=== PATIENT | female | born 1945 | race Caucasian/White ===

== ENCOUNTER 2016-06-15 06:36 | Inpatient (IN) | payer OTHER, MEDICARE ==
[2016-06-14 12:27] VITALS: BMI 34.0
[~2016-06-15 06:36] MED LIST: ceFAZolin SODIUM 1 GM VIAL IVPB ONE
[2016-06-15] MEDS ORDERED: SUCCINYLCHOLINE CHLORIDE 200 MG/10 ML VIAL ONE (07:43)
[2016-06-15] MEDS ORDERED: MIDAZOLAM HCL 2 MG/2 ML SINGLE DOSE VIAL ONE ×2 (07:43→08:35)
[2016-06-15] MEDS ORDERED: PROPOFOL 20 ML ONE ×2 (07:43)
[2016-06-15] MEDS ORDERED: LIDOCAINE HCL/PF 2% SDV 5ML VIAL ONE (07:47)
--- NOTE | 2016-06-15 08:14 | HP ---
History & Physical Update - History History: No Change - Physical Physical: No Change - Assessment Assessment: No Change - Plan Plan: No Change
[2016-06-15] MEDS ORDERED: IBUPROFEN 800 MG/8 ML IJ IVPB PRN (08:17)
[2016-06-15] MEDS ORDERED: ACETAMINOPHEN 1000 MG/100 ML VIAL (NON FORMULARY) IVPB ONE ×2 (08:18→09:41)
[2016-06-15] MEDS ORDERED: LEVOFLOXACIN 500 MG IVPB 100 ML IVPB ONE (08:19)
[2016-06-15] MEDS ORDERED: LEVOFLOXACIN 500 MG PREMIX BAG IVPB ONE (08:20)
[2016-06-15] MEDS ORDERED: DEXTROSE 5%-0.45% SALINE 1,000 ML IV SCH (08:30)
[2016-06-15] MEDS ORDERED: ROCURONIUM BROMIDE 50 MG/5 ML VIAL ONE (08:36)
[2016-06-15] MEDS ORDERED: ONDANSETRON 4 MG/2 ML VIAL IVPUSH PRN (08:53)
[2016-06-15] MEDS ORDERED: LACTATED RINGERS SOLUTION 1,000 ML IV SCH ×2 (09:00→17:00)
[2016-06-15] MEDS ORDERED: KETOROLAC TROMETHAMINE 30 MG/1 ML VIAL ONE (09:04)
[2016-06-15] MEDS ORDERED: DEXAMETHASONE SOD PHOSPHATE 4 MG/1 ML VIAL ONE (09:04)
[2016-06-15] MEDS ORDERED: HYDROmorphone HCL 2 MG TABLET PO PRN (09:29)
[2016-06-15] MEDS ORDERED: ACETAMINOPHEN INJECTION 100 ML IVPB ONE (09:41)
[2016-06-15] MEDS ORDERED: PIPERACILLIN/TAZOB 3.375 GM/50 ML PRE-DOCKED IVPB ONE ×2 (10:45→12:15)
[2016-06-15] MEDS: oxyCODONE HCL 5 MG TABLET PO PRN ×2 (15:35→20:02)
[2016-06-15] MEDS ORDERED: ERTAPENEM SODIUM 1 GM/50 ML PRE-DOCKED IVPB ONE (16:28)
--- NOTE | 2016-06-15 16:46 | HP ---
CHIEF COMPLAINT: S/P Left lithrotripsy for ureteral stone with stent placement PCP:Silverioer HISTORY OF PRESENT ILLNESS: 71F history of HTN HLD went to the OR today for left lithotripsy and placement of a stent due to a left upper ureteral stone. Patient has a history of ESBL asymptomatic UTI. Dr. Velasco wanted her admitted post-op for monitoring of fever/sepsis. She currently denies nausea vomiting chest pain or shortness of breath. She has no complaints and feel well at this time. Stent removed by Urologist per patient as it was "almost half way out" Recent Travel:Denies PAST MEDICAL HISTORY:HTN HLD PAST SURGICAL HISTORY:Shoulder Sx Back Sx Social History: Smoking:Denies Alcohol:Denies Drugs: Denies Family History: Allergies No Known Drug Allergies Allergy (Verified 06/15/16 07:23) HOME MEDICATIONS: Home Medications Medication Instructions Recorded Aspirin [Aspir 81] 81 mg PO DAILY 09/22/15 Pravastatin Sodium 10 mg PO HS 06/14/16 REVIEW OF SYSTEMS CONSTITUTIONAL: Absent: fever, chills, diaphoresis, generalized weakness, malaise, loss of appetite, weight change HEENT: Absent: rhinorrhea, nasal congestion, throat pain, throat swelling, difficulty swallowing, mouth swelling, ear pain, eye pain, visual changes CARDIOVASCULAR: Absent: chest pain, syncope, palpitations, irregular heart rate, lightheadedness , peripheral edema RESPIRATORY: Absent: cough, shortness of breath, dyspnea with exertion, orthopnea, wheezing, stridor, hemoptysis GASTROINTESTINAL: Absent: abdominal pain, abdominal distension, nausea, vomiting, diarrhea, constipation, melena, hematochezia GENITOURINARY: Absent: dysuria, frequency, urgency, hesitancy, hematuria, flank pain, genital pain MUSCULOSKELETAL: Absent: myalgia, arthralgia, joint swelling, back pain, neck pain SKIN: Absent: rash, itching, pallor HEMATOLOGIC/IMMUNOLOGIC: Absent: easy bleeding, easy bruising, lymphadenopathy, frequent infections ENDOCRINE: Absent: unexplained weight gain, unexplained weight loss, heat intolerance, cold intolerance NEUROLOGIC: Absent: headache, focal weakness or paresthesias, dizziness, unsteady gait, seizure, mental status changes, bladder or bowel incontinence PSYCHIATRIC: Absent: anxiety, depression, suicidal or homicidal ideation, hallucinations. PHYSICAL EXAMINATION Vital Signs - 24 hr 06/15/16 06/15/16 06/15/16 07:15 07:22 09:27 Temperature 98.0 F 97.5 F L Pulse Rate 56 L 50 L Respiratory 20 16 Rate Blood Pressure 156/72 157/64 O2 Sat by Pulse 99 100 Oximetry (%) 06/15/16 06/15/16 06/15/16 09:45 10:00 10:15 Temperature Pulse Rate 45 L 45 L 46 L Respiratory 16 16 16 Rate Blood Pressure 157/64 164/66 165/60 O2 Sat by Pulse 100 100 100 Oximetry (%) 06/15/16 06/15/16 06/15/16 10:30 10:45 11:00 Temperature Pulse Rate 48 L 48 L 48 L Respiratory 16 16 16 Rate Blood Pressure 161/60 153/60 154/60 O2 Sat by Pulse 100 100 100 Oximetry (%) 06/15/16 06/15/16 06/15/16 11:15 11:30 11:45 Temperature Pulse Rate 50 L 50 L 52 L Respiratory 16 16 16 Rate Blood Pressure 140/54 151/63 148/62 O2 Sat by Pulse 100 100 100 Oximetry (%) 06/15/16 06/15/16 06/15/16 12:00 12:15 12:30 Temperature 98.0 F Pulse Rate 52 L 54 L 56 L Respiratory 16 16 20 Rate Blood Pressure 146/60 148/64 143/71 O2 Sat by Pulse 100 Oximetry (%) 06/15/16 06/15/16 06/15/16 13:39 14:00 15:27 Temperature 97.8 F 97.7 F Pulse Rate 58 L 58 L 60 Respiratory 20 20 20 Rate Blood Pressure 145/70 110/68 129/89 O2 Sat by Pulse Oximetry (%) GENERAL: Awake, alert, and fully oriented, in no acute distress. HEAD: Normal with no signs of trauma. EARS, NOSE, THROAT: Moist mucous membranes. LUNGS: Breath sounds equal, clear to auscultation bilaterally HEART: Regular rate and rhythm, normal S1 and S2 3/6 systolic murmur with radiation to left carotid. aptient aware and states she has had it for years ABDOMEN: Soft, nontender, not distended, normoactive bowel sounds, no guarding, no rebound MUSCULOSKELETAL: No CVA tenderness. UPPER EXTREMITIES: No peripheral edema. LOWER EXTREMITIES: No peripheral edema. ASSESSMENT/PLAN: 71F with history of ESBL UTI last year presents with left upper ureteral obstruction stone s/p laser lithotripsy and placement of stent now stent removed. left ureteral stone with ESBL UTI in the past: admit to med/surg for post op monitoring of fever given Zosyn Will give Ertapenem 1gm daily trend vital signs discharge home tomorrow if remains afebrile pain control with oxycodone HTN: well controlled restart metoprolol XL 100mg po daily hold aspirin for now HLD: restart statin FEN: LR @ 75ml/hr no electrolyte issues regular diet PPx: SCDs/ambulate no criteria met for Gi PPx early ambulation discharge home tomorrow Visit type - Emergency Visit Emergency Visit: No - New Patient This patient is new to me today: Yes Date on this admission: 06/15/16 - Critical Care Critical Care patient: No
--- NOTE | 2016-06-15 16:48 | PN ---
Teaching Attending Note Name of Resident: Reg Fontaine ATTENDING PHYSICIAN STATEMENT I saw and evaluated the patient. I reviewed the resident's note and discussed the case with the resident. I agree with the resident's findings and plan as documented. Vital Signs Temperature 97.7 F 06/15/16 15:27 Pulse Rate 60 06/15/16 15:27 Respiratory Rate 20 06/15/16 15:27 Blood Pressure 129/89 06/15/16 15:27 O2 Sat by Pulse Oximetry (%) 100 06/15/16 12:00 Current Medications Generic Name Dose Route Start Last Admin Trade Name Freq PRN Reason Stop Dose Admin Dextrose/Sodium Chloride 1,000 mls @ 125 mls/hr 06/15/16 08:30 06/15/16 15:41 D5-1/2ns - IV 125 mls/hr ASDIR JUMANA Administration Ertapenem 1 gm/ Sodium 50 mls @ 100 mls/hr 06/15/16 16:45 Chloride IVPB DAILY JUMANA Ibuprofen 800 mg 06/15/16 08:17 Caldolor Injection - IVPB Q8H PRN PAIN OR FEVER Oxycodone HCl 5 mg 06/15/16 08:53 06/15/16 15:35 Roxicodone - PO 5 mg Q4H PRN Administration MILD PAIN Home Medications Medication Instructions Recorded Aspirin [Aspir 81] 81 mg PO DAILY 09/22/15 Pravastatin Sodium 10 mg PO HS 06/14/16 ASSESSMENT AND PLAN: 71F with history of ESBL UTI last year presents with left upper ureteral obstruction stone s/p laser lithotripsy and placement of stent now stent removed. # POD #0 s/p Lithtrepsy for left ureteral stone with hx of ESBL UTI in the past 5 months c/o having pain pain control with oxycodone #HTN: controlled continue home meds metoprolol XL 100mg po daily hold aspirin for now HLD: on statin DVT# Scd
--- NOTE | 2016-06-15 17:18 | PN ---
Progress Note (short form) - Note Progress Note: patient reported incontinence Stent was noted to be outside the urethra it was removed
[2016-06-15] MEDS ORDERED: PIPERACILLIN/TAZOB 3.375 GM/50 ML PRE-DOCKED IVPB SCH (18:00)
[2016-06-15] MEDS ORDERED: morphine CARPU-JECT 2 MG/1 ML DISP.SYRIN IVPUSH ONE (18:54)
[2016-06-15] MEDS: ERTAPENEM SODIUM 1 GM in SODIUM CHLORIDE 50 ML IVPB SCH (20:01)
[2016-06-15] MEDS ORDERED: ATORVASTATIN CA 10 MG TABLET (FP) PO SCH (22:00)
[2016-06-15] MEDS ORDERED: GABAPENTIN 300 MG CAPSULE (FP) PO SCH (22:00)
--- NOTE | 2016-06-16 05:50 | OP ---
DATE OF OPERATION: 06/15/2016 PREOPERATIVE DIAGNOSIS: Left hydronephrosis, left upper ureteral calculus. POSTOPERATIVE DIAGNOSIS: Left hydronephrosis, left upper ureteral calculus. PROCEDURE: Cystoscopy, left ureteroscopy, laser lithotripsy, stent placement, retrograde pyelogram. ANESTHESIA: General. PREOPERATIVE INDICATIONS: The patient is a 71-year-old female with incidentally found left hydronephrosis and upper ureteral stone. She comes to the OR for laser lithotripsy. DESCRIPTION OF PROCEDURE: The patient was brought to the OR, placed on the table in the supine position, given general anesthesia, and placed in the modified lithotomy position. The groin was prepped and draped sterilely. The patient had IV antibiotics. Time-out was performed. Cystoscopy was performed. The bladder appeared to be unremarkable. The urine appeared to be clear. The left UO was visualized, and a wire was passed up into the left kidney under fluoroscopic guidance. A 10-Icelandic dual-lumen catheter was placed into the left ureteral orifice without difficulty, and a 2nd wire was placed up into the kidney. Retrograde pyelogram was performed. Over one of the wires, a flexible ureteroscope was passed easily up into the upper ureter where the stone was visualized. Laser lithotripsy was performed. The entire stone was broken up into small, passable fragments. No other stones of significant size were seen throughout the urinary tract. Over the remaining wire, a 6 x 24 double-J ureteral stent was placed with 1 loop in the upper pole of the kidney and 1 loop in the bladder. The bladder was emptied. The patient was woken up. Oniel [id number]
[2016-06-16] MEDS ORDERED: METOPROLOL SUCCINATE 100 MG TAB.SR.24H (FP) PO SCH (07:00)
[2016-06-16 08:23] LABS: BASOPHIL 0.5 % (0-2.0); EOSINOPHIL 0.4 % (0-4.5); MCH 31.4 pg (25.7-33.7); MCHC 33.4 g/dl (32.0-36.0); MEAN CELL VOLUME 93.8 fl (80-96); MEAN PLT VOLUME 7.3 fl (7.5-11.1); PLATELET COUNT 252 K/MM3 (134-434); RDW 14.9 % (11.6-15.6); WHITE BLOOD COUNT 11.8 K/mm3 (4.0-10.0)
[2016-06-16 09:06] LABS: CALCIUM 9.5 mg/dL (8.5-10.1); CREATININE 0.9 mg/dL (0.55-1.02)
[2016-06-16] MEDS: ERTAPENEM SODIUM 1 GM in SODIUM CHLORIDE 50 ML IVPB SCH (09:43)
[2016-06-16] MEDS ORDERED: ERTAPENEM SODIUM 1 GM/50 ML PRE-DOCKED IVPB SCH (10:00)
[2016-06-16 11:05] VITALS: BP 139/59; PULSE 70; TEMP 97.7
--- NOTE | 2016-06-16 11:06 | PN ---
Progress Note (short form) - Note Progress Note: Comfortable with no acute distress Temperature 97.7 F 06/16/16 10:00 Pulse Rate 70 06/16/16 10:00 Respiratory Rate 21 06/16/16 10:00 Blood Pressure 139/59 06/16/16 10:00 O2 Sat by Pulse Oximetry (%) 100 06/15/16 17:17 GENERAL: Awake, alert, and fully oriented, in no acute distress. HEAD: Normal with no signs of trauma. EARS, NOSE, THROAT: Moist mucous membranes. LUNGS: Breath sounds equal, clear to auscultation bilaterally HEART: Regular rate and rhythm, normal S1 and S2 3/6 systolic murmur with radiation to left carotid. Abdomen: soft, nontender, not distended, normoactive bowel sounds, no guarding, no rebound MUSCULOSKELETAL: No CVA tenderness. EXTREMITIES: No peripheral edema. CBCD WBC 11.8 K/mm3 (4.0-10.0) H D 06/16/16 06:30 RBC 3.91 M/mm3 (3.60-5.2) 06/16/16 06:30 Hgb 12.3 GM/dL (10.7-15.3) 06/16/16 06:30 Hct 36.7 % (32.4-45.2) 06/16/16 06:30 MCV 93.8 fl (80-96) 06/16/16 06:30 MCHC 33.4 g/dl (32.0-36.0) 06/16/16 06:30 RDW 14.9 % (11.6-15.6) 06/16/16 06:30 Plt Count 252 K/MM3 (134-434) D 06/16/16 06:30 MPV 7.3 fl (7.5-11.1) L 06/16/16 06:30 CMP Sodium 142 mmol/L (136-145) 06/16/16 06:30 Potassium 4.4 mmol/L (3.5-5.1) 06/16/16 06:30 Chloride 107 mmol/L (98-107) 06/16/16 06:30 Carbon Dioxide 26 mmol/L (21-32) 06/16/16 06:30 Anion Gap 9 (8-16) 06/16/16 06:30 BUN 17 mg/dL (7-18) 06/16/16 06:30 Creatinine 0.9 mg/dL (0.55-1.02) 06/16/16 06:30 Random Glucose 88 mg/dL (74-106) 06/16/16 06:30 Calcium 9.5 mg/dL (8.5-10.1) 06/16/16 06:30 Current Medications Generic Name Dose Route Start Last Admin Trade Name Freq PRN Reason Stop Dose Admin Atorvastatin Calcium 10 mg 06/15/16 22:00 06/15/16 22:32 Lipitor - PO 10 mg HS JUMANA Administration Gabapentin 300 mg 06/15/16 22:00 06/15/16 22:32 Neurontin - PO 300 mg HS JUMANA Administration Ertapenem 1 gm/ Sodium 50 mls @ 100 mls/hr 06/15/16 16:45 06/16/16 09:43 Chloride IVPB 100 mls/hr DAILY JUMANA Administration Lactated Ringer's 1,000 mls @ 75 mls/hr 06/15/16 17:00 06/15/16 22:33 Lactated Ringers Solution IV 75 mls/hr ASDIR JUMANA Administration Ibuprofen 800 mg 06/15/16 08:17 Caldolor Injection - IVPB Q8H PRN PAIN OR FEVER Metoprolol Succinate 100 mg 06/16/16 07:00 06/16/16 06:09 Toprol Xl - PO 100 mg AM JUMANA Administration Oxycodone HCl 5 mg 06/15/16 08:53 06/15/16 20:02 Roxicodone - PO 5 mg Q4H PRN Administration MILD PAIN Home Medications Medication Instructions Recorded Aspirin [Aspir 81] 81 mg PO DAILY 09/22/15 Pravastatin Sodium 10 mg PO HS 06/14/16 Levofloxacin [Levaquin -] 500 mg PO DAILY #7 tablet 06/16/16 A/P: 71F with history of ESBL UTI last year presents with left upper ureteral obstruction stone s/p laser lithotripsy and placement of stent now stent removed. # POD #0 s/p Lithotrepsy for left ureteral stone with hx of ESBL UTI in the past 5 months # c/o having pain , pain control with oxycodone #HTN: controlled continue home meds metoprolol XL 100mg po daily, hold aspirin for now HLD: on statin DVT# Scd Visit type - Emergency Visit Emergency Visit: Yes ED Registration Date: 06/15/16 Care time: The patient presented to the Emergency Department on the above date and was hospitalized for further evaluation of their emergent condition. - New Patient This patient is new to me today: No - Critical Care Critical Care patient: No
--- NOTE | 2016-06-16 11:44 | PN ---
Progress Note (short form) - Note Progress Note: Anesthesiology Post-op POD #1 s/p Cystoscopy and laser lithotripsy under GA. Pt. feels well, denies pain, awaiting d/c to home today. VSS. No apparent anesthesia-related issues.
== END 2016-06-16 11:28 | disposition home or self-care (01) | DRG 669 ==
LOC: JASUSAT 06:36 → SUATTDRO 06:36 → JASU-SURG 06:36 → J6S 15:28
PROVIDERS: ADMIT Internal Medicine; ATTEND Internal Medicine
PROC: 0T778DZ Dilation of Left Ureter with Intraluminal Device, Via Natural or Artificial Opening Endoscopic (ICD-10-PCS; principal; 2016-06-15 08:00)
PROC: 0TC78ZZ Extirpation of Matter from Left Ureter, Via Natural or Artificial Opening Endoscopic (ICD-10-PCS; 2016-06-15 08:00)
PROC: BT1FYZZ Fluoroscopy of Left Kidney, Ureter and Bladder using Other Contrast (ICD-10-PCS; 2016-06-15 08:00)
DX: N13.2 Hydronephrosis with renal and ureteral calculous obstruction (principal); I10 Essential (primary) hypertension; E78.5 Hyperlipidemia, unspecified
CPT/HCPCS: 36415; 76000-TC; 80048; 80053; 81003; 81015; 85025; 85610; 85730; 87086; 94760

== ENCOUNTER 2016-06-19 08:03 | Day surgery (SDC) | payer OTHER, MEDICARE ==
[2016-06-18 12:21] VITALS: BMI 34.0
[~2016-06-19 08:03] MED LIST changes: +CYCLOPENTOLATE HCL 1% OPHTH SOLN 2 ML BOTTLE OD SCH; +FLURBIPROFEN 0.03% OPHTH SOLN 2.5 ML BOTTLE OD SCH; +GENTAMICIN SULFATE 0.3% OPHTHALMIC (EYE DROPS) 5ML BOTTLE OD SCH; +PHENYLEPHRINE 2.5% OPHTH SOLN 15 ML BOTTLE OD SCH; +TROPICAMIDE 1% OPHTH SOLN 15 ML BOTTLE OD SCH; -ceFAZolin SODIUM 1 GM VIAL IVPB ONE
[2016-06-19] MEDS: GENTAMICIN SULFATE 0.3% OPHTHALMIC (EYE DROPS) 5ML BOTTLE ONE ×5 (08:35→08:55)
[2016-06-19] MEDS: TROPICAMIDE 1% OPHTH SOLN 15 ML BOTTLE ONE ×5 (08:35→08:55)
[2016-06-19] MEDS: FLURBIPROFEN 0.03% OPHTH SOLN 2.5 ML BOTTLE ONE ×5 (08:35→08:55)
[2016-06-19] MEDS: CYCLOPENTOLATE HCL 1% OPHTH SOLN 2 ML BOTTLE ONE ×5 (08:35→08:55)
[2016-06-19] MEDS: PHENYLEPHRINE 2.5% OPHTH SOLN 15 ML BOTTLE ONE ×5 (08:35→08:55)
[2016-06-19] MEDS ORDERED: PROPOFOL 20 ML ONE (09:27)
[2016-06-19] MEDS ORDERED: MIDAZOLAM HCL 2 MG/2 ML SINGLE DOSE VIAL ONE (09:27)
[2016-06-19] MEDS ORDERED: LIDOCAINE HCL 2% JELLY 10 ML CARTRIDGE ONE (09:34)
[2016-06-19] MEDS ORDERED: LIDOCAINE HCL/PF 2% SDV 5ML VIAL ONE (09:34)
[2016-06-19] MEDS ORDERED: BUPIVACAINE HCL/PF 0.5% (5MG/ML) 10 ML VIAL ONE (09:34)
[2016-06-19] MEDS ORDERED: TETRACAINE 0.5% OPHTH SOLN 2 ML BOTTLE ONE (09:34)
[2016-06-19] MEDS ORDERED: ACETYLCHOLINE 1:100 INTRA-OCUL 20 MG/2 ML KIT ONE (09:34)
[2016-06-19] MEDS ORDERED: POVIDONE-IODINE 5% OPHTHALMIC PREP 30 ML SOLUTION ONE (09:34)
[2016-06-19] MEDS ORDERED: ACETAMINOPHEN 325 MG TABLET (FP) PO PRN ×2 (10:42→12:23)
[2016-06-19 11:30] VITALS: TEMP 98.6
[2016-06-19 11:34] VITALS: BP 128/58; PULSE 68
[2016-06-19] MEDS ORDERED: ONDANSETRON 4 MG/2 ML VIAL IVPUSH PRN (12:23)
[2016-06-19] MEDS ORDERED: LACTATED RINGERS SOLUTION 1,000 ML IV SCH (12:30)
--- NOTE | 2016-06-20 10:39 | OP ---
DATE OF OPERATION: 06/19/2016 PREOPERATIVE DIAGNOSIS: Cataract, right eye. POSTOPERATIVE DIAGNOSIS: Cataract, right eye. PROCEDURE: Cataract extraction via phacoemulsification with insertion of posterior chamber lens implant, right eye. SURGEON: Tor Elmore MD THERAPEUTIC STRATEGY LEAD: Leilani Bee MD ANESTHESIA: Regional with sedation. COMPLICATIONS: None. SPECIMENS: None. ESTIMATED BLOOD LOSS: None. DESCRIPTION OF PROCEDURE: The patient was identified in the holding area. After all risks, benefits, and alternatives were explained to the patient, informed consent was obtained. The right eye was marked with a marking pen. The patient then entered the operating room on an eye stretcher. After a formal time-out was performed, a 3-cc injection of equal parts of 2% lidocaine with epinephrine and 0.5% Marcaine was given around the right eye. The patient was then prepped and draped in the usual sterile fashion. An eyelid speculum was placed beneath the eyelids of the right eye. A superotemporal paracentesis incision was created using a 15-degree blade followed by a viscoelastic injection into the anterior chamber. A 2.4-mm keratome blade was then used to make an inferotemporal incision. A 360-degree continuous curvilinear capsulorrhexis was then created using bent cystotome and Utrata forceps. Hydrodissection was performed with balanced saline solution on a cannula. Phacoemulsification was introduced to disassemble and remove the nucleus in its entirety. Irrigation/aspiration was then used to remove any remaining cortical material from the eye. The capsular bag was then refilled using [employer]. An [employer] model [id number] with a power of 21.5 diopters, serial number [id number], was inspected and found to be defect-free and injected into the capsular bag. Irrigation/aspiration was then used to remove any remaining viscoelastic from the eye. Balanced saline solution was then used to reform the anterior chamber. Intracameral injections of Miochol and Miostat were then given to the right eye. All wounds were hydrated with balanced saline solution and found to be watertight. Topical antibiotic eye drops and ointment were given to the right eye. The eyelid speculum was removed from the right eye, the right eye was patched and shielded, and the patient tolerated the procedure well and left the operating room in stable condition to follow up in the eye clinic tomorrow morning at 9:00. TOR ELMORE M.D. ANGELIA/[id number]
== END 2016-06-19 11:25 | disposition home or self-care (01) ==
LOC: FASU 08:03
PROVIDERS: ATTEND Ophthalmology
PROC: 08RJ3JZ Replacement of Right Lens with Synthetic Substitute, Percutaneous Approach (ICD-10-PCS; principal; 2016-06-19 10:16)
DX: H26.8 Other specified cataract (principal)
CPT/HCPCS: 76775-TC; 76856-TC

== ENCOUNTER 2016-12-25 18:03 | Emergency (ER) | payer OTHER, MEDICARE ==
[2016-12-25 18:09] VITALS: BP 155/73; PULSE 59; TEMP 97.7; BMI 33.2
--- NOTE | 2016-12-25 19:42 | PDOC ---
History of Present Illness - General Chief Complaint: Bone Injury Stated Complaint: FALL/INJURY Time Seen by Provider: 12/25/16 19:32 History Source: Patient Exam Limitations: No Limitations - History of Present Illness Initial Comments: 12/25/16 19:36 Patient stumbled and fell one week ago outside falling onto the left side of her anterior chest wall. Is uncertain as to fell on rock or arm but has had significant pain to her lower left anterior chest wall and ribs since that time. Is uncertain as to bruising, but still has significant tenderness along the lower rib borders. Denies nausea vomiting, denies any dizziness or shortness of breath. Denies any other injury. Has used OxyContin which she is on a pain management program for cervical spine chronic pain issues Severity: reports: moderate Pain Location: reports: chest Method of Injury: Yes: direct blow, fall Modifying Factors: improves with: cold therapy, pain medication Loss of Consciousness: no loss of consciousness Associated Symptoms (Fall): denies symptoms Past History - Travel Traveled outside of the country in the last 30 days: No Close contact w/someone who was outside of country & ill: No - Past Medical History Allergies/Adverse Reactions: Allergies Allergy/AdvReac Type Severity Reaction Status Date / Time No Known Drug Allergies Allergy Verified 12/25/16 18:08 Home Medications: Ambulatory Orders Aspirin [Aspir 81] 81 mg PO DAILY 09/22/15 Pravastatin Sodium 10 mg PO HS 06/14/16 Levofloxacin [Levaquin -] 500 mg PO DAILY 06/18/16 Anemia: No Asthma: No Cancer: No Cardiac Disorders: No CVA: No COPD: No CHF: No Dementia: No Diabetes: No GI Disorders: No Disorders: Yes (L KIDNEY STONE 05/2016) HTN: No Hypercholesterolemia: Yes Liver Disease: No Seizures: No Thyroid Disease: No - Surgical History Abdominal Surgery: No Appendectomy: No Cardiac Surgery: No Cholecystectomy: No Lung Surgery: No Neurologic Surgery: Yes (BACK SURGERY 09/2015) Orthopedic Surgery: Yes (TORN MENISCUS, RIGHT) - Immunization History Immunization Up to Date: Yes - Suicide/Smoking/Psychosocial Hx Smoking History: Never smoked Have you smoked in the past 12 months: No If you are a former smoker, when did you quit?: 1960 Information on smoking cessation initiated: No Hx Alcohol Use: No Drug/Substance Use Hx: No Substance Use Type: None Hx Substance Use Treatment: No Trauma Specific PMHX - Complaint Specific PMHX Back Injury: No Neck Injury: No Review of Systems - Review of Systems Able to Perform ROS?: Yes Is the patient limited Swedish proficient: Yes Constitutional: Yes: Symptoms Reported HEENTM: No: Symptoms Reported Respiratory: Yes: Symptoms reported, See HPI. No: Cough : No: Symptoms Reported Integumentary: Yes: Symptoms Reported, See HPI, Bruising Neurological: No: Symptoms reported All Other Systems: Reviewed and Negative *Physical Exam - Vital Signs Last Vital Signs Temp Pulse Resp BP Pulse Ox 97.7 F 59 L 18 155/73 98 12/25/16 18:06 12/25/16 18:06 12/25/16 18:06 12/25/16 18:06 12/25/16 18:06 - Physical Exam General Appearance: Yes: Nourished, Appropriately Dressed, Apparent Distress, Mild Distress, Moderate Distress HEENT: positive: ZEKE, Normal ENT Inspection, Normal Voice, TMs Normal, Pharynx Normal Neck: positive: Supple. negative: Tender, Lymphadenopathy (R), Lymphadenopathy (L) Respiratory/Chest: positive: Lungs Clear Cardiovascular: positive: Regular Rate Musculoskeletal: positive: Normal Inspection. negative: Vertebral Tenderness Extremity: positive: Normal Capillary Refill, Normal Inspection, Normal Range of Motion Integumentary: positive: Normal Color, Swelling, Ecchymosis (muscles and swelling noted to the lower rib border mid clavicular line left side with point tenderness along ribs 11 and 10), Bruising Neurologic: positive: health psychologist II-XII NML intact, Fully Oriented, Alert, Normal Mood/ Affect, Normal Response, Motor Strength 5/5 ED Treatment Course - RADIOLOGY Radiology Studies Ordered: Category Date Time Status RIBS-LEFT SIDE [RAD] Stat Radiology 12/25/16 19:33 Ordered Progress Note - Progress Note Progress Note: left 10th rib fx, clinically correlates. - Met with 10 mg/325 mg Percocet tablets. Have continue using those medications for pain relief and encouraged follow-up this week with pain management to explore possible non-medicated treatment options *DC/Admit/Observation/Transfer Diagnosis at time of Disposition: Rib fractures Qualifiers: Encounter type: initial encounter Rib fracture type: single rib Fracture type: closed Laterality: left Qualified Code(s): S22.32XA - Fracture of one rib, left side, initial encounter for closed fracture; S22.32XA - Fracture of one rib, left side, initial encounter for closed fracture - Discharge Dispostion Disposition: HOME Condition at time of disposition: Stable Admit: No - Referrals Referrals: Gunnar Mcneill MD [Primary Care Provider] - Isaiah Tripp MD [Staff Physician] - - Patient Instructions Printed Discharge Instructions: DI for Rib Fracture Additional Instructions: Rest, ice to area on and off for 15 minutes 4-6 times a day Avoid heavy lifting or exercise until pain and swelling is resolved or until further directed Keep area highly elevated to reduce swelling Followup with pain management in one to 2 days if not improving, if significantly improved may wait one week for followup with PMD/ Pain Management May use ibuprofen 2-200 mg tablets every 6 hours as needed for pain Continue with stronger pain medications, 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
== END 2016-12-25 20:04 | disposition home or self-care (01) ==
LOC: JERFT 18:03
DX: S22.32XA Fracture of one rib, left side, initial encounter for closed fracture (principal); W19.XXXA Unspecified fall, initial encounter; Y93.9 Activity, unspecified; Y92.9 Unspecified place or not applicable
CPT/HCPCS: 71101-TC; 99281-25

== ENCOUNTER 2017-06-30 16:45 | Inpatient (IN) | payer OTHER, MEDICARE ==
[2017-06-30] MEDS ORDERED: SODIUM CHLORIDE 1,000 ML IV STA ×2 (17:12→23:00)
[2017-06-30] MEDS ORDERED: morphine CARPU-JECT 4 MG/1 ML DISP.SYRIN IVPUSH ONE (17:13)
--- NOTE | 2017-06-30 17:13 | PDOC ---
History of Present Illness - General History Source: Patient, Family Exam Limitations: No Limitations - History of Present Illness Initial Comments: The patient is a 72 year old female, accompanied with her daughter, with a significant past medical history of left kidney stone (05/2016) and HLD, who presents to the emergency department complaining of moderate lower left quadrant pain since 12pm. The patient reports driving to [place] when she felt sudden nausea and pain in her lower left quadrant shortly after. The patient describes the pain as constant, ranked 8/10 in severity. She states everything in her world felt off. She reports associated symptoms of chills and nausea. She reports her last bowel movement was normal this morning; however, afterwards she had the urge to pass stool, but was unable to. Of note, the patient is currently prescribed to take Oxycodone 5mg 3x a day for pain in her lower back and right knee, but most oftenly takes it once a day. The patient denies chest pain, shortness of breath, headache, and dizziness. Denies fevers, vomiting, diarrhea, and constipation. Denies dysuria, frequency, urgency, and hematuria. Allergies: NKDA Past surgical history: Lumbar and Cervical Spinal surgery (2015). Right knee replacement (03/2017). Cholecystectomy. Social history: Occasional alcohol use, 1 glass of wine per week. Former cigarette smoker (1959). No reported drug use. <Carmelina Paul - Last Filed: 06/30/17 17:44> <Ish Luong - Last Filed: 06/30/17 19:06> - General Chief Complaint: Pain, Acute Stated Complaint: LEFT LOWER ABD PAIN Time Seen by Provider: 06/30/17 16:52 Past History <Carmelina Paul - Last Filed: 06/30/17 17:44> - Past Medical History Anemia: No Asthma: No Cancer: No Cardiac Disorders: No CVA: No COPD: No CHF: No Dementia: No Diabetes: No GI Disorders: No (GALSTONE REMOVAL) Disorders: Yes (L KIDNEY STONE 05/2016) HTN: No Hypercholesterolemia: Yes Liver Disease: No Seizures: No Thyroid Disease: No - Surgical History Abdominal Surgery: No Appendectomy: No Cardiac Surgery: No Cholecystectomy: No Lung Surgery: No Neurologic Surgery: Yes (BACK SURGERY 09/2015) Orthopedic Surgery: Yes (TORN MENISCUS, RIGHT) - Immunization History Immunization Up to Date: Yes - Suicide/Smoking/Psychosocial Hx Smoking History: Never smoked Have you smoked in the past 12 months: No If you are a former smoker, when did you quit?: 1959 Information on smoking cessation initiated: No Hx Alcohol Use: No Drug/Substance Use Hx: No Substance Use Type: None Hx Substance Use Treatment: No <Ish Luong - Last Filed: 06/30/17 19:06> - Past Medical History Allergies/Adverse Reactions: Allergies Allergy/AdvReac Type Severity Reaction Status Date / Time No Known Drug Allergies Allergy Verified 12/25/16 18:08 Home Medications: Ambulatory Orders Celecoxib 200 mg PO ASDIR 12/25/16 oxyCODONE HCL [Roxicodone -] 5 mg PO Q6H 12/25/16 Famotidine [Pepcid] 40 mg PO DAILY 06/30/17 Review of Systems - Review of Systems Able to Perform ROS?: Yes Comments:: CONSTITUTIONAL:(+)Chills Absent: Fever, Diaphoresis, Generalized Weakness, Malaise, Loss of Appetite HEENT: Absent: Rhinorrhea, Nasal Congestion, Throat Pain, Throat Swelling, Difficulty Swallowing, Mouth Swelling, Ear Pain, Eye Pain, Visual Changes CARDIOVASCULAR: Absent: Chest Pain, Syncope, Palpitations, Irregular Heart Rate, Lightheadedness , Peripheral Edema RESPIRATORY: Absent: Cough, Shortness of Breath, SOB with Exertion, Orthopnea, Wheezing, Stridor, Hemoptysis GASTROINTESTINAL: (+)Lower left quadrant pain. Absent: Vomiting, Diarrhea, Constipation, Melena, Hematochezia GENITOURINARY: Absent: Dysuria, Frequency, Urgency, Hesitancy, Flank Pain, Genital Pain MUSCULOSKELETAL: Absent: Myalgia, Arthralgia, Joint Swelling, Back pain, Neck Pain SKIN: Absent: Rash, Itching, Pallor HEMATOLOGIC/IMMUNOLOGIC: Absent: Easy Bleeding, Easy Bruising, Lymphadenopathy, Frequent infections ENDOCRINE: Absent: Unexplained Weight Gain, Unexplained Weight Loss, Heat Intolerance, Cold Intolerance NEUROLOGIC: Absent: Headache, Focal Weakness, Paresthesias, Vertigo, Lightheadedness, Unsteady Gait, Seizure, Mental Status Changes, Incontinence PSYCHIATRIC: Absent: Anxiety, Depression <Carmelina Paul - Last Filed: 06/30/17 17:44> *Physical Exam - Vital Signs Last Vital Signs Temp Pulse Resp BP Pulse Ox 97.6 F 68 20 192/81 100 06/30/17 16:46 06/30/17 16:46 06/30/17 16:46 06/30/17 16:46 06/30/17 16:46 - Physical Exam Comments: GENERAL: The patient is awake, alert, and fully oriented, in no acute distress. HEAD: Normal with no signs of trauma. EYES: Pupils equal, round and reactive to light, extraocular movements intact, sclera anicteric, conjunctiva clear. ENT: Ears normal, nares patent, oropharynx clear without exudates. Moist mucous membranes. NECK: Normal range of motion, supple without lymphadenopathy, JVD, or masses. LUNGS: Breath sounds equal, clear to auscultation bilaterally. No wheezes, and no crackles. HEART: Regular rate and rhythm, normal S1 and S2 without murmur, rub or gallop. BACK: No CVA tenderness. No Flank tenderness. ABDOMEN: (+)Exquisite tenderness to palpation in lower left quadrant and left mid abdomen. Normoactive bowel sounds. No guarding, no rebound. No masses. EXTREMITIES: Normal range of motion, no edema. No clubbing or cyanosis. No cords , erythema, or tenderness. NEUROLOGICAL: Cranial nerves II through XII grossly intact. Normal speech, normal gait. PSYCH: Normal mood, normal affect. SKIN: Warm, Dry, normal turgor, no rashes or lesions noted. <Carmelina Paul - Last Filed: 06/30/17 17:44> - Vital Signs Last Vital Signs Temp Pulse Resp BP Pulse Ox 97.6 F 68 20 192/81 100 06/30/17 16:46 06/30/17 16:46 06/30/17 16:46 06/30/17 16:46 06/30/17 16:46 <Ish Luong - Last Filed: 06/30/17 19:06> ED Treatment Course - LABORATORY CBC & Chemistry Diagram: 06/30/17 17:33 06/30/17 17:33 - Medications Given in the ED: ED Medications Discontinued Medications Generic Name Dose Route Start Last Admin Trade Name Freq PRN Reason Stop Dose Admin Morphine Sulfate 4 mg 06/30/17 17:13 06/30/17 17:36 Morphine Injection - IVPUSH 06/30/17 17:14 4 mg ONCE ONE Administration Ondansetron HCl 4 mg 06/30/17 17:27 06/30/17 17:36 Zofran Injection IVPB 06/30/17 17:28 4 mg ONCE ONE Administration <Carmelina Paul - Last Filed: 06/30/17 17:44> - LABORATORY CBC & Chemistry Diagram: 06/30/17 17:33 06/30/17 17:33 - RADIOLOGY Radiology Studies Ordered: Category Date Time Status ABDOMEN & PELVIS CT WITH CONTR [CT] Stat CT Scan 06/30/17 17:11 Ordered <Ish Luong - Last Filed: 06/30/17 19:06> Medical Decision Making - Medical Decision Making 06/30/17 19:04 72-year-old female with history of kidney stones and diverticulosis presents complaining of left lower quadrant pain. Pain started today and was associated with nausea but no vomiting. On examination, there is significant tenderness in the left mid and lower abdomen. There is no guarding or rebound tenderness. Differential diagnosis includes diverticulitis versus kidney stone. Patient will have CT scan with IV contrast. Laboratory studies reviewed. White blood cell count is increased with increased neutrophils. CT scan has been performed and shows hydronephrosis on the left. Official CT scan reading is pending. Patient endorsed to Dr. Bañuelos pending official CT scan results and urinalysis. Patient will be admitted once results are available. <Ish Luong - Last Filed: 06/30/17 19:06> *DC/Admit/Observation/Transfer - Attestations Scribe Attestion: Documentation prepared by Carmelina Paul, acting as medical oncology physician for Ish Luong MD. <Carmelina Paul - Last Filed: 06/30/17 17:44> <Ish Luong - Last Filed: 06/30/17 19:06> Diagnosis at time of Disposition: Kidney stone on left side
[2017-06-30] MEDS ORDERED: morphine SULFATE 4 MG/ML VIAL ONE (17:21)
[2017-06-30] MEDS ORDERED: ONDANSETRON 4 MG/2 ML VIAL IVPB ONE (17:27)
[2017-06-30] MEDS ORDERED: ONDANSETRON 4 MG/2 ML VIAL ONE (17:28)
[2017-06-30 17:52] LABS: BASO % 2.7 % (0-2.0); EOS % 0.2 % (0-4.5); HEMATOCRIT 38.3 % (32.4-45.2); HEMOGLOBIN 12.8 GM/dl (10.7-15.3); LYMPH % 9.2 % (8-40); MCH 29.4 pg (25.7-33.7); MCHC 33.3 g/dl (32.0-36.0); MEAN CELL VOLUME 88.2 fl (80-96); MONO % 3.6 % (3.8-10.2); NEUT % 84.3 % (42.8-82.8); PLATELET COUNT 265 K/MM3 (134-434); RBC 4.34 M/mm3 (3.60-5.2); RDW 14.9 % (11.6-15.6); WHITE BLOOD COUNT 11.8 K/mm3 (4.0-10.8)
[2017-06-30 17:58] LABS: ALBUMIN 3.7 g/dl (3.5-5.0); ALK PHOS 82 U/L (32-92); ANION GAP 6 (8-16); BLOOD UREA NITROGEN 16 mg/dl (7-18); CALCIUM 9.4 mg/dl (8.4-10.2); CHLORIDE 106 mmol/L (98-107); CO2 25 mmol/L (22-28); CREATININE 1.1 mg/dl (0.6-1.3); GLUCOSE,RANDOM 133 mg/dl (74-106); POTASSIUM 4.3 mmol/L (3.5-5.1); SGOT/AST 32 U/L (10-42); SGPT/ALT 19 U/L (10-40); SODIUM 137 mmol/L (136-145); TOT PROT 7.2 g/dl (6.4-8.3)
[2017-06-30 19:01] LABS: BILIRUBIN,TOTAL < 0.5 mg/dl (0.2-1.0)
[2017-06-30] MEDS ORDERED: METOCLOPRAMIDE HCL INJECTION 10 MG/2 ML VIAL IVPUSH ONE (19:16)
--- NOTE | 2017-06-30 19:55 | PDOC ---
*Physical Exam - Vital Signs Last Vital Signs Temp Pulse Resp BP Pulse Ox 97.6 F 68 20 192/81 100 06/30/17 16:46 06/30/17 16:46 06/30/17 16:46 06/30/17 16:46 06/30/17 16:46 <Carmelina Paul - Last Filed: 06/30/17 20:02> - Vital Signs Last Vital Signs Temp Pulse Resp BP Pulse Ox 97.6 F 68 20 192/81 100 06/30/17 16:46 06/30/17 16:46 06/30/17 16:46 06/30/17 16:46 06/30/17 16:46 <Saeed Darden I - Last Filed: 06/30/17 21:15> ED Treatment Course - LABORATORY CBC & Chemistry Diagram: 06/30/17 17:33 06/30/17 17:33 - ADDITIONAL ORDERS Additional order review: Laboratory Results 06/30/17 17:33 Sodium 137 Potassium 4.3 Chloride 106 Carbon Dioxide 25 Anion Gap 6 L BUN 16 D Creatinine 1.1 D Creat Clearance w eGFR 48.69 Random Glucose 133 H D Calcium 9.4 Total Bilirubin < 0.5 D AST 32 D ALT 19 Alkaline Phosphatase 82 Total Protein 7.2 Albumin 3.7 06/30/17 17:33 RBC 4.34 MCV 88.2 MCHC 33.3 RDW 14.9 MPV 7.0 L Neutrophils % 84.3 H Lymphocytes % 9.2 Monocytes % 3.6 L Eosinophils % 0.2 Basophils % 2.7 H - Medications Given in the ED: ED Medications Discontinued Medications Generic Name Dose Route Start Last Admin Trade Name Freq PRN Reason Stop Dose Admin Sodium Chloride 1,000 mls @ 1,000 mls/hr 06/30/17 17:12 06/30/17 17:36 Normal Saline - IV 06/30/17 18:11 1,000 mls/hr ASDIR STA Administration Metoclopramide HCl 10 mg 06/30/17 19:16 06/30/17 19:20 Reglan Injection - IVPUSH 06/30/17 19:17 10 mg ONCE ONE Administration Morphine Sulfate 4 mg 06/30/17 17:13 06/30/17 17:36 Morphine Injection - IVPUSH 06/30/17 17:14 4 mg ONCE ONE Administration Ondansetron HCl 4 mg 06/30/17 17:27 06/30/17 17:36 Zofran Injection IVPB 06/30/17 17:28 4 mg ONCE ONE Administration <Carmelina Paul - Last Filed: 06/30/17 20:02> - LABORATORY CBC & Chemistry Diagram: 06/30/17 17:33 06/30/17 17:33 - ADDITIONAL ORDERS Additional order review: Laboratory Results 06/30/17 17:33 Sodium 137 Potassium 4.3 Chloride 106 Carbon Dioxide 25 Anion Gap 6 L BUN 16 D Creatinine 1.1 D Creat Clearance w eGFR 48.69 Random Glucose 133 H D Calcium 9.4 Total Bilirubin < 0.5 D AST 32 D ALT 19 Alkaline Phosphatase 82 Total Protein 7.2 Albumin 3.7 06/30/17 17:33 RBC 4.34 MCV 88.2 MCHC 33.3 RDW 14.9 MPV 7.0 L Neutrophils % 84.3 H Lymphocytes % 9.2 Monocytes % 3.6 L Eosinophils % 0.2 Basophils % 2.7 H - Medications Given in the ED: ED Medications Discontinued Medications Generic Name Dose Route Start Last Admin Trade Name Freq PRN Reason Stop Dose Admin Sodium Chloride 1,000 mls @ 1,000 mls/hr 06/30/17 17:12 06/30/17 17:36 Normal Saline - IV 06/30/17 18:11 1,000 mls/hr ASDIR STA Administration Metoclopramide HCl 10 mg 06/30/17 19:16 06/30/17 19:20 Reglan Injection - IVPUSH 06/30/17 19:17 10 mg ONCE ONE Administration Morphine Sulfate 4 mg 06/30/17 17:13 06/30/17 17:36 Morphine Injection - IVPUSH 06/30/17 17:14 4 mg ONCE ONE Administration Ondansetron HCl 4 mg 06/30/17 17:27 06/30/17 17:36 Zofran Injection IVPB 06/30/17 17:28 4 mg ONCE ONE Administration <Saeed Darden I - Last Filed: 06/30/17 21:15> Progress Note - Progress Note Progress Note: Care of this patient was transferred to al from Dr. Dietrich at 1900 hrs. This is a 72-year-old female who comes in with left flank left lower quadrant pain. Patient has a history of renal colic in the past Patient has a workup that shows a moderately elevated white count with a left shift. Patient has a CAT scan that is pending to rule out renal colic versus diverticulitis. Patient's CAT scan shows the following: Referring Physician: KARLA Jones Comments: Vivek Medina MD wrote on Jun 30, 2017 at 07:46 PM: Referring Physician: KARLA Jones Patient Name: TANNA LOVE THIS IS A PRELIMINARY REPORT FROM [facility] DATE OF SERVICE: 2017-06-30 18:24:52 IMAGES: 501 EXAM: CT abdomen/pelvis with contrast HISTORY: Left lower quadrant pain COMPARISON: None. FINDINGS: There is mild atelectasis noted in the lower lobes. There is hepatic steatosis and hepatomegaly. The gallbladder is mildly distended. Small stones or minimal dense sludge noted in the gallbladder. There is moderately extensive left hydronephrosis and left hydroureter. There is no obstructing 5 mm calculus noted in the distal left ureter. 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 There is a tiny air bubble noted in the left renal collecting system, possibly iatrogenic if there has been recent instrumentation? No AAA. There is sigmoid diverticulosis without obvious diverticulitis. Normal appendix Urinary bladder is minimally distended. There are no bladder calculi. THIS DOCUMENT HAS BEEN ELECTRONICALLY SIGNED Vivek Medina MD Assessment and plan: This is a 72-year-old female who comes in with left flank left lower quadrant pain. Patient's CAT scan shows moderate hydronephrosis and hydroureter with a marked amount of perinephric inflammatory changes. Patient has a low-grade temperature with a mildly elevated white count and left shift. Patient's urine is positive for infection. Patient will be admitted to an inpatient [facility] bed, antibiotics Zosyn were given, patient will be admitted to the hospitalist service. Signout given to the admitting hospitalist, who accepts the patient. Discussed plan with the patient family at bedside, Patient and family aware of the plan and agree. Patient is clinically unchanged and stable. <Saeed Darden I - Last Filed: 06/30/17 21:15> Medical Decision Making - Medical Decision Making Paged office of Dr. Concepcion at 19:55. <Carmelina Paul - Last Filed: 06/30/17 20:02> *DC/Admit/Observation/Transfer - Attestations Scribe Attestion: Documentation prepared by Carmelina Paul, acting as medical lead for Saeed Darden MD. <Carmelina Paul - Last Filed: 06/30/17 20:02> - Discharge Dispostion Admit: Yes <Saeed Darden I - Last Filed: 06/30/17 21:15> Diagnosis at time of Disposition: Kidney stone on left side, Hydronephrosis with infection
[2017-06-30] MEDS ORDERED: DEXTROSE 5%-0.45% SALINE 1,000 ML IV SCH (20:15)
--- NOTE | 2017-06-30 20:23 | HP ---
CHIEF COMPLAINT: Fever, Chills, Abdominal Pain, R-Knee Pain, Swelling PCP: Dr. Mcneill HISTORY OF PRESENT ILLNESS: 72 y/o woman with PMH of HTN, HLD, Renal Calculi. Who presents to the ED with LLQ pain, fever, chills x 1 day, R- knee pain and swelling x several days. Patient reports having sharp intermittent pain with nausea. Patient denies cough , SOB, N/V/D, dysuria. ER course was notable for: (1) CTAP- 5mm non-obstructing stone, +left hydronephrosis, sludge in GB, with stones, +diverticulosis (2) Sepsis Criteria met- T Max 104.5, WBC 11.8, Spo2 92%, LA 3.1 (3) UTI- +Nitrate, + Trace Christina Esterase, Mod bacteria, WBC 15-20 Recent Travel: None PAST MEDICAL HISTORY: See HPI PAST SURGICAL HISTORY: Gallstone removal R-TKR Lumbar Cervical Social History: Smoking: Never Alcohol: None Drugs: None Family History: Non-contributory Allergies No Known Drug Allergies Allergy (Verified 12/25/16 18:08) HOME MEDICATIONS: Home Medications Medication Instructions Recorded Celecoxib 200 mg PO ASDIR 12/25/16 oxyCODONE HCL [Roxicodone -] 5 mg PO Q6H 12/25/16 Famotidine [Pepcid] 40 mg PO DAILY 06/30/17 REVIEW OF SYSTEMS CONSTITUTIONAL: fever, chills Absent: diaphoresis, generalized weakness, malaise, loss of appetite, weight change HEENT: Absent: rhinorrhea, nasal congestion, throat pain, throat swelling, difficulty swallowing, mouth swelling, ear pain, eye pain, visual changes CARDIOVASCULAR: Absent: chest pain, syncope, palpitations, irregular heart rate, lightheadedness , peripheral edema RESPIRATORY: Absent: cough, shortness of breath, dyspnea with exertion, orthopnea, wheezing, stridor, hemoptysis GASTROINTESTINAL: abdominal pain, nausea Absent: abdominal distension, vomiting, diarrhea, constipation, melena, hematochezia GENITOURINARY: Absent: dysuria, frequency, urgency, hesitancy, hematuria, flank pain, genital pain MUSCULOSKELETAL: arthralgia, joint swelling Absent: myalgia, back pain, neck pain SKIN: Absent: rash, itching, pallor HEMATOLOGIC/IMMUNOLOGIC: Absent: easy bleeding, easy bruising, lymphadenopathy, frequent infections ENDOCRINE: Absent: unexplained weight gain, unexplained weight loss, heat intolerance, cold intolerance NEUROLOGIC: Absent: headache, focal weakness or paresthesias, dizziness, unsteady gait, seizure, mental status changes, bladder or bowel incontinence PSYCHIATRIC: Absent: anxiety, depression, suicidal or homicidal ideation, hallucinations. PHYSICAL EXAMINATION Vital Signs - 24 hr 06/30/17 16:46 Temperature 97.6 F Pulse Rate 68 Respiratory 20 Rate Blood Pressure 192/81 O2 Sat by Pulse 100 Oximetry (%) GENERAL: Lethargic, in mild distress. HEAD: Normal with no signs of trauma. EYES: Pupils equal, round and reactive to light, sclera anicteric, conjunctiva clear. No lid lag. EARS, NOSE, THROAT: Ears normal, nares patent, oropharynx clear without exudates. Dry mucous membranes. NECK: Normal range of motion, supple without lymphadenopathy, JVD, or masses. LUNGS: Breath sounds equal, clear to auscultation bilaterally. No wheezes, and no crackles. No accessory muscle use. HEART: Regular rate and rhythm, normal S1 and S2 without murmur, rub or gallop. ABDOMEN: LLQ tenderness, hypoactive bowel sounds, Soft not distended, no guarding, no rebound, no masses. No hepatomegaly or splenomegaly. MUSCULOSKELETAL: R- knee tenderness, swelling, warmth to palpation Normal range of motion at all joints. No bony deformities, No CVA tenderness. UPPER EXTREMITIES: 2+ pulses, warm, well-perfused. No cyanosis. No clubbing. No peripheral edema. LOWER EXTREMITIES: 2+ pulses, warm, well-perfused. No calf tenderness. No peripheral edema. NEUROLOGICAL: Cranial nerves II-XII intact. Normal speech. Gait not observed. PSYCHIATRIC: Cooperative. Some eye contact. Appropriate mood and affect. SKIN: Warm, dry, normal turgor, no rashes or lesions noted, normal capillary refill. Laboratory Results - last 24 hr 06/30/17 06/30/17 17:33 17:33 WBC 11.8 H D RBC 4.34 Hgb 12.8 Hct 38.3 MCV 88.2 MCH 29.4 MCHC 33.3 RDW 14.9 Plt Count 265 MPV 7.0 L Neutrophils % 84.3 H Lymphocytes % 9.2 Monocytes % 3.6 L Eosinophils % 0.2 Basophils % 2.7 H Sodium 137 Potassium 4.3 Chloride 106 Carbon Dioxide 25 Anion Gap 6 L BUN 16 D Creatinine 1.1 D Creat Clearance w eGFR 48.69 Random Glucose 133 H D Calcium 9.4 Total Bilirubin < 0.5 D AST 32 D ALT 19 Alkaline Phosphatase 82 Total Protein 7.2 Albumin 3.7 Referring Physician: KARLA Jones Comments: Vivek Medina MD wrote on Jun 30, 2017 at 07:46 PM: Referring Physician: KARLA Jones Patient Name: TANNA LOVE THIS IS A PRELIMINARY REPORT FROM [facility] DATE OF SERVICE: 2017-06-30 18:24:52 IMAGES: 501 EXAM: CT abdomen/pelvis with contrast HISTORY: Left lower quadrant pain COMPARISON: None. FINDINGS: There is mild atelectasis noted in the lower lobes. There is hepatic steatosis and hepatomegaly. The gallbladder is mildly distended. Small stones or minimal dense sludge noted in the gallbladder. There is moderately extensive left hydronephrosis and left hydroureter. There is no obstructing 5 mm calculus noted in the distal left ureter. 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 There is a tiny air bubble noted in the left renal collecting system, possibly iatrogenic if there has been recent instrumentation? No AAA. There is sigmoid diverticulosis without obvious diverticulitis. Normal appendix Urinary bladder is minimally distended. There are no bladder calculi. THIS DOCUMENT HAS BEEN ELECTRONICALLY SIGNED Vivek Medina MD ASSESSMENT/PLAN: This is a 72 y/o woman Admitted to ICU for Sepsis secondary to UTI, Nephrolithiasis, Hydronephrosis. Plan: 1. ID: Sepsis secondary to UTI - Cardiac monitoring - Criteria met: T Max 104.5, Spo2 92%, WBC 11.8, LA 3.1 - qSOFA 1 - Blood Cultures-pending - Urine Culture-pending - Zosyn given in ED, will add Vancomycin and continue - Appreciate ID consult - Appreciate Collar Closer Lockstitch consult - NS 1L fluid bolus given in ED - NS bolus 1L now 2/2 LA 3.1 - Maintain MAP > 60-65 mmHg - Repeat LA after fluid bolus - CBC, BMP in am 2. Urology: Nephrolithiasis Hydronephrosis - CTAP- See above - Zosyn given in ED, continue - Appreciate Urology consult - Appreciate ID consult - Flomax - Strain urine - IVF - Monitor CBC, BMP - Monitor vitals 3. Cardiology: Hypertension Hyperlipidemia - Hold all BP meds secondary to hypotension - Monitor BP - Maintain MAP > 60 - Monitor renal function - Continue statin - Monitor LFTs 4. Ortho: Right Knee Pain - s/p R-TKR - Possibly due to Effusion vs Septic Joint vs DVT - Appreciate Ortho consult - Wells Score 2 - Duplex of LE r/o DVT-pending - Tylenol prn - Elevate extremity 5. GI: Cholelithiasis - CTAP- see above - Continue Zosyn - Gallbladder US- r/o Cholangitis - Appreciate GI consult - Monitor vitals - Monitor CBC, BMP - Blood Cultures-pending - NPO - Continue IVF 6. FEN - D51/2NS@83ml/hr - Replete lytes prn - NPO 7. DVT ppx - SCDs - Heparin SQ Code Status: Full Code Dispo: Requires Inpatient Care Problem List - Problem (1) Sepsis Code(s): A41.9 - SEPSIS, UNSPECIFIED ORGANISM (2) Hydronephrosis with infection Code(s): N13.6 - PYONEPHROSIS (3) Kidney stone on left side Code(s): N20.0 - CALCULUS OF KIDNEY (4) Right knee pain Code(s): M25.561 - PAIN IN RIGHT KNEE (5) Cholelithiasis Code(s): K80.20 - CALCULUS OF GALLBLADDER W/O CHOLECYSTITIS W/O OBSTRUCTION (6) Hyperlipidemia Code(s): E78.5 - HYPERLIPIDEMIA, UNSPECIFIED (7) Hypertension Code(s): I10 - ESSENTIAL (PRIMARY) HYPERTENSION (8) DVT prophylaxis Code(s): WAN5010 - Visit type - Emergency Visit Emergency Visit: Yes ED Registration Date: 06/30/17 Care time: The patient presented to the Emergency Department on the above date and was hospitalized for further evaluation of their emergent condition. - New Patient This patient is new to me today: Yes Date on this admission: 06/30/17 - Critical Care Critical Care patient: Yes Total Critical Care Time (in minutes): 45 Critical Care Statement: The care of this patient involved high complexity decision making to prevent further life threatening deterioration of the patient 's condition and/or to evaluate & treat vital organ system(s) failure or risk of failure. Hospitalist Screening - Colonoscopy Questionnaire Colonoscopy Questionnaire: Colonoscopy Questionnaire - Patient: 50 - 75 years old and never had a screening colonoscopy: Unknown History of colon or rectal polyps, or CA: Unknown History of IBD, Crohn's disease or UC: Unknown History of abdominal radiation therapy as a child: Unknown - Relative: 1 with colon or rectal CA, or polyps at age 60 or younger: Unknown Colon or rectal CA diagnosed at age 45 or younger: Unknown Multiple relatives with colon or rectal CA: Unknown - Outcome: Screening Result: Negative Screen
[2017-06-30] MEDS ORDERED: PIPERACILLIN/TAZOBACTAM 3.375 GM VIAL IVPB ONE (20:32)
[2017-06-30 20:40] LABS: URINE APPEARANCE Clear; URINE BILIRUBIN Negative (NEGATIVE); URINE COLOR YELLOW; URINE GLUCOSE (UA) Negative (NEGATIVE); URINE KETONE Negative (NEGATIVE); URINE LEUK ESTERASE TRACE (NEGATIVE); URINE NITRITE Positive (NEGATIVE); URINE PROTEIN Negative (NEGATIVE); URINE UROBILINOGEN 0.2 (0.2-1.0)
[2017-06-30] MEDS ORDERED: ACETAMINOPHEN 1000 MG/100 ML VIAL (NON FORMULARY) IVPB ONE (20:43)
[2017-06-30] MEDS ORDERED: PIPERACIL/TAZOB 3.375 GM 3.375 GM/50 ML PREMIX IVPB ONE (20:45)
[2017-06-30 20:48] LABS: EPI CELLS FEW /HPF; URINE BACTERIA MODERATE /hpf (NEGATIVE); URINE WBC 15-20 (0-5)
[2017-06-30] MEDS ORDERED: ACETAMINOPHEN INJECTION 100 ML IVPB ONE (20:50)
[2017-06-30] MEDS ORDERED: ONDANSETRON 4 MG/2 ML VIAL IVPUSH PRN (21:12)
[2017-06-30 21:40] LABS: INR 1.08 (0.82-1.09); PROTHROMBIN TIME (PATIENT) 12.1 SEC (10.2-13.0)
[2017-06-30] MEDS ORDERED: HEPARIN NA (PORCINE) 5,000 UNITS/ML 1ML VIAL ONE (22:18)
[2017-06-30] MEDS: HEPARIN NA (PORCINE) 5,000 UNITS/ML 1ML VIAL SQ SCH (22:22)
[2017-07-01 01:52] VITALS: BMI 34.8
[2017-07-01] MEDS ORDERED: PIPERACIL/TAZOB 3.375 GM 3.375 GM/50 ML PREMIX IVPB SCH (02:00)
[2017-07-01] MEDS ORDERED: PIPERACILLIN/TAZOB 3.375 GM 3.375 GM/50 ML BAG IVPB SCH (02:00)
[2017-07-01] MEDS ORDERED: PIPERACILLIN/TAZOB 3.375 GM 3.375 GM in DEXTROSE 5%-WATER - 50 ML IVPB SCH (02:15)
[2017-07-01] MEDS ORDERED: PIPERACILLIN/TAZOBACTAM 3.375 GM VIAL IVPB ONE (02:17)
[2017-07-01] MEDS ORDERED: DEXTROSE 5%-WATER - 50 ML IVPB ONE (02:17)
[2017-07-01] MEDS: morphine SULFATE 4 MG/ML VIAL IVPUSH PRN (03:03)
[2017-07-01] MEDS ORDERED: ACETAMINOPHEN 1000 MG/100 ML VIAL (NON FORMULARY) IVPB ONE ×2 (03:30→13:30)
[2017-07-01] MEDS ORDERED: VANCOMYCIN 1,000 MG in DEXTROSE 5%-WATER - 250 ML IVPB ONE (04:30)
--- NOTE | 2017-07-01 04:48 | CONSULT ---
Consult Consult Specialty:: Pulmonary Critical Care Reason for Consultation:: Sepsis - History of Present Illness Chief Complaint: LLL abdominal pain History of Present Illness: 72 yo female with h/o kidney stones who presented to [place] ER on 06/30 c/o LLQ abdominal pain as well as nausea. Labs notable for leukocytosis (WBC 11), UA with +leuk esterase and WBC, lactate of 3 (subsequently down to 1). CT scan showed L hydronephrosis as well as nephrolithiasis. In ED febrile to 104. Was given 1L of fluids and started on zosyn. Admitted to ICU for relative hypotension (BP 105/50) and concern for impending decompensation. On arrival to the ICU pt's BP 118/54, HR 76, Temp 100.5, SpO2 98%. Current Medications Chlorhexidine Gluconate (Hibiclens For Decolonization -) 1 applic TP HS [facility] Heparin Sodium (Porcine) (Heparin -) 5,000 unit SQ TID [facility] Last Admin: 06/30/17 22:22 Dose: 5,000 unit Dextrose/Sodium Chloride (D5-1/2ns -) 1,000 mls @ 83 mls/hr IV ASDIR [facility] Last Admin: 06/30/17 22:07 Dose: 83 mls/hr Piperacillin Sod/Tazobactam (Sod 3.375 gm/ Dextrose) 50 mls @ 100 mls/hr IVPB Q8H-IV [facility] Stop: 07/01/17 10:29 Last Admin: 07/01/17 02:20 Dose: 100 mls/hr Vancomycin HCl 1,000 mg/ (Dextrose) 250 mls @ 250 mls/hr IVPB ONCE ONE PRN Reason: Protocol Stop: 07/01/17 05:29 Last Admin: 07/01/17 04:34 Dose: 250 mls/hr Morphine Sulfate (Morphine Sulfate) 4 mg IVPUSH Q6H PRN PRN Reason: PAIN LEVEL 6-10 Last Admin: 07/01/17 03:03 Dose: 4 mg Mupirocin (Bactroban Ointment (For Decolonization) -) 1 applic NS BID [facility] Stop: 07/06/17 09:59 Ondansetron HCl (Zofran Injection) 4 mg IVPUSH Q6H PRN PRN Reason: NAUSEA AND/OR VOMITING Piperacillin/Tazobactam/Dextrose (Zosyn 3.375gm Ivpb (Premix)) 3.375 gm IVPB Q8H-IV [facility] - Past Medical History 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: Other (spinal stenosis) Cardio/Vascular: Yes: Other (PSVT) ...: No Psych: Yes: Anxiety Musculoskeletal: Yes: Chronic low back pain - Alcohol/Substance Use Hx Alcohol Use: No - Smoking History Smoking history: Never smoked Have you smoked in the past 12 months: No If you are a former smoker, when did you quit?: 1959 - Social History Usual Living Arrangement: With Spouse ADL: Independent History of Recent Travel: No Home Medications - Allergies Allergies/Adverse Reactions: Allergies Allergy/AdvReac Type Severity Reaction Status Date / Time No Known Drug Allergies Allergy Verified 12/25/16 18:08 - Home Medications Home Medications: Ambulatory Orders Celecoxib 200 mg PO ASDIR 12/25/16 oxyCODONE HCL [Roxicodone -] 5 mg PO Q6H 12/25/16 Famotidine [Pepcid] 40 mg PO DAILY 06/30/17 Physical Exam Vital Signs: Vital Signs Temperature 102.3 F H 07/01/17 04:00 Pulse Rate 93 H 07/01/17 04:00 Respiratory Rate 20 07/01/17 04:00 Blood Pressure 128/51 07/01/17 04:00 O2 Sat by Pulse Oximetry (%) 96 07/01/17 01:10 Constitutional: Yes: Well Nourished Eyes: Yes: WNL Cardiovascular: Yes: Regular Rate and Rhythm Respiratory: Yes: CTA Bilaterally Gastrointestinal: Yes: Normal Bowel Sounds, Soft. No: Tenderness Extremities: Yes: WNL Edema: No Peripheral Pulses WNL: Yes Neurological: Yes: WNL Labs: CBC, BMP 06/30/17 17:33 06/30/17 17:33 Laboratory Results - last 24 hr 06/30/17 06/30/17 06/30/17 17:33 17:33 20:34 WBC 11.8 H D RBC 4.34 Hgb 12.8 Hct 38.3 MCV 88.2 MCH 29.4 MCHC 33.3 RDW 14.9 Plt Count 265 MPV 7.0 L Neutrophils % 84.3 H Lymphocytes % 9.2 Monocytes % 3.6 L Eosinophils % 0.2 Basophils % 2.7 H PT with INR INR Sodium 137 Potassium 4.3 Chloride 106 Carbon Dioxide 25 Anion Gap 6 L BUN 16 D Creatinine 1.1 D Creat Clearance w eGFR 48.69 Random Glucose 133 H D Lactic Acid Calcium 9.4 Total Bilirubin < 0.5 D AST 32 D ALT 19 Alkaline Phosphatase 82 Total Protein 7.2 Albumin 3.7 Urine Color Yellow Urine Appearance Clear Urine pH 7.0 Ur Specific [place] 1.015 Urine Protein Negative Urine Glucose (UA) Negative Urine Ketones Negative Urine Blood 2+ H Urine Nitrite Positive Urine Bilirubin Negative Urine Urobilinogen 0.2 Ur Leukocyte Esterase Trace H Urine RBC 5-10 Urine WBC 15-20 Ur Epithelial Cells Few Urine Bacteria Moderate Blood Type Antibody Screen Antibody Identification Antigen Identification 06/30/17 06/30/17 06/30/17 21:00 21:20 21:20 WBC RBC Hgb Hct MCV MCH MCHC RDW Plt Count MPV Neutrophils % Lymphocytes % Monocytes % Eosinophils % Basophils % PT with INR 12.1 INR 1.08 Sodium Potassium Chloride Carbon Dioxide Anion Gap BUN Creatinine Creat Clearance w eGFR Random Glucose Lactic Acid 3.1 H* Calcium Total Bilirubin AST ALT Alkaline Phosphatase Total Protein Albumin Urine Color Urine Appearance Urine pH Ur Specific [place] Urine Protein Urine Glucose (UA) Urine Ketones Urine Blood Urine Nitrite Urine Bilirubin Urine Urobilinogen Ur Leukocyte Esterase Urine RBC Urine WBC Ur Epithelial Cells Urine Bacteria Blood Type O POSITIVE Antibody Screen Positive H Antibody Identification No Result Required. Antigen Identification No Result Required. 07/01/17 00:05 WBC RBC Hgb Hct MCV MCH MCHC RDW Plt Count MPV Neutrophils % Lymphocytes % Monocytes % Eosinophils % Basophils % PT with INR INR Sodium Potassium Chloride Carbon Dioxide Anion Gap BUN Creatinine Creat Clearance w eGFR Random Glucose Lactic Acid 1.7 Calcium Total Bilirubin AST ALT Alkaline Phosphatase Total Protein Albumin Urine Color Urine Appearance Urine pH Ur Specific [place] Urine Protein Urine Glucose (UA) Urine Ketones Urine Blood Urine Nitrite Urine Bilirubin Urine Urobilinogen Ur Leukocyte Esterase Urine RBC Urine WBC Ur Epithelial Cells Urine Bacteria Blood Type Antibody Screen Antibody Identification Antigen Identification Problem List - Problems (1) Hydronephrosis with infection Code(s): N13.6 - PYONEPHROSIS (2) Kidney stone on left side Code(s): N20.0 - CALCULUS OF KIDNEY (3) Sepsis Code(s): A41.9 - SEPSIS, UNSPECIFIED ORGANISM Assessment/Plan Sepsis 2/2 UTI L hydronephrosis and nephrolithiasis Elevated lactate, now resolved -f/u cultures -cont Zosyn -fluids -pain management -antiemetics -wean off supplemental O2 -monitor SCr and UO -SubQ heparin -no indication for GI ppx -NO indication for ICU, transfer to floor [facility] Critical Care time: 35 min
[2017-07-01] MEDS ORDERED: SODIUM CHLORIDE 1,000 ML IV SCH (05:00)
[2017-07-01] MEDS: HEPARIN NA (PORCINE) 5,000 UNITS/ML 1ML VIAL SQ SCH ×3 (05:40→23:02)
[2017-07-01 06:25] LABS: BASO % 0.2 % (0-2.0); HEMATOCRIT 31.3 % (32.4-45.2); HEMOGLOBIN 10.7 GM/dL (10.7-15.3); LYMPH % 11.4 % (8-40); MCH 30.7 pg (25.7-33.7); MCHC 34.3 g/dl (32.0-36.0); MEAN CELL VOLUME 89.3 fl (80-96); MEAN PLT VOLUME 7.1 fl (7.5-11.1); NEUT % 87.4 % (42.8-82.8); PLATELET COUNT 179 K/MM3 (134-434); RDW 15.9 % (11.6-15.6); WHITE BLOOD COUNT 6.8 K/mm3 (4.0-10.0)
[2017-07-01 06:57] LABS: ANION GAP 5 (8-16); BLOOD UREA NITROGEN 18 mg/dL (7-18); CALCIUM 7.5 mg/dL (8.5-10.1); CHLORIDE 111 mmol/L (98-107); CO2 24 mmol/L (21-32); CREATININE 1.5 mg/dL (0.55-1.02); GLUCOSE,RANDOM 131 mg/dL (74-106); POTASSIUM 3.6 mmol/L (3.5-5.1); SODIUM 140 mmol/L (136-145)
--- NOTE | 2017-07-01 07:59 | CONSULT ---
Consultation: REQUESTING PROVIDER: CONSULT REQUEST: We have been asked to medically evaluate this patient for UTI and ? knee infx. HISTORY OF PRESENT ILLNESS: Pt is a 72 y/o F with PMH Renal stones (last year), ESBL UTI, and R total knee who presented to ED with L abdominal pain, knee pain, and shaking chills beginning yesterday morning at nondenominational. Pt states her abdominal pain was L sided, dull, aching, and nonradiating. Denies pain/difficulty urinating, blood in urine. No radiation of pain to the back. She states this pain does not feel the same as her last kidney stone. Pt states knee pain is not new but was worse yesterday. Her knee has been hurting since before her total knee replacement last November. In ED, pt wsa found to be septic with fever, leukocytosis, and lactic acidosis and UTI. CTAP showed L hydronephrosis, nonobstructing distal L ureteral stone, and left perinephric stranding likely 2/2 urinoma, an air bubble in L renal collecting system (? 2/2 instrumentation), and divirticulitis. Pt was given Vanc /Zosyn Anaerobic BCx bottle pos for gram neg caitlyn. At this time, pt feels much better. She feels drowsy. Denies pain at this time. No other complaints. REVIEW OF SYSTEMS: CONSTITUTIONAL: fever, chills, diaphoresis Absent: , generalized weakness, malaise, loss of appetite, weight change HEENT: Absent: rhinorrhea, nasal congestion, throat pain, throat swelling, difficulty swallowing, mouth swelling, ear pain, eye pain, visual changes CARDIOVASCULAR: Absent: chest pain, syncope, palpitations, irregular heart rate, lightheadedness , peripheral edema RESPIRATORY: Absent: cough, shortness of breath, dyspnea with exertion, orthopnea, wheezing, stridor, hemoptysis GASTROINTESTINAL:abdominal pain, nausea Absent: , abdominal distension, , vomiting, diarrhea, constipation, melena, hematochezia GENITOURINARY: Absent: dysuria, frequency, urgency, hesitancy, hematuria, flank pain, genital pain MUSCULOSKELETAL: Absent: myalgia, arthralgia, joint swelling, back pain, neck pain SKIN: Absent: rash, itching, pallor HEMATOLOGIC/IMMUNOLOGIC: Absent: easy bleeding, easy bruising, lymphadenopathy, frequent infections ENDOCRINE: Absent: unexplained weight gain, unexplained weight loss, heat intolerance, cold intolerance NEUROLOGIC: Absent: headache, focal weakness or paresthesias, dizziness, unsteady gait, seizure, mental status changes, bladder or bowel incontinence PSYCHIATRIC: Absent: anxiety, depression, suicidal or homicidal ideation, hallucinations. PHYSICAL EXAMINATION Vital Signs - 24 hr 06/30/17 06/30/17 06/30/17 16:46 20:56 21:16 Temperature 97.6 F 99.1 F 104.5 F H Pulse Rate 68 Pulse Rate [ 86 Left] Respiratory 20 Rate Blood Pressure 192/81 Blood Pressure 135/86 [Right Arm] O2 Sat by Pulse 100 97 Oximetry (%) 06/30/17 06/30/17 06/30/17 22:23 22:47 23:30 Temperature 102.2 F H Pulse Rate Pulse Rate [ 76 78 Left] Respiratory 18 15 Rate Blood Pressure Blood Pressure 105/50 118/60 [Right Arm] O2 Sat by Pulse 92 L 97 Oximetry (%) 07/01/17 07/01/17 07/01/17 01:10 02:00 03:30 Temperature 99.5 F 100 F H 101.1 F H Pulse Rate 80 77 89 Pulse Rate [ Left] Respiratory 20 21 20 Rate Blood Pressure 118/55 113/48 145/58 Blood Pressure [Right Arm] O2 Sat by Pulse 95 Oximetry (%) 07/01/17 07/01/17 04:00 06:00 Temperature 102.3 F H 101 F H Pulse Rate 93 H 79 Pulse Rate [ Left] Respiratory 20 20 Rate Blood Pressure 128/51 99/49 Blood Pressure [Right Arm] O2 Sat by Pulse Oximetry (%) GENERAL: Awake, mildly drowsy, and fully oriented, in no acute distress. HEAD: Normal with no signs of trauma. EYES: extraocular movements intact, sclera anicteric, conjunctiva clear. No lid lag. EARS, NOSE, THROAT: oropharynx clear without exudates. Moist mucous membranes. NECK: Normal range of motion, supple without lymphadenopathy, JVD, or masses. LUNGS: Breath sounds equal, clear to auscultation bilaterally. No wheezes, and no crackles. No accessory muscle use. HEART: Regular rate and rhythm, normal S1 and S2. 2/6 systolic murmur at LUSB, no rub or gallop. ABDOMEN: no flank tenderness. Soft, nontender, not distended, normoactive bowel sounds, no guarding, no rebound, no masses. No hepatomegaly or splenomegaly. MUSCULOSKELETAL: Normal range of motion at all joints. No bony deformities or tenderness. No CVA tenderness. UPPER EXTREMITIES: 2+ pulses, warm, well-perfused. No cyanosis. No clubbing. Cap refill <2 seconds. No peripheral edema. LOWER EXTREMITIES: R knee without erythema or swelling. Point tenderness at medial aspect of tibial plateau. 2+ pulses, warm, well-perfused. No calf tenderness. No peripheral edema. NEUROLOGICAL: Cranial nerves II-XII intact. Normal speech. PSYCHIATRIC: Cooperative. Good eye contact. Appropriate mood and affect. SKIN: Warm, dry, normal turgor, no rashes or lesions noted. Laboratory Results - last 24 hr 06/30/17 06/30/17 06/30/17 17:33 17:33 20:34 WBC 11.8 H D RBC 4.34 Hgb 12.8 Hct 38.3 MCV 88.2 MCH 29.4 MCHC 33.3 RDW 14.9 Plt Count 265 MPV 7.0 L Neutrophils % 84.3 H Lymphocytes % 9.2 Monocytes % 3.6 L Eosinophils % 0.2 Basophils % 2.7 H PT with INR INR Sodium 137 Potassium 4.3 Chloride 106 Carbon Dioxide 25 Anion Gap 6 L BUN 16 D Creatinine 1.1 D Creat Clearance w eGFR 48.69 Random Glucose 133 H D Lactic Acid Calcium 9.4 Total Bilirubin < 0.5 D AST 32 D ALT 19 Alkaline Phosphatase 82 Total Protein 7.2 Albumin 3.7 Urine Color Yellow Urine Appearance Clear Urine pH 7.0 Ur Specific [place] 1.015 Urine Protein Negative Urine Glucose (UA) Negative Urine Ketones Negative Urine Blood 2+ H Urine Nitrite Positive Urine Bilirubin Negative Urine Urobilinogen 0.2 Ur Leukocyte Esterase Trace H Urine RBC 5-10 Urine WBC 15-20 Ur Epithelial Cells Few Urine Bacteria Moderate Blood Type Antibody Screen Antibody Identification Antigen Identification 06/30/17 06/30/17 06/30/17 21:00 21:20 21:20 WBC RBC Hgb Hct MCV MCH MCHC RDW Plt Count MPV Neutrophils % Lymphocytes % Monocytes % Eosinophils % Basophils % PT with INR 12.1 INR 1.08 Sodium Potassium Chloride Carbon Dioxide Anion Gap BUN Creatinine Creat Clearance w eGFR Random Glucose Lactic Acid 3.1 H* Calcium Total Bilirubin AST ALT Alkaline Phosphatase Total Protein Albumin Urine Color Urine Appearance Urine pH Ur Specific [place] Urine Protein Urine Glucose (UA) Urine Ketones Urine Blood Urine Nitrite Urine Bilirubin Urine Urobilinogen Ur Leukocyte Esterase Urine RBC Urine WBC Ur Epithelial Cells Urine Bacteria Blood Type O POSITIVE Antibody Screen Positive H Antibody Identification No Result Required. Antigen Identification No Result Required. 07/01/17 07/01/17 07/01/17 00:05 05:50 05:50 WBC 6.8 D RBC 3.50 L Hgb 10.7 D Hct 31.3 L MCV 89.3 MCH 30.7 MCHC 34.3 RDW 15.9 H Plt Count 179 D MPV 7.1 L Neutrophils % 87.4 H D Lymphocytes % 11.4 D Monocytes % 1.0 L D Eosinophils % 0.0 D Basophils % 0.2 PT with INR INR Sodium 140 Potassium 3.6 Chloride 111 H Carbon Dioxide 24 Anion Gap 5 L BUN 18 Creatinine 1.5 H Creat Clearance w eGFR Random Glucose 131 H Lactic Acid 1.7 Calcium 7.5 L Total Bilirubin AST ALT Alkaline Phosphatase Total Protein Albumin Urine Color Urine Appearance Urine pH Ur Specific [place] Urine Protein Urine Glucose (UA) Urine Ketones Urine Blood Urine Nitrite Urine Bilirubin Urine Urobilinogen Ur Leukocyte Esterase Urine RBC Urine WBC Ur Epithelial Cells Urine Bacteria Blood Type Antibody Screen Antibody Identification Antigen Identification Active Medications Generic Name Dose Route Start Last Admin Trade Name Freq PRN Reason Stop Dose Admin Chlorhexidine Gluconate 1 applic 07/01/17 22:00 Hibiclens For Decolonization - TP HS [facility]NA Heparin Sodium (Porcine) 5,000 unit 06/30/17 22:00 07/01/17 05:40 Heparin - SQ 5,000 unit TID [facility]NA Administration Piperacillin Sod/Tazobactam 50 mls @ 100 mls/hr 07/01/17 02:15 07/01/17 02:20 Sod 3.375 gm/ Dextrose IVPB 07/01/17 10:29 100 mls/hr Q8H-IV [facility] Administration Sodium Chloride 1,000 mls @ 100 mls/hr 07/01/17 05:00 07/01/17 04:57 Normal Saline - IV 100 mls/hr ASDIR [facility]NA Administration Morphine Sulfate 4 mg 06/30/17 20:49 07/01/17 03:03 Morphine Sulfate IVPUSH 4 mg Q6H PRN Administration PAIN LEVEL 6-10 Mupirocin 1 applic 07/01/17 10:00 Bactroban Ointment (For Decolonization) - NS 07/06/17 09:59 BID [facility]NA Ondansetron HCl 4 mg 06/30/17 21:12 Zofran Injection IVPUSH Q6H PRN NAUSEA AND/OR VOMITING Piperacillin/Tazobactam/Dextrose 3.375 gm 07/01/17 02:00 Zosyn 3.375gm Ivpb (Premix) IVPB Q8H-IV [facility] ASSESSMENT/PLAN: Pt is a 72 y/o lady with PMH renal stones, ESBL UTI, R knee arthroplasty who presented with sepsis 2/2 UTI and L hydronephrosis with identified L ureteral nonobstructing stone. Pt is currently stable #Sepsis 2/2 UTI -Pt continues to have fevers -Pain is controlled -WBC resolved 11.8 -> 6.8 -Lactic Acid 3.1 -> 1.7 -UA: nitrites, trace LE, 20 WBC, moderate caitlyn -BCx pos for anaerobic gram neg caitlyn -UCx pending -on Vanc/Zosyn. Switch to Meropenem 1 gm BID #Nephrolithiasis/Hydronephrosis -nonobstructing stone on CTAP and L hydronephrosis -on Vanc/Zosyn. switch to Meropenem 1 gm BID -Urology on board Ish Evangelista MD PGY-1 ID Dispo: We will continue to follow the patient. Thank you for this consultative opportunity. Visit type - Emergency Visit Emergency Visit: No - New Patient This patient is new to me today: Yes Date on this admission: 07/02/17 - Critical Care Critical Care patient: No
--- NOTE | 2017-07-01 08:13 | PN ---
Teaching Attending Note Name of Resident: Ish Evangelista ATTENDING PHYSICIAN STATEMENT I saw and evaluated the patient. I reviewed the resident's note and discussed the case with the resident. I agree with the resident's findings and plan as documented. 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 06/30/17 21:05 Blood - Peripheral Venous Blood Culture - Preliminary Pending Organism 06/30/17 21:05 Blood - Peripheral Venous Blood Culture - Preliminary Pending Organism Laboratory Tests 07/13/15 06/30/17 06/30/17 15:00 17:33 20:34 WBC 12.0 H D Hgb Hct BUN Creatinine Lactic Acid AST 32 D ALT 19 Alkaline Phosphatase 82 Ur Leukocyte Esterase Trace H Urine Bacteria Moderate 06/30/17 07/01/17 07/01/17 21:00 00:05 05:50 WBC 6.8 D Hgb 10.7 D Hct 31.3 L BUN Creatinine Lactic Acid 3.1 H* 1.7 AST ALT Alkaline Phosphatase Ur Leukocyte Esterase Urine Bacteria 07/01/17 05:50 WBC Hgb Hct BUN 18 Creatinine 1.5 H Lactic Acid AST ALT Alkaline Phosphatase Ur Leukocyte Esterase Urine Bacteria Assessment Sepsis syndrome UTI History of MDRO ESBL Kidney stone left Plan Await blood culture reports Isolate for drug resistant organism Urology consultation Meropenem 1 gram bid Critical care time spent 40 minutes Chris MANLEY Problem List - Problems (1) Calculus of left kidney Code(s): N20.0 - CALCULUS OF KIDNEY (2) Sepsis Code(s): A41.9 - SEPSIS, UNSPECIFIED ORGANISM (3) Gram-negative bacteremia Code(s): R78.81 - BACTEREMIA (4) Infection with multi-drug resistant microorganisms Code(s): Z16.35 - RESISTANCE TO MULTIPLE ANTIMICROBIAL DRUGS
[2017-07-01] MEDS ORDERED: PT OWN MED DRAWER 7, Y5N ONE ×2 (09:56→23:09)
[2017-07-01] MEDS: MEROPENEM 1 GM in DEXTROSE 5%-WATER - 100 ML IVPB SCH ×2 (10:53→23:10)
[2017-07-01] MEDS: MUPIROCIN 2% TOPICAL OINTMENT FOR DECOLONIZATION NS SCH ×2 (10:57→23:04)
--- NOTE | 2017-07-01 11:43 | CONSULT ---
Consult - text type - Consultation Consultation Note: Asked to eval this 72F with PMH HTN/HLD/Renal calculi admitted for UTI sepsis for right knee swelling and pain. Has a history of TKR done in March and significant pain since the surgery. Dmitry recent trauma or significant worsening of her chronic knee pain. PMH: as above Meds: reveiwed in chart, currently on IV Zosyn All: NKDA FH: n/c SH: no cig/etoh/ivda ROS: positive for high fevers, abdominal pain. No recent weight loss. PE: Tmax 101 awake, alert, cooperative, follows commands. Affect appropriate. Breathing comfortably Abdomen soft Right knee exam: well healed knee incision, minimal swelling, no direct tenderness to palpation. No redness/induration. PROM to 90 without significant pain. No clear instability. Otherwise b/l UE/LE exam neuro intact, distal pulses 2+ bilaterally Imaging: dopplers negative for DVT Labs: WBC 11 Imp: Right knee s/p TKR with chronic pain -under sterile preop tapped small amount of bloody synovial fluid. No purulence in the knee. Not enough for cell count but fluid sent for cultures -doubt septic knee given benign exam, chronic history of pain without recent worsening, as well as the presence of obvious source for fever -on empiric antibiotic treatment for sepsis -will follow clinical exam and culture results -no indication for acute intervention in terms of the knee
[2017-07-01] MEDS ORDERED: SODIUM CHLORIDE 500 ML IV STA (11:53)
--- NOTE | 2017-07-01 12:13 | CON.GI ---
Consult Consult Specialty:: GI Reason for Consultation:: distended GB on CT - History of Present Illness History of Present Illness: chart reviewed. Events noted. per initial intake: 72 yo female with h/o kidney stones who presented to [facility] on 06/30 c/o LLQ abdominal pain as well as nausea. Labs notable for leukocytosis (WBC 11), UA with +leuk esterase and WBC, lactate of 3 ( subsequently down to 1). CT scan showed L hydronephrosis as well as nephrolithiasis. In ED febrile to 104. Was given 1L of fluids and started on zosyn. Admitted to ICU for relative hypotension (BP 105/50) and concern for impending decompensation. On arrival to the ICU pt's BP 118/54, HR 76, Temp 100.5, SpO2 98%. CT also reported distended GB with sludge however the liver chemistry has been normal on admission and today. There is no history of pancreatico-biliary issues , jaundice, nausea, vomiting, hematemesis, dysphagia, odynophagia, altered bowels, pencil-thin, or ribbon-like stools. Denies melena, hematochezia, weight loss. 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: Other (spinal stenosis) Cardio/Vascular: Yes: Other (PSVT) ...: No Psych: Yes: Anxiety Musculoskeletal: Yes: Chronic low back pain - Alcohol/Substance Use Hx Alcohol Use: No - Smoking History Smoking history: Never smoked Have you smoked in the past 12 months: No If you are a former smoker, when did you quit?: 1960 - Social History Usual Living Arrangement: With Spouse ADL: Independent History of Recent Travel: No Home Medications - Allergies Allergies/Adverse Reactions: Allergies Allergy/AdvReac Type Severity Reaction Status Date / Time No Known Drug Allergies Allergy Verified 12/25/16 18:08 - Home Medications Home Medications: Ambulatory Orders Celecoxib 200 mg PO ASDIR 12/25/16 oxyCODONE HCL [Roxicodone -] 5 mg PO Q6H 12/25/16 Famotidine [Pepcid] 40 mg PO DAILY 06/30/17 Family Disease History - Family Disease History Family History: Unremarkable Review of Systems Findings/Remarks: as per HPI, H&P Physical Exam-GI Vital Signs: Vital Signs Temperature 98.4 F 07/01/17 12:00 Pulse Rate 84 07/01/17 12:00 Respiratory Rate 17 07/01/17 12:00 Blood Pressure 117/54 07/01/17 12:00 O2 Sat by Pulse Oximetry (%) 94 L 07/01/17 09:00 Constitutional: Yes: Mild Distress Eyes: No: Sclera Icterus HENT: Yes: Atraumatic Neck: Yes: Supple Cardiovascular: No: Bradycardia, Tachycardia Respiratory: Yes: Regular Gastrointestinal Inspection: No: Ascites, Distention ...Palpate: Yes: Soft, Tenderness. No: Firm/Rigid, Guarding Neurological: Yes: Alert, Lethargy Labs: CBC, BMP 07/01/17 05:50 07/01/17 05:50 INR, PTT INR 1.08 (0.82-1.09) 06/30/17 21:20 Laboratory Tests 06/30/17 06/30/17 06/30/17 17:33 17:33 20:34 WBC 11.8 H D RBC 4.34 Hgb 12.8 Hct 38.3 MCV 88.2 MCH 29.4 MCHC 33.3 RDW 14.9 Plt Count 265 MPV 7.0 L Neutrophils % 84.3 H Lymphocytes % 9.2 Monocytes % 3.6 L Eosinophils % 0.2 Basophils % 2.7 H PT with INR INR Sodium 137 Potassium 4.3 Chloride 106 Carbon Dioxide 25 Anion Gap 6 L BUN 16 D Creatinine 1.1 D Creat Clearance w eGFR 48.69 Random Glucose 133 H D Lactic Acid Calcium 9.4 Total Bilirubin < 0.5 D AST 32 D ALT 19 Alkaline Phosphatase 82 Total Protein 7.2 Albumin 3.7 Urine Color Yellow Urine Appearance Clear Urine pH 7.0 Ur Specific [place] 1.015 Urine Protein Negative Urine Glucose (UA) Negative Urine Ketones Negative Urine Blood 2+ H Urine Nitrite Positive Urine Bilirubin Negative Urine Urobilinogen 0.2 Ur Leukocyte Esterase Trace H Urine RBC 5-10 Urine WBC 15-20 Ur Epithelial Cells Few Urine Bacteria Moderate Blood Type Antibody Screen Antibody Identification Antigen Identification 06/30/17 06/30/17 06/30/17 21:00 21:20 21:20 WBC RBC Hgb Hct MCV MCH MCHC RDW Plt Count MPV Neutrophils % Lymphocytes % Monocytes % Eosinophils % Basophils % PT with INR 12.1 INR 1.08 Sodium Potassium Chloride Carbon Dioxide Anion Gap BUN Creatinine Creat Clearance w eGFR Random Glucose Lactic Acid 3.1 H* Calcium Total Bilirubin AST ALT Alkaline Phosphatase Total Protein Albumin Urine Color Urine Appearance Urine pH Ur Specific [place] Urine Protein Urine Glucose (UA) Urine Ketones Urine Blood Urine Nitrite Urine Bilirubin Urine Urobilinogen Ur Leukocyte Esterase Urine RBC Urine WBC Ur Epithelial Cells Urine Bacteria Blood Type O POSITIVE Antibody Screen Positive H Antibody Identification COLD AGGLUTININ Antigen Identification No Result Required. 07/01/17 07/01/17 07/01/17 00:05 05:50 05:50 WBC 6.8 D RBC 3.50 L Hgb 10.7 D Hct 31.3 L MCV 89.3 MCH 30.7 MCHC 34.3 RDW 15.9 H Plt Count 179 D MPV 7.1 L Neutrophils % 87.4 H D Lymphocytes % 11.4 D Monocytes % 1.0 L D Eosinophils % 0.0 D Basophils % 0.2 PT with INR INR Sodium 140 Potassium 3.6 Chloride 111 H Carbon Dioxide 24 Anion Gap 5 L BUN 18 Creatinine 1.5 H Creat Clearance w eGFR Random Glucose 131 H Lactic Acid 1.7 Calcium 7.5 L Total Bilirubin AST ALT Alkaline Phosphatase Total Protein Albumin Urine Color Urine Appearance Urine pH Ur Specific [place] Urine Protein Urine Glucose (UA) Urine Ketones Urine Blood Urine Nitrite Urine Bilirubin Urine Urobilinogen Ur Leukocyte Esterase Urine RBC Urine WBC Ur Epithelial Cells Urine Bacteria Blood Type Antibody Screen Antibody Identification Antigen Identification Imaging - Results Cat Scan: Report Reviewed Problem List - Problems (1) Cholelithiasis Code(s): K80.20 - CALCULUS OF GALLBLADDER W/O CHOLECYSTITIS W/O OBSTRUCTION Assessment/Plan Cholelithiasis with biliary sludge, w/o cholcystitis, choledioclolithiasis, or pancreatitis. Urosepsis requiring ICU level of care. Continue the care as per ICU team. No signs of acute hepato-biliary issues at this time. Will continue to monitor closely.
--- NOTE | 2017-07-01 12:32 | EKG ---
Test Reason : Blood Pressure : / mmHG Vent. Rate : 084 BPM Atrial Rate : 084 BPM P-R Int : 160 ms QRS Dur : 074 ms QT Int : 352 ms P-R-T Axes : 044 032 047 degrees QTc Int : 415 ms NORMAL SINUS RHYTHM POSSIBLE LEFT ATRIAL ENLARGEMENT BORDERLINE ECG WHEN COMPARED WITH ECG OF 13-JUL-2015 14:01, NO SIGNIFICANT CHANGE WAS FOUND Confirmed by AVI CORDERO MD ([id number]) on 07/01/2017 12:32:29 PM Referred By: RACHEL CHEATHAM Confirmed By:AVI CORDERO MD
[2017-07-01] MEDS ORDERED: RAPID SEQUENCE INTUBATION KIT NR ONE (12:50)
[2017-07-01] MEDS ORDERED: MIDAZOLAM HCL 5 MG/1 ML Single Dose Vial ONE (12:53)
--- NOTE | 2017-07-01 13:02 | CONSULT ---
Consultation: REQUESTING PROVIDER: CONSULT REQUEST: We have been asked to medically evaluate this patient for severe sepsis vs. septic shock. HISTORY OF PRESENT ILLNESS: 72F w/ hx of nephrolithiasis s/p ESWL (most recently around a year ago), right TKR, HTN, and HLD who presented with acute LLQ abdominal pain, nausea, fever, chills, and acute on chronic right knee pain, found to have evidence of severe sepsis 2/2 UTI in addition to a left-sided 5mm obstructing kidney stone with resulting hydroureter, hydronephrosis, and perinephric stranding. Pt denies headache, chest pain, SOB, cough, back pain, dysuria, increased urinary frequency, emesis, diarrhea, and constipation. In the ED, pt given NS, vanc, zosyn, APAP for fevers, and morphine for pain control. REVIEW OF SYSTEMS: CONSTITUTIONAL: Absent: diaphoresis, generalized weakness, malaise, loss of appetite, weight change present: fever, chills, HEENT: Absent: rhinorrhea, nasal congestion, throat pain, throat swelling, difficulty swallowing, mouth swelling, ear pain, eye pain, visual changes CARDIOVASCULAR: Absent: chest pain, syncope, palpitations, irregular heart rate, lightheadedness , peripheral edema RESPIRATORY: Absent: cough, shortness of breath, dyspnea with exertion, orthopnea, wheezing, stridor, hemoptysis GASTROINTESTINAL: Absent: abdominal distension, vomiting, diarrhea, constipation, melena, hematochezia present: abdominal pain, nausea GENITOURINARY: Absent: dysuria, frequency, urgency, hesitancy, hematuria, flank pain, genital pain MUSCULOSKELETAL: Absent: myalgia, arthralgia, joint swelling, back pain, neck pain SKIN: Absent: rash, itching, pallor HEMATOLOGIC/IMMUNOLOGIC: Absent: easy bleeding, easy bruising, lymphadenopathy, frequent infections ENDOCRINE: Absent: unexplained weight gain, unexplained weight loss, heat intolerance, cold intolerance NEUROLOGIC: Absent: headache, focal weakness or paresthesias, dizziness, unsteady gait, seizure, mental status changes, bladder or bowel incontinence PSYCHIATRIC: Absent: anxiety, depression, suicidal or homicidal ideation, hallucinations. PHYSICAL EXAMINATION Vital Signs - 24 hr 06/30/17 06/30/17 06/30/17 16:46 20:56 21:16 Temperature 97.6 F 99.1 F 104.5 F H Pulse Rate 68 Pulse Rate [ 86 Left] Respiratory 20 Rate Blood Pressure 192/81 Blood Pressure 135/86 [Right Arm] O2 Sat by Pulse 100 97 Oximetry (%) 06/30/17 06/30/17 06/30/17 22:23 22:47 23:30 Temperature 102.2 F H Pulse Rate Pulse Rate [ 76 78 Left] Respiratory 18 15 Rate Blood Pressure Blood Pressure 105/50 118/60 [Right Arm] O2 Sat by Pulse 92 L 97 Oximetry (%) 07/01/17 07/01/17 07/01/17 01:10 02:00 03:30 Temperature 99.5 F 100 F H 101.1 F H Pulse Rate 80 77 89 Pulse Rate [ Left] Respiratory 20 21 20 Rate Blood Pressure 118/55 113/48 145/58 Blood Pressure [Right Arm] O2 Sat by Pulse 95 Oximetry (%) 07/01/17 07/01/17 07/01/17 04:00 06:00 08:00 Temperature 102.3 F H 101 F H 100.6 F H Pulse Rate 93 H 79 80 Pulse Rate [ Left] Respiratory 20 20 15 Rate Blood Pressure 128/51 99/49 93/44 Blood Pressure [Right Arm] O2 Sat by Pulse Oximetry (%) 07/01/17 07/01/17 07/01/17 09:00 10:00 12:00 Temperature 98.4 F 98.4 F Pulse Rate 81 84 Pulse Rate [ Left] Respiratory 20 14 17 Rate Blood Pressure 101/46 117/54 Blood Pressure [Right Arm] O2 Sat by Pulse 94 L Oximetry (%) GENERAL: elderly female, lying in bed, lethargic, in minimal distress, AAOx3, speaking slowly HEENT: dry mucous membranes LUNGS: CTAB HEART: Regular rate and rhythm, normal S1 and S2 without murmur, rub or gallop. ABDOMEN: hypoactive BS, soft, minimally tender in all four quadrants, no peritoneal signs BACK: no CVA tenderness MUSCULOSKELETAL: right knee has equal warmth compared to left knee, no erythema , no significant swelling, mild point tenderness along medial aspect. NEUROLOGICAL: Cranial nerves II-XII intact Laboratory Results - last 24 hr 06/30/17 06/30/17 06/30/17 17:33 17:33 20:34 WBC 11.8 H D RBC 4.34 Hgb 12.8 Hct 38.3 MCV 88.2 MCH 29.4 MCHC 33.3 RDW 14.9 Plt Count 265 MPV 7.0 L Neutrophils % 84.3 H Lymphocytes % 9.2 Monocytes % 3.6 L Eosinophils % 0.2 Basophils % 2.7 H PT with INR INR Sodium 137 Potassium 4.3 Chloride 106 Carbon Dioxide 25 Anion Gap 6 L BUN 16 D Creatinine 1.1 D Creat Clearance w eGFR 48.69 Random Glucose 133 H D Lactic Acid Calcium 9.4 Total Bilirubin < 0.5 D AST 32 D ALT 19 Alkaline Phosphatase 82 Total Protein 7.2 Albumin 3.7 Urine Color Yellow Urine Appearance Clear Urine pH 7.0 Ur Specific [place] 1.015 Urine Protein Negative Urine Glucose (UA) Negative Urine Ketones Negative Urine Blood 2+ H Urine Nitrite Positive Urine Bilirubin Negative Urine Urobilinogen 0.2 Ur Leukocyte Esterase Trace H Urine RBC 5-10 Urine WBC 15-20 Ur Epithelial Cells Few Urine Bacteria Moderate Blood Type Antibody Screen Antibody Identification Antigen Identification 06/30/17 06/30/17 06/30/17 21:00 21:20 21:20 WBC RBC Hgb Hct MCV MCH MCHC RDW Plt Count MPV Neutrophils % Lymphocytes % Monocytes % Eosinophils % Basophils % PT with INR 12.1 INR 1.08 Sodium Potassium Chloride Carbon Dioxide Anion Gap BUN Creatinine Creat Clearance w eGFR Random Glucose Lactic Acid 3.1 H* Calcium Total Bilirubin AST ALT Alkaline Phosphatase Total Protein Albumin Urine Color Urine Appearance Urine pH Ur Specific [place] Urine Protein Urine Glucose (UA) Urine Ketones Urine Blood Urine Nitrite Urine Bilirubin Urine Urobilinogen Ur Leukocyte Esterase Urine RBC Urine WBC Ur Epithelial Cells Urine Bacteria Blood Type O POSITIVE Antibody Screen Positive H Antibody Identification COLD AGGLUTININ Antigen Identification No Result Required. 07/01/17 07/01/17 07/01/17 00:05 05:50 05:50 WBC 6.8 D RBC 3.50 L Hgb 10.7 D Hct 31.3 L MCV 89.3 MCH 30.7 MCHC 34.3 RDW 15.9 H Plt Count 179 D MPV 7.1 L Neutrophils % 87.4 H D Lymphocytes % 11.4 D Monocytes % 1.0 L D Eosinophils % 0.0 D Basophils % 0.2 PT with INR INR Sodium 140 Potassium 3.6 Chloride 111 H Carbon Dioxide 24 Anion Gap 5 L BUN 18 Creatinine 1.5 H Creat Clearance w eGFR Random Glucose 131 H Lactic Acid 1.7 Calcium 7.5 L Total Bilirubin AST ALT Alkaline Phosphatase Total Protein Albumin Urine Color Urine Appearance Urine pH Ur Specific [place] Urine Protein Urine Glucose (UA) Urine Ketones Urine Blood Urine Nitrite Urine Bilirubin Urine Urobilinogen Ur Leukocyte Esterase Urine RBC Urine WBC Ur Epithelial Cells Urine Bacteria Blood Type Antibody Screen Antibody Identification Antigen Identification Active Medications Generic Name Dose Route Start Last Admin Trade Name Freq PRN Reason Stop Dose Admin Acetaminophen 1,000 mg 07/01/17 12:40 Ofirmev Injection - IVPB 07/01/17 12:41 ONCE ONE Chlorhexidine Gluconate 1 applic 07/01/17 22:00 Hibiclens For Decolonization - TP HS JUMANA Heparin Sodium (Porcine) 5,000 unit 06/30/17 22:00 07/01/17 05:40 Heparin - SQ 5,000 unit TID JUMANA Administration Sodium Chloride 1,000 mls @ 100 mls/hr 07/01/17 05:00 07/01/17 04:57 Normal Saline - IV 100 mls/hr ASDIR JUMANA Administration Meropenem 1 gm/ Dextrose 100 mls @ 100 mls/hr 07/01/17 10:00 07/01/17 10:53 IVPB 100 mls/hr BID JUMANA Administration Protocol Morphine Sulfate 4 mg 06/30/17 20:49 07/01/17 03:03 Morphine Sulfate IVPUSH 4 mg Q6H PRN Administration PAIN LEVEL 6-10 Mupirocin 1 applic 07/01/17 10:00 07/01/17 10:57 Bactroban Ointment (For Decolonization) - NS 07/06/17 09:59 1 applic BID JUMANA Administration Ondansetron HCl 4 mg 06/30/17 21:12 Zofran Injection IVPUSH Q6H PRN NAUSEA AND/OR VOMITING Piperacillin/Tazobactam/Dextrose 3.375 gm 07/01/17 02:00 Zosyn 3.375gm Ivpb (Premix) IVPB Q8H-IV JUMANA ASSESSMENT/PLAN: 72F w/ hx of nephrolithiasis s/p ESWL (most recently around a year ago), right TKR, HTN, and HLD who presented with acute LLQ abdominal pain, nausea, fever, chills, and acute on chronic right knee pain, found to have evidence of severe sepsis 2/2 UTI in addition to a left-sided 5mm obstructing kidney stone with resulting hydroureter, hydronephrosis, and perinephric stranding. ID #severe sepsis- likely 2/2 UTI 2/2 kidney stone -positive UA -Ucx: pending -Bcx: growing GNB x 2 bottles -temps as high as 104.5 -leukocytosis resolved: currently 6.8 -lactic acidosis resolved. -ID on board, recs appreciated. abx per ID. -GI on board, recs appreciated. Source of infection very unlikely to be gallbladder given clinical data and imaging findings -ortho on board, appreciate recs. right knee arthrocentesis performed. Per ortho , unlikely to be source of infection. f/u cultures -DVT ruled out with LE duplex -pt is volume down. bolus NS -continue maintenance fluids -f/u urology recs regarding any intervention that is indicated Nephro #LUDA -creatinine of 1.5, up from 1.1 before. BUN/creatinine ratio of < 20:1. etiology intrinsic renal vs. pre-renal -f/u urine lytes -f/u bladder/kidney US -ren inserted -strict I/Os -continue fluids Pulm #respiratory distress -pt intubated today -sedated -f/u CXR -f/u ABG CV #hypotension 2/2 sepsis -central line placed today. Start levo if MAPs < 65 GI -started on clear liquid diet -zofran for nausea FEN/ppx -NS @ 100 -no electrolyte labs ordered today -clears -heparin 5000U TID -no GI ppx indicated Family Members: -Bronson (son): [phone] -Guera ([id number]): [phone] Case discussed with attending, Dr. Newton. -Mina Schafer MD PGY1 ICU Team Visit type - Emergency Visit Emergency Visit: Yes ED Registration Date: 06/30/17 Care time: The patient presented to the Emergency Department on the above date and was hospitalized for further evaluation of their emergent condition. - New Patient This patient is new to me today: Yes Date on this admission: 07/01/17 - Critical Care Critical Care patient: Yes Total Critical Care Time (in minutes): 45 Critical Care Statement: The care of this patient involved high complexity decision making to prevent further life threatening deterioration of the patient 's condition and/or to evaluate & treat vital organ system(s) failure or risk of failure.
[2017-07-01] MEDS ORDERED: PROPOFOL 1,000,000 MCG/100 ML VIAL ONE ×2 (13:07→19:05)
--- NOTE | 2017-07-01 13:55 | PROC ---
Intubation - Intubation Reason for Intubation: Respiratory Failure Time of Intubation: 12:45 Intubation Method: orotracheal Blade used: Glidescope Tube Size (cm): 7.5 Tube position @ lip (cm): 22 Tube position confirmed by: Direct visualization, CO2 detector, Chest x-ray, Breath sounds Breath Sounds after Intubation: equal Post Intubation Xray: Yes (5.5cm above dasia)
--- NOTE | 2017-07-01 13:56 | PROC ---
Central Line Insertion Indication: Sepsis Risks and Benefits Explained: No (emergent placement) Consent on Chart: No (emergent placement) Central Line: Triple Lumen Catheter Anesthesia: 1% Lidocaine Sterile Technique: Yes Ultrasound Guided Assistance: Yes Position: Right Internal Jugular Post Insertion: Yes: Bilateral Breath Sounds, Bilateral Chest Expansion, Chest X-Ray Ordered ( confirmed on cxr) Sterile Dressing Applied: Yes
[2017-07-01 14:21] LABS: ARTERIAL BLOOD GAS BASE EXCESS -6.5 meq/l (-2-2); ARTERIAL BLOOD GAS PCO2 33.8 mmHg (35-45); ARTERIAL BLOOD GAS pH 7.34 (7.35-7.45)
[2017-07-01 14:24] LABS: ALLENS TEST POSITIVE
[2017-07-01] MEDS: PROPOFOL 1,000,000 MCG/100 ML VIAL IVPB SCH (14:30)
--- NOTE | 2017-07-01 14:57 | PN ---
Physical Exam: SUBJECTIVE: Patient seen and examined at bedside in ICU. Daughter present. With a possible urinoma, inquired of daughter if patient has had any trauma. Daughter reports patient was at [facility] last week and was on upside-down roller coaster rides, [place] [employer], etc. Daughter further reports patient fell three weeks ago at home while alone. She fell hard enough to leave a bruise /bump on her forehead. She was on the floor for an hour. OBJECTIVE: Vital Signs Period Temp Pulse Resp BP Sys/Robbins Pulse Ox Last 24 Hr 97.6 F-104.5 F 68-115 14-27 93-192/44-86 92-100 GENERAL: The patient is intubated, sedated. Opens eyes to voice, follows commands, moving all extremities. EYES: PERRL LUNGS: Breath sounds CTA; mechanical breath sounds HEART: Regular rate and rhythm, S1, S2 ABDOMEN: Soft, nontender, nondistended, normoactive bowel sounds, no guarding, no rebound EXTREMITIES: 2+ pulses, warm, well-perfused, no edema. Laboratory Results - last 24 hr 06/30/17 06/30/17 06/30/17 17:33 17:33 20:34 WBC 11.8 H D RBC 4.34 Hgb 12.8 Hct 38.3 MCV 88.2 MCH 29.4 MCHC 33.3 RDW 14.9 Plt Count 265 MPV 7.0 L Neutrophils % 84.3 H Lymphocytes % 9.2 Monocytes % 3.6 L Eosinophils % 0.2 Basophils % 2.7 H PT with INR INR Puncture Site ABG pH ABG pCO2 at Pt Temp ABG pO2 at Pt Temp ABG HCO3 ABG O2 Sat (Measured) ABG O2 Content ABG Base Excess Bijan Test O2 Delivery Device Oxygen Flow Rate Vent Mode Vent Rate PEEP Pressure Support Vent Sodium 137 Potassium 4.3 Chloride 106 Carbon Dioxide 25 Anion Gap 6 L BUN 16 D Creatinine 1.1 D Creat Clearance w eGFR 48.69 Random Glucose 133 H D Lactic Acid Calcium 9.4 Total Bilirubin < 0.5 D AST 32 D ALT 19 Alkaline Phosphatase 82 Total Protein 7.2 Albumin 3.7 Urine Color Yellow Urine Appearance Clear Urine pH 7.0 Ur Specific [place] 1.015 Urine Protein Negative Urine Glucose (UA) Negative Urine Ketones Negative Urine Blood 2+ H Urine Nitrite Positive Urine Bilirubin Negative Urine Urobilinogen 0.2 Ur Leukocyte Esterase Trace H Urine RBC 5-10 Urine WBC 15-20 Ur Epithelial Cells Few Urine Bacteria Moderate Blood Type Antibody Screen Antibody Identification Antigen Identification 06/30/17 06/30/17 06/30/17 21:00 21:20 21:20 WBC RBC Hgb Hct MCV MCH MCHC RDW Plt Count MPV Neutrophils % Lymphocytes % Monocytes % Eosinophils % Basophils % PT with INR 12.1 INR 1.08 Puncture Site ABG pH ABG pCO2 at Pt Temp ABG pO2 at Pt Temp ABG HCO3 ABG O2 Sat (Measured) ABG O2 Content ABG Base Excess Bijan Test O2 Delivery Device Oxygen Flow Rate Vent Mode Vent Rate PEEP Pressure Support Vent Sodium Potassium Chloride Carbon Dioxide Anion Gap BUN Creatinine Creat Clearance w eGFR Random Glucose Lactic Acid 3.1 H* Calcium Total Bilirubin AST ALT Alkaline Phosphatase Total Protein Albumin Urine Color Urine Appearance Urine pH Ur Specific [place] Urine Protein Urine Glucose (UA) Urine Ketones Urine Blood Urine Nitrite Urine Bilirubin Urine Urobilinogen Ur Leukocyte Esterase Urine RBC Urine WBC Ur Epithelial Cells Urine Bacteria Blood Type O POSITIVE Antibody Screen Positive H Antibody Identification COLD AGGLUTININ Antigen Identification No Result Required. 07/01/17 07/01/17 07/01/17 00:05 05:50 05:50 WBC 6.8 D RBC 3.50 L Hgb 10.7 D Hct 31.3 L MCV 89.3 MCH 30.7 MCHC 34.3 RDW 15.9 H Plt Count 179 D MPV 7.1 L Neutrophils % 87.4 H D Lymphocytes % 11.4 D Monocytes % 1.0 L D Eosinophils % 0.0 D Basophils % 0.2 PT with INR INR Puncture Site ABG pH ABG pCO2 at Pt Temp ABG pO2 at Pt Temp ABG HCO3 ABG O2 Sat (Measured) ABG O2 Content ABG Base Excess Bijan Test O2 Delivery Device Oxygen Flow Rate Vent Mode Vent Rate PEEP Pressure Support Vent Sodium 140 Potassium 3.6 Chloride 111 H Carbon Dioxide 24 Anion Gap 5 L BUN 18 Creatinine 1.5 H Creat Clearance w eGFR Random Glucose 131 H Lactic Acid 1.7 Calcium 7.5 L Total Bilirubin AST ALT Alkaline Phosphatase Total Protein Albumin Urine Color Urine Appearance Urine pH Ur Specific [place] Urine Protein Urine Glucose (UA) Urine Ketones Urine Blood Urine Nitrite Urine Bilirubin Urine Urobilinogen Ur Leukocyte Esterase Urine RBC Urine WBC Ur Epithelial Cells Urine Bacteria Blood Type Antibody Screen Antibody Identification Antigen Identification 07/01/17 14:05 WBC RBC Hgb Hct MCV MCH MCHC RDW Plt Count MPV Neutrophils % Lymphocytes % Monocytes % Eosinophils % Basophils % PT with INR INR Puncture Site Right radial ABG pH 7.34 L ABG pCO2 at Pt Temp 33.8 L ABG pO2 at Pt Temp 278.0 H* ABG HCO3 17.9 L ABG O2 Sat (Measured) 100.0 H* ABG O2 Content 14.9 L ABG Base Excess -6.5 L Bijan Test Positive O2 Delivery Device Vent Oxygen Flow Rate 100% Vent Mode A/c Vent Rate 16 PEEP 7.0 Pressure Support Vent 425 Sodium Potassium Chloride Carbon Dioxide Anion Gap BUN Creatinine Creat Clearance w eGFR Random Glucose Lactic Acid Calcium Total Bilirubin AST ALT Alkaline Phosphatase Total Protein Albumin Urine Color Urine Appearance Urine pH Ur Specific [place] Urine Protein Urine Glucose (UA) Urine Ketones Urine Blood Urine Nitrite Urine Bilirubin Urine Urobilinogen Ur Leukocyte Esterase Urine RBC Urine WBC Ur Epithelial Cells Urine Bacteria Blood Type Antibody Screen Antibody Identification Antigen Identification Active Medications Generic Name Dose Route Start Last Admin Trade Name Freq PRN Reason Stop Dose Admin Acetaminophen 1,000 mg 07/01/17 13:48 Ofirmev Injection - IVPB Q6H PRN FEVER Chlorhexidine Gluconate 1 applic 07/01/17 22:00 Hibiclens For Decolonization - TP HS JUMANA Heparin Sodium (Porcine) 5,000 unit 06/30/17 22:00 07/01/17 05:40 Heparin - SQ 5,000 unit TID JUMANA Administration Sodium Chloride 1,000 mls @ 100 mls/hr 07/01/17 05:00 07/01/17 04:57 Normal Saline - IV 100 mls/hr ASDIR JUMANA Administration Meropenem 1 gm/ Dextrose 100 mls @ 100 mls/hr 07/01/17 10:00 07/01/17 10:53 IVPB 100 mls/hr BID JUMANA Administration Protocol Propofol 1,000,000 mcg in 100 mls @ 2.425 mls/hr 07/01/17 13:45 Diprivan - IVPB TITR JUMANA Protocol 5 MCG/KG/MIN Morphine Sulfate 4 mg 06/30/17 20:49 07/01/17 03:03 Morphine Sulfate IVPUSH 4 mg Q6H PRN Administration PAIN LEVEL 6-10 Mupirocin 1 applic 07/01/17 10:00 07/01/17 10:57 Bactroban Ointment (For Decolonization) - NS 07/06/17 09:59 1 applic BID JUMANA Administration Ondansetron HCl 4 mg 06/30/17 21:12 Zofran Injection IVPUSH Q6H PRN NAUSEA AND/OR VOMITING Piperacillin/Tazobactam/Dextrose 3.375 gm 07/01/17 02:00 Zosyn 3.375gm Ivpb (Premix) IVPB Q8H-IV JUMANA Imaging 06/30 CXR: congestive changes 07/01 CT AP: 4mm distal left ureteral obstructing stone with moderate to severe proximal hydronephrosis and hydroureter; extensive perinephric and periureteral stranding and edema and small amount of fluid; focus of air in left renal pelvis 07/01 abd: cholelithiasis, no evidence of cholecystitis; no biliary tract dilitation; left hydronephrosis 07/01 pelvic/bladder: mild to moderate left hydro after placement of ren ASSESSMENT/PLAN 72 year-old female with a PMH significant for HLD, left kidney stone s/p stent and an E.coli ESBL UTI (05/2016), diverticulosis, and s/p right TKR (03/2017). Now with obstructing left ureteral calculi, left hydronephrosis, left hydroureter, possible urinoma, gram negative bacteremia, and severe sepsis. Obstructing left ureteral calculi Left hydronephrosis Left hydroureter --CT demonstrated findings; also with significant inflammation, edema, fluid ; focus of air in renal pelvis concerning for possible air producing organism --called and spoke with Dr. Leggett, he is en route, pulling together OR team Severe sepsis Bacteremia --at 07/01 at 4:00am: p 93, T102.3, lactic acid 3.1, suspected source UTI --cultures pending but recently treated for E.coli ESBL --seen and evaluated by ID, start empiric meropenem and Zosyn --gave NS x 1L bolus today, then continue NS @ 100mL/hr; maintain MAP >65 Hypoxic respiratory failure --RR 38, t 104.6, SpO2 85% on 4L --intubated Acute renal failure --Cr 1.5, was 1.1 on admission, baseline 0.9 --IV fluids --renal consult requested Dispo: continues to require ICU level care. Visit type - Emergency Visit Emergency Visit: Yes ED Registration Date: 06/30/17 Care time: The patient presented to the Emergency Department on the above date and was hospitalized for further evaluation of their emergent condition. - New Patient This patient is new to me today: Yes Date on this admission: 07/01/17 - Critical Care Critical Care patient: Yes Total Critical Care Time (in minutes): 90 Critical Care Statement: The care of this patient involved high complexity decision making to prevent further life threatening deterioration of the patient 's condition and/or to evaluate & treat vital organ system(s) failure or risk of failure.
[2017-07-01] MEDS ORDERED: SODIUM CHLORIDE 1,000 ML IV STA (15:05)
[2017-07-01] MEDS ORDERED: MIDAZOLAM HCL 5 MG/1 ML Single Dose Vial IVPUSH ONE (15:15)
--- NOTE | 2017-07-01 15:19 | PN ---
Teaching Attending Note Name of Resident: Mina Schafer ATTENDING PHYSICIAN STATEMENT I saw and evaluated the patient. I reviewed the resident's note and discussed the case with the resident. I agree with the resident's findings and plan as documented. SUBJECTIVE: Patient seen and examined in the ICU. Decompensated and required intubation. CXR: mildly increased vascular markings / ETT in position / TLC in position Intake & Output 06/28/17 06/29/17 06/30/17 07/01/17 23:59 23:59 23:59 23:59 Intake Total 800 Output Total 350 Balance -350 800 Weight 170 lb 178 lb 3.2 oz Last Vital Signs Temp Pulse Resp BP Pulse Ox 98.4 F 115 H 27 H 117/54 100 07/01/17 12:00 07/01/17 13:05 07/01/17 13:05 07/01/17 12:00 07/01/17 13:05 Active Medications Acetaminophen (Ofirmev Injection -) 1,000 mg IVPB Q6H PRN PRN Reason: FEVER Chlorhexidine Gluconate (Hibiclens For Decolonization -) 1 applic TP HS JUMANA Heparin Sodium (Porcine) (Heparin -) 5,000 unit SQ TID JUMANA Last Admin: 07/01/17 15:07 Dose: 5,000 unit Sodium Chloride (Normal Saline -) 1,000 mls @ 100 mls/hr IV ASDIR JUMANA Last Admin: 07/01/17 04:57 Dose: 100 mls/hr Meropenem 1 gm/ Dextrose 100 mls @ 100 mls/hr IVPB BID JUMANA PRN Reason: Protocol Last Admin: 07/01/17 10:53 Dose: 100 mls/hr Propofol (Diprivan -) 1,000,000 mcg in 100 mls @ 2.425 mls/hr IVPB TITR JUMANA; 5 MCG/KG/MIN PRN Reason: Protocol Last Admin: 07/01/17 14:30 Dose: 5 mcg/kg/min, 2.425 mls/hr Sodium Chloride (Normal Saline -) 1,000 mls @ 1,000 mls/hr IV ASDIR STA Stop: 07/01/17 16:04 Last Admin: 07/01/17 15:11 Dose: 1,000 mls/hr Morphine Sulfate (Morphine Sulfate) 4 mg IVPUSH Q6H PRN PRN Reason: PAIN LEVEL 6-10 Last Admin: 07/01/17 03:03 Dose: 4 mg Mupirocin (Bactroban Ointment (For Decolonization) -) 1 applic NS BID JUMANA Stop: 07/06/17 09:59 Last Admin: 07/01/17 10:57 Dose: 1 applic Ondansetron HCl (Zofran Injection) 4 mg IVPUSH Q6H PRN PRN Reason: NAUSEA AND/OR VOMITING Piperacillin/Tazobactam/Dextrose (Zosyn 3.375gm Ivpb (Premix)) 3.375 gm IVPB Q8H-IV JUMANA Constitutional: Yes: Intubated / sedated Eyes: Yes: WNL Cardiovascular: Yes: Regular Rate and Rhythm Respiratory: Yes: Vented, bilateral rhonchi Gastrointestinal: Yes: Normal Bowel Sounds, Soft. No: Tenderness Extremities: Yes: WNL Edema: No Peripheral Pulses WNL: Yes Neurological: Yes: sedated Labs: Laboratory Results - last 24 hr 06/30/17 06/30/17 06/30/17 17:33 17:33 20:34 WBC 11.8 H D RBC 4.34 Hgb 12.8 Hct 38.3 MCV 88.2 MCH 29.4 MCHC 33.3 RDW 14.9 Plt Count 265 MPV 7.0 L Neutrophils % 84.3 H Lymphocytes % 9.2 Monocytes % 3.6 L Eosinophils % 0.2 Basophils % 2.7 H PT with INR INR Puncture Site ABG pH ABG pCO2 at Pt Temp ABG pO2 at Pt Temp ABG HCO3 ABG O2 Sat (Measured) ABG O2 Content ABG Base Excess Bijan Test O2 Delivery Device Oxygen Flow Rate Vent Mode Vent Rate PEEP Pressure Support Vent Sodium 137 Potassium 4.3 Chloride 106 Carbon Dioxide 25 Anion Gap 6 L BUN 16 D Creatinine 1.1 D Creat Clearance w eGFR 48.69 Random Glucose 133 H D Lactic Acid Calcium 9.4 Total Bilirubin < 0.5 D AST 32 D ALT 19 Alkaline Phosphatase 82 Total Protein 7.2 Albumin 3.7 Urine Color Yellow Urine Appearance Clear Urine pH 7.0 Ur Specific [place] 1.015 Urine Protein Negative Urine Glucose (UA) Negative Urine Ketones Negative Urine Blood 2+ H Urine Nitrite Positive Urine Bilirubin Negative Urine Urobilinogen 0.2 Ur Leukocyte Esterase Trace H Urine RBC 5-10 Urine WBC 15-20 Ur Epithelial Cells Few Urine Bacteria Moderate Blood Type Antibody Screen Antibody Identification Antigen Identification 06/30/17 06/30/17 06/30/17 21:00 21:20 21:20 WBC RBC Hgb Hct MCV MCH MCHC RDW Plt Count MPV Neutrophils % Lymphocytes % Monocytes % Eosinophils % Basophils % PT with INR 12.1 INR 1.08 Puncture Site ABG pH ABG pCO2 at Pt Temp ABG pO2 at Pt Temp ABG HCO3 ABG O2 Sat (Measured) ABG O2 Content ABG Base Excess Bijan Test O2 Delivery Device Oxygen Flow Rate Vent Mode Vent Rate PEEP Pressure Support Vent Sodium Potassium Chloride Carbon Dioxide Anion Gap BUN Creatinine Creat Clearance w eGFR Random Glucose Lactic Acid 3.1 H* Calcium Total Bilirubin AST ALT Alkaline Phosphatase Total Protein Albumin Urine Color Urine Appearance Urine pH Ur Specific [place] Urine Protein Urine Glucose (UA) Urine Ketones Urine Blood Urine Nitrite Urine Bilirubin Urine Urobilinogen Ur Leukocyte Esterase Urine RBC Urine WBC Ur Epithelial Cells Urine Bacteria Blood Type O POSITIVE Antibody Screen Positive H Antibody Identification COLD AGGLUTININ Antigen Identification No Result Required. 07/01/17 07/01/17 07/01/17 00:05 05:50 05:50 WBC 6.8 D RBC 3.50 L Hgb 10.7 D Hct 31.3 L MCV 89.3 MCH 30.7 MCHC 34.3 RDW 15.9 H Plt Count 179 D MPV 7.1 L Neutrophils % 87.4 H D Lymphocytes % 11.4 D Monocytes % 1.0 L D Eosinophils % 0.0 D Basophils % 0.2 PT with INR INR Puncture Site ABG pH ABG pCO2 at Pt Temp ABG pO2 at Pt Temp ABG HCO3 ABG O2 Sat (Measured) ABG O2 Content ABG Base Excess Bijan Test O2 Delivery Device Oxygen Flow Rate Vent Mode Vent Rate PEEP Pressure Support Vent Sodium 140 Potassium 3.6 Chloride 111 H Carbon Dioxide 24 Anion Gap 5 L BUN 18 Creatinine 1.5 H Creat Clearance w eGFR Random Glucose 131 H Lactic Acid 1.7 Calcium 7.5 L Total Bilirubin AST ALT Alkaline Phosphatase Total Protein Albumin Urine Color Urine Appearance Urine pH Ur Specific [place] Urine Protein Urine Glucose (UA) Urine Ketones Urine Blood Urine Nitrite Urine Bilirubin Urine Urobilinogen Ur Leukocyte Esterase Urine RBC Urine WBC Ur Epithelial Cells Urine Bacteria Blood Type Antibody Screen Antibody Identification Antigen Identification 07/01/17 14:05 WBC RBC Hgb Hct MCV MCH MCHC RDW Plt Count MPV Neutrophils % Lymphocytes % Monocytes % Eosinophils % Basophils % PT with INR INR Puncture Site Right radial ABG pH 7.34 L ABG pCO2 at Pt Temp 33.8 L ABG pO2 at Pt Temp 278.0 H* ABG HCO3 17.9 L ABG O2 Sat (Measured) 100.0 H* ABG O2 Content 14.9 L ABG Base Excess -6.5 L Bijan Test Positive O2 Delivery Device Vent Oxygen Flow Rate 100% Vent Mode A/c Vent Rate 16 PEEP 7.0 Pressure Support Vent 425 Sodium Potassium Chloride Carbon Dioxide Anion Gap BUN Creatinine Creat Clearance w eGFR Random Glucose Lactic Acid Calcium Total Bilirubin AST ALT Alkaline Phosphatase Total Protein Albumin Urine Color Urine Appearance Urine pH Ur Specific [place] Urine Protein Urine Glucose (UA) Urine Ketones Urine Blood Urine Nitrite Urine Bilirubin Urine Urobilinogen Ur Leukocyte Esterase Urine RBC Urine WBC Ur Epithelial Cells Urine Bacteria Blood Type Antibody Screen Antibody Identification Antigen Identification Problem List - Problems (1) Hydronephrosis with infection Code(s): N13.6 - PYONEPHROSIS (2) Kidney stone on left side Code(s): N20.0 - CALCULUS OF KIDNEY (3) Sepsis Code(s): A41.9 - SEPSIS, UNSPECIFIED ORGANISM Assessment/Plan Acute Respiratory Failure (?) early ARDS Sepsis 2/2 UTI Left hydronephrosis and nephrolithiasis Elevated lactate, now resolved Lung protective ventilation Follow ABG Follow CXR Judious IVF Check CVP No indication for pressors at this time Strict I & O ABX per ID Monitor Renal function VTE prophylaxis Dr Newton Critical care time spent in reviewing chart, evaluating patient and formulating plan - 36 minutes.
[2017-07-01] MEDS ORDERED: PROPOFOL 200 MG/20 ML VIAL IVPUSH ONE (16:15)
[2017-07-01] MEDS ORDERED: SODIUM CHLORIDE 250 ML IV STA (16:35)
[2017-07-01] MEDS ORDERED: NOREPINEPHRINE BITARTRATE 4 MG/4 ML ML IV ONE ×2 (17:04→23:05)
--- NOTE | 2017-07-01 17:13 | CON.GU ---
Consult Consult Specialty:: Referred by:: ICU Reason for Consultation:: hydro/sepsis - History of Present Illness Chief Complaint: hydro/sepsis History of Present Illness: 72 year old female with history of stones who was admitted with a ureteral stone earlier today. She was initially admitted to the unit but was doing better and was stable a two hours ago. She became unstable and was intubated. Interventional Radiology was called to place a nephrostomy tube but they declined the case. I was called by ICU attending and came to bedside. She is intubated and hypotensive. - History Source Limitations to Obtaining History: Clinical Condition - Past Medical History S[employer]: Yes: Other (spinal stenosis) Cardio/Vascular: Yes: Other (PSVT) ...: No Psych: Yes: Anxiety Musculoskeletal: Yes: Chronic low back pain - Alcohol/Substance Use Hx Alcohol Use: No - Smoking History Smoking history: Never smoked Have you smoked in the past 12 months: No If you are a former smoker, when did you quit?: 1959 - Social History Usual Living Arrangement: With Spouse ADL: Independent History of Recent Travel: No Home Medications - Allergies Allergies/Adverse Reactions: Allergies Allergy/AdvReac Type Severity Reaction Status Date / Time No Known Drug Allergies Allergy Verified 12/25/16 18:08 - Home Medications Home Medications: Ambulatory Orders Celecoxib 200 mg PO ASDIR 12/25/16 oxyCODONE HCL [Roxicodone -] 5 mg PO Q6H 12/25/16 Famotidine [Pepcid] 40 mg PO DAILY 06/30/17 Physical Exam- Vital Signs: Vital Signs Temperature 98.4 F 07/01/17 12:00 Pulse Rate 115 H 07/01/17 13:05 Respiratory Rate 16 07/01/17 15:40 Blood Pressure 117/54 07/01/17 12:00 O2 Sat by Pulse Oximetry (%) 100 07/01/17 13:05 Gastrointestinal: Yes: Soft, Abdomen, Obese Renal/: Yes: Schaefer Present. No: Bladder Distention, CVA Tenderness - Left, CVA Tenderness - Right, Hematuria, Incontinence Labs: CBC, BMP 07/01/17 05:50 07/01/17 05:50 Problem List - Problems (1) Hydronephrosis due to obstruction of ureter Assessment/Plan: recommend decompression as soon as possible. Interventional Radiology has declined the case due to technical difficulty. Would recommend immediate retrograde stenting. OR has been called and they have offered the next room available. Voicemail left with HCP/NOK Code(s): N13.2 - HYDRONEPHROSIS WITH RENAL AND URETERAL CALCULOUS OBSTRUCTION
[2017-07-01] MEDS: NOREPINEPHRINE BITARTRATE 4,000 MCG in DEXTROSE 5%-WATER - 496 ML IV SCH (17:15)
[2017-07-01] MEDS: SODIUM CHLORIDE 1,000 ML IV SCH (17:29)
[2017-07-01 19:12] LABS: HEMOGLOBIN 10.1 GM/dL (10.7-15.3); MCH 30.4 pg (25.7-33.7); MCHC 33.8 g/dl (32.0-36.0); MEAN CELL VOLUME 90.1 fl (80-96); PLATELET COUNT 129 K/MM3 (134-434); RBC 3.33 M/mm3 (3.60-5.2); RDW 16.4 % (11.6-15.6); WHITE BLOOD COUNT 12.5 K/mm3 (4.0-10.0)
[2017-07-01 19:13] LABS: ADD RBC MORPHOLOGY YES
[2017-07-01] MEDS ORDERED: MIDAZOLAM HCL 2 MG/2 ML SINGLE DOSE VIAL ONE (19:18)
[2017-07-01 19:26] LABS: INR 1.27 (0.82-1.09); PROTHROMBIN TIME (PATIENT) 14.3 SEC (9.98-11.88)
[2017-07-01 19:29] LABS: ACTIVATED PTT 34.8 SECONDS (26.9-34.4)
[2017-07-01 19:37] LABS: ANION GAP 9 (8-16); BLOOD UREA NITROGEN 24 mg/dL (7-18); CALCIUM 7.3 mg/dL (8.5-10.1); CHLORIDE 113 mmol/L (98-107); CO2 21 mmol/L (21-32); CREATININE 1.9 mg/dL (0.55-1.02); GLUCOSE,RANDOM 112 mg/dL (74-106); POTASSIUM 3.2 mmol/L (3.5-5.1); SODIUM 143 mmol/L (136-145)
[2017-07-01 21:35] LABS: OVALOCYTE 1+; PLATELET ESTIMATE SLT DECREASE
[2017-07-01] MEDS: CHLORHEXIDINE GLUCONATE 4% CLEANSER FOR DECOLONIZATION TP SCH (23:02)
[2017-07-01] MEDS: KCL 10 MEQ IVPB 10 MEQ/100 ML INFUS.BAG IVPB SCH (23:02)
[2017-07-02] MEDS: KCL 10 MEQ IVPB 10 MEQ/100 ML INFUS.BAG IVPB SCH ×2 (01:24)
[2017-07-02 06:18] LABS: BASO % 0.1 % (0-2.0); EOS % 0.6 % (0-4.5); LYMPH % 8.7 % (8-40); MCH 30.1 pg (25.7-33.7); MCHC 33.5 g/dl (32.0-36.0); MEAN CELL VOLUME 89.9 fl (80-96); MEAN PLT VOLUME 7.9 fl (7.5-11.1); NEUT % 87.6 % (42.8-82.8); PLATELET COUNT 110 K/MM3 (134-434); RBC 3.33 M/mm3 (3.60-5.2); RDW 16.7 % (11.6-15.6)
[2017-07-02 06:45] LABS: ALBUMIN 2.2 g/dl (3.4-5.0); ANION GAP 9 (8-16); BLOOD UREA NITROGEN 25 mg/dL (7-18); CALCIUM 7.3 mg/dL (8.5-10.1); CHLORIDE 111 mmol/L (98-107); CO2 21 mmol/L (21-32); CREATININE 1.4 mg/dL (0.55-1.02); GLUCOSE,RANDOM 128 mg/dL (74-106); MAGNESIUM 1.8 mg/dL (1.8-2.4); PHOSPHOROUS 3.1 mg/dL (2.5-4.9); POTASSIUM 3.9 mmol/L (3.5-5.1); SGOT/AST 88 U/L (15-37); SGPT/ALT 75 U/L (12-78); SODIUM 141 mmol/L (136-145)
[2017-07-02 06:46] LABS: ALK PHOS 70 U/L (45-117); BILIRUBIN,TOTAL 0.6 mg/dL (0.2-1.0); TOT PROT 5.3 g/dl (6.4-8.2)
[2017-07-02] MEDS: HEPARIN NA (PORCINE) 5,000 UNITS/ML 1ML VIAL SQ SCH ×2 (06:54→15:50)
--- NOTE | 2017-07-02 08:46 | PN ---
Physical Exam: SUBJECTIVE: Patient seen and examined Pt underwent ureteral stent last night. At 6am, pt became tachycardic with irregular rhythms. Levophed was able to weaned off later in the morning. OBJECTIVE: Vital Signs Period Temp Pulse Resp BP Sys/Robbins Pulse Ox Last 24 Hr 97.6 F-104.2 F 63-115 14-27 60-138/46-104 94-100 GENERAL: elderly female, lying in bed, lethargic, in minimal distress, sedated on vent, able to follow some commands HEENT: dry mucous membranes LUNGS: mechanical breath sounds HEART: irregularly irregular, no murmurs ABDOMEN: normoactive BS, soft MUSCULOSKELETAL: no LE edema NEUROLOGICAL: EOMI, PEARRLA Laboratory Results - last 24 hr 06/30/17 07/01/17 07/01/17 21:20 12:30 14:05 WBC RBC Hgb Hct MCV MCH MCHC RDW Plt Count MPV Total Counted Neutrophils % Neutrophils % (Manual) Band Neutrophils % Lymphocytes % Lymphocytes % (Manual) Monocytes % Monocytes % (Manual) Eosinophils % Basophils % Myelocytes % (Man) Metamyelocytes Differential Comment Platelet Estimate Platelet Comment Polychromasia Poikilocytosis Ovalocytes PT with INR INR PTT (Actin FS) Puncture Site Right radial ABG pH 7.34 L ABG pCO2 at Pt Temp 33.8 L ABG pO2 at Pt Temp 278.0 H* ABG HCO3 17.9 L ABG O2 Sat (Measured) 100.0 H* ABG O2 Content 14.9 L ABG Base Excess -6.5 L Bijan Test Positive O2 Delivery Device Vent Oxygen Flow Rate 100% Vent Mode A/c Vent Rate 16 PEEP 7.0 Pressure Support Vent 425 Sodium Potassium Chloride Carbon Dioxide Anion Gap BUN Creatinine Creat Clearance w eGFR Random Glucose Calcium Phosphorus Magnesium Total Bilirubin AST ALT Alkaline Phosphatase Creatine Kinase Creatine Kinase Index CK-MB (CK-2) Troponin I C-Reactive Protein Total Protein Albumin Ur Random Sodium Urine Creatinine 142.0 Blood Type O POSITIVE Antibody Screen Positive H Antibody Identification COLD AGGLUTININ Direct Antiglob Test Positive H 07/01/17 07/01/17 07/01/17 16:54 17:30 17:30 WBC 12.5 H D RBC 3.33 L Hgb 10.1 L Hct 30.0 L MCV 90.1 MCH 30.4 MCHC 33.8 RDW 16.4 H Plt Count 129 L D MPV 8.0 D Total Counted 100 Neutrophils % No Result Required. Neutrophils % (Manual) 60.0 Band Neutrophils % 28.0 Lymphocytes % No Result Required. Lymphocytes % (Manual) 6.0 L Monocytes % Monocytes % (Manual) 1 L Eosinophils % Basophils % Myelocytes % (Man) 1 Metamyelocytes 3 H Differential Comment Man diff performed Platelet Estimate Slt decrease Platelet Comment Giant platelets Polychromasia 1+ Poikilocytosis 1+ Ovalocytes 1+ PT with INR INR PTT (Actin FS) Puncture Site ABG pH ABG pCO2 at Pt Temp ABG pO2 at Pt Temp ABG HCO3 ABG O2 Sat (Measured) ABG O2 Content ABG Base Excess Bijan Test O2 Delivery Device Oxygen Flow Rate Vent Mode Vent Rate PEEP Pressure Support Vent Sodium 143 Potassium 3.2 L Chloride 113 H Carbon Dioxide 21 Anion Gap 9 BUN 24 H Creatinine 1.9 H Creat Clearance w eGFR Random Glucose 112 H Calcium 7.3 L Phosphorus Magnesium Total Bilirubin AST ALT Alkaline Phosphatase Creatine Kinase Creatine Kinase Index CK-MB (CK-2) Troponin I C-Reactive Protein Total Protein Albumin Ur Random Sodium 34 Urine Creatinine Blood Type Antibody Screen Antibody Identification Direct Antiglob Test 07/01/17 07/02/17 07/02/17 17:30 05:50 05:50 WBC 17.0 H D RBC 3.33 L Hgb 10.0 L Hct 30.0 L MCV 89.9 MCH 30.1 MCHC 33.5 RDW 16.7 H Plt Count 110 L MPV 7.9 Total Counted Neutrophils % 87.6 H Neutrophils % (Manual) Band Neutrophils % Lymphocytes % 8.7 D Lymphocytes % (Manual) Monocytes % 3.0 L D Monocytes % (Manual) Eosinophils % 0.6 D Basophils % 0.1 Myelocytes % (Man) Metamyelocytes Differential Comment Platelet Estimate Platelet Comment Polychromasia Poikilocytosis Ovalocytes PT with INR 14.30 H INR 1.27 H D PTT (Actin FS) 34.8 H Puncture Site ABG pH ABG pCO2 at Pt Temp ABG pO2 at Pt Temp ABG HCO3 ABG O2 Sat (Measured) ABG O2 Content ABG Base Excess Bijan Test O2 Delivery Device Oxygen Flow Rate Vent Mode Vent Rate PEEP Pressure Support Vent Sodium 141 Potassium 3.9 Chloride 111 H Carbon Dioxide 21 Anion Gap 9 BUN 25 H Creatinine 1.4 H Creat Clearance w eGFR 36.86 Random Glucose 128 H Calcium 7.3 L Phosphorus 3.1 Magnesium 1.8 Total Bilirubin 0.6 D AST 88 H ALT 75 Alkaline Phosphatase 70 Creatine Kinase Creatine Kinase Index CK-MB (CK-2) Troponin I C-Reactive Protein Total Protein 5.3 L Albumin 2.2 L Ur Random Sodium Urine Creatinine Blood Type Antibody Screen Antibody Identification Direct Antiglob Test 07/02/17 07/02/17 05:50 05:50 WBC RBC Hgb Hct MCV MCH MCHC RDW Plt Count MPV Total Counted Neutrophils % Neutrophils % (Manual) Band Neutrophils % Lymphocytes % Lymphocytes % (Manual) Monocytes % Monocytes % (Manual) Eosinophils % Basophils % Myelocytes % (Man) Metamyelocytes Differential Comment Platelet Estimate Platelet Comment Polychromasia Poikilocytosis Ovalocytes PT with INR INR PTT (Actin FS) Puncture Site ABG pH ABG pCO2 at Pt Temp ABG pO2 at Pt Temp ABG HCO3 ABG O2 Sat (Measured) ABG O2 Content ABG Base Excess Bijan Test O2 Delivery Device Oxygen Flow Rate Vent Mode Vent Rate PEEP Pressure Support Vent Sodium Potassium Chloride Carbon Dioxide Anion Gap BUN Creatinine Creat Clearance w eGFR Random Glucose Calcium Phosphorus Magnesium Total Bilirubin AST ALT Alkaline Phosphatase Creatine Kinase 453 H Creatine Kinase Index 0.6 CK-MB (CK-2) 3.093 Troponin I 0.06 H C-Reactive Protein 24.0 H Total Protein Albumin Ur Random Sodium Urine Creatinine Blood Type Antibody Screen Antibody Identification Direct Antiglob Test Active Medications Generic Name Dose Route Start Last Admin Trade Name Freq PRN Reason Stop Dose Admin Acetaminophen 1,000 mg 07/01/17 13:48 Ofirmev Injection - IVPB Q6H PRN FEVER Chlorhexidine Gluconate 1 applic 07/01/17 22:00 07/01/17 23:02 Hibiclens For Decolonization - TP 1 applic HS JUMANA Administration Heparin Sodium (Porcine) 5,000 unit 06/30/17 22:00 07/02/17 06:54 Heparin - SQ 5,000 unit TID JUMANA Administration Meropenem 1 gm/ Dextrose 100 mls @ 100 mls/hr 07/01/17 10:00 07/01/17 23:10 IVPB 100 mls/hr BID JUMANA Administration Protocol Propofol 1,000,000 mcg in 100 mls @ 2.425 mls/hr 07/01/17 13:45 07/02/17 00: 08 Diprivan - IVPB 25 mcg/kg/min TITR JUMANA 12.125 mls/hr Protocol Titration 5 MCG/KG/MIN Sodium Chloride 1,000 mls @ 125 mls/hr 07/01/17 16:37 07/01/17 17:29 Normal Saline - IV 125 mls/hr ASDIR JUMANA Administration Norepinephrine Bitartrate 4, 500 mls @ 37.5 mls/hr 07/01/17 17:00 07/02/17 08 :15 000 mcg/ Dextrose IV 0 mcg/min TITR JUMANA 0 mls/hr Protocol Titration 5 MCG/MIN Morphine Sulfate 4 mg 06/30/17 20:49 07/01/17 03:03 Morphine Sulfate IVPUSH 4 mg Q6H PRN Administration PAIN LEVEL 6-10 Mupirocin 1 applic 07/01/17 10:00 07/01/17 23:04 Bactroban Ointment (For Decolonization) - NS 07/06/17 09:59 1 applic BID JUMANA Administration Ondansetron HCl 4 mg 06/30/17 21:12 Zofran Injection IVPUSH Q6H PRN NAUSEA AND/OR VOMITING Piperacillin/Tazobactam/Dextrose 3.375 gm 07/01/17 02:00 Zosyn 3.375gm Ivpb (Premix) IVPB Q8H-IV JUMANA ASSESSMENT/PLAN: 72F w/ hx of nephrolithiasis s/p ESWL (most recently around a year ago), right TKR, HTN, and HLD who presented with acute LLQ abdominal pain, nausea, fever, chills, and acute on chronic right knee pain, found to have evidence of severe sepsis 2/2 UTI in addition to a left-sided 5mm obstructing kidney stone with resulting hydroureter, hydronephrosis, and perinephric stranding. Pt is s/p intubation on 07/01 and ureteral stent on 07/01. ID #severe sepsis- likely 2/2 UTI 2/2 kidney stone -Ucx: pending -Bcx: growing GNB x 2 bottles -temps as high as 104.2 -leukocytosis of 17 -urology on board, recs appreciated. Pt is s/p left ureteral stent on 07/01. -ID on board, recs appreciated. continue meropenem and zosyn. -ortho on board, appreciate recs. right knee arthrocentesis performed. f/u cultures Nephro #LUDA -creatinine of 1.4, down from 1.9. FeNa of 0.3%, consistent with pre-renal etiology -bladder/kidney US: mild to moderate hydro -ren inserted -strict I/Os -continue fluids Pulm #respiratory distress -stop sedation and wean off of vent today CV #hypotension 2/2 sepsis -central line placed on 07/01 -levo titrated off. ensure MAPs > 65 #tachycardia -cardiology consulted, recs appreciated. resume home metoprolol once BP is stable #troponinemia -trops of 0.06. per cards, not problematic. f/u echo GI -zofran for nausea Heme #thrombocytopenia -platelets of 110 this am, down from 254 on admission -continue to monitor FEN/ppx -NS @ 125 -electrolytes wnl -clears -heparin 5000U TID -no GI ppx indicated Family Members: -Bronson (son): [phone] -Guera ([id number]): [phone] Case discussed with attending, Dr. Newton. -Mina Schafer MD PGY1 ICU Team Visit type - Emergency Visit Emergency Visit: Yes ED Registration Date: 06/30/17 Care time: The patient presented to the Emergency Department on the above date and was hospitalized for further evaluation of their emergent condition. - New Patient This patient is new to me today: No - Critical Care Critical Care patient: Yes Total Critical Care Time (in minutes): 45 Critical Care Statement: The care of this patient involved high complexity decision making to prevent further life threatening deterioration of the patient 's condition and/or to evaluate & treat vital organ system(s) failure or risk of failure.
[2017-07-02] MEDS: MEROPENEM 1 GM in DEXTROSE 5%-WATER - 100 ML IVPB SCH ×2 (09:47→21:13)
[2017-07-02] MEDS: MUPIROCIN 2% TOPICAL OINTMENT FOR DECOLONIZATION NS SCH ×2 (09:47→21:11)
[2017-07-02] MEDS: ACETAMINOPHEN 1000 MG/100 ML VIAL (NON FORMULARY) IVPB PRN ×2 (11:30→18:46)
--- NOTE | 2017-07-02 11:38 | PN ---
Progress Note (short form) - Note Progress Note: awake and alert off pressors intubated yesterday s/p stent placement yesterday s/p arthrocentesis yesterday Vital Signs Period Temp Pulse Resp BP Sys/Robbins Pulse Ox Last 24 Hr 97.6 F-104.2 F 63-115 16-27 60-138/47-104 99-100 cor-rrr lungs clear abd soft,nt ext no edema ren in place CBC, BMP 07/02/17 05:50 07/02/17 05:50 Microbiology 07/01/17 11:39 Synovial Fluid - Knee Body Fluid Culture - Preliminary NO AEROBIC GROWTH, 24 HRS 06/30/17 21:00 Urine - Urine - Catheterized Urine Culture - Preliminary Lactose Fermenting Neg Bacilli 06/30/17 21:05 Blood - Peripheral Venous Blood Culture - Preliminary Lactose Fermenting Neg Bacilli 06/30/17 21:05 Blood - Peripheral Venous Blood Culture - Preliminary Lactose Fermenting Neg Bacilli Current Medications Acetaminophen (Ofirmev Injection -) 1,000 mg IVPB Q6H PRN PRN Reason: FEVER Last Admin: 07/02/17 11:30 Dose: 1,000 mg Chlorhexidine Gluconate (Hibiclens For Decolonization -) 1 applic TP HS JUMANA Last Admin: 07/01/17 23:02 Dose: 1 applic Heparin Sodium (Porcine) (Heparin -) 5,000 unit SQ TID JUMANA Last Admin: 07/02/17 06:54 Dose: 5,000 unit Meropenem 1 gm/ Dextrose 100 mls @ 100 mls/hr IVPB BID JUMANA PRN Reason: Protocol Last Admin: 07/02/17 09:47 Dose: 100 mls/hr Propofol (Diprivan -) 1,000,000 mcg in 100 mls @ 2.425 mls/hr IVPB TITR JUMANA; 5 MCG/KG/MIN PRN Reason: Protocol Last Titration: 07/02/17 11:31 Dose: 20 mcg/kg/min, 9.7 mls/hr Sodium Chloride (Normal Saline -) 1,000 mls @ 125 mls/hr IV ASDIR JUMANA Last Admin: 07/01/17 17:29 Dose: 125 mls/hr Norepinephrine Bitartrate 4, (000 mcg/ Dextrose) 500 mls @ 37.5 mls/hr IV TITR JUMANA; 5 MCG/MIN PRN Reason: Protocol Last Titration: 07/02/17 08:15 Dose: 0 mcg/min, 0 mls/hr Morphine Sulfate (Morphine Sulfate) 4 mg IVPUSH Q6H PRN PRN Reason: PAIN LEVEL 6-10 Last Admin: 07/01/17 03:03 Dose: 4 mg Mupirocin (Bactroban Ointment (For Decolonization) -) 1 applic NS BID JUMANA Stop: 07/06/17 09:59 Last Admin: 07/02/17 09:47 Dose: 1 applic Ondansetron HCl (Zofran Injection) 4 mg IVPUSH Q6H PRN PRN Reason: NAUSEA AND/OR VOMITING Piperacillin/Tazobactam/Dextrose (Zosyn 3.375gm Ivpb (Premix)) 3.375 gm IVPB Q8H-IV JUMANA a/p clinically improved gram negative sepsis- doing well ecoli esbl by history continue meropenem
--- NOTE | 2017-07-02 11:39 | CONSULT ---
Consult - text type - Consultation Consultation Note: Renal Consult for LUDA This is a 72 year old woman with PMhx of Nephrolithiasis, OA s/p TKR, Hypertension, Hyperlipidemia who presented with abd pain and fever and found to have Sepsis secondary to Pylonephritis complicated by obstructing stone with Hydronephrosis. S/p Left sided stent placement by urology yesterday. Pt is awake on the vent via ET tube. Unable to answer questions. Making urine via ren. PMHx: as above Allergies: NKDA Family Hx: NC Social Hx: No T/A/D ROS: unable to acess b/c of clinical status Home Medications Medication Instructions Recorded Celecoxib 200 mg PO ASDIR 12/25/16 oxyCODONE HCL [Roxicodone -] 5 mg PO Q6H 12/25/16 Famotidine [Pepcid] 40 mg PO DAILY 06/30/17 Vital Signs Temperature 99.4 F 07/02/17 10:00 Pulse Rate 70 07/02/17 10:00 Respiratory Rate 25 H 07/02/17 11:26 Blood Pressure 120/68 07/02/17 10:00 O2 Sat by Pulse Oximetry (%) 99 07/01/17 21:00 Intake & Output 06/29/17 06/30/17 07/01/17 07/02/17 23:59 23:59 23:59 23:59 Intake Total 3739 2644 Output Total 350 1030 600 Balance -350 2709 2044 Weight 77.111 kg 80.83 kg NAD awake and alert ET tube in place RRR, NO M/R CTA, no rales or wheeze soft NT/ND No LE edema, clubbing or cyanosis CBC, BMP 07/02/17 05:50 07/02/17 05:50 Laboratory Tests 06/30/17 07/01/17 07/01/17 20:34 12:30 16:54 Calcium Phosphorus Magnesium Creatine Kinase Troponin I Albumin Urine Blood 2+ H Ur Leukocyte Esterase Trace H Urine RBC 5-10 Urine WBC 15-20 Ur Random Sodium 34 Urine Creatinine 142.0 07/02/17 07/02/17 05:50 05:50 Calcium 7.3 L Phosphorus 3.1 Magnesium 1.8 Creatine Kinase 453 H Troponin I 0.06 H Albumin 2.2 L Urine Blood Ur Leukocyte Esterase Urine RBC Urine WBC Ur Random Sodium Urine Creatinine Current Medications Acetaminophen (Ofirmev Injection -) 1,000 mg IVPB Q6H PRN PRN Reason: FEVER Last Admin: 07/02/17 11:30 Dose: 1,000 mg Chlorhexidine Gluconate (Hibiclens For Decolonization -) 1 applic TP HS [facility] Last Admin: 07/01/17 23:02 Dose: 1 applic Heparin Sodium (Porcine) (Heparin -) 5,000 unit SQ TID [facility] Last Admin: 07/02/17 06:54 Dose: 5,000 unit Meropenem 1 gm/ Dextrose 100 mls @ 100 mls/hr IVPB BID JUMANA PRN Reason: Protocol Last Admin: 07/02/17 09:47 Dose: 100 mls/hr Propofol (Diprivan -) 1,000,000 mcg in 100 mls @ 2.425 mls/hr IVPB TITR JUMANA; 5 MCG/KG/MIN PRN Reason: Protocol Last Titration: 07/02/17 11:31 Dose: 20 mcg/kg/min, 9.7 mls/hr Sodium Chloride (Normal Saline -) 1,000 mls @ 125 mls/hr IV ASDIR [facility] Last Admin: 07/01/17 17:29 Dose: 125 mls/hr Norepinephrine Bitartrate 4, (000 mcg/ Dextrose) 500 mls @ 37.5 mls/hr IV TITR JUMANA; 5 MCG/MIN PRN Reason: Protocol Last Titration: 07/02/17 08:15 Dose: 0 mcg/min, 0 mls/hr Morphine Sulfate (Morphine Sulfate) 4 mg IVPUSH Q6H PRN PRN Reason: PAIN LEVEL 6-10 Last Admin: 07/01/17 03:03 Dose: 4 mg Mupirocin (Bactroban Ointment (For Decolonization) -) 1 applic NS BID [facility] Stop: 07/06/17 09:59 Last Admin: 07/02/17 09:47 Dose: 1 applic Ondansetron HCl (Zofran Injection) 4 mg IVPUSH Q6H PRN PRN Reason: NAUSEA AND/OR VOMITING Piperacillin/Tazobactam/Dextrose (Zosyn 3.375gm Ivpb (Premix)) 3.375 gm IVPB Q8H-IV JUMANA 72 year old woman with PMhx of Nephrolithiasis, OA s/p TKR, Hypertension, Hyperlipidemia who presented with abd pain and fever and found to have Sepsis secondary to Pylonephritis complicated by obstructing stone with Hydronephrosis. 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
--- NOTE | 2017-07-02 11:39 | CON.CARD ---
Consult Consult Specialty:: Cardiology Referred by:: ICU team Reason for Consultation:: Cardiac evaluation - History of Present Illness Chief Complaint: Post op ureteroscopy and stent History of Present Illness: Patient is a 72 year old female with underlying history of hypertension and hypercholesterolemia who presented with LLQ abdominal pain, nausea, fever and chills. She was found to have sepsis with UTI and a left side 5 mm ureteral stone resulting in hydronephrosis. She decompensated requiring intubation and had ureteroscopy with stent placement. She remains intubated this morning and sedated. Currently Levophed has been weaned off. Overall history was obtained from medical chart. Cardiology consultation was called for general evaluation in the ICU. 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) Cardio/Vascular: Yes: HTN, Hyperlipdemia, Other (PSVT) ...: No Psych: Yes: Anxiety Musculoskeletal: Yes: Chronic low back pain - Alcohol/Substance Use Hx Alcohol Use: No - Smoking History Smoking history: Never smoked Have you smoked in the past 12 months: No If you are a former smoker, when did you quit?: 1959 - Social History Usual Living Arrangement: With Spouse ADL: Independent History of Recent Travel: No Home Medications - Allergies Allergies/Adverse Reactions: Allergies Allergy/AdvReac Type Severity Reaction Status Date / Time No Known Drug Allergies Allergy Verified 12/25/16 18:08 - Home Medications Home Medications: Ambulatory Orders Celecoxib 200 mg PO ASDIR 12/25/16 oxyCODONE HCL [Roxicodone -] 5 mg PO Q6H 12/25/16 Famotidine [Pepcid] 40 mg PO DAILY 06/30/17 Family Disease History - Family Disease History Family History: Unable to Obtain Review of Systems Unable to obtain ROS, reason: Unable to obtain Vital Signs: Vital Signs Temperature 99.4 F 07/02/17 10:00 Pulse Rate 70 07/02/17 10:00 Respiratory Rate 25 H 07/02/17 11:26 Blood Pressure 120/68 07/02/17 10:00 O2 Sat by Pulse Oximetry (%) 99 07/01/17 21:00 Respiratory: Yes: Mechanically Ventilated Gastrointestinal: Yes: Normal Bowel Sounds, Soft. No: Tenderness Cardiovascular: Yes: Regular Rate and Rhythm JVD: No Carotid Bruit: No PMI: Non-Displaced Heart Sounds: Yes: S1, S2 Murmur: Yes: Systolic Murmur, Grade 1 Edema: No - Other Data Labs, Other Data: CBC, BMP 07/02/17 05:50 07/02/17 05:50 INR, PTT INR 1.27 (0.82-1.09) H D 07/01/17 17:30 Troponin, BNP 07/02/17 05:50 Troponin I 0.06 H Laboratory Results - last 24 hr 06/30/17 07/01/17 07/01/17 21:20 12:30 14:05 WBC RBC Hgb Hct MCV MCH MCHC RDW Plt Count MPV Total Counted Neutrophils % Neutrophils % (Manual) Band Neutrophils % Lymphocytes % Lymphocytes % (Manual) Monocytes % Monocytes % (Manual) Eosinophils % Basophils % Myelocytes % (Man) Metamyelocytes Differential Comment Platelet Estimate Platelet Comment Polychromasia Poikilocytosis Ovalocytes PT with INR INR PTT (Actin FS) Puncture Site Right radial ABG pH 7.34 L ABG pCO2 at Pt Temp 33.8 L ABG pO2 at Pt Temp 278.0 H* ABG HCO3 17.9 L ABG O2 Sat (Measured) 100.0 H* ABG O2 Content 14.9 L ABG Base Excess -6.5 L Bijan Test Positive O2 Delivery Device Vent Oxygen Flow Rate 100% Vent Mode A/c Vent Rate 16 PEEP 7.0 Pressure Support Vent 425 Sodium Potassium Chloride Carbon Dioxide Anion Gap BUN Creatinine Creat Clearance w eGFR Random Glucose Calcium Phosphorus Magnesium Total Bilirubin AST ALT Alkaline Phosphatase Creatine Kinase Creatine Kinase Index CK-MB (CK-2) Troponin I C-Reactive Protein Total Protein Albumin Ur Random Sodium Urine Creatinine 142.0 Blood Type O POSITIVE Antibody Screen Positive H Antibody Identification COLD AGGLUTININ Direct Antiglob Test Positive H 07/01/17 07/01/17 07/01/17 16:54 17:30 17:30 WBC 12.5 H D RBC 3.33 L Hgb 10.1 L Hct 30.0 L MCV 90.1 MCH 30.4 MCHC 33.8 RDW 16.4 H Plt Count 129 L D MPV 8.0 D Total Counted 100 Neutrophils % No Result Required. Neutrophils % (Manual) 60.0 Band Neutrophils % 28.0 Lymphocytes % No Result Required. Lymphocytes % (Manual) 6.0 L Monocytes % Monocytes % (Manual) 1 L Eosinophils % Basophils % Myelocytes % (Man) 1 Metamyelocytes 3 H Differential Comment Man diff performed Platelet Estimate Slt decrease Platelet Comment Giant platelets Polychromasia 1+ Poikilocytosis 1+ Ovalocytes 1+ PT with INR INR PTT (Actin FS) Puncture Site ABG pH ABG pCO2 at Pt Temp ABG pO2 at Pt Temp ABG HCO3 ABG O2 Sat (Measured) ABG O2 Content ABG Base Excess Bijan Test O2 Delivery Device Oxygen Flow Rate Vent Mode Vent Rate PEEP Pressure Support Vent Sodium 143 Potassium 3.2 L Chloride 113 H Carbon Dioxide 21 Anion Gap 9 BUN 24 H Creatinine 1.9 H Creat Clearance w eGFR Random Glucose 112 H Calcium 7.3 L Phosphorus Magnesium Total Bilirubin AST ALT Alkaline Phosphatase Creatine Kinase Creatine Kinase Index CK-MB (CK-2) Troponin I C-Reactive Protein Total Protein Albumin Ur Random Sodium 34 Urine Creatinine Blood Type Antibody Screen Antibody Identification Direct Antiglob Test 07/01/17 07/02/17 07/02/17 17:30 05:50 05:50 WBC 17.0 H D RBC 3.33 L Hgb 10.0 L Hct 30.0 L MCV 89.9 MCH 30.1 MCHC 33.5 RDW 16.7 H Plt Count 110 L MPV 7.9 Total Counted Neutrophils % 87.6 H Neutrophils % (Manual) Band Neutrophils % Lymphocytes % 8.7 D Lymphocytes % (Manual) Monocytes % 3.0 L D Monocytes % (Manual) Eosinophils % 0.6 D Basophils % 0.1 Myelocytes % (Man) Metamyelocytes Differential Comment Platelet Estimate Platelet Comment Polychromasia Poikilocytosis Ovalocytes PT with INR 14.30 H INR 1.27 H D PTT (Actin FS) 34.8 H Puncture Site ABG pH ABG pCO2 at Pt Temp ABG pO2 at Pt Temp ABG HCO3 ABG O2 Sat (Measured) ABG O2 Content ABG Base Excess Bijan Test O2 Delivery Device Oxygen Flow Rate Vent Mode Vent Rate PEEP Pressure Support Vent Sodium 141 Potassium 3.9 Chloride 111 H Carbon Dioxide 21 Anion Gap 9 BUN 25 H Creatinine 1.4 H Creat Clearance w eGFR 36.86 Random Glucose 128 H Calcium 7.3 L Phosphorus 3.1 Magnesium 1.8 Total Bilirubin 0.6 D AST 88 H ALT 75 Alkaline Phosphatase 70 Creatine Kinase Creatine Kinase Index CK-MB (CK-2) Troponin I C-Reactive Protein Total Protein 5.3 L Albumin 2.2 L Ur Random Sodium Urine Creatinine Blood Type Antibody Screen Antibody Identification Direct Antiglob Test 07/02/17 07/02/17 05:50 05:50 WBC RBC Hgb Hct MCV MCH MCHC RDW Plt Count MPV Total Counted Neutrophils % Neutrophils % (Manual) Band Neutrophils % Lymphocytes % Lymphocytes % (Manual) Monocytes % Monocytes % (Manual) Eosinophils % Basophils % Myelocytes % (Man) Metamyelocytes Differential Comment Platelet Estimate Platelet Comment Polychromasia Poikilocytosis Ovalocytes PT with INR INR PTT (Actin FS) Puncture Site ABG pH ABG pCO2 at Pt Temp ABG pO2 at Pt Temp ABG HCO3 ABG O2 Sat (Measured) ABG O2 Content ABG Base Excess Bijan Test O2 Delivery Device Oxygen Flow Rate Vent Mode Vent Rate PEEP Pressure Support Vent Sodium Potassium Chloride Carbon Dioxide Anion Gap BUN Creatinine Creat Clearance w eGFR Random Glucose Calcium Phosphorus Magnesium Total Bilirubin AST ALT Alkaline Phosphatase Creatine Kinase 453 H Creatine Kinase Index 0.6 CK-MB (CK-2) 3.093 Troponin I 0.06 H C-Reactive Protein 24.0 H Total Protein Albumin Ur Random Sodium Urine Creatinine Blood Type Antibody Screen Antibody Identification Direct Antiglob Test Imaging - Results Chest X-ray: Report Reviewed (No infiltrates) Cat Scan: Report Reviewed (Abdominal CT ureteral stone) Ultrasound: Report Reviewed (No DVT) EKG: Report Reviewed Problem List - Problems (1) Calculus of left kidney Code(s): N20.0 - CALCULUS OF KIDNEY (2) Hydronephrosis due to obstruction of ureter Code(s): N13.2 - HYDRONEPHROSIS WITH RENAL AND URETERAL CALCULOUS OBSTRUCTION (3) Sepsis Code(s): A41.9 - SEPSIS, UNSPECIFIED ORGANISM Qualifiers: Sepsis type: sepsis due to unspecified organism Qualified Code(s): A41.9 - Sepsis, unspecified organism (4) Dizziness Code(s): R42 - DIZZINESS AND GIDDINESS (5) Paroxysmal SVT (supraventricular tachycardia) Code(s): I47.1 - SUPRAVENTRICULAR TACHYCARDIA (6) Hyperlipidemia Code(s): E78.5 - HYPERLIPIDEMIA, UNSPECIFIED (7) Hypertension Code(s): I10 - ESSENTIAL (PRIMARY) HYPERTENSION Qualifiers: Hypertension type: essential hypertension Qualified Code(s): I10 - Essential (primary) hypertension (8) Hydronephrosis Code(s): N13.30 - UNSPECIFIED HYDRONEPHROSIS (9) UTI (urinary tract infection) Code(s): N39.0 - URINARY TRACT INFECTION, SITE NOT SPECIFIED Assessment/Plan 1. Post ureteroscopy and stent for ureteral stone, hydronephrosis and sepsis 2. History of hypertension 3. Hypercholesterolemia 4. Acute respiratory failure requiring mechanical ventilation 5. Sepsis with UTI and secondary to above - leukocytosis 5. Mild elevation of troponin due to demand ischemia - due to above] 6. Acute on CKD PLAN: 1. Continue supportive care and mechanical ventilation as per ICU team 2. Keep MAP>65 3. Transthoracic echocardiogaphy to assess LV/RV and valvular function 4. Surgical/Gu follow up 5. Monitor renal function and electrolytes 6. Minimal elevation of troponin is not problematic. 7. Resume oral Metoprolol once clinically feasible and BP stable 8. Wean vent as tolerated Guarded David Little MD
--- NOTE | 2017-07-02 11:58 | PN ---
Teaching Attending Note Name of Resident: Mina Schafer ATTENDING PHYSICIAN STATEMENT I saw and evaluated the patient. I reviewed the resident's note and discussed the case with the resident. I agree with the resident's findings and plan as documented. SUBJECTIVE: Patient seen and examined in the ICU. S/P stent insertion. No pressors. AC Mode of vent, 50% FiO2 and PEEP 7. CXR: No gross change Intake & Output 06/29/17 06/30/17 07/01/17 07/02/17 23:59 23:59 23:59 23:59 Intake Total 3739 2644 Output Total 350 1030 600 Balance -350 2709 2044 Weight 170 lb 178 lb 3.2 oz Last Vital Signs Temp Pulse Resp BP Pulse Ox 99.4 F 70 25 H 120/68 99 07/02/17 10:00 07/02/17 10:00 07/02/17 11:26 07/02/17 10:00 07/01/17 21:00 Active Medications Acetaminophen (Ofirmev Injection -) 1,000 mg IVPB Q6H PRN PRN Reason: FEVER Last Admin: 07/02/17 11:30 Dose: 1,000 mg Chlorhexidine Gluconate (Hibiclens For Decolonization -) 1 applic TP HS JUMANA Last Admin: 07/01/17 23:02 Dose: 1 applic Heparin Sodium (Porcine) (Heparin -) 5,000 unit SQ TID JUMANA Last Admin: 07/02/17 06:54 Dose: 5,000 unit Meropenem 1 gm/ Dextrose 100 mls @ 100 mls/hr IVPB BID JUMANA PRN Reason: Protocol Last Admin: 07/02/17 09:47 Dose: 100 mls/hr Propofol (Diprivan -) 1,000,000 mcg in 100 mls @ 2.425 mls/hr IVPB TITR JUMANA; 5 MCG/KG/MIN PRN Reason: Protocol Last Titration: 07/02/17 11:31 Dose: 20 mcg/kg/min, 9.7 mls/hr Sodium Chloride (Normal Saline -) 1,000 mls @ 125 mls/hr IV ASDIR JUMANA Last Admin: 07/01/17 17:29 Dose: 125 mls/hr Norepinephrine Bitartrate 4, (000 mcg/ Dextrose) 500 mls @ 37.5 mls/hr IV TITR JUMANA; 5 MCG/MIN PRN Reason: Protocol Last Titration: 07/02/17 08:15 Dose: 0 mcg/min, 0 mls/hr Morphine Sulfate (Morphine Sulfate) 4 mg IVPUSH Q6H PRN PRN Reason: PAIN LEVEL 6-10 Last Admin: 07/01/17 03:03 Dose: 4 mg Mupirocin (Bactroban Ointment (For Decolonization) -) 1 applic NS BID JUMANA Stop: 07/06/17 09:59 Last Admin: 07/02/17 09:47 Dose: 1 applic Ondansetron HCl (Zofran Injection) 4 mg IVPUSH Q6H PRN PRN Reason: NAUSEA AND/OR VOMITING Piperacillin/Tazobactam/Dextrose (Zosyn 3.375gm Ivpb (Premix)) 3.375 gm IVPB Q8H-IV JUMANA Constitutional: Yes: Intubated / sedated Eyes: Yes: WNL Cardiovascular: Yes: Regular Rate and Rhythm Respiratory: Yes: Vented, bilateral rhonchi Gastrointestinal: Yes: Normal Bowel Sounds, Soft. No: Tenderness Extremities: Yes: WNL Edema: No Peripheral Pulses WNL: Yes Neurological: Yes: sedated Labs: Laboratory Results - last 24 hr 06/30/17 07/01/17 07/01/17 21:20 12:30 14:05 WBC RBC Hgb Hct MCV MCH MCHC RDW Plt Count MPV Total Counted Neutrophils % Neutrophils % (Manual) Band Neutrophils % Lymphocytes % Lymphocytes % (Manual) Monocytes % Monocytes % (Manual) Eosinophils % Basophils % Myelocytes % (Man) Metamyelocytes Differential Comment Platelet Estimate Platelet Comment Polychromasia Poikilocytosis Ovalocytes PT with INR INR PTT (Actin FS) Puncture Site Right radial ABG pH 7.34 L ABG pCO2 at Pt Temp 33.8 L ABG pO2 at Pt Temp 278.0 H* ABG HCO3 17.9 L ABG O2 Sat (Measured) 100.0 H* ABG O2 Content 14.9 L ABG Base Excess -6.5 L Bijan Test Positive O2 Delivery Device Vent Oxygen Flow Rate 100% Vent Mode A/c Vent Rate 16 PEEP 7.0 Pressure Support Vent 425 Sodium Potassium Chloride Carbon Dioxide Anion Gap BUN Creatinine Creat Clearance w eGFR Random Glucose Calcium Phosphorus Magnesium Total Bilirubin AST ALT Alkaline Phosphatase Creatine Kinase Creatine Kinase Index CK-MB (CK-2) Troponin I C-Reactive Protein Total Protein Albumin Ur Random Sodium Urine Creatinine 142.0 Blood Type O POSITIVE Antibody Screen Positive H Antibody Identification COLD AGGLUTININ Direct Antiglob Test Positive H 07/01/17 07/01/17 07/01/17 16:54 17:30 17:30 WBC 12.5 H D RBC 3.33 L Hgb 10.1 L Hct 30.0 L MCV 90.1 MCH 30.4 MCHC 33.8 RDW 16.4 H Plt Count 129 L D MPV 8.0 D Total Counted 100 Neutrophils % No Result Required. Neutrophils % (Manual) 60.0 Band Neutrophils % 28.0 Lymphocytes % No Result Required. Lymphocytes % (Manual) 6.0 L Monocytes % Monocytes % (Manual) 1 L Eosinophils % Basophils % Myelocytes % (Man) 1 Metamyelocytes 3 H Differential Comment Man diff performed Platelet Estimate Slt decrease Platelet Comment Giant platelets Polychromasia 1+ Poikilocytosis 1+ Ovalocytes 1+ PT with INR INR PTT (Actin FS) Puncture Site ABG pH ABG pCO2 at Pt Temp ABG pO2 at Pt Temp ABG HCO3 ABG O2 Sat (Measured) ABG O2 Content ABG Base Excess Bijan Test O2 Delivery Device Oxygen Flow Rate Vent Mode Vent Rate PEEP Pressure Support Vent Sodium 143 Potassium 3.2 L Chloride 113 H Carbon Dioxide 21 Anion Gap 9 BUN 24 H Creatinine 1.9 H Creat Clearance w eGFR Random Glucose 112 H Calcium 7.3 L Phosphorus Magnesium Total Bilirubin AST ALT Alkaline Phosphatase Creatine Kinase Creatine Kinase Index CK-MB (CK-2) Troponin I C-Reactive Protein Total Protein Albumin Ur Random Sodium 34 Urine Creatinine Blood Type Antibody Screen Antibody Identification Direct Antiglob Test 07/01/17 07/02/17 07/02/17 17:30 05:50 05:50 WBC 17.0 H D RBC 3.33 L Hgb 10.0 L Hct 30.0 L MCV 89.9 MCH 30.1 MCHC 33.5 RDW 16.7 H Plt Count 110 L MPV 7.9 Total Counted Neutrophils % 87.6 H Neutrophils % (Manual) Band Neutrophils % Lymphocytes % 8.7 D Lymphocytes % (Manual) Monocytes % 3.0 L D Monocytes % (Manual) Eosinophils % 0.6 D Basophils % 0.1 Myelocytes % (Man) Metamyelocytes Differential Comment Platelet Estimate Platelet Comment Polychromasia Poikilocytosis Ovalocytes PT with INR 14.30 H INR 1.27 H D PTT (Actin FS) 34.8 H Puncture Site ABG pH ABG pCO2 at Pt Temp ABG pO2 at Pt Temp ABG HCO3 ABG O2 Sat (Measured) ABG O2 Content ABG Base Excess Bijan Test O2 Delivery Device Oxygen Flow Rate Vent Mode Vent Rate PEEP Pressure Support Vent Sodium 141 Potassium 3.9 Chloride 111 H Carbon Dioxide 21 Anion Gap 9 BUN 25 H Creatinine 1.4 H Creat Clearance w eGFR 36.86 Random Glucose 128 H Calcium 7.3 L Phosphorus 3.1 Magnesium 1.8 Total Bilirubin 0.6 D AST 88 H ALT 75 Alkaline Phosphatase 70 Creatine Kinase Creatine Kinase Index CK-MB (CK-2) Troponin I C-Reactive Protein Total Protein 5.3 L Albumin 2.2 L Ur Random Sodium Urine Creatinine Blood Type Antibody Screen Antibody Identification Direct Antiglob Test 07/02/17 07/02/17 05:50 05:50 WBC RBC Hgb Hct MCV MCH MCHC RDW Plt Count MPV Total Counted Neutrophils % Neutrophils % (Manual) Band Neutrophils % Lymphocytes % Lymphocytes % (Manual) Monocytes % Monocytes % (Manual) Eosinophils % Basophils % Myelocytes % (Man) Metamyelocytes Differential Comment Platelet Estimate Platelet Comment Polychromasia Poikilocytosis Ovalocytes PT with INR INR PTT (Actin FS) Puncture Site ABG pH ABG pCO2 at Pt Temp ABG pO2 at Pt Temp ABG HCO3 ABG O2 Sat (Measured) ABG O2 Content ABG Base Excess Bijan Test O2 Delivery Device Oxygen Flow Rate Vent Mode Vent Rate PEEP Pressure Support Vent Sodium Potassium Chloride Carbon Dioxide Anion Gap BUN Creatinine Creat Clearance w eGFR Random Glucose Calcium Phosphorus Magnesium Total Bilirubin AST ALT Alkaline Phosphatase Creatine Kinase 453 H Creatine Kinase Index 0.6 CK-MB (CK-2) 3.093 Troponin I 0.06 H C-Reactive Protein 24.0 H Total Protein Albumin Ur Random Sodium Urine Creatinine Blood Type Antibody Screen Antibody Identification Direct Antiglob Test Problem List - Problems (1) Hydronephrosis with infection Code(s): N13.6 - PYONEPHROSIS (2) Kidney stone on left side Code(s): N20.0 - CALCULUS OF KIDNEY (3) Sepsis Code(s): A41.9 - SEPSIS, UNSPECIFIED ORGANISM Assessment/Plan Acute Respiratory Failure Less likely ARDS Sepsis 2/2 UTI Left hydronephrosis and nephrolithiasis Elevated lactate, now resolved Maintain lung protective ventilation Follow CXR IVF Monitor off pressors Strict I & O ABX per ID Monitor Renal function VTE prophylaxis SBTs Dr Newton Critical care time spent in reviewing chart, evaluating patient and formulating plan - 36 minutes.
--- NOTE | 2017-07-02 12:58 | PN ---
Physical Exam: SUBJECTIVE: Patient seen and examined at bedside. Pt is awake, intubated, sedated, with ren. Stable, not on pressors. Pt able to respond and ask questions. No pain at this time. Pt had stent placed, central line, and ET tube placed. OBJECTIVE: Vital Signs Period Temp Pulse Resp BP Sys/Robbins Pulse Ox Last 24 Hr 97.6 F-104.2 F 63-115 16-27 60-138/47-104 99-100 GENERAL: The patient is awake, alert, in no acute distress. HEAD: Normal with no signs of trauma. EYES:sclera anicteric, conjunctiva clear. No ptosis. ENT: moist mucous membranes. ET tube in place NECK: Trachea midline, full range of motion, supple. LUNGS: Breath sounds equal, clear to auscultation bilaterally, no wheezes, no crackles, no accessory muscle use. HEART: Regular rate and rhythm, S1, S2 without murmur, rub or gallop. ABDOMEN: Soft, nontender, nondistended, normoactive bowel sounds, no guarding, no rebound, no hepatosplenomegaly, no masses. EXTREMITIES: 2+ pulses, warm, well-perfused, no edema. NEUROLOGICAL: not evaluated PSYCH: not evaluated. SKIN: Warm, dry, normal turgor, no rashes or lesions noted Laboratory Results - last 24 hr 06/30/17 07/01/17 07/01/17 21:20 12:30 14:05 WBC RBC Hgb Hct MCV MCH MCHC RDW Plt Count MPV Total Counted Neutrophils % Neutrophils % (Manual) Band Neutrophils % Lymphocytes % Lymphocytes % (Manual) Monocytes % Monocytes % (Manual) Eosinophils % Basophils % Myelocytes % (Man) Metamyelocytes Differential Comment Platelet Estimate Platelet Comment Polychromasia Poikilocytosis Ovalocytes PT with INR INR PTT (Actin FS) Puncture Site Right radial ABG pH 7.34 L ABG pCO2 at Pt Temp 33.8 L ABG pO2 at Pt Temp 278.0 H* ABG HCO3 17.9 L ABG O2 Sat (Measured) 100.0 H* ABG O2 Content 14.9 L ABG Base Excess -6.5 L Bijan Test Positive O2 Delivery Device Vent Oxygen Flow Rate 100% Vent Mode A/c Vent Rate 16 PEEP 7.0 Pressure Support Vent 425 Sodium Potassium Chloride Carbon Dioxide Anion Gap BUN Creatinine Creat Clearance w eGFR Random Glucose Calcium Phosphorus Magnesium Total Bilirubin AST ALT Alkaline Phosphatase Creatine Kinase Creatine Kinase Index CK-MB (CK-2) Troponin I C-Reactive Protein Total Protein Albumin Ur Random Sodium Urine Creatinine 142.0 Direct Antiglob Test Positive H 07/01/17 07/01/17 07/01/17 16:54 17:30 17:30 WBC 12.5 H D RBC 3.33 L Hgb 10.1 L Hct 30.0 L MCV 90.1 MCH 30.4 MCHC 33.8 RDW 16.4 H Plt Count 129 L D MPV 8.0 D Total Counted 100 Neutrophils % No Result Required. Neutrophils % (Manual) 60.0 Band Neutrophils % 28.0 Lymphocytes % No Result Required. Lymphocytes % (Manual) 6.0 L Monocytes % Monocytes % (Manual) 1 L Eosinophils % Basophils % Myelocytes % (Man) 1 Metamyelocytes 3 H Differential Comment Man diff performed Platelet Estimate Slt decrease Platelet Comment Giant platelets Polychromasia 1+ Poikilocytosis 1+ Ovalocytes 1+ PT with INR INR PTT (Actin FS) Puncture Site ABG pH ABG pCO2 at Pt Temp ABG pO2 at Pt Temp ABG HCO3 ABG O2 Sat (Measured) ABG O2 Content ABG Base Excess Bijan Test O2 Delivery Device Oxygen Flow Rate Vent Mode Vent Rate PEEP Pressure Support Vent Sodium 143 Potassium 3.2 L Chloride 113 H Carbon Dioxide 21 Anion Gap 9 BUN 24 H Creatinine 1.9 H Creat Clearance w eGFR Random Glucose 112 H Calcium 7.3 L Phosphorus Magnesium Total Bilirubin AST ALT Alkaline Phosphatase Creatine Kinase Creatine Kinase Index CK-MB (CK-2) Troponin I C-Reactive Protein Total Protein Albumin Ur Random Sodium 34 Urine Creatinine Direct Antiglob Test 07/01/17 07/02/17 07/02/17 17:30 05:50 05:50 WBC 17.0 H D RBC 3.33 L Hgb 10.0 L Hct 30.0 L MCV 89.9 MCH 30.1 MCHC 33.5 RDW 16.7 H Plt Count 110 L MPV 7.9 Total Counted Neutrophils % 87.6 H Neutrophils % (Manual) Band Neutrophils % Lymphocytes % 8.7 D Lymphocytes % (Manual) Monocytes % 3.0 L D Monocytes % (Manual) Eosinophils % 0.6 D Basophils % 0.1 Myelocytes % (Man) Metamyelocytes Differential Comment Platelet Estimate Platelet Comment Polychromasia Poikilocytosis Ovalocytes PT with INR 14.30 H INR 1.27 H D PTT (Actin FS) 34.8 H Puncture Site ABG pH ABG pCO2 at Pt Temp ABG pO2 at Pt Temp ABG HCO3 ABG O2 Sat (Measured) ABG O2 Content ABG Base Excess Bijan Test O2 Delivery Device Oxygen Flow Rate Vent Mode Vent Rate PEEP Pressure Support Vent Sodium 141 Potassium 3.9 Chloride 111 H Carbon Dioxide 21 Anion Gap 9 BUN 25 H Creatinine 1.4 H Creat Clearance w eGFR 36.86 Random Glucose 128 H Calcium 7.3 L Phosphorus 3.1 Magnesium 1.8 Total Bilirubin 0.6 D AST 88 H ALT 75 Alkaline Phosphatase 70 Creatine Kinase Creatine Kinase Index CK-MB (CK-2) Troponin I C-Reactive Protein Total Protein 5.3 L Albumin 2.2 L Ur Random Sodium Urine Creatinine Direct Antiglob Test 07/02/17 07/02/17 05:50 05:50 WBC RBC Hgb Hct MCV MCH MCHC RDW Plt Count MPV Total Counted Neutrophils % Neutrophils % (Manual) Band Neutrophils % Lymphocytes % Lymphocytes % (Manual) Monocytes % Monocytes % (Manual) Eosinophils % Basophils % Myelocytes % (Man) Metamyelocytes Differential Comment Platelet Estimate Platelet Comment Polychromasia Poikilocytosis Ovalocytes PT with INR INR PTT (Actin FS) Puncture Site ABG pH ABG pCO2 at Pt Temp ABG pO2 at Pt Temp ABG HCO3 ABG O2 Sat (Measured) ABG O2 Content ABG Base Excess Bijan Test O2 Delivery Device Oxygen Flow Rate Vent Mode Vent Rate PEEP Pressure Support Vent Sodium Potassium Chloride Carbon Dioxide Anion Gap BUN Creatinine Creat Clearance w eGFR Random Glucose Calcium Phosphorus Magnesium Total Bilirubin AST ALT Alkaline Phosphatase Creatine Kinase 453 H Creatine Kinase Index 0.6 CK-MB (CK-2) 3.093 Troponin I 0.06 H C-Reactive Protein 24.0 H Total Protein Albumin Ur Random Sodium Urine Creatinine Direct Antiglob Test Active Medications Generic Name Dose Route Start Last Admin Trade Name Freq PRN Reason Stop Dose Admin Acetaminophen 1,000 mg 07/01/17 13:48 07/02/17 11:30 Ofirmev Injection - IVPB 1,000 mg Q6H PRN Administration FEVER Chlorhexidine Gluconate 1 applic 07/01/17 22:00 07/01/17 23:02 Hibiclens For Decolonization - TP 1 applic HS JUMANA Administration Heparin Sodium (Porcine) 5,000 unit 06/30/17 22:00 07/02/17 06:54 Heparin - SQ 5,000 unit TID JUMANA Administration Meropenem 1 gm/ Dextrose 100 mls @ 100 mls/hr 07/01/17 10:00 07/02/17 09:47 IVPB 100 mls/hr BID JUMANA Administration Protocol Propofol 1,000,000 mcg in 100 mls @ 2.425 mls/hr 07/01/17 13:45 07/02/17 12: 07 Diprivan - IVPB 0 mcg/kg/min TITR JUMANA 0 mls/hr Protocol Titration 5 MCG/KG/MIN Sodium Chloride 1,000 mls @ 125 mls/hr 07/01/17 16:37 07/01/17 17:29 Normal Saline - IV 125 mls/hr ASDIR JUMANA Administration Norepinephrine Bitartrate 4, 500 mls @ 37.5 mls/hr 07/01/17 17:00 07/02/17 08 :15 000 mcg/ Dextrose IV 0 mcg/min TITR JUMANA 0 mls/hr Protocol Titration 5 MCG/MIN Morphine Sulfate 4 mg 06/30/17 20:49 07/01/17 03:03 Morphine Sulfate IVPUSH 4 mg Q6H PRN Administration PAIN LEVEL 6-10 Mupirocin 1 applic 07/01/17 10:00 07/02/17 09:47 Bactroban Ointment (For Decolonization) - NS 07/06/17 09:59 1 applic BID JUMANA Administration Ondansetron HCl 4 mg 06/30/17 21:12 Zofran Injection IVPUSH Q6H PRN NAUSEA AND/OR VOMITING ASSESSMENT/PLAN: Pt is a 72 y/o F with PMH HTN, HLD, renal stones, ESBL E. coli who presented to the ED with abdominal pain. Pt was found to have severe sepsis 2/2 uti with hydronephritis and perinephric fat stranding. #Severe sepsis -gram negative bacteremia -likely ESBL considering history -on Meropenem -improving. afebrile at this time. not on pressors. Visit type - Emergency Visit Emergency Visit: No - New Patient This patient is new to me today: No - Critical Care Critical Care patient: No
[2017-07-02] MEDS ORDERED: MIDAZOLAM HCL 2 MG/2 ML SINGLE DOSE VIAL ONE ×2 (14:04)
[2017-07-02] MEDS ORDERED: dilTIAZem HCL 50 MG/10 ML - 10 ML VIAL ONE ×2 (14:09→14:20)
[2017-07-02] MEDS ORDERED: METOPROLOL TARTRATE 5 MG/5 ML VIAL IVPUSH ONE ×2 (14:15→20:45)
--- NOTE | 2017-07-02 14:25 | RAPID ---
Physical Examination Vital Signs: Vital Signs Temperature 99.9 F H 07/02/17 13:55 Pulse Rate 74 07/02/17 13:55 Respiratory Rate 20 07/02/17 13:55 Blood Pressure 99/85 07/02/17 13:55 O2 Sat by Pulse Oximetry (%) 100 07/02/17 09:00 Findings/Remarks: Rapid response was called and ICU team attended the patient immediately. Pt was extubated around 12:20pm and around ~1 hour later she became tachycardic with chest pain and shortness of breath. However, she was not tachypenic and her O2 sat was above 90% on ventimask and BP was holding with MAP well above 65. AAO x 3. sheriff's officer was showing SVT BPM 180 Lopressor 5mg once was given with no good response. Subsequently, adenosine 6mg x 1, 12mg x 2 were given without expected response. 12 lead EKG shows a-fib with RVR. Then, cardizem 10mg x 2 pushes, amiodarone 150mg x 1. Will start amiordarone gtt next. Dr. Little is aware. Constitutional: Yes: Moderate Distress Cardiovascular: Yes: Tachycardia, Pulse Irregular. No: Regular Rate and Rhythm Respiratory: Yes: CTA Bilaterally Labs: CBC, BMP 07/02/17 05:50 07/02/17 05:50
[2017-07-02] MEDS ORDERED: AMIODARONE HCL 150 MG/3 ML VIAL IVPUSH ONE (14:31)
--- NOTE | 2017-07-02 14:36 | PN ---
Progress Note (short form) - Note Progress Note: events noted pt with gram negative bacilli in blood currently extubated states no pain in the right knee knee exam stable, no redenss or warmth knee cultures NTD continue ICU team care -will sign off for know, reconsult as needed.
[2017-07-02] MEDS ORDERED: SODIUM CHLORIDE 500 ML IV STA (14:40)
[2017-07-02] MEDS ORDERED: dilTIAZem HCL 50 MG/10 ML - 10 ML VIAL IVPUSH ONE ×3 (14:45→20:30)
[2017-07-02] MEDS ORDERED: ADENOSINE 6 MG/2 ML VIAL IVPUSH ONE ×3 (14:45→14:55)
[2017-07-02] MEDS ORDERED: DILTIAZEM INJECTION 125 MG in SODIUM CHLORIDE 100 ML IVPB SCH (14:45)
[2017-07-02] MEDS: AMIODARONE HCL INJECTION 450 MG in DEXTROSE 5%-WATER - 241 ML IVPB SCH (14:45)
[2017-07-02 14:53] LABS: HEMATOCRIT 27.5 % (32.4-45.2); MCH 29.5 pg (25.7-33.7); MCHC 32.7 g/dl (32.0-36.0); MEAN CELL VOLUME 90.2 fl (80-96); MEAN PLT VOLUME 7.7 fl (7.5-11.1); PLATELET COUNT 79 K/MM3 (134-434); RBC 3.05 M/mm3 (3.60-5.2); RDW 16.6 % (11.6-15.6); WHITE BLOOD COUNT 11.2 K/mm3 (4.0-10.0)
[2017-07-02 15:22] LABS: ALBUMIN 2.2 g/dl (3.4-5.0); ANION GAP 9 (8-16); BILIRUBIN,TOTAL 0.6 mg/dL (0.2-1.0); BLOOD UREA NITROGEN 23 mg/dL (7-18); CALCIUM 7.5 mg/dL (8.5-10.1); CHLORIDE 114 mmol/L (98-107); CO2 20 mmol/L (21-32); CREATININE 1.1 mg/dL (0.55-1.02); GLUCOSE,RANDOM 75 mg/dL (74-106); MAGNESIUM 1.7 mg/dL (1.8-2.4); PHOSPHOROUS 2.1 mg/dL (2.5-4.9); POTASSIUM 3.4 mmol/L (3.5-5.1); SGOT/AST 61 U/L (15-37); SGPT/ALT 57 U/L (12-78); SODIUM 143 mmol/L (136-145); TOT PROT 5.1 g/dl (6.4-8.2)
[2017-07-02 15:25] LABS: ALK PHOS 69 U/L (45-117)
[2017-07-02] MEDS ORDERED: MAGNESIUM SULF 50% (8.12 MEQ/2 ML-1 GM VIAL) IVPB ONE (15:33)
[2017-07-02] MEDS ORDERED: POTASSIUM PHOSPHATE 15 MM in SODIUM CHLORIDE 250 ML IVPB ONE (15:45)
[2017-07-02 15:48] LABS: LDH 218 U/L (84-246)
[2017-07-02 15:51] LABS: ALBUMIN 2.1 g/dl (3.4-5.0); ANION GAP 8 (8-16); BILIRUBIN,TOTAL 0.5 mg/dL (0.2-1.0); BLOOD UREA NITROGEN 23 mg/dL (7-18); CALCIUM 7.2 mg/dL (8.5-10.1); CHLORIDE 115 mmol/L (98-107); CO2 20 mmol/L (21-32); CREATININE 1.1 mg/dL (0.55-1.02); GLUCOSE,RANDOM 74 mg/dL (74-106); MAGNESIUM 1.5 mg/dL (1.8-2.4); PHOSPHOROUS 2.3 mg/dL (2.5-4.9); POTASSIUM 3.5 mmol/L (3.5-5.1); SGOT/AST 63 U/L (15-37); SGPT/ALT 57 U/L (12-78); SODIUM 143 mmol/L (136-145)
[2017-07-02 15:52] LABS: ALK PHOS 75 U/L (45-117); TOT PROT 4.9 g/dl (6.4-8.2)
[2017-07-02 16:10] LABS: INR 1.14 (0.82-1.09)
[2017-07-02 16:12] LABS: ACTIVATED PTT 44.6 SECONDS (26.9-34.4)
--- NOTE | 2017-07-02 16:40 | EKG ---
Test Reason : Blood Pressure : / mmHG Vent. Rate : 141 BPM Atrial Rate : 138 BPM P-R Int : 000 ms QRS Dur : 088 ms QT Int : 312 ms P-R-T Axes : 000 044 233 degrees QTc Int : 477 ms ATRIAL FIBRILLATION WITH RAPID VENTRICULAR RESPONSE NONSPECIFIC T WAVE ABNORMALITY ABNORMAL ECG WHEN COMPARED WITH ECG OF 02-JUL-2017 06:39, ATRIAL FIBRILLATION HAS REPLACED SINUS RHYTHM VENT. RATE HAS INCREASED BY 51 BPM NONSPECIFIC T WAVE ABNORMALITY, WORSE IN INFERIOR LEADS Confirmed by MD Huma, Dario ([id number]) on 07/02/2017 4:40:29 PM Referred By: Confirmed By:Dario Finn MD
--- NOTE | 2017-07-02 16:44 | PN ---
Physical Exam: SUBJECTIVE: Patient seen and examined at bedside. Rapid response in progress. ICU team in attendance. OBJECTIVE: Vital Signs Period Temp Pulse Resp BP Sys/Robbins Pulse Ox Last 24 Hr 97.6 F-102.6 F 63-98 16-26 60-138/47-104 99-100 GENERAL: The patient is awake. Extubated. Moderate distress. LUNGS: CTA. On NRB. Tachypnic. HEART: Irregular, tachycardic to 180s Laboratory Results - last 24 hr 07/01/17 07/01/17 07/01/17 12:30 16:54 17:30 WBC 12.5 H D RBC 3.33 L Hgb 10.1 L Hct 30.0 L MCV 90.1 MCH 30.4 MCHC 33.8 RDW 16.4 H Plt Count 129 L D MPV 8.0 D Total Counted 100 Neutrophils % No Result Required. Neutrophils % (Manual) 60.0 Band Neutrophils % 28.0 Lymphocytes % No Result Required. Lymphocytes % (Manual) 6.0 L Monocytes % Monocytes % (Manual) 1 L Eosinophils % Basophils % Myelocytes % (Man) 1 Metamyelocytes 3 H Differential Comment Man diff performed Platelet Estimate Slt decrease Platelet Comment Giant platelets Polychromasia 1+ Poikilocytosis 1+ Ovalocytes 1+ PT with INR INR PTT (Actin FS) Sodium Potassium Chloride Carbon Dioxide Anion Gap BUN Creatinine Creat Clearance w eGFR Random Glucose Lactic Acid Calcium Phosphorus Magnesium Total Bilirubin AST ALT Alkaline Phosphatase LD Total Creatine Kinase Creatine Kinase Index CK-MB (CK-2) Troponin I C-Reactive Protein Total Protein Albumin Ur Random Sodium 34 Urine Creatinine 142.0 07/01/17 07/01/17 07/02/17 17:30 17:30 05:50 WBC 17.0 H D RBC 3.33 L Hgb 10.0 L Hct 30.0 L MCV 89.9 MCH 30.1 MCHC 33.5 RDW 16.7 H Plt Count 110 L MPV 7.9 Total Counted Neutrophils % 87.6 H Neutrophils % (Manual) Band Neutrophils % Lymphocytes % 8.7 D Lymphocytes % (Manual) Monocytes % 3.0 L D Monocytes % (Manual) Eosinophils % 0.6 D Basophils % 0.1 Myelocytes % (Man) Metamyelocytes Differential Comment Platelet Estimate Platelet Comment Polychromasia Poikilocytosis Ovalocytes PT with INR 14.30 H INR 1.27 H D PTT (Actin FS) 34.8 H Sodium 143 Potassium 3.2 L Chloride 113 H Carbon Dioxide 21 Anion Gap 9 BUN 24 H Creatinine 1.9 H Creat Clearance w eGFR Random Glucose 112 H Lactic Acid Calcium 7.3 L Phosphorus Magnesium Total Bilirubin AST ALT Alkaline Phosphatase LD Total Creatine Kinase Creatine Kinase Index CK-MB (CK-2) Troponin I C-Reactive Protein Total Protein Albumin Ur Random Sodium Urine Creatinine 07/02/17 07/02/17 07/02/17 05:50 05:50 05:50 WBC RBC Hgb Hct MCV MCH MCHC RDW Plt Count MPV Total Counted Neutrophils % Neutrophils % (Manual) Band Neutrophils % Lymphocytes % Lymphocytes % (Manual) Monocytes % Monocytes % (Manual) Eosinophils % Basophils % Myelocytes % (Man) Metamyelocytes Differential Comment Platelet Estimate Platelet Comment Polychromasia Poikilocytosis Ovalocytes PT with INR INR PTT (Actin FS) Sodium 141 Potassium 3.9 Chloride 111 H Carbon Dioxide 21 Anion Gap 9 BUN 25 H Creatinine 1.4 H Creat Clearance w eGFR 36.86 Random Glucose 128 H Lactic Acid Calcium 7.3 L Phosphorus 3.1 Magnesium 1.8 Total Bilirubin 0.6 D AST 88 H ALT 75 Alkaline Phosphatase 70 LD Total Creatine Kinase 453 H Creatine Kinase Index 0.6 CK-MB (CK-2) 3.093 Troponin I 0.06 H C-Reactive Protein 24.0 H Total Protein 5.3 L Albumin 2.2 L Ur Random Sodium Urine Creatinine 07/02/17 07/02/17 07/02/17 12:15 14:11 14:11 WBC RBC Hgb Hct MCV MCH MCHC RDW Plt Count MPV Total Counted Neutrophils % Neutrophils % (Manual) Band Neutrophils % Lymphocytes % Lymphocytes % (Manual) Monocytes % Monocytes % (Manual) Eosinophils % Basophils % Myelocytes % (Man) Metamyelocytes Differential Comment Platelet Estimate Platelet Comment Polychromasia Poikilocytosis Ovalocytes PT with INR INR PTT (Actin FS) Sodium 143 Potassium 3.4 L Chloride 114 H Carbon Dioxide 20 L Anion Gap 9 BUN 23 H Creatinine 1.1 H Creat Clearance w eGFR 48.69 Random Glucose 75 Lactic Acid 1.6 Calcium 7.5 L Phosphorus 2.1 L Magnesium 1.7 L Total Bilirubin 0.6 AST 61 H ALT 57 Alkaline Phosphatase 69 LD Total 218 Creatine Kinase 362 H Creatine Kinase Index 0.8 CK-MB (CK-2) 3.102 Troponin I 0.05 0.03 C-Reactive Protein Total Protein 5.1 L Albumin 2.2 L Ur Random Sodium Urine Creatinine 07/02/17 07/02/17 07/02/17 14:11 14:12 14:39 WBC 11.2 H D RBC 3.05 L Hgb 9.0 L Hct 27.5 L MCV 90.2 MCH 29.5 MCHC 32.7 RDW 16.6 H Plt Count 79 L D MPV 7.7 Total Counted Neutrophils % No Result Required. Neutrophils % (Manual) Band Neutrophils % Lymphocytes % No Result Required. Lymphocytes % (Manual) Monocytes % Monocytes % (Manual) Eosinophils % Basophils % Myelocytes % (Man) Metamyelocytes Differential Comment Platelet Estimate Platelet Comment Polychromasia Poikilocytosis Ovalocytes PT with INR INR PTT (Actin FS) Sodium Potassium Chloride Carbon Dioxide Anion Gap BUN Creatinine Creat Clearance w eGFR Random Glucose Lactic Acid Calcium Phosphorus Magnesium Total Bilirubin AST ALT Alkaline Phosphatase LD Total Cancelled Creatine Kinase Creatine Kinase Index CK-MB (CK-2) Troponin I Cancelled C-Reactive Protein Total Protein Albumin Ur Random Sodium Urine Creatinine 07/02/17 15:15 WBC RBC Hgb Hct MCV MCH MCHC RDW Plt Count MPV Total Counted Neutrophils % Neutrophils % (Manual) Band Neutrophils % Lymphocytes % Lymphocytes % (Manual) Monocytes % Monocytes % (Manual) Eosinophils % Basophils % Myelocytes % (Man) Metamyelocytes Differential Comment Platelet Estimate Platelet Comment Polychromasia Poikilocytosis Ovalocytes PT with INR INR PTT (Actin FS) Sodium 143 Potassium 3.5 Chloride 115 H Carbon Dioxide 20 L Anion Gap 8 BUN 23 H Creatinine 1.1 H Creat Clearance w eGFR 48.69 Random Glucose 74 Lactic Acid Calcium 7.2 L Phosphorus 2.3 L Magnesium 1.5 L Total Bilirubin 0.5 AST 63 H ALT 57 Alkaline Phosphatase 75 LD Total Creatine Kinase Creatine Kinase Index CK-MB (CK-2) Troponin I C-Reactive Protein Total Protein 4.9 L Albumin 2.1 L Ur Random Sodium Urine Creatinine Current Medications Generic Name Dose Route Start Last Admin Trade Name Freq PRN Reason Stop Dose Admin Acetaminophen 1,000 mg 07/01/17 13:48 07/02/17 11:30 Ofirmev Injection - IVPB 1,000 mg Q6H PRN Administration FEVER Chlorhexidine Gluconate 1 applic 07/01/17 22:00 04/16/18 23:02 Hibiclens For Decolonization - TP 1 applic HS JUMANA Administration Heparin Sodium (Porcine) 5,000 unit 06/30/17 22:00 07/02/17 06:54 Heparin - SQ 5,000 unit TID JUMANA Administration Meropenem 1 gm/ Dextrose 100 mls @ 100 mls/hr 07/01/17 10:00 07/02/17 09:47 IVPB 100 mls/hr BID JUMANA Administration Protocol Propofol 1,000,000 mcg in 100 mls @ 2.425 mls/hr 07/01/17 13:45 07/02/17 12: 07 Diprivan - IVPB 0 mcg/kg/min TITR JUMANA 0 mls/hr Protocol Titration 5 MCG/KG/MIN Sodium Chloride 1,000 mls @ 125 mls/hr 07/01/17 16:37 07/02/17 16:58 Normal Saline - IV 125 mls/hr ASDIR JUMANA Administration Norepinephrine Bitartrate 4, 500 mls @ 37.5 mls/hr 07/01/17 17:00 07/02/17 08 :15 000 mcg/ Dextrose IV 0 mcg/min TITR JUMANA 0 mls/hr Protocol Titration 5 MCG/MIN Amiodarone HCl 450 mg/ 250 mls @ 16.66 mls/hr 07/02/17 14:45 Dextrose IVPB TITR JUMANA Protocol 0.5 MG/MIN Potassium Phosphate 15 mm/ 255 mls @ 63.75 mls/hr 07/02/17 15:45 07/02/17 16: 56 Sodium Chloride IVPB 07/02/17 19:44 63.75 mls/hr ONCE ONE Administration 15 MM/4 HR Morphine Sulfate 4 mg 06/30/17 20:49 07/01/17 03:03 Morphine Sulfate IVPUSH 4 mg Q6H PRN Administration PAIN LEVEL 6-10 Mupirocin 1 applic 07/01/17 10:00 07/02/17 09:47 Bactroban Ointment (For Decolonization) - NS 07/06/17 09:59 1 applic BID JUMANA Administration Ondansetron HCl 4 mg 06/30/17 21:12 Zofran Injection IVPUSH Q6H PRN NAUSEA AND/OR VOMITING ASSESSMENT/PLAN 72 year-old female with a PMH significant for HLD, left kidney stone s/p stent and an E.coli ESBL UTI (05/2016), diverticulosis, and s/p right TKR (03/2017). Now with obstructing left ureteral calculi, left hydronephrosis, left hydroureter, possible urinoma, gram negative bacteremia, and severe sepsis. Hospital course complicated by respiratory failure (intubated 07/01, extubated ). Now in rapid afib. Obstructing left ureteral calculi Left hydronephrosis Left hydroureter --07/01 CT AP: 4mm distal left ureteral obstructing stone with moderate to severe proximal hydronephrosis and hydroureter; extensive perinephric and periureteral stranding and edema and small amount of fluid; focus of air in left renal pelvis --taken to OR last night, s/p left stent placement --1.3L UOP over 24 hours Severe sepsis secondary to LFGNB UTI LFGNB Bacteremia --continue meropenem and Zosyn --ID following Hypoxic respiratory failure, improved --extubated Acute renal failure --Cr 1.4, baseline 0.9 --IV fluids --renal following Thrombocytopenia --likely due to sepsis --consider d/c'ing DVT prophylaxis if drop further Rapid afib with RVR --amiodarone load given --drip started Dispo: continues to require ICU level care. Visit type - Emergency Visit Emergency Visit: Yes ED Registration Date: 06/30/17 Care time: The patient presented to the Emergency Department on the above date and was hospitalized for further evaluation of their emergent condition. - New Patient This patient is new to me today: No - Critical Care Critical Care patient: Yes Total Critical Care Time (in minutes): 35 Critical Care Statement: The care of this patient involved high complexity decision making to prevent further life threatening deterioration of the patient 's condition and/or to evaluate & treat vital organ system(s) failure or risk of failure.
[2017-07-02 16:48] LABS: FIBRINOGEN > 500.0 mg/dL (238-498)
--- NOTE | 2017-07-02 16:49 | EKG ---
Test Reason : Blood Pressure : / mmHG Vent. Rate : 090 BPM Atrial Rate : 090 BPM P-R Int : 152 ms QRS Dur : 076 ms QT Int : 362 ms P-R-T Axes : 043 032 040 degrees QTc Int : 442 ms SINUS RHYTHM WITH PREMATURE ATRIAL COMPLEXES IN A PATTERN OF BIGEMINY ABNORMAL ECG WHEN COMPARED WITH ECG OF 30-JUN-2017 20:19, PREMATURE ATRIAL COMPLEXES ARE NOW PRESENT Confirmed by MD Huma, Dario ([id number]) on 07/02/2017 4:49:29 PM Referred By: SHARRI Confirmed By:Dario Finn MD
[2017-07-02] MEDS: SODIUM CHLORIDE 1,000 ML IV SCH (16:58)
--- NOTE | 2017-07-02 17:05 | PN ---
Progress Note (short form) - Note Progress Note: Spoke to Dr. Valle, Cardiology, who interpreted patient's ECHO results. Reports study was limited due to poor quality. EF 60% Transmitral spectral doppler flow pattern is suggestive of impaired LV relaxation Right ventricle cannot be well visualize Normal left and right atrial size and function Mild mitral annular calcification Mild mitral regurg Mild tricuspid regurg Moderate aortic sclerosis Normal aortic root No dissection or pericardial effusion visualized -Copy of ECHO results placed in patients physical chart -Patient remains tachycardic between 90's-120's with A.fib on Amiodarone. Will continue to monitor. -Will update Dr. Little
[2017-07-02] MEDS ORDERED: MAGNESIUM SULF 50% (8.12 MEQ/2 ML-1 GM VIAL) ONE (18:06)
[2017-07-02] MEDS ORDERED: ALPRAZolam 0.25 MG TABLET PO ONE (19:11)
[2017-07-02] MEDS ORDERED: LORazepam 2 MG/ML SDV VIAL IVPUSH ONE ×2 (19:45→23:30)
[2017-07-02 20:01] LABS: PLATELET ESTIMATE DECREASED
[2017-07-02] MEDS ORDERED: METOPROLOL TARTRATE 5 MG/5 ML VIAL ONE (20:26)
[2017-07-02] MEDS ORDERED: LIDOCAINE HCL 1%, 10 MG/ML (20ML VIAL) ONE (20:43)
[2017-07-02] MEDS ORDERED: ETOMIDATE 20 MG/10 ML AMPUL IVPUSH ONE (20:43)
[2017-07-02] MEDS ORDERED: PROPOFOL 0 MCG/0 ML VIAL ONE (20:43)
[2017-07-02] MEDS ORDERED: MIDAZOLAM HCL 5 MG/1 ML Single Dose Vial ONE (20:43)
[2017-07-02] MEDS ORDERED: SUCCINYLCHOLINE CHLORIDE 200 MG/10 ML VIAL ONE (20:43)
[2017-07-02 20:55] LABS: ARTERIAL BLD GAS O2 SATURATION 98.5 % (90-98.9); ARTERIAL BLOOD GAS BASE EXCESS -7.3 meq/l (-2-2); ARTERIAL BLOOD GAS pH 7.31 (7.35-7.45)
[2017-07-02 20:56] LABS: ALLENS TEST POSITIVE
[2017-07-02] MEDS ORDERED: dilTIAZem HCL 50 MG/10 ML - 10 ML VIAL IVPUSH PRN (20:56)
[2017-07-02 20:59] LABS: HEMATOCRIT 29.7 % (32.4-45.2); HEMOGLOBIN 9.7 GM/dL (10.7-15.3); MCH 29.5 pg (25.7-33.7); MCHC 32.7 g/dl (32.0-36.0); MEAN CELL VOLUME 90.2 fl (80-96); MEAN PLT VOLUME 8.4 fl (7.5-11.1); PLATELET COUNT 97 K/MM3 (134-434); RBC 3.29 M/mm3 (3.60-5.2); RDW 16.7 % (11.6-15.6); WHITE BLOOD COUNT 14.2 K/mm3 (4.0-10.0)
[2017-07-02] MEDS ORDERED: MIDAZOLAM HCL 2 MG/2 ML SINGLE DOSE VIAL IVPUSH ONE (21:05)
[2017-07-02] MEDS: CHLORHEXIDINE GLUCONATE 4% CLEANSER FOR DECOLONIZATION TP SCH (21:11)
[2017-07-02 21:12] LABS: INR 1.07 (0.82-1.09); PROTHROMBIN TIME (PATIENT) 12.1 SEC (9.98-11.88)
[2017-07-02] MEDS ORDERED: PT OWN MED DRAWER 7, Y5N ONE (21:12)
[2017-07-02 21:15] LABS: ACTIVATED PTT 36.8 SECONDS (26.9-34.4)
[2017-07-02 21:48] LABS: PLATELET ESTIMATE DECREASED
[2017-07-02] MEDS: NOREPINEPHRINE BITARTRATE 4,000 MCG in DEXTROSE 5%-WATER - 496 ML IV SCH (23:04)
[2017-07-02] MEDS: PROPOFOL 1,000,000 MCG/100 ML VIAL IVPB SCH (23:05)
--- NOTE | 2017-07-03 06:34 | PN ---
Progress Note, Physician Chief Complaint: ID ICU follow up for the 72 year old female with sepsis syndrome and gram negative bacteremia. Much less stable then when I initially saw her 2 days ago. Overnight developed rapid atrial fibrillation along with respiratory distress. Intubation was considered but currently on a venti mask and sats ok. Required sedation per nursing staff. Meropenem as had history of ESBL in past. Low grade temps though not the 104 from admission - Current Medication List Current Medications: Active Medications Acetaminophen (Ofirmev Injection -) 1,000 mg IVPB Q6H PRN PRN Reason: FEVER Last Admin: 07/02/17 18:46 Dose: 1,000 mg Chlorhexidine Gluconate (Hibiclens For Decolonization -) 1 applic TP HS JUMANA Last Admin: 07/02/17 21:11 Dose: 1 applic Diltiazem HCl (Cardizem Injection -) 10 mg IVPUSH Q10M PRN PRN Reason: TACHYCARDIA Meropenem 1 gm/ Dextrose 100 mls @ 100 mls/hr IVPB BID JUMANA PRN Reason: Protocol Last Admin: 07/02/17 21:13 Dose: 100 mls/hr Propofol (Diprivan -) 1,000,000 mcg in 100 mls @ 2.425 mls/hr IVPB TITR JUMANA; 5 MCG/KG/MIN PRN Reason: Protocol Last Admin: 07/02/17 23:05 Dose: Not Given Sodium Chloride (Normal Saline -) 1,000 mls @ 125 mls/hr IV ASDIR JUMANA Last Admin: 07/02/17 16:58 Dose: 125 mls/hr Norepinephrine Bitartrate 4, (000 mcg/ Dextrose) 500 mls @ 37.5 mls/hr IV TITR JUMANA; 5 MCG/MIN PRN Reason: Protocol Last Admin: 07/02/17 23:04 Dose: Not Given Amiodarone HCl 450 mg/ (Dextrose) 250 mls @ 16.66 mls/hr IVPB TITR JUMANA; 0.5 MG/ MIN PRN Reason: Protocol Last Titration: 07/02/17 20:45 Dose: 0.5 mg/min, 16.66 mls/hr Morphine Sulfate (Morphine Sulfate) 4 mg IVPUSH Q6H PRN PRN Reason: PAIN LEVEL 6-10 Last Admin: 07/01/17 03:03 Dose: 4 mg Mupirocin (Bactroban Ointment (For Decolonization) -) 1 applic NS BID JUMANA Stop: 07/06/17 09:59 Last Admin: 07/02/17 21:11 Dose: 1 applic Ondansetron HCl (Zofran Injection) 4 mg IVPUSH Q6H PRN PRN Reason: NAUSEA AND/OR VOMITING - Objective Vital Signs: Vital Signs Temperature 99.1 F 07/03/17 06:00 Pulse Rate 88 07/03/17 06:00 Respiratory Rate 18 07/03/17 06:00 Blood Pressure 152/74 07/03/17 06:00 O2 Sat by Pulse Oximetry (%) 95 07/02/17 21:00 Constitutional: Yes: Moderate Distress, Other (Venti mask) Neck: Yes: WNL, Supple Cardiovascular: Yes: Pulse Irregular, S1, S2 Respiratory: Yes: WNL, Regular, CTA Bilaterally, Tachypnea Gastrointestinal: Yes: WNL, Normal Bowel Sounds, Soft. No: Tenderness Extremities: No: Cold, Cool, Cyanosis Edema: No Labs: INR, PTT INR 1.07 (0.82-1.09) 07/02/17 20:30 Fibrinogen > 500.0 mg/dL (238-498) H 07/02/17 20:30 Problem List - Problems (1) Calculus of left kidney Code(s): N20.0 - CALCULUS OF KIDNEY (2) Sepsis Code(s): A41.9 - SEPSIS, UNSPECIFIED ORGANISM Qualifiers: Sepsis type: sepsis due to unspecified organism Qualified Code(s): A41.9 - Sepsis, unspecified organism (3) Gram-negative bacteremia Code(s): R78.81 - BACTEREMIA (4) Infection with multi-drug resistant microorganisms Code(s): Z16.35 - RESISTANCE TO MULTIPLE ANTIMICROBIAL DRUGS Assessment/Plan Microbiology 07/01/17 11:39 Synovial Fluid - Knee Gram Stain - Final 07/01/17 11:39 Synovial Fluid - Knee Body Fluid Culture - Preliminary NO AEROBIC GROWTH, 24 HRS 06/30/17 21:05 Blood - Peripheral Venous Blood Culture - Preliminary Lactose Fermenting Neg Bacilli 06/30/17 21:05 Blood - Peripheral Venous Blood Culture - Preliminary Lactose Fermenting Neg Bacilli 06/30/17 21:00 Urine - Urine - Catheterized Urine Culture - Preliminary Lactose Fermenting Neg Bacilli Laboratory Tests 0407/02/17 07/02/17 20:34 05:50 15:15 WBC Hgb Hct Plt Count INR BUN 23 H Creatinine 1.1 H Total Bilirubin 0.5 AST 63 H C-Reactive Protein 24.0 H Ur Leukocyte Esterase Trace H Urine RBC 5-10 Urine WBC 15-20 07/02/17 07/02/17 07/03/17 20:30 20:30 06:05 WBC 14.2 H Pending Hgb 9.7 L Pending Hct 29.7 L Pending Plt Count 97 L D Pending INR 1.07 BUN Creatinine Total Bilirubin AST C-Reactive Protein Ur Leukocyte Esterase Urine RBC Urine WBC Assessment Sepsis syndrome urinary tract source. Gram negative lizz bacteremia ESBL considered ( she has had in past) Rapid atrial fibrillation Congestive Heart failure Thrombocytopenia secondary sepsis syndrome S/P total knee replacement chronic pain but no infection thus far Post stenting Plan Cardiology consultation pending Contact isolation Continue Meropenem awaiting cultures Check blood cultures urine culture Critical care time spent 35 minutes
[2017-07-03 06:43] LABS: BASO % 0.2 % (0-2.0); EOS % 1.1 % (0-4.5); HEMATOCRIT 27.5 % (32.4-45.2); HEMOGLOBIN 9.3 GM/dL (10.7-15.3); LYMPH % 10.3 % (8-40); MCH 30.1 pg (25.7-33.7); MCHC 33.7 g/dl (32.0-36.0); MEAN CELL VOLUME 89.5 fl (80-96); MEAN PLT VOLUME 8.7 fl (7.5-11.1); MONO % 3.7 % (3.8-10.2); NEUT % 84.7 % (42.8-82.8); PLATELET COUNT 103 K/MM3 (134-434); RBC 3.07 M/mm3 (3.60-5.2); RDW 16.9 % (11.6-15.6)
[2017-07-03 07:13] LABS: CHLORIDE 116 mmol/L (98-107); POTASSIUM 3.9 mmol/L (3.5-5.1); SODIUM 144 mmol/L (136-145)
[2017-07-03 07:20] LABS: ALBUMIN 2.2 g/dl (3.4-5.0); ALK PHOS 77 U/L (45-117); ANION GAP 7 (8-16); BILIRUBIN,TOTAL 0.4 mg/dL (0.2-1.0); BLOOD UREA NITROGEN 20 mg/dL (7-18); CALCIUM 7.8 mg/dL (8.5-10.1); CO2 21 mmol/L (21-32); CREATININE 0.9 mg/dL (0.55-1.02); GLUCOSE,RANDOM 87 mg/dL (74-106); MAGNESIUM 2.2 mg/dL (1.8-2.4); PHOSPHOROUS 2.8 mg/dL (2.5-4.9); SGOT/AST 50 U/L (15-37); SGPT/ALT 51 U/L (12-78); TOT PROT 5.3 g/dl (6.4-8.2)
[2017-07-03] MEDS: morphine SULFATE 4 MG/ML VIAL IVPUSH PRN ×3 (09:37→22:48)
--- NOTE | 2017-07-03 09:37 | PN ---
Physical Exam: SUBJECTIVE: Patient seen and examined Overnight, pt went into a-fib with RVR w/ HR up to 230s and RR in 40s on NRB. Pt given pushes of cardizem, lopressor, versed, and ativan with good effect. Pt spiked temp of 100.4 overnight. This am, pt very lethargic, not responding to commands or answering questions. OBJECTIVE: Vital Signs Period Temp Pulse Resp BP Sys/Robbins Pulse Ox Last 24 Hr 99.0 F-100.4 F 70-162 17-33 89-167/56-85 95-99 GENERAL: elderly female, lying in bed, lethargic, moaning in pain, on NRB HEENT: dry mucous membranes LUNGS: mechanical breath sounds HEART: tachycardic, irregularly irregular, no murmurs ABDOMEN: normoactive BS, soft MUSCULOSKELETAL: no LE edema NEUROLOGICAL: EOMI, PEARRLA Laboratory Results - last 24 hr 07/02/17 07/02/17 07/02/17 12:15 14:11 14:11 WBC RBC Hgb Hct MCV MCH MCHC RDW Plt Count MPV Neutrophils % Neutrophils % (Manual) Band Neutrophils % Lymphocytes % Lymphocytes % (Manual) Monocytes % Monocytes % (Manual) Eosinophils % Basophils % Metamyelocytes Hypochromia Platelet Estimate Platelet Comment PT with INR INR PTT (Actin FS) Fibrinogen Puncture Site ABG pH ABG pCO2 at Pt Temp ABG pO2 at Pt Temp ABG HCO3 ABG O2 Sat (Measured) ABG O2 Content ABG Base Excess Bijan Test O2 Delivery Device Oxygen Flow Rate Sodium 143 Potassium 3.4 L Chloride 114 H Carbon Dioxide 20 L Anion Gap 9 BUN 23 H Creatinine 1.1 H Creat Clearance w eGFR 48.69 Random Glucose 75 Lactic Acid 1.6 Calcium 7.5 L Phosphorus 2.1 L Magnesium 1.7 L Total Bilirubin 0.6 AST 61 H ALT 57 Alkaline Phosphatase 69 LD Total 218 Creatine Kinase 362 H Creatine Kinase Index 0.8 CK-MB (CK-2) 3.102 Troponin I 0.05 0.03 Total Protein 5.1 L Albumin 2.2 L 07/02/17 07/02/17 07/02/17 14:11 14:12 14:12 WBC RBC Hgb Hct MCV MCH MCHC RDW Plt Count MPV Neutrophils % Neutrophils % (Manual) Band Neutrophils % Lymphocytes % Lymphocytes % (Manual) Monocytes % Monocytes % (Manual) Eosinophils % Basophils % Metamyelocytes Hypochromia Platelet Estimate Platelet Comment PT with INR 12.90 H INR 1.14 PTT (Actin FS) 44.6 H Fibrinogen > 500.0 H Puncture Site ABG pH ABG pCO2 at Pt Temp ABG pO2 at Pt Temp ABG HCO3 ABG O2 Sat (Measured) ABG O2 Content ABG Base Excess Bijan Test O2 Delivery Device Oxygen Flow Rate Sodium Potassium Chloride Carbon Dioxide Anion Gap BUN Creatinine Creat Clearance w eGFR Random Glucose Lactic Acid Calcium Phosphorus Magnesium Total Bilirubin AST ALT Alkaline Phosphatase LD Total Cancelled Creatine Kinase Creatine Kinase Index CK-MB (CK-2) Troponin I Cancelled Total Protein Albumin 07/02/17 07/02/17 07/02/17 14:39 15:15 20:30 WBC 11.2 H D RBC 3.05 L Hgb 9.0 L Hct 27.5 L MCV 90.2 MCH 29.5 MCHC 32.7 RDW 16.6 H Plt Count 79 L D MPV 7.7 Neutrophils % No Result Required. Neutrophils % (Manual) 67.0 Band Neutrophils % 11.0 Lymphocytes % No Result Required. Lymphocytes % (Manual) 11.0 D Monocytes % Monocytes % (Manual) 10 D Eosinophils % Basophils % Metamyelocytes 1 D Hypochromia 1+ Platelet Estimate Decreased Platelet Comment No clumping noted PT with INR INR PTT (Actin FS) Fibrinogen > 500.0 H Puncture Site ABG pH ABG pCO2 at Pt Temp ABG pO2 at Pt Temp ABG HCO3 ABG O2 Sat (Measured) ABG O2 Content ABG Base Excess Bijan Test O2 Delivery Device Oxygen Flow Rate Sodium 143 Potassium 3.5 Chloride 115 H Carbon Dioxide 20 L Anion Gap 8 BUN 23 H Creatinine 1.1 H Creat Clearance w eGFR 48.69 Random Glucose 74 Lactic Acid Calcium 7.2 L Phosphorus 2.3 L Magnesium 1.5 L Total Bilirubin 0.5 AST 63 H ALT 57 Alkaline Phosphatase 75 LD Total Creatine Kinase Creatine Kinase Index CK-MB (CK-2) Troponin I Total Protein 4.9 L Albumin 2.1 L 07/02/17 07/02/17 07/02/17 20:30 20:30 20:50 WBC 14.2 H RBC 3.29 L Hgb 9.7 L Hct 29.7 L MCV 90.2 MCH 29.5 MCHC 32.7 RDW 16.7 H Plt Count 97 L D MPV 8.4 Neutrophils % No Result Required. Neutrophils % (Manual) 80.0 Band Neutrophils % 8.0 Lymphocytes % No Result Required. Lymphocytes % (Manual) 9.0 Monocytes % Monocytes % (Manual) 2 L Eosinophils % Basophils % Metamyelocytes Hypochromia Platelet Estimate Decreased Platelet Comment No clumping noted PT with INR 12.10 H INR 1.07 PTT (Actin FS) 36.8 H Fibrinogen Puncture Site Right radial ABG pH 7.31 L ABG pCO2 at Pt Temp 37.0 ABG pO2 at Pt Temp 135.0 H D ABG HCO3 17.9 L ABG O2 Sat (Measured) 98.5 ABG O2 Content 16.8 ABG Base Excess -7.3 L Bijan Test Positive O2 Delivery Device Nrb Oxygen Flow Rate 100% Sodium Potassium Chloride Carbon Dioxide Anion Gap BUN Creatinine Creat Clearance w eGFR Random Glucose Lactic Acid Calcium Phosphorus Magnesium Total Bilirubin AST ALT Alkaline Phosphatase LD Total Creatine Kinase Creatine Kinase Index CK-MB (CK-2) Troponin I Total Protein Albumin 07/03/17 07/03/17 06:05 06:05 WBC 14.0 H RBC 3.07 L Hgb 9.3 L Hct 27.5 L MCV 89.5 MCH 30.1 MCHC 33.7 RDW 16.9 H Plt Count 103 L MPV 8.7 Neutrophils % 84.7 H Neutrophils % (Manual) Band Neutrophils % Lymphocytes % 10.3 Lymphocytes % (Manual) Monocytes % 3.7 L Monocytes % (Manual) Eosinophils % 1.1 D Basophils % 0.2 Metamyelocytes Hypochromia Platelet Estimate Platelet Comment PT with INR INR PTT (Actin FS) Fibrinogen Puncture Site ABG pH ABG pCO2 at Pt Temp ABG pO2 at Pt Temp ABG HCO3 ABG O2 Sat (Measured) ABG O2 Content ABG Base Excess Bijan Test O2 Delivery Device Oxygen Flow Rate Sodium 144 Potassium 3.9 Chloride 116 H Carbon Dioxide 21 Anion Gap 7 L BUN 20 H Creatinine 0.9 Creat Clearance w eGFR > 60 Random Glucose 87 Lactic Acid Calcium 7.8 L Phosphorus 2.8 Magnesium 2.2 Total Bilirubin 0.4 AST 50 H ALT 51 Alkaline Phosphatase 77 LD Total Creatine Kinase Creatine Kinase Index CK-MB (CK-2) Troponin I Total Protein 5.3 L Albumin 2.2 L Active Medications Generic Name Dose Route Start Last Admin Trade Name Freq PRN Reason Stop Dose Admin Acetaminophen 1,000 mg 07/01/17 13:48 07/02/17 18:46 Ofirmev Injection - IVPB 1,000 mg Q6H PRN Administration FEVER Chlorhexidine Gluconate 1 applic 07/01/17 22:00 07/02/17 21:11 Hibiclens For Decolonization - TP 1 applic HS JUMANA Administration Diltiazem HCl 10 mg 07/02/17 20:56 Cardizem Injection - IVPUSH Q10M PRN TACHYCARDIA Meropenem 1 gm/ Dextrose 100 mls @ 100 mls/hr 07/01/17 10:00 07/02/17 21:13 IVPB 100 mls/hr BID JUMANA Administration Protocol Propofol 1,000,000 mcg in 100 mls @ 2.425 mls/hr 07/01/17 13:45 07/02/17 23: 05 Diprivan - IVPB Not Given TITR JUMANA Protocol 5 MCG/KG/MIN Sodium Chloride 1,000 mls @ 125 mls/hr 07/01/17 16:37 07/02/17 16:58 Normal Saline - IV 125 mls/hr ASDIR JUMANA Administration Norepinephrine Bitartrate 4, 500 mls @ 37.5 mls/hr 07/01/17 17:00 07/02/17 23 :04 000 mcg/ Dextrose IV Not Given TITR JUMANA Protocol 5 MCG/MIN Amiodarone HCl 450 mg/ 250 mls @ 16.66 mls/hr 07/02/17 14:45 07/02/17 20:45 Dextrose IVPB 0.5 mg/min TITR JUMANA 16.66 mls/hr Protocol Titration 0.5 MG/MIN Morphine Sulfate 4 mg 06/30/17 20:49 07/01/17 03:03 Morphine Sulfate IVPUSH 4 mg Q6H PRN Administration PAIN LEVEL 6-10 Mupirocin 1 applic 07/01/17 10:00 07/02/17 21:11 Bactroban Ointment (For Decolonization) - NS 07/06/17 09:59 1 applic BID JUMANA Administration Ondansetron HCl 4 mg 06/30/17 21:12 Zofran Injection IVPUSH Q6H PRN NAUSEA AND/OR VOMITING ASSESSMENT/PLAN: 72F w/ hx of nephrolithiasis s/p ESWL (most recently around a year ago), right TKR, HTN, and HLD who presented with acute LLQ abdominal pain, nausea, fever, chills, and acute on chronic right knee pain, found to have evidence of severe sepsis 2/2 UTI in addition to a left-sided 5mm obstructing kidney stone with resulting hydroureter, hydronephrosis, and perinephric stranding. Pt is s/p intubation on 07/01 and ureteral stent on 07/01, s/p extubation on 07/02. ID #septic shock- likely 2/2 UTI 2/2 kidney stone -Ucx: pending -Bcx: growing LFGNB x 2 bottles -temp of 100.4 overnight -leukocytosis of 14 today -urology on board, recs appreciated. Pt is s/p left ureteral stent on 07/01. -ID on board, recs appreciated. continue meropenem -ortho on board, appreciate recs. right knee arthrocentesis performed. f/u cultures Nephro #LUDA -creatinine of 0.9 today -bladder/kidney US: mild to moderate hydro -ren inserted -strict I/Os -fluids stopped Pulm #respiratory distress -satting well on NRB -CXR: increased b/l congestive changes -lasix 40 given, with good effect. Pt put out over 750cc of urine. Administer 2nd dose of lasix at 5pm. monitor urine output. -f/u CXR rosio CV #afib w/ RVR -per cards, continue amiodarone gtt. lopressor pushes PRN #hypotension 2/2 sepsis -central line placed on 07/01 -levo titrated off. MAPs 67-100 off of pressors #tachycardia -cardiology consulted, recs appreciated. resume home metoprolol once BP is stable #troponinemia -trops of 0.06. per cards, not problematic. -echo: EF of 60, suggestive of impaired LV relaxation, no tamponade GI -zofran for nausea Heme #thrombocytopenia -platelets of 103 this am -continue to monitor FEN/ppx -fluids stopped -electrolytes wnl -NPO -heparin 5000U TID -no GI ppx indicated Family Members: -Bronson (son): [phone] -Guera ([id number]): [phone] Case discussed with attending, Dr. Esquivel. -Mina Schafer MD PGY1 ICU Team Visit type - Emergency Visit Emergency Visit: Yes ED Registration Date: 06/30/17 Care time: The patient presented to the Emergency Department on the above date and was hospitalized for further evaluation of their emergent condition. - New Patient This patient is new to me today: No - Critical Care Critical Care patient: Yes Total Critical Care Time (in minutes): 40 Critical Care Statement: The care of this patient involved high complexity decision making to prevent further life threatening deterioration of the patient 's condition and/or to evaluate & treat vital organ system(s) failure or risk of failure.
[2017-07-03] MEDS: MUPIROCIN 2% TOPICAL OINTMENT FOR DECOLONIZATION NS SCH ×2 (10:00→21:06)
[2017-07-03] MEDS ORDERED: FUROSEMIDE 40 MG/4 ML INJECTABLE VIAL IVPUSH ONE ×2 (10:08→17:00)
[2017-07-03 10:44] LABS: ARTERIAL BLD GAS O2 SATURATION 98.9 % (90-98.9); ARTERIAL BLOOD GAS BASE EXCESS -5.1 meq/l (-2-2); ARTERIAL BLOOD GAS PCO2 39.6 mmHg (35-45); ARTERIAL BLOOD GAS pH 7.32 (7.35-7.45)
[2017-07-03 10:49] LABS: ALLENS TEST POSITIVE
[2017-07-03] MEDS ORDERED: PT OWN MED DRAWER 7, Y5N ONE ×2 (10:58→21:03)
[2017-07-03] MEDS: MEROPENEM 1 GM in DEXTROSE 5%-WATER - 100 ML IVPB SCH ×2 (11:00→21:05)
[2017-07-03] MEDS ORDERED: METOPROLOL TARTRATE 5 MG/5 ML VIAL IVPUSH PRN (12:03)
--- NOTE | 2017-07-03 12:48 | PN ---
Teaching Attending Note Name of Resident: Mina Schafer ATTENDING PHYSICIAN STATEMENT I saw and evaluated the patient. I reviewed the resident's note and discussed the case with the resident. I agree with the resident's findings and plan as documented. SUBJECTIVE: Pt seen and examined in the ICU. Overnight events noted, episodes of rapid afib and SVT now on amiodarone gtt. Extubated but lethargic, quickly desaturates off NRB. OBJECTIVE: Last Vital Signs Temp Pulse Resp BP Pulse Ox 99 F 88 26 H 147/61 100 07/03/17 10:00 07/03/17 12:00 07/03/17 12:00 07/03/17 12:00 07/03/17 10:00 Intake & Output 06/30/17 07/01/17 07/02/17 07/03/17 23:59 23:59 23:59 23:59 Intake Total 3739 4633 2175.2 Output Total 350 1030 2600 1475 Balance -350 2709 2033 700.2 Weight 77.111 kg 80.83 kg 84.878 kg Gen: lethargic but arousable on NRB Heart: RRR Lung: bilateral rhonchi Abd: soft, nontender Ext: + edema CBC, BMP 07/03/17 06:05 07/03/17 06:05 Active Medications Acetaminophen (Ofirmev Injection -) 1,000 mg IVPB Q6H PRN PRN Reason: FEVER Last Admin: 07/02/17 18:46 Dose: 1,000 mg Chlorhexidine Gluconate (Hibiclens For Decolonization -) 1 applic TP HS JUMANA Last Admin: 07/02/17 21:11 Dose: 1 applic Heparin Sodium (Porcine) (Heparin -) 5,000 unit SQ TID JUMANA Meropenem 1 gm/ Dextrose 100 mls @ 100 mls/hr IVPB BID JUMANA PRN Reason: Protocol Last Admin: 07/03/17 11:00 Dose: 100 mls/hr Propofol (Diprivan -) 1,000,000 mcg in 100 mls @ 2.425 mls/hr IVPB TITR JUMANA; 5 MCG/KG/MIN PRN Reason: Protocol Last Admin: 07/02/17 23:05 Dose: Not Given Norepinephrine Bitartrate 4, (000 mcg/ Dextrose) 500 mls @ 37.5 mls/hr IV TITR JUMANA; 5 MCG/MIN PRN Reason: Protocol Last Admin: 07/02/17 23:04 Dose: Not Given Amiodarone HCl 450 mg/ (Dextrose) 250 mls @ 16.66 mls/hr IVPB TITR JUMANA; 0.5 MG/ MIN PRN Reason: Protocol Last Titration: 07/02/17 20:45 Dose: 0.5 mg/min, 16.66 mls/hr Metoprolol Tartrate (Lopressor Injection -) 5 mg IVPUSH [id number] PRN PRN Reason: TACHYCARDIA Morphine Sulfate (Morphine Sulfate) 4 mg IVPUSH Q6H PRN PRN Reason: PAIN LEVEL 6-10 Last Admin: 07/03/17 09:37 Dose: 4 mg Mupirocin (Bactroban Ointment (For Decolonization) -) 1 applic NS BID JUMANA Stop: 07/06/17 09:59 Last Admin: 07/02/17 21:11 Dose: 1 applic Ondansetron HCl (Zofran Injection) 4 mg IVPUSH Q6H PRN PRN Reason: NAUSEA AND/OR VOMITING ASSESSMENT AND PLAN: Pyelonephritis/Hydronephrosis s/p ureteral stent placement Gram Negative Bacteremia Septic Shock Acute Kidney Injury improving Acute Hypoxic Respiratory Failure Volume Overload/Acute Diastolic Heart Failure Atrial Fibrillation with RVR SVT Thrombocytopenia - continue antibiotics - f/u cultures - d/c IVF - lasix today - monitoring off pressors, maintain MAP >65 - ABG ordered showing mild metabolic acidosis - aspiration precautions - monitor platelets - continue amiodarone gtt - lopressor as needed - consider anticoagulation - DVT prophylaxis - low threshold for reintubation - continue ICU monitoring critical care time spent in reviewing chart, evaluating patient and formulating plan 45 min
--- NOTE | 2017-07-03 12:53 | PN ---
Progress Note (short form) - Note Progress Note: Renal follow up for LUDA Pt seen and examined in the ICU awake but lethargic on NRB mask s/p MANAGER MASS for SVT yesterday, now on Amino gtt making urine pt was agitated and required sedation last night Vital Signs Temperature 99 F 07/03/17 10:00 Pulse Rate 88 07/03/17 12:00 Respiratory Rate 26 H 07/03/17 12:00 Blood Pressure 147/61 07/03/17 12:00 O2 Sat by Pulse Oximetry (%) 100 07/03/17 10:00 Intake & Output 06/30/17 07/01/17 07/02/17 07/03/17 23:59 23:59 23:59 23:59 Intake Total 3739 4633 2175.2 Output Total 350 1030 2600 1475 Balance -350 2709 2033 700.2 Weight 77.111 kg 80.83 kg 84.878 kg Lethargic on NRB RRR, NO M/R Dec BS soft NT/ND NO LE edeam CBC, BMP 07/03/17 06:05 07/03/17 06:05 Laboratory Tests 07/03/17 06:05 Calcium 7.8 L Phosphorus 2.8 Magnesium 2.2 Albumin 2.2 L Current Medications Acetaminophen (Ofirmev Injection -) 1,000 mg IVPB Q6H PRN PRN Reason: FEVER Last Admin: 07/02/17 18:46 Dose: 1,000 mg Chlorhexidine Gluconate (Hibiclens For Decolonization -) 1 applic TP HS JUMANA Last Admin: 07/02/17 21:11 Dose: 1 applic Heparin Sodium (Porcine) (Heparin -) 5,000 unit SQ TID JUMANA Meropenem 1 gm/ Dextrose 100 mls @ 100 mls/hr IVPB BID JUMANA PRN Reason: Protocol Last Admin: 07/03/17 11:00 Dose: 100 mls/hr Propofol (Diprivan -) 1,000,000 mcg in 100 mls @ 2.425 mls/hr IVPB TITR JUMANA; 5 MCG/KG/MIN PRN Reason: Protocol Last Admin: 07/02/17 23:05 Dose: Not Given Norepinephrine Bitartrate 4, (000 mcg/ Dextrose) 500 mls @ 37.5 mls/hr IV TITR JUMANA; 5 MCG/MIN PRN Reason: Protocol Last Admin: 07/02/17 23:04 Dose: Not Given Amiodarone HCl 450 mg/ (Dextrose) 250 mls @ 16.66 mls/hr IVPB TITR JUMANA; 0.5 MG/ MIN PRN Reason: Protocol Last Titration: 07/02/17 20:45 Dose: 0.5 mg/min, 16.66 mls/hr Metoprolol Tartrate (Lopressor Injection -) 5 mg IVPUSH [id number] PRN PRN Reason: TACHYCARDIA Morphine Sulfate (Morphine Sulfate) 4 mg IVPUSH Q6H PRN PRN Reason: PAIN LEVEL 6-10 Last Admin: 07/03/17 09:37 Dose: 4 mg Mupirocin (Bactroban Ointment (For Decolonization) -) 1 applic NS BID JUMANA Stop: 07/06/17 09:59 Last Admin: 07/02/17 21:11 Dose: 1 applic Ondansetron HCl (Zofran Injection) 4 mg IVPUSH Q6H PRN PRN Reason: NAUSEA AND/OR VOMITING 72 year old woman with PMhx of Nephrolithiasis, OA s/p TKR, Hypertension, Hyperlipidemia who presented with abd pain and fever and found to have Sepsis secondary to Pylonephritis complicated by obstructing stone with Hydronephrosis. 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
[2017-07-03] MEDS ORDERED: HEPARIN NA (PORCINE) 5,000 UNITS/ML 1ML VIAL SQ SCH (14:00)
[2017-07-03] MEDS: AMIODARONE HCL INJECTION 450 MG in DEXTROSE 5%-WATER - 241 ML IVPB SCH (15:00)
[2017-07-03] MEDS: PROPOFOL 1,000,000 MCG/100 ML VIAL IVPB SCH (15:02)
--- NOTE | 2017-07-03 15:12 | PN ---
Physical Exam: SUBJECTIVE: Patient seen and examined in ICU. Off pressors, on NRB Events: - Acute A fib with RVR now on amio - Versed given OBJECTIVE: Vital Signs Period Temp Pulse Resp BP Sys/Robbins Pulse Ox Last 24 Hr 99 F-100.4 F 77-94 17-33 122-167/56-74 95-100 PE Neuro: arousable, but lethargic Pulm: diminished, on NRB CV: s1 s2 irregular rhythm Abd: s nt nd + bs Ext: no le edema lines: R central line cdi Laboratory Results - last 24 hr 07/02/17 07/02/17 07/03/17 20:30 20:50 06:05 WBC 14.0 H RBC 3.07 L Hgb 9.3 L Hct 27.5 L MCV 89.5 MCH 30.1 MCHC 33.7 RDW 16.9 H Plt Count 103 L MPV 8.7 Neutrophils % 84.7 H Neutrophils % (Manual) Band Neutrophils % Lymphocytes % 10.3 Lymphocytes % (Manual) Monocytes % 3.7 L Monocytes % (Manual) Eosinophils % 1.1 D Basophils % 0.2 Metamyelocytes Hypochromia Platelet Estimate Platelet Comment PT with INR 12.10 H INR 1.07 PTT (Actin FS) 36.8 H Fibrinogen Puncture Site Right radial ABG pH 7.31 L ABG pCO2 at Pt Temp 37.0 ABG pO2 at Pt Temp 135.0 H D ABG HCO3 17.9 L ABG O2 Sat (Measured) 98.5 ABG O2 Content 16.8 ABG Base Excess -7.3 L Bijan Test Positive O2 Delivery Device Nrb Oxygen Flow Rate 100% Mechanical Rate PEEP Sodium Potassium Chloride Carbon Dioxide Anion Gap BUN Creatinine Creat Clearance w eGFR Random Glucose Lactic Acid Calcium Phosphorus Magnesium Total Bilirubin AST ALT Alkaline Phosphatase LD Total Creatine Kinase Creatine Kinase Index CK-MB (CK-2) Troponin I Total Protein Albumin 07/03/17 07/03/17 06:05 10:34 WBC RBC Hgb Hct MCV MCH MCHC RDW Plt Count MPV Neutrophils % Neutrophils % (Manual) Band Neutrophils % Lymphocytes % Lymphocytes % (Manual) Monocytes % Monocytes % (Manual) Eosinophils % Basophils % Metamyelocytes Hypochromia Platelet Estimate Platelet Comment PT with INR INR PTT (Actin FS) Fibrinogen Puncture Site Right radial ABG pH 7.32 L ABG pCO2 at Pt Temp 39.6 ABG pO2 at Pt Temp 143.0 H ABG HCO3 20.0 L ABG O2 Sat (Measured) 98.9 ABG O2 Content 13.3 L ABG Base Excess -5.1 L Bijan Test Positive O2 Delivery Device Non rebreather Oxygen Flow Rate Yes Mechanical Rate No PEEP 0.0 Sodium 144 Potassium 3.9 Chloride 116 H Carbon Dioxide 21 Anion Gap 7 L BUN 20 H Creatinine 0.9 Creat Clearance w eGFR > 60 Random Glucose 87 Lactic Acid Calcium 7.8 L Phosphorus 2.8 Magnesium 2.2 Total Bilirubin 0.4 AST 50 H ALT 51 Alkaline Phosphatase 77 LD Total Creatine Kinase Creatine Kinase Index CK-MB (CK-2) Troponin I Total Protein 5.3 L Albumin 2.2 L Active Medications Generic Name Dose Route Start Last Admin Trade Name Freq PRN Reason Stop Dose Admin Acetaminophen 1,000 mg 07/01/17 13:48 07/02/17 18:46 Ofirmev Injection - IVPB 1,000 mg Q6H PRN Administration FEVER Chlorhexidine Gluconate 1 applic 07/01/17 22:00 07/02/17 21:11 Hibiclens For Decolonization - TP 1 applic HS JUMANA Administration Furosemide 40 mg 07/03/17 17:00 Lasix Injection - IVPUSH 07/03/17 17:01 ONCE ONE Heparin Sodium (Porcine) 5,000 unit 07/03/17 14:00 07/03/17 14:35 Heparin - SQ 5,000 unit TID JUMANA Administration Meropenem 1 gm/ Dextrose 100 mls @ 100 mls/hr 07/01/17 10:00 07/03/17 11:00 IVPB 100 mls/hr BID JUMANA Administration Protocol Propofol 1,000,000 mcg in 100 mls @ 2.425 mls/hr 07/01/17 13:45 07/03/17 15: 02 Diprivan - IVPB Not Given TITR JUMANA Protocol 5 MCG/KG/MIN Norepinephrine Bitartrate 4, 500 mls @ 37.5 mls/hr 07/01/17 17:00 07/02/17 23 :04 000 mcg/ Dextrose IV Not Given TITR JUMANA Protocol 5 MCG/MIN Amiodarone HCl 450 mg/ 250 mls @ 16.66 mls/hr 07/02/17 14:45 07/02/17 20:45 Dextrose IVPB 0.5 mg/min TITR JUMANA 16.66 mls/hr Protocol Titration 0.5 MG/MIN Metoprolol Tartrate 5 mg 07/03/17 12:03 Lopressor Injection - IVPUSH [id number] PRN TACHYCARDIA Morphine Sulfate 4 mg 06/30/17 20:49 07/03/17 09:37 Morphine Sulfate IVPUSH 4 mg Q6H PRN Administration PAIN LEVEL 6-10 Mupirocin 1 applic 07/01/17 10:00 07/02/17 21:11 Bactroban Ointment (For Decolonization) - NS 07/06/17 09:59 1 applic BID JUMANA Administration Ondansetron HCl 4 mg 06/30/17 21:12 Zofran Injection IVPUSH Q6H PRN NAUSEA AND/OR VOMITING Microbiology 07/01/17 11:39 Gram Stain - Final Synovial Fluid - Knee Body Fluid Culture - Final NO GROWTH OF AEROBIC ORGANISMS AFTER 48 HOURS INCUBATION Anaerobic Culture - Final NO ANAEROBES WERE ISOLATED 06/30/17 21:05 Blood Culture - Final Blood - Peripheral Venous Escherichia Coli 06/30/17 21:05 Blood Culture - Final Blood - Peripheral Venous Escherichia Coli 06/30/17 21:00 Urine Culture - Final Urine - Urine - Catheterized Escherichia Coli Imaging: CTAP 07/01: 4mm distal left ureteral obstructing stone with moderate to severe proximal hydronephrosis and hydroureter; extensive perinephric and periureteral stranding and edema and small amount of fluid; focus of air in left renal pelvis Assessment: 72 year old female with a PMH significant for HLD, left kidney stone s/p stent and an E.coli ESBL UTI (05/2016), diverticulosis, and s/p right TKR (03/2017). Now with obstructing left ureteral calculi, left hydronephrosis, left hydroureter, possible urinoma, gram negative bacteremia, and severe sepsis. Hospital course complicated by respiratory failure (intubated 07/01, extubated 07/02). Now in rapid afib. Plan: 1. Acute complicated obstructing left ureteral calculi/ Left hydronephrosis/ Left hydroureter - s/p left stent placement 07/01 - Follow cultures 2. Severe sepsis with shock secondary to E coli bacteremia and urine - Continue meropenem - Off Zosyn - Off pressors, MAP goal >65 - ID following 3. Hypoxic respiratory failure, pulmonary congestion - On NRB - Off fluids - Lasix 40mg given x1 again at 1700 4. Acute renal failure due to above - Renal fxn improving to baseline - Renal seeing 5. Thrombocytopenia - Likely due to sepsis; up trended today 6. Rapid afib with RVR - Maintain amiodarone gtt - AC per cardiology - Resume home po lopressor once stable 7. Metabolic acidosis - Continue NRB Visit type - Emergency Visit Emergency Visit: Yes ED Registration Date: 06/30/17 Care time: The patient presented to the Emergency Department on the above date and was hospitalized for further evaluation of their emergent condition. - New Patient This patient is new to me today: Yes Date on this admission: 07/03/17 - Critical Care Critical Care patient: No - Discharge Referral Referred to [facility] Med [facility].C.: No
[2017-07-03] MEDS: NOREPINEPHRINE BITARTRATE 4,000 MCG in DEXTROSE 5%-WATER - 496 ML IV SCH (18:02)
--- NOTE | 2017-07-03 19:23 | PN ---
Progress Note, Physician History of Present Illness: Remains on 100% NRM, tele shows paroxysmal afib, started on amio gtt, off pressors. - Current Medication List Current Medications: Active Medications Acetaminophen (Ofirmev Injection -) 1,000 mg IVPB Q6H PRN PRN Reason: FEVER Last Admin: 07/02/17 18:46 Dose: 1,000 mg Chlorhexidine Gluconate (Hibiclens For Decolonization -) 1 applic TP HS JUMANA Last Admin: 07/02/17 21:11 Dose: 1 applic Heparin Sodium (Porcine) (Heparin -) 5,000 unit SQ TID JUMANA Last Admin: 07/03/17 14:35 Dose: 5,000 unit Meropenem 1 gm/ Dextrose 100 mls @ 100 mls/hr IVPB BID JUMANA PRN Reason: Protocol Last Admin: 07/03/17 11:00 Dose: 100 mls/hr Propofol (Diprivan -) 1,000,000 mcg in 100 mls @ 2.425 mls/hr IVPB TITR JUMANA; 5 MCG/KG/MIN PRN Reason: Protocol Last Admin: 07/03/17 15:02 Dose: Not Given Norepinephrine Bitartrate 4, (000 mcg/ Dextrose) 500 mls @ 37.5 mls/hr IV TITR JUMANA; 5 MCG/MIN PRN Reason: Protocol Last Admin: 07/03/17 18:02 Dose: Not Given Amiodarone HCl 450 mg/ (Dextrose) 250 mls @ 16.66 mls/hr IVPB TITR JUMANA; 0.5 MG/ MIN PRN Reason: Protocol Last Admin: 07/03/17 15:00 Dose: 0.5 mg/min, 16.66 mls/hr Metoprolol Tartrate (Lopressor Injection -) 5 mg IVPUSH [id number] PRN PRN Reason: TACHYCARDIA Last Admin: 07/03/17 17:00 Dose: 5 mg Morphine Sulfate (Morphine Sulfate) 4 mg IVPUSH Q6H PRN PRN Reason: PAIN LEVEL 6-10 Last Admin: 07/03/17 16:00 Dose: 4 mg Mupirocin (Bactroban Ointment (For Decolonization) -) 1 applic NS BID JUMANA Stop: 07/06/17 09:59 Last Admin: 07/03/17 10:00 Dose: 1 applic Ondansetron HCl (Zofran Injection) 4 mg IVPUSH Q6H PRN PRN Reason: NAUSEA AND/OR VOMITING - Objective Vital Signs: Vital Signs Temperature 99.9 F H 07/03/17 18:00 Pulse Rate 83 07/03/17 18:30 Respiratory Rate 17 07/03/17 18:30 Blood Pressure 127/65 07/03/17 18:30 O2 Sat by Pulse Oximetry (%) 100 07/03/17 10:00 Constitutional: Yes: No Distress, Calm Neck: Yes: Supple Cardiovascular: Yes: Regular Rate and Rhythm Respiratory: Yes: Regular, Diminished, On Venti-Mask Gastrointestinal: Yes: Soft, Hypoactive Bowel Sounds Edema: No Labs: CBC, BMP 07/03/17 06:05 07/03/17 06:05 INR, PTT INR 1.07 (0.82-1.09) 07/02/17 20:30 Fibrinogen > 500.0 mg/dL (238-498) H 07/02/17 20:30 - ....Imaging Chest X-ray: Report Reviewed (CHF and pleural effusions) EKG: Report Reviewed (Tele: PAF->SR) Problem List - Problems (1) Demand ischemia Code(s): I24.8 - OTHER FORMS OF ACUTE ISCHEMIC HEART DISEASE (2) Acute on chronic diastolic (congestive) heart failure Code(s): I50.33 - ACUTE ON CHRONIC DIASTOLIC (CONGESTIVE) HEART FAILURE (3) Paroxysmal atrial fibrillation with rapid ventricular response Code(s): I48.0 - PAROXYSMAL ATRIAL FIBRILLATION (4) Calculus of left kidney Code(s): N20.0 - CALCULUS OF KIDNEY (5) Gram-negative bacteremia Code(s): R78.81 - BACTEREMIA (6) Hydronephrosis due to obstruction of ureter Code(s): N13.2 - HYDRONEPHROSIS WITH RENAL AND URETERAL CALCULOUS OBSTRUCTION (7) Paroxysmal SVT (supraventricular tachycardia) Code(s): I47.1 - SUPRAVENTRICULAR TACHYCARDIA (8) Hyperlipidemia Code(s): E78.5 - HYPERLIPIDEMIA, UNSPECIFIED Qualifiers: Hyperlipidemia type: pure hypercholesterolemia Qualified Code(s): E78.00 - Pure hypercholesterolemia, unspecified; E78.0 - Pure hypercholesterolemia (9) Hypertension Code(s): I10 - ESSENTIAL (PRIMARY) HYPERTENSION Qualifiers: Hypertension type: essential hypertension Qualified Code(s): I10 - Essential (primary) hypertension Assessment/Plan 07/02/2017 Echo: Normal LV size and fxn, abnl LV compliance, mild MR, TR 1. Post ureteroscopy and stent for ureteral stone, hydronephrosis, pyelonephritis and E. coli sepsis post shock 2. Paroxysmal atrial fibrillation with RVR [id number] 3. Acute hypoxic respiratory failure 4. Acute on chronic diastolic failure 5. Demand ischemia 6. Acute kidney injury resolved 7. History of hypertension 8. Hypercholesterolemia 9. Thrombocytopenia PLAN: 1. Wean FIO2 as needed, IV diuresis with monitor diuretic response, renal function and electrolytes 2. Remains on amio gtt and IV Lopressor pending oral intake 3. Ideally should be anticoagulated given elevated risk score 4. Complete abx course with Meropenem
[2017-07-03] MEDS: METOPROLOL TARTRATE 5 MG/5 ML VIAL IVPUSH SCH ×2 (21:05→22:17)
[2017-07-03] MEDS: ENOXAPARIN NA (PORCINE) 80 MG/0.8 ML DISP.SYRIN SQ SCH (21:05)
[2017-07-03] MEDS: CHLORHEXIDINE GLUCONATE 4% CLEANSER FOR DECOLONIZATION TP SCH (21:06)
[2017-07-03] MEDS: ACETAMINOPHEN 1000 MG/100 ML VIAL (NON FORMULARY) IVPB PRN (21:53)
[2017-07-04] MEDS: METOPROLOL TARTRATE 5 MG/5 ML VIAL IVPUSH SCH ×6 (01:04→22:21)
[2017-07-04] MEDS: morphine SULFATE 4 MG/ML VIAL IVPUSH PRN ×3 (05:29→23:48)
[2017-07-04 06:44] LABS: BASO % 0.3 % (0-2.0); EOS % 1.2 % (0-4.5); HEMATOCRIT 28.2 % (32.4-45.2); HEMOGLOBIN 9.5 GM/dL (10.7-15.3); LYMPH % 11.3 % (8-40); MCH 29.9 pg (25.7-33.7); MCHC 33.8 g/dl (32.0-36.0); MEAN CELL VOLUME 88.6 fl (80-96); MEAN PLT VOLUME 8.2 fl (7.5-11.1); MONO % 7.2 % (3.8-10.2); PLATELET COUNT 124 K/MM3 (134-434); RBC 3.18 M/mm3 (3.60-5.2); RDW 16.8 % (11.6-15.6); WHITE BLOOD COUNT 13.1 K/mm3 (4.0-10.0)
[2017-07-04 07:40] LABS: ALBUMIN 2.2 g/dl (3.4-5.0); ANION GAP 5 (8-16); BILIRUBIN,TOTAL 0.5 mg/dL (0.2-1.0); BLOOD UREA NITROGEN 21 mg/dL (7-18); CALCIUM 8.4 mg/dL (8.5-10.1); CHLORIDE 112 mmol/L (98-107); CO2 29 mmol/L (21-32); CREATININE 0.7 mg/dL (0.55-1.02); GLUCOSE,RANDOM 94 mg/dL (74-106); PHOSPHOROUS 2.1 mg/dL (2.5-4.9); POTASSIUM 3.3 mmol/L (3.5-5.1); SGOT/AST 26 U/L (15-37); SGPT/ALT 38 U/L (12-78); SODIUM 146 mmol/L (136-145)
[2017-07-04 07:42] LABS: ALK PHOS 101 U/L (45-117); TOT PROT 5.5 g/dl (6.4-8.2)
--- NOTE | 2017-07-04 07:48 | PN ---
Progress Note, Physician Chief Complaint: ID Patient lethargic though able to follow some commands On a venti mask maintaining her O2 sats Has not needed pressors Antibiotic as started initially Meropenem now day 4 therapy Amiodorone for cardiac arrhythmia Temp 99 - Current Medication List Current Medications: Active Medications Acetaminophen (Ofirmev Injection -) 1,000 mg IVPB Q6H PRN PRN Reason: FEVER Last Admin: 07/03/17 21:53 Dose: 1,000 mg Chlorhexidine Gluconate (Hibiclens For Decolonization -) 1 applic TP HS JUMANA Last Admin: 07/03/17 21:06 Dose: 1 applic Enoxaparin Sodium (Lovenox -) 80 mg SQ BID JUMANA Last Admin: 07/03/17 21:05 Dose: 80 mg Meropenem 1 gm/ Dextrose 100 mls @ 100 mls/hr IVPB BID JUMANA PRN Reason: Protocol Last Admin: 07/03/17 21:05 Dose: 100 mls/hr Propofol (Diprivan -) 1,000,000 mcg in 100 mls @ 2.425 mls/hr IVPB TITR JUMANA; 5 MCG/KG/MIN PRN Reason: Protocol Last Admin: 07/03/17 15:02 Dose: Not Given Norepinephrine Bitartrate 4, (000 mcg/ Dextrose) 500 mls @ 37.5 mls/hr IV TITR JUMANA; 5 MCG/MIN PRN Reason: Protocol Last Admin: 07/03/17 18:02 Dose: Not Given Amiodarone HCl 450 mg/ (Dextrose) 250 mls @ 16.66 mls/hr IVPB TITR JUMANA; 0.5 MG/ MIN PRN Reason: Protocol Last Admin: 07/03/17 15:00 Dose: 0.5 mg/min, 16.66 mls/hr Metoprolol Tartrate (Lopressor Injection -) 5 mg IVPUSH Q4H-IV JUMANA Last Admin: 07/04/17 06:30 Dose: 5 mg Morphine Sulfate (Morphine Sulfate) 4 mg IVPUSH Q6H PRN PRN Reason: PAIN LEVEL 6-10 Last Admin: 07/04/17 05:29 Dose: 4 mg Mupirocin (Bactroban Ointment (For Decolonization) -) 1 applic NS BID JUMANA Stop: 07/06/17 09:59 Last Admin: 07/03/17 21:06 Dose: 1 applic Ondansetron HCl (Zofran Injection) 4 mg IVPUSH Q6H PRN PRN Reason: NAUSEA AND/OR VOMITING - Objective Vital Signs: Vital Signs Temperature 99 F 07/04/17 06:00 Pulse Rate 77 07/04/17 06:30 Respiratory Rate 12 07/04/17 06:00 Blood Pressure 138/64 07/04/17 06:30 O2 Sat by Pulse Oximetry (%) 94 L 07/03/17 21:00 Constitutional: Yes: Well Nourished, Mild Distress, Other (Lethargic) HENT: Yes: WNL, Atraumatic Neck: Yes: WNL, Supple Cardiovascular: Yes: Regular Rate and Rhythm, Tachycardia, S1, S2 Respiratory: Yes: WNL, Regular, CTA Bilaterally, Diminished Gastrointestinal: Yes: WNL, Normal Bowel Sounds, Soft. No: Tenderness, Tenderness, Rebound Extremities: No: Cold, Cool, Cyanosis Labs: CBC, BMP 07/04/17 06:20 INR, PTT INR 1.07 (0.82-1.09) 07/02/17 20:30 Fibrinogen > 500.0 mg/dL (238-498) H 07/02/17 20:30 Problem List - Problems (1) Calculus of left kidney Code(s): N20.0 - CALCULUS OF KIDNEY (2) Sepsis Code(s): A41.9 - SEPSIS, UNSPECIFIED ORGANISM Qualifiers: Sepsis type: sepsis due to unspecified organism Qualified Code(s): A41.9 - Sepsis, unspecified organism (3) Gram-negative bacteremia Code(s): R78.81 - BACTEREMIA (4) Infection with multi-drug resistant microorganisms Code(s): Z16.35 - RESISTANCE TO MULTIPLE ANTIMICROBIAL DRUGS Assessment/Plan Microbiology 07/01/17 11:39 Synovial Fluid - Knee Gram Stain - Final 07/01/17 11:39 Synovial Fluid - Knee Anaerobic Culture - Final NO GROWTH OF AEROBIC ORGANISMS AFTER 48 HOURS INCUBATION NO ANAEROBES WERE ISOLATED Laboratory Tests 06/30/17 07/02/17 07/03/17 20:34 20:30 06:05 WBC Hgb Hct Plt Count INR 1.07 BUN 20 H Creatinine 0.9 Total Bilirubin 0.4 AST 50 H ALT 51 Alkaline Phosphatase 77 Urine RBC 5-10 Urine WBC 15-20 07/04/17 06:20 WBC 13.1 H Hgb 9.5 L Hct 28.2 L Plt Count 124 L D INR BUN Creatinine Total Bilirubin AST ALT Alkaline Phosphatase Urine RBC Urine WBC Assessment Sepsis syndrome urinary tract source E Coli bacteremia UTI- Turns out to be pansensitive and not MDRO Rapid atrial fibrillation and SVT Amiodorone drip Respiratory distress on Venti mask ? ARDS bilateral PNA ( hematogenous E Coli) Recent Total knee replacement Thrombocytopenia secondary to gram negative bacteremia Plan based on sensitivities does not need a Carbepenem will substitute Ceftriaxone 2 grs daily Maintain contact isolation Remains critical ICU time spent 38 minutes Chris MANLEY
[2017-07-04] MEDS: ACETAMINOPHEN 1000 MG/100 ML VIAL (NON FORMULARY) IVPB PRN (08:57)
--- NOTE | 2017-07-04 09:02 | PN ---
Physical Exam: SUBJECTIVE: Patient seen and examined. No acute events overnight. Had temp of 100.3 overnight. OBJECTIVE: Vital Signs Period Temp Pulse Resp BP Sys/Robbins Pulse Ox Last 24 Hr 99 F-100.3 F 77-162 12- 113-163/60-98 94-100 GENERAL: elderly female, lying in bed, lethargic, moaning in pain, on NRB HEENT: dry mucous membranes LUNGS: mechanical breath sounds HEART: tachycardic, irregularly irregular, no murmurs ABDOMEN: normoactive BS, soft MUSCULOSKELETAL: no LE edema NEUROLOGICAL: EOMI, PEARRLA Laboratory Results - last 24 hr 07/02/17 07/03/17 07/04/17 14:12 10:34 06:20 WBC 13.1 H RBC 3.18 L Hgb 9.5 L Hct 28.2 L MCV 88.6 MCH 29.9 MCHC 33.8 RDW 16.8 H Plt Count 124 L D MPV 8.2 Neutrophils % 80.0 Lymphocytes % 11.3 Monocytes % 7.2 D Eosinophils % 1.2 Basophils % 0.3 Haptoglobin 268 H Puncture Site Right radial ABG pH 7.32 L ABG pCO2 at Pt Temp 39.6 ABG pO2 at Pt Temp 143.0 H ABG HCO3 20.0 L ABG O2 Sat (Measured) 98.9 ABG O2 Content 13.3 L ABG Base Excess -5.1 L Bijan Test Positive O2 Delivery Device Non rebreather Oxygen Flow Rate Yes Mechanical Rate No PEEP 0.0 Sodium Potassium Chloride Carbon Dioxide Anion Gap BUN Creatinine Creat Clearance w eGFR Random Glucose Calcium Phosphorus Magnesium Total Bilirubin AST ALT Alkaline Phosphatase Total Protein Albumin 07/04/17 06:20 WBC RBC Hgb Hct MCV MCH MCHC RDW Plt Count MPV Neutrophils % Lymphocytes % Monocytes % Eosinophils % Basophils % Haptoglobin Puncture Site ABG pH ABG pCO2 at Pt Temp ABG pO2 at Pt Temp ABG HCO3 ABG O2 Sat (Measured) ABG O2 Content ABG Base Excess Bijan Test O2 Delivery Device Oxygen Flow Rate Mechanical Rate PEEP Sodium 146 H Potassium 3.3 L Chloride 112 H Carbon Dioxide 29 Anion Gap 5 L BUN 21 H Creatinine 0.7 Creat Clearance w eGFR > 60 Random Glucose 94 Calcium 8.4 L Phosphorus 2.1 L Magnesium 2.0 Total Bilirubin 0.5 D AST 26 ALT 38 Alkaline Phosphatase 101 Total Protein 5.5 L Albumin 2.2 L Active Medications Generic Name Dose Route Start Last Admin Trade Name Freq PRN Reason Stop Dose Admin Acetaminophen 1,000 mg 07/01/17 13:48 07/03/17 21:53 Ofirmev Injection - IVPB 1,000 mg Q6H PRN Administration FEVER Chlorhexidine Gluconate 1 applic 07/01/17 22:00 07/03/17 21:06 Hibiclens For Decolonization - TP 1 applic HS JUMANA Administration Enoxaparin Sodium 80 mg 07/03/17 22:00 07/03/17 21:05 Lovenox - SQ 80 mg BID JUMANA Administration Propofol 1,000,000 mcg in 100 mls @ 2.425 mls/hr 07/01/17 13:45 07/03/17 15: 02 Diprivan - IVPB Not Given TITR JUMANA Protocol 5 MCG/KG/MIN Norepinephrine Bitartrate 4, 500 mls @ 37.5 mls/hr 07/01/17 17:00 07/03/17 18 :02 000 mcg/ Dextrose IV Not Given TITR JUMANA Protocol 5 MCG/MIN Amiodarone HCl 450 mg/ 250 mls @ 16.66 mls/hr 07/02/17 14:45 07/03/17 15:00 Dextrose IVPB 0.5 mg/min TITR JUMANA 16.66 mls/hr Protocol Administration 0.5 MG/MIN Potassium Chloride 10 meq in 100 mls @ 100 mls/hr 07/04/17 09:00 Potassium Chloride 10 Meq Premix Ivpb - IVPB 07/04/17 11:59 Q60M JUMANA Ceftriaxone Sodium 2 gm/ 100 mls @ 200 mls/hr 07/04/17 10:00 Dextrose IVPB DAILY [facility] Metoprolol Tartrate 5 mg 07/03/17 19:45 07/04/17 06:30 Lopressor Injection - IVPUSH 5 mg Q4H-IV JUMANA Administration Morphine Sulfate 4 mg 06/30/17 20:49 07/04/17 05:29 Morphine Sulfate IVPUSH 4 mg Q6H PRN Administration PAIN LEVEL 6-10 Mupirocin 1 applic 07/01/17 10:00 07/03/17 21:06 Bactroban Ointment (For Decolonization) - NS 07/06/17 09:59 1 applic BID JUMANA Administration Ondansetron HCl 4 mg 06/30/17 21:12 Zofran Injection IVPUSH Q6H PRN NAUSEA AND/OR VOMITING ASSESSMENT/PLAN: 72F w/ hx of nephrolithiasis s/p ESWL (most recently around a year ago), right TKR, HTN, and HLD who presented with acute LLQ abdominal pain, nausea, fever, chills, and acute on chronic right knee pain, found to have evidence of severe sepsis 2/2 UTI in addition to a left-sided 5mm obstructing kidney stone with resulting hydroureter, hydronephrosis, and perinephric stranding. Pt is s/p intubation on 07/01 and ureteral stent on 07/01, s/p extubation on 07/02. ID #septic shock- likely 2/2 UTI 2/2 kidney stone -Ucx and Bcx: growing E. coli -temp of 100.3 overnight -leukocytosis of 13 today -urology on board, recs appreciated. Pt is s/p left ureteral stent on 07/01. -ID on board, recs appreciated. changed from meropenem to ceftriaxone. -ortho on board, appreciate recs. right knee arthrocentesis performed. f/u cultures Nephro #LUDA -creatinine of 0.7 today -bladder/kidney US: mild to moderate hydro -ren in place. 5825cc of urine drained yesterday -strict I/Os Pulm #respiratory distress -satting well on NRB -CXR today: no change since yesterday despite large diuresis. CV #afib w/ RVR -per cards, continue amiodarone gtt. lopressor pushes PRN #hypotension 2/2 sepsis -central line placed on 07/01 -levo titrated off. MAPs 67-100 off of pressors #tachycardia -cardiology consulted, recs appreciated. resume home metoprolol once BP is stable #troponinemia -trops of 0.06. per cards, not problematic. -echo: EF of 60, suggestive of impaired LV relaxation, no tamponade GI -zofran for nausea -NG tube to be inserted. tube feeds per RD Heme #thrombocytopenia -platelets of 124 this am -continue to monitor FEN/ppx -fluids stopped -replete K -tube feeds -heparin 5000U TID -no GI ppx indicated Family Members: -Bronson (son): [phone] -Guera ([id number]): [phone] Case discussed with attending, Dr. Newton. -Mina Schafer MD PGY1 ICU Team Visit type - Emergency Visit Emergency Visit: Yes ED Registration Date: 06/30/17 Care time: The patient presented to the Emergency Department on the above date and was hospitalized for further evaluation of their emergent condition. - New Patient This patient is new to me today: No - Critical Care Critical Care patient: Yes Total Critical Care Time (in minutes): 38 Critical Care Statement: The care of this patient involved high complexity decision making to prevent further life threatening deterioration of the patient 's condition and/or to evaluate & treat vital organ system(s) failure or risk of failure.
[2017-07-04] MEDS: KCL 10 MEQ IVPB 10 MEQ/100 ML INFUS.BAG IVPB SCH ×3 (09:05→12:43)
[2017-07-04] MEDS: MUPIROCIN 2% TOPICAL OINTMENT FOR DECOLONIZATION NS SCH ×2 (09:05→22:20)
[2017-07-04] MEDS: ENOXAPARIN NA (PORCINE) 80 MG/0.8 ML DISP.SYRIN SQ SCH ×2 (09:06→22:20)
[2017-07-04] MEDS: AMIODARONE HCL INJECTION 450 MG in DEXTROSE 5%-WATER - 241 ML IVPB SCH (09:24)
[2017-07-04] MEDS ORDERED: DEXTROSE 5%-WATER 100 ML IVPB ONE (10:29)
[2017-07-04] MEDS: CEFTRIAXONE 2 GM in DEXTROSE 5%-WATER 100 ML IVPB SCH (10:33)
[2017-07-04 10:36] LABS: ARTERIAL BLD GAS O2 SATURATION 98.9 % (90-98.9); ARTERIAL BLOOD GAS PCO2 48.5 mmHg (35-45); ARTERIAL BLOOD GAS pH 7.35 (7.35-7.45)
[2017-07-04 10:41] LABS: ALLENS TEST POSITIVE
--- NOTE | 2017-07-04 10:59 | PN ---
Progress Note, Physician Chief Complaint: Events noted Remains in ICU No further AF bursts this am Lethargic now on 100% NRB History of Present Illness: Patient was seen and examined. Lethargic. Chart was reviewed Continued on Amiodarone drip Remains in sinus rhythm - Current Medication List Current Medications: Active Medications Chlorhexidine Gluconate (Hibiclens For Decolonization -) 1 applic TP HS [facility] Last Admin: 07/03/17 21:06 Dose: 1 applic Enoxaparin Sodium (Lovenox -) 80 mg SQ BID [facility] Last Admin: 07/04/17 09:06 Dose: 80 mg Propofol (Diprivan -) 1,000,000 mcg in 100 mls @ 2.425 mls/hr IVPB TITR [facility]; 5 MCG/KG/MIN PRN Reason: Protocol Last Admin: 07/03/17 15:02 Dose: Not Given Norepinephrine Bitartrate 4, (000 mcg/ Dextrose) 500 mls @ 37.5 mls/hr IV TITR [facility]; 5 MCG/MIN PRN Reason: Protocol Last Admin: 07/03/17 18:02 Dose: Not Given Amiodarone HCl 450 mg/ (Dextrose) 250 mls @ 16.66 mls/hr IVPB TITR [facility]; 0.5 MG/ MIN PRN Reason: Protocol Last Admin: 07/04/17 09:24 Dose: Not Given Potassium Chloride (Potassium Chloride 10 Meq Premix Ivpb -) 10 meq in 100 mls @ 100 mls/hr IVPB Q60M [facility] Stop: 07/04/17 11:59 Last Admin: 07/04/17 10:34 Dose: 100 mls/hr Ceftriaxone Sodium 2 gm/ (Dextrose) 100 mls @ 200 mls/hr IVPB DAILY [facility] Last Admin: 07/04/17 10:33 Dose: 200 mls/hr Metoprolol Tartrate (Lopressor Injection -) 5 mg IVPUSH Q4H-IV [facility] Last Admin: 07/04/17 09:13 Dose: Not Given Morphine Sulfate (Morphine Sulfate) 4 mg IVPUSH Q6H PRN PRN Reason: PAIN LEVEL 6-10 Last Admin: 07/04/17 05:29 Dose: 4 mg Mupirocin (Bactroban Ointment (For Decolonization) -) 1 applic NS BID [facility] Stop: 07/06/17 09:59 Last Admin: 07/04/17 09:05 Dose: 1 applic Ondansetron HCl (Zofran Injection) 4 mg IVPUSH Q6H PRN PRN Reason: NAUSEA AND/OR VOMITING - Objective Vital Signs: Vital Signs Temperature 98.5 F 07/04/17 10:00 Pulse Rate 71 07/04/17 10:00 Respiratory Rate 13 07/04/17 10:00 Blood Pressure 130/72 07/04/17 10:00 O2 Sat by Pulse Oximetry (%) 94 L 07/03/17 21:00 Neck: Yes: Supple Cardiovascular: Yes: Regular Rate and Rhythm, S1, S2 Respiratory: Yes: Diminished, On Venti-Mask Gastrointestinal: Yes: Normal Bowel Sounds, Soft. No: Tenderness Edema: No Labs: CBC, BMP 07/04/17 06:20 07/04/17 06:20 Problem List - Problems (1) Calculus of left kidney Code(s): N20.0 - CALCULUS OF KIDNEY (2) Hydronephrosis due to obstruction of ureter Code(s): N13.2 - HYDRONEPHROSIS WITH RENAL AND URETERAL CALCULOUS OBSTRUCTION (3) Sepsis Code(s): A41.9 - SEPSIS, UNSPECIFIED ORGANISM Qualifiers: Sepsis type: sepsis due to unspecified organism Qualified Code(s): A41.9 - Sepsis, unspecified organism (4) Dizziness Code(s): R42 - DIZZINESS AND GIDDINESS (5) Paroxysmal SVT (supraventricular tachycardia) Code(s): I47.1 - SUPRAVENTRICULAR TACHYCARDIA (6) Hyperlipidemia Code(s): E78.5 - HYPERLIPIDEMIA, UNSPECIFIED Qualifiers: Hyperlipidemia type: pure hypercholesterolemia Qualified Code(s): E78.00 - Pure hypercholesterolemia, unspecified; E78.0 - Pure hypercholesterolemia (7) Hypertension Code(s): I10 - ESSENTIAL (PRIMARY) HYPERTENSION Qualifiers: Hypertension type: essential hypertension Qualified Code(s): I10 - Essential (primary) hypertension (8) Hydronephrosis Code(s): N13.30 - UNSPECIFIED HYDRONEPHROSIS (9) UTI (urinary tract infection) Code(s): N39.0 - URINARY TRACT INFECTION, SITE NOT SPECIFIED (10) Paroxysmal atrial fibrillation Code(s): I48.0 - PAROXYSMAL ATRIAL FIBRILLATION Assessment/Plan 1. Post ureteroscopy and stent for ureteral stone, hydronephrosis, pyelonephritis and E. coli sepsis post shock 2. Paroxysmal atrial fibrillation with RVR - [id number] score of 3 3. Acute hypoxic respiratory failure 4. Acute on chronic diastolic failure 5. Demand ischemia 6. Acute kidney injury resolved 7. History of hypertension 8. Hypercholesterolemia 9. Thrombocytopenia PLAN: 1. Wean FIO2 as tolerated, continue IV diuresis with monitoring renal function and electrolytes 2. Remains on Amiodarone drip, but consider switching to NG (currently not able to take PO) if possible and continue IV Lopressor pending oral intake 3. 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 Complete antibiotic course as per ID service Guarded David Little MD
--- NOTE | 2017-07-04 11:04 | PN ---
Teaching Attending Note Name of Resident: Mina Schafer ATTENDING PHYSICIAN STATEMENT I saw and evaluated the patient. I reviewed the resident's note and discussed the case with the resident. I agree with the resident's findings and plan as documented. SUBJECTIVE: Patient seen and examined in the ICU. Lethargic but arousable on 100% NRBM. No pressors. Intake & Output 07/01/17 07/02/17 07/03/17 07/04/17 23:59 23:59 23:59 23:59 Intake Total 3739 4633 2375.6 398 Output Total 1030 2600 5825 400 Balance 2709 2033 -3449.4 -2 Weight 178 lb 3.2 oz 187 lb 2 oz 176 lb 7 oz Last Vital Signs Temp Pulse Resp BP Pulse Ox 98.5 F 71 13 130/72 94 L 07/04/17 10:00 07/04/17 10:00 07/04/17 10:00 07/04/17 10:00 07/03/17 21:00 Active Medications Chlorhexidine Gluconate (Hibiclens For Decolonization -) 1 applic TP HS [facility] Last Admin: 07/03/17 21:06 Dose: 1 applic Enoxaparin Sodium (Lovenox -) 80 mg SQ BID [facility] Last Admin: 07/04/17 09:06 Dose: 80 mg Propofol (Diprivan -) 1,000,000 mcg in 100 mls @ 2.425 mls/hr IVPB TITR [facility]; 5 MCG/KG/MIN PRN Reason: Protocol Last Admin: 07/03/17 15:02 Dose: Not Given Norepinephrine Bitartrate 4, (000 mcg/ Dextrose) 500 mls @ 37.5 mls/hr IV TITR [facility]; 5 MCG/MIN PRN Reason: Protocol Last Admin: 07/03/17 18:02 Dose: Not Given Amiodarone HCl 450 mg/ (Dextrose) 250 mls @ 16.66 mls/hr IVPB TITR [facility]; 0.5 MG/ MIN PRN Reason: Protocol Last Admin: 07/04/17 09:24 Dose: Not Given Potassium Chloride (Potassium Chloride 10 Meq Premix Ivpb -) 10 meq in 100 mls @ 100 mls/hr IVPB Q60M [facility] Stop: 07/04/17 11:59 Last Admin: 07/04/17 10:34 Dose: 100 mls/hr Ceftriaxone Sodium 2 gm/ (Dextrose) 100 mls @ 200 mls/hr IVPB DAILY [facility]CLUDES [facility] Last Admin: 07/04/17 10:33 Dose: 200 mls/hr Metoprolol Tartrate (Lopressor Injection -) 5 mg IVPUSH Q4H-IV [facility] Last Admin: 07/04/17 09:13 Dose: Not Given Morphine Sulfate (Morphine Sulfate) 2 mg IVPUSH Q4H PRN PRN Reason: PAIN LEVEL 6-10 Mupirocin (Bactroban Ointment (For Decolonization) -) 1 applic NS BID [facility]CLUDES [facility] Stop: 07/06/17 09:59 Last Admin: 07/04/17 09:05 Dose: 1 applic Ondansetron HCl (Zofran Injection) 4 mg IVPUSH Q6H PRN PRN Reason: NAUSEA AND/OR VOMITING Constitutional: Yes: Lethargic on 100% NRBM Eyes: Yes: WNL Cardiovascular: Yes: Irregular Respiratory: Yes: bilateral rhonchi Gastrointestinal: Yes: Normal Bowel Sounds, Soft. No: Tenderness Extremities: Yes: WNL Edema: No Peripheral Pulses WNL: Yes Neurological: Yes: lethargic Labs: Laboratory Results - last 24 hr 07/02/17 07/04/17 07/04/17 14:12 06:20 06:20 WBC 13.1 H RBC 3.18 L Hgb 9.5 L Hct 28.2 L MCV 88.6 MCH 29.9 MCHC 33.8 RDW 16.8 H Plt Count 124 L D MPV 8.2 Neutrophils % 80.0 Lymphocytes % 11.3 Monocytes % 7.2 D Eosinophils % 1.2 Basophils % 0.3 Haptoglobin 268 H Puncture Site ABG pH ABG pCO2 at Pt Temp ABG pO2 at Pt Temp ABG HCO3 ABG O2 Sat (Measured) ABG O2 Content ABG Base Excess Bijan Test O2 Delivery Device Oxygen Flow Rate Sodium 146 H Potassium 3.3 L Chloride 112 H Carbon Dioxide 29 Anion Gap 5 L BUN 21 H Creatinine 0.7 Creat Clearance w eGFR > 60 Random Glucose 94 Calcium 8.4 L Phosphorus 2.1 L Magnesium 2.0 Total Bilirubin 0.5 D AST 26 ALT 38 Alkaline Phosphatase 101 Total Protein 5.5 L Albumin 2.2 L 07/04/17 10:30 WBC RBC Hgb Hct MCV MCH MCHC RDW Plt Count MPV Neutrophils % Lymphocytes % Monocytes % Eosinophils % Basophils % Haptoglobin Puncture Site Right radial ABG pH 7.35 ABG pCO2 at Pt Temp 48.5 H D ABG pO2 at Pt Temp 140.0 H ABG HCO3 26.4 H ABG O2 Sat (Measured) 98.9 ABG O2 Content 13.8 L ABG Base Excess 1.0 Bijan Test Positive O2 Delivery Device Non rebreather Oxygen Flow Rate Yes Sodium Potassium Chloride Carbon Dioxide Anion Gap BUN Creatinine Creat Clearance w eGFR Random Glucose Calcium Phosphorus Magnesium Total Bilirubin AST ALT Alkaline Phosphatase Total Protein Albumin Problem List - Problems (1) Hydronephrosis with infection Code(s): N13.6 - PYONEPHROSIS (2) Kidney stone on left side Code(s): N20.0 - CALCULUS OF KIDNEY (3) Sepsis Code(s): A41.9 - SEPSIS, UNSPECIFIED ORGANISM Assessment/Plan Acute Respiratory Failure Less likely ARDS Sepsis 2/2 UTI Left hydronephrosis and nephrolithiasis Elevated lactate, now resolved Aspiration precautions IVF Monitor off pressors Strict I & O ABX per ID Monitor Renal function VTE prophylaxis Dr Newton Critical care time spent in reviewing chart, evaluating patient and formulating plan - 36 minutes.
--- NOTE | 2017-07-04 11:35 | PN ---
Progress Note (short form) - Note Progress Note: Renal follow up for LUDA Pt seen and examined in the ICU awake but lethargic on NRB making urine no overnight events on Amino gtt Vital Signs Temperature 98.5 F 07/04/17 10:00 Pulse Rate 71 07/04/17 10:00 Respiratory Rate 13 07/04/17 10:00 Blood Pressure 130/72 07/04/17 10:00 O2 Sat by Pulse Oximetry (%) 100 07/04/17 09:00 Intake & Output 07/01/17 07/02/17 07/03/17 07/04/17 23:59 23:59 23:59 23:59 Intake Total 3739 4633 2375.6 398 Output Total 1030 2600 5825 400 Balance 2709 2033 -3449.4 -2 Weight 80.83 kg 84.878 kg 80.031 kg Lethargic on NRB RRR, NO M/R Dec BS soft NT/ND NO LE edema CBC, BMP 07/03/17 06:05 07/03/17 06:05 Laboratory Tests 07/03/17 06:05 Calcium 7.8 L Phosphorus 2.8 Magnesium 2.2 Albumin 2.2 L Current Medications Acetaminophen (Ofirmev Injection -) 1,000 mg IVPB Q6H PRN PRN Reason: FEVER Last Admin: 07/02/17 18:46 Dose: 1,000 mg Chlorhexidine Gluconate (Hibiclens For Decolonization -) 1 applic TP HS [facility] Last Admin: 07/02/17 21:11 Dose: 1 applic Heparin Sodium (Porcine) (Heparin -) 5,000 unit SQ TID [facility] Meropenem 1 gm/ Dextrose 100 mls @ 100 mls/hr IVPB BID [facility] PRN Reason: Protocol Last Admin: 07/03/17 11:00 Dose: 100 mls/hr Propofol (Diprivan -) 1,000,000 mcg in 100 mls @ 2.425 mls/hr IVPB TITR [facility]; 5 MCG/KG/MIN PRN Reason: Protocol Last Admin: 07/02/17 23:05 Dose: Not Given Norepinephrine Bitartrate 4, (000 mcg/ Dextrose) 500 mls @ 37.5 mls/hr IV TITR [facility]; 5 MCG/MIN PRN Reason: Protocol Last Admin: 07/02/17 23:04 Dose: Not Given Amiodarone HCl 450 mg/ (Dextrose) 250 mls @ 16.66 mls/hr IVPB TITR [facility]; 0.5 MG/ MIN PRN Reason: Protocol Last Titration: 07/02/17 20:45 Dose: 0.5 mg/min, 16.66 mls/hr Metoprolol Tartrate (Lopressor Injection -) 5 mg IVPUSH [id number] PRN PRN Reason: TACHYCARDIA Morphine Sulfate (Morphine Sulfate) 4 mg IVPUSH Q6H PRN PRN Reason: PAIN LEVEL 6-10 Last Admin: 07/03/17 09:37 Dose: 4 mg Mupirocin (Bactroban Ointment (For Decolonization) -) 1 applic NS BID [facility] Stop: 07/06/17 09:59 Last Admin: 07/02/17 21:11 Dose: 1 applic Ondansetron HCl (Zofran Injection) 4 mg IVPUSH Q6H PRN PRN Reason: NAUSEA AND/OR VOMITING 72 year old woman with PMhx of Nephrolithiasis, OA s/p TKR, Hypertension, Hyperlipidemia who presented with abd pain and fever and found to have Sepsis secondary to Pylonephritis complicated by obstructing stone with Hydronephrosis. 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
--- NOTE | 2017-07-04 14:44 | PN ---
Physical Exam: SUBJECTIVE: Patient seen and examined. Lethargic, but arousable, screams out in pain per RN's. Received morphine OBJECTIVE: Vital Signs Period Temp Pulse Resp BP Sys/Robbins Pulse Ox Last 24 Hr 98.5 F-100.3 F 65-162 11-26 113-167/60-98 94-100 PE Neuro: arousable, awake Pulm: diminished, on NRB CV: s1 s2 rrr Abd: s nt nd + bs Ext: no le edema lines: R central line cdi Laboratory Results - last 24 hr 07/02/17 07/04/17 07/04/17 14:12 06:20 06:20 WBC 13.1 H RBC 3.18 L Hgb 9.5 L Hct 28.2 L MCV 88.6 MCH 29.9 MCHC 33.8 RDW 16.8 H Plt Count 124 L D MPV 8.2 Neutrophils % 80.0 Lymphocytes % 11.3 Monocytes % 7.2 D Eosinophils % 1.2 Basophils % 0.3 Haptoglobin 268 H Puncture Site ABG pH ABG pCO2 at Pt Temp ABG pO2 at Pt Temp ABG HCO3 ABG O2 Sat (Measured) ABG O2 Content ABG Base Excess Bijan Test O2 Delivery Device Oxygen Flow Rate Sodium 146 H Potassium 3.3 L Chloride 112 H Carbon Dioxide 29 Anion Gap 5 L BUN 21 H Creatinine 0.7 Creat Clearance w eGFR > 60 Random Glucose 94 Calcium 8.4 L Phosphorus 2.1 L Magnesium 2.0 Total Bilirubin 0.5 D AST 26 ALT 38 Alkaline Phosphatase 101 Total Protein 5.5 L Albumin 2.2 L 07/04/17 10:30 WBC RBC Hgb Hct MCV MCH MCHC RDW Plt Count MPV Neutrophils % Lymphocytes % Monocytes % Eosinophils % Basophils % Haptoglobin Puncture Site Right radial ABG pH 7.35 ABG pCO2 at Pt Temp 48.5 H D ABG pO2 at Pt Temp 140.0 H ABG HCO3 26.4 H ABG O2 Sat (Measured) 98.9 ABG O2 Content 13.8 L ABG Base Excess 1.0 Bijan Test Positive O2 Delivery Device Non rebreather Oxygen Flow Rate Yes Sodium Potassium Chloride Carbon Dioxide Anion Gap BUN Creatinine Creat Clearance w eGFR Random Glucose Calcium Phosphorus Magnesium Total Bilirubin AST ALT Alkaline Phosphatase Total Protein Albumin Active Medications Generic Name Dose Route Start Last Admin Trade Name Freq PRN Reason Stop Dose Admin Chlorhexidine Gluconate 1 applic 07/01/17 22:00 07/03/17 21:06 Hibiclens For Decolonization - TP 1 applic HS [facility] [place] Administration Enoxaparin Sodium 80 mg 07/03/17 22:00 07/04/17 09:06 Lovenox - SQ 80 mg BID [facility] Administration Propofol 1,000,000 mcg in 100 mls @ 2.425 mls/hr 07/01/17 13:45 07/03/17 15: 02 Diprivan - IVPB Not Given TITR [facility] Protocol 5 MCG/KG/MIN Norepinephrine Bitartrate 4, 500 mls @ 37.5 mls/hr 07/01/17 17:00 07/03/17 18 :02 000 mcg/ Dextrose IV Not Given TITR [facility] Protocol 5 MCG/MIN Amiodarone HCl 450 mg/ 250 mls @ 16.66 mls/hr 07/02/17 14:45 07/04/17 09:24 Dextrose IVPB Not Given TITR [facility] Protocol 0.5 MG/MIN Ceftriaxone Sodium 2 gm/ 100 mls @ 200 mls/hr 07/04/17 10:00 07/04/17 10:33 Dextrose IVPB 200 mls/hr DAILY [facility] [place] Administration Metoprolol Tartrate 5 mg 07/03/17 19:45 07/04/17 09:13 Lopressor Injection - IVPUSH Not Given Q4H-IV [facility] Morphine Sulfate 2 mg 07/04/17 11:00 Morphine Sulfate IVPUSH Q4H PRN PAIN LEVEL 6-10 Mupirocin 1 applic 07/01/17 10:00 07/04/17 09:05 Bactroban Ointment (For Decolonization) - NS 07/06/17 09:59 1 applic BID [facility] Administration Ondansetron HCl 4 mg 06/30/17 21:12 Zofran Injection IVPUSH Q6H PRN NAUSEA AND/OR VOMITING Potassium Phos/Sodium Phos 1 packet 07/04/17 11:45 Phos-Nak Packet - PO 07/04/17 22:01 TID [facility] Microbiology 07/01/17 11:39 Synovial Fluid - Knee Gram Stain - Final 07/01/17 11:39 Synovial Fluid - Knee Body Fluid Culture - Final NO GROWTH OF AEROBIC ORGANISMS AFTER 48 HOURS INCUBATION 07/01/17 11:39 Synovial Fluid - Knee Anaerobic Culture - Final NO ANAEROBES WERE ISOLATED 06/30/17 21:05 Blood - Peripheral Venous Blood Culture - Final Escherichia Coli 06/30/17 21:05 Blood - Peripheral Venous Blood Culture - Final Escherichia Coli 06/30/17 21:00 Urine - Urine - Catheterized Urine Culture - Final Escherichia Coli Imaging: CTAP 07/01: 4mm distal left ureteral obstructing stone with moderate to severe proximal hydronephrosis and hydroureter; extensive perinephric and periureteral stranding and edema and small amount of fluid; focus of air in left renal pelvis Assessment: 72 year old female with a PMH significant for HLD, left kidney stone s/p stent and an E.coli ESBL UTI (05/2016), diverticulosis, and s/p right TKR (03/2017). Now with obstructing left ureteral calculi, left hydronephrosis, left hydroureter, possible urinoma, gram negative bacteremia, and severe sepsis. Hospital course complicated by respiratory failure (intubated 07/01, extubated 07/02). Now in rapid afib. Plan: 1. Acute complicated obstructing left ureteral calculi/ Left hydronephrosis/ Left hydroureter - s/p left stent placement 07/01 - Maintain ren - Switch to ceftriaxone 2. Severe sepsis with shock secondary to E coli bacteremia and urine - Stop wilmer, aquino sensitive e coli - Start ceftriaxone 2mg daily (day 1) - Off pressors, MAP goal >65 - ID following 3. Hypoxic respiratory failure, pulmonary congestion - On NRB - CXR improved - Lasix prn congestion 4. Acute renal failure due to above - Renal fxn improving to baseline - Renal seeing 5. Hypernatremia - Due to diuresis - Place NGT give oral water or start d5w 6. Thrombocytopenia - Likely due to sepsis; up trended today 7. Rapid afib with RVR - In sinus rhythm - Stop amio gtt - Start PO amio once NGT in place - Resume home po lopressor once stable - Lovenox 80mg BID 8. Metabolic acidosis - Continue NRB, ABG noted 9. Hypophosphatemia - Replete with k phos packets 10. Nutrition - Start osmolite 1.2 today 11. DVT - Lovenox BID Visit type - Emergency Visit Emergency Visit: Yes ED Registration Date: 06/30/17 Care time: The patient presented to the Emergency Department on the above date and was hospitalized for further evaluation of their emergent condition. - New Patient This patient is new to me today: No - Critical Care Critical Care patient: No
[2017-07-04] MEDS: NAPH,MB-DB/K PH,MBDB POWDER PACKET PO SCH ×3 (16:09→22:21)
[2017-07-04] MEDS ORDERED: morphine SULFATE 4 MG/ML VIAL IVPUSH ONE (18:00)
[2017-07-04] MEDS: CHLORHEXIDINE GLUCONATE 4% CLEANSER FOR DECOLONIZATION TP SCH (22:20)
[2017-07-05] MEDS: METOPROLOL TARTRATE 5 MG/5 ML VIAL IVPUSH SCH ×3 (02:02→10:27)
[2017-07-05] MEDS ORDERED: METOPROLOL TARTRATE 5 MG/5 ML VIAL ONE (05:14)
[2017-07-05 06:22] LABS: BASO % 0.5 % (0-2.0); EOS % 1.5 % (0-4.5); HEMATOCRIT 28.1 % (32.4-45.2); HEMOGLOBIN 9.6 GM/dL (10.7-15.3); LYMPH % 18.7 % (8-40); MCH 30.3 pg (25.7-33.7); MCHC 34.2 g/dl (32.0-36.0); MEAN CELL VOLUME 88.4 fl (80-96); MEAN PLT VOLUME 8.5 fl (7.5-11.1); MONO % 12.4 % (3.8-10.2); NEUT % 66.9 % (42.8-82.8); PLATELET COUNT 132 K/MM3 (134-434); RBC 3.18 M/mm3 (3.60-5.2); RDW 16.1 % (11.6-15.6); WHITE BLOOD COUNT 7.8 K/mm3 (4.0-10.0)
[2017-07-05 06:32] LABS: ALLENS TEST POSITIVE; ARTERIAL BLD GAS O2 SATURATION 98.9 % (90-98.9); ARTERIAL BLOOD GAS BASE EXCESS 4.1 meq/l (-2-2); ARTERIAL BLOOD GAS pH 7.41 (7.35-7.45)
[2017-07-05 06:33] LABS: ADD RBC MORPHOLOGY YES
[2017-07-05 06:40] LABS: ALBUMIN 2.2 g/dl (3.4-5.0); ANION GAP 6 (8-16); BLOOD UREA NITROGEN 20 mg/dL (7-18); CALCIUM 8.9 mg/dL (8.5-10.1); CHLORIDE 111 mmol/L (98-107); CO2 30 mmol/L (21-32); CREATININE 0.5 mg/dL (0.55-1.02); GLUCOSE,RANDOM 90 mg/dL (74-106); MAGNESIUM 2.1 mg/dL (1.8-2.4); PHOSPHOROUS 2.1 mg/dL (2.5-4.9); POTASSIUM 3.6 mmol/L (3.5-5.1); SGOT/AST 25 U/L (15-37); SGPT/ALT 34 U/L (12-78); SODIUM 147 mmol/L (136-145)
[2017-07-05 06:41] LABS: ALK PHOS 84 U/L (45-117); BILIRUBIN,TOTAL 0.5 mg/dL (0.2-1.0); TOT PROT 5.8 g/dl (6.4-8.2)
--- NOTE | 2017-07-05 07:07 | PN ---
Progress Note, Physician Chief Complaint: ID Now on Ceftriaxone day 5 antibiotic therapy Stable night Afebrile - Current Medication List Current Medications: Active Medications Amiodarone HCl (Cordarone -) 200 mg PO DAILY [facility] Chlorhexidine Gluconate (Hibiclens For Decolonization -) 1 applic TP HS [facility] Last Admin: 07/04/17 22:20 Dose: 1 applic Enoxaparin Sodium (Lovenox -) 80 mg SQ BID [facility] Last Admin: 07/04/17 22:20 Dose: 80 mg Ceftriaxone Sodium 2 gm/ (Dextrose) 100 mls @ 200 mls/hr IVPB DAILY [facility] Last Admin: 07/04/17 10:33 Dose: 200 mls/hr Metoprolol Tartrate (Lopressor Injection -) 5 mg IVPUSH Q4H-IV [facility] Last Admin: 07/05/17 06:12 Dose: 5 mg Morphine Sulfate (Morphine Sulfate) 2 mg IVPUSH Q4H PRN PRN Reason: PAIN LEVEL 6-10 Last Admin: 07/04/17 23:48 Dose: 2 mg Mupirocin (Bactroban Ointment (For Decolonization) -) 1 applic NS BID [facility] Stop: 07/06/17 09:59 Last Admin: 07/04/17 22:20 Dose: 1 applic Ondansetron HCl (Zofran Injection) 4 mg IVPUSH Q6H PRN PRN Reason: NAUSEA AND/OR VOMITING - Objective Vital Signs: Vital Signs Temperature 98.3 F 07/05/17 06:00 Pulse Rate 68 07/05/17 06:12 Respiratory Rate 19 07/05/17 04:00 Blood Pressure 165/70 07/05/17 06:12 O2 Sat by Pulse Oximetry (%) 100 07/04/17 21:00 Constitutional: Yes: Mild Distress HENT: Yes: WNL, Atraumatic Neck: Yes: WNL, Supple Cardiovascular: Yes: S1, S2 Respiratory: Yes: WNL, Regular, CTA Bilaterally, Tachypnea Gastrointestinal: Yes: WNL, Normal Bowel Sounds, Soft. No: Tenderness Edema: No Labs: CBC, BMP 07/05/17 05:55 07/05/17 05:55 INR, PTT INR 1.07 (0.82-1.09) 07/02/17 20:30 Fibrinogen > 500.0 mg/dL (238-498) H 07/02/17 20:30 Problem List - Problems (1) Calculus of left kidney Code(s): N20.0 - CALCULUS OF KIDNEY (2) Sepsis Code(s): A41.9 - SEPSIS, UNSPECIFIED ORGANISM Qualifiers: Sepsis type: sepsis due to unspecified organism Qualified Code(s): A41.9 - Sepsis, unspecified organism (3) Gram-negative bacteremia Code(s): R78.81 - BACTEREMIA (4) Infection with multi-drug resistant microorganisms Code(s): Z16.35 - RESISTANCE TO MULTIPLE ANTIMICROBIAL DRUGS Assessment/Plan Microbiology 06/30/17 21:05 Blood - Peripheral Venous Blood Culture - Final Escherichia Coli 06/30/17 21:05 Blood - Peripheral Venous Blood Culture - Final Escherichia Coli 06/30/17 21:00 Urine - Urine - Catheterized Urine Culture - Final Escherichia Coli Laboratory Tests 07/05/17 07/05/17 05:55 06:00 WBC 7.8 D Hgb 9.6 L Hct 28.1 L Plt Count 132 L ABG pO2 at Pt Temp 150.0 H Oxygen Flow Rate 60-80 Assessment Sepsis syndrome urinary tract E Coli in the blood Now day 5 into her admission Ceftriaxone S/P stenting Plan Continue current antibiotic as ordered Chris MANLEY
[2017-07-05] MEDS ORDERED: POTASSIUM PHOSPHATE 15 MM in DEXTROSE 5%-WATER - 250 ML IVPB ONE (09:00)
[2017-07-05] MEDS ORDERED: DEXTROSE 5%-WATER 100 ML IVPB ONE (09:29)
[2017-07-05 09:43] LABS: PLATELET ESTIMATE DECREASED
[2017-07-05 09:44] LABS: ANISOCYTOSIS 1+
[2017-07-05] MEDS: CEFTRIAXONE 2 GM in DEXTROSE 5%-WATER 100 ML IVPB SCH (09:44)
[2017-07-05] MEDS: ENOXAPARIN NA (PORCINE) 80 MG/0.8 ML DISP.SYRIN SQ SCH (09:44)
[2017-07-05] MEDS: MUPIROCIN 2% TOPICAL OINTMENT FOR DECOLONIZATION NS SCH ×2 (09:44→21:26)
[2017-07-05] MEDS: AMIODARONE HCL 200 MG TABLET (FP) PO SCH (09:44)
--- NOTE | 2017-07-05 10:25 | CONSULT ---
Admitting History and Physical - Primary Care Physician PCP: Britta Kay - Admission History of Present Illness: 72F w/ hx of nephrolithiasis s/p ESWL (most recently around a year ago), right TKR, HTN, and HLD who presented with acute LLQ abdominal pain, nausea, fever, chills, and acute on chronic right knee pain, found to have evidence of severe sepsis 2/2 UTI in addition to a left-sided 5mm obstructing kidney stone with resulting hydroureter, hydronephrosis, and perinephric stranding. Pt is s/p intubation on 07/01 and ureteral stent on 07/01, s/p extubation on 07/02. NPO except for ice chips/water. 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 stenosis) Cardiovascular: Yes: HTN, Hyperlipdemia, Other (PSVT) ...: No Psych: Yes: Anxiety Musculoskeletal: Yes: Chronic low back pain - Smoking History Smoking history: Never smoked Have you smoked in the past 12 months: No If you are a former smoker, when did you quit?: 1959 - Alcohol/Substance Use Hx Alcohol Use: No - Social History ADL: Independent History of Recent Travel: No History - Admission Reason For Visit: CALCULUS OF LEFT KIDNEY - Diagnostics X-ray: Report Reviewed - General Mental Status: Confused, Flat Affect, Lethargic Attention: Distractible, Moderate Impairment Ability to Follow Directions: Poor Head/Neck Control: Needs Assist - Hearing Hearing: Normal Speech Evaluation - Communication Primary Language: BELARUSIAN Oral Expression Ability: Yes: Moderate Impairment, Severe Impairment - Speech Production Able to Make Needs Known: Yes: Moderately Impaired Intelligibility: Yes: Moderately Impaired - Speech Characteristics Voice Loudness: Mildly Soft/Quiet Voice Pitch: Yes: Normal Voice Phonatory-based Quality: Yes: Normal Speech Pattern: Impaired Speech Clarity: < 50% Nasal Resonance: Normal Articulation: Yes: Imprecise - Language/Verbal Expression Able to Communicate Wants and Needs: Yes: Severely Impaired - Swallow Evaluation/Bedside Assessment Current Nutritional Intake: NPO, NG Tube (attempted but unsuccessful) Jaw Position: Open at Rest Against Resistance Opening: Weak Against Resistance Closing: Weak Pucker Lips: Weak Smile: Weak Lingual Movement: Reduced Tip Elevation, Reduced Protrusion Lingual Speed of Movement: Reduced Lingual Movement Strgth Against Opposition: Reduced Laryngeal Elevation: Impaired Laryngeal Movement: Reduced Excursion, Labored,delay initiation, Reduced Velocity Bolus Size: Small Labial Seal: Impaired Bilaterally Oral Prep Time: Increased A-P Transit: Impaired Timing of Swallow: Delayed Coughing/Throat Clear: No Change in Voice: No Recommendations - Speech Evaluation, Impression/Plan Impression: Pt screams, becomes agitated, and then with lethargy with imprecise articulation. PO trials when pt is less arousable, with open mouth posture, high distractibility, and delayed swallow, increases risk of aspiration. Swallow itself if fairly brisk but untimely. - Disposition Discharge to: To be Determined - Dysphagia Impressions/Plan Swallowing Skills: Impaired Dysphagia Impressions: Moderate Impairment *Silent aspiration: cannot be R/O at bedside Dysphagia Treatment Plan: Chin Tuck/Down (Place pillow behind head), 1/2 tsp. at a time, Elevate HOB during feed, Other (Feed only when sufficiently alert. 1/ 2 tsp. Tell pt to swallow with each bite/sip. NPO if cough, vocal wetness, congestion) - Recommendations Diet Consistency: Dysphagia Pureed Medication Administration: Crushed with applesauce Liquids: [place] Thick (on a tsp only.) Supplement: Magic Cup, Ensure Pudding
--- NOTE | 2017-07-05 10:28 | PN ---
Physical Exam: SUBJECTIVE: Patient seen and examined in ICU. Her mental status has mildly improved today, more awake. Crying out for water and knee pain OBJECTIVE: Vital Signs Period Temp Pulse Resp BP Sys/Robbins Pulse Ox Last 24 Hr 98.2 F-99.1 F 66-77 12-21 149-191/63-94 100-100 PE Neuro: awake, crying out HEENT: dry mm Pulm: diminished, on NRB CV: s1 s2 rrr Abd: s nt nd + bs : ren Ext: no le edema lines: R central line cdi Laboratory Results - last 24 hr 07/04/17 07/05/17 07/05/17 10:30 05:55 05:55 WBC 7.8 D RBC 3.18 L Hgb 9.6 L Hct 28.1 L MCV 88.4 MCH 30.3 MCHC 34.2 RDW 16.1 H Plt Count 132 L MPV 8.5 Neutrophils % 66.9 Lymphocytes % 18.7 D Monocytes % 12.4 H Eosinophils % 1.5 Basophils % 0.5 Hypochromia 1+ Platelet Estimate Decreased Platelet Comment No clumping noted Polychromasia 1+ Anisocytosis 1+ Microcytosis 1+ Puncture Site Right radial ABG pH 7.35 ABG pCO2 at Pt Temp 48.5 H D ABG pO2 at Pt Temp 140.0 H ABG HCO3 26.4 H ABG O2 Sat (Measured) 98.9 ABG O2 Content 13.8 L ABG Base Excess 1.0 Bijan Test Positive O2 Delivery Device Non rebreather Oxygen Flow Rate Yes PEEP Sodium 147 H Potassium 3.6 Chloride 111 H Carbon Dioxide 30 Anion Gap 6 L BUN 20 H Creatinine 0.5 L Creat Clearance w eGFR > 60 Random Glucose 90 Calcium 8.9 Phosphorus 2.1 L Magnesium 2.1 Total Bilirubin 0.5 AST 25 ALT 34 Alkaline Phosphatase 84 Total Protein 5.8 L Albumin 2.2 L 07/05/17 06:00 WBC RBC Hgb Hct MCV MCH MCHC RDW Plt Count MPV Neutrophils % Lymphocytes % Monocytes % Eosinophils % Basophils % Hypochromia Platelet Estimate Platelet Comment Polychromasia Anisocytosis Microcytosis Puncture Site Right radial ABG pH 7.41 ABG pCO2 at Pt Temp 47.0 H ABG pO2 at Pt Temp 150.0 H ABG HCO3 28.8 H ABG O2 Sat (Measured) 98.9 ABG O2 Content 13.3 L ABG Base Excess 4.1 H Bijan Test Positive O2 Delivery Device Partial rebreather Oxygen Flow Rate 60-80 PEEP 0.0 Sodium Potassium Chloride Carbon Dioxide Anion Gap BUN Creatinine Creat Clearance w eGFR Random Glucose Calcium Phosphorus Magnesium Total Bilirubin AST ALT Alkaline Phosphatase Total Protein Albumin Active Medications Generic Name Dose Route Start Last Admin Trade Name Freq PRN Reason Stop Dose Admin Amiodarone HCl 200 mg 07/05/17 10:00 07/05/17 09:44 Cordarone - PO 200 mg DAILY JUMANA Administration Chlorhexidine Gluconate 1 applic 07/01/17 22:00 07/04/17 22:20 Hibiclens For Decolonization - TP 1 applic HS JUMANA Administration Enoxaparin Sodium 80 mg 07/03/17 22:00 07/05/17 09:44 Lovenox - SQ 80 mg BID JUMANA Administration Ceftriaxone Sodium 2 gm/ 100 mls @ 200 mls/hr 07/04/17 10:00 07/05/17 09:44 Dextrose IVPB 200 mls/hr DAILY JUMANA Administration Potassium Phosphate 15 mm/ 255 mls @ 62.5 mls/hr 07/05/17 09:00 07/05/17 09: 44 Dextrose IVPB 07/05/17 13:04 62.5 mls/hr ONCE ONE Administration Metoprolol Tartrate 5 mg 07/03/17 19:45 07/05/17 06:12 Lopressor Injection - IVPUSH 5 mg Q4H-IV JUMANA Administration Morphine Sulfate 2 mg 07/04/17 11:00 07/04/17 23:48 Morphine Sulfate IVPUSH 2 mg Q4H PRN Administration PAIN LEVEL 6-10 Mupirocin 1 applic 07/01/17 10:00 07/05/17 09:44 Bactroban Ointment (For Decolonization) - NS 07/06/17 09:59 1 applic BID JUMANA Administration Ondansetron HCl 4 mg 06/30/17 21:12 Zofran Injection IVPUSH Q6H PRN NAUSEA AND/OR VOMITING Imaging: CTAP 07/01: 4mm distal left ureteral obstructing stone with moderate to severe proximal hydronephrosis and hydroureter; extensive perinephric and periureteral stranding and edema and small amount of fluid; focus of air in left renal pelvis Assessment: 72 year old female with a PMH significant for HLD, left kidney stone s/p stent and an E.coli ESBL UTI (05/2016), diverticulosis, and s/p right TKR (03/2017). Now with obstructing left ureteral calculi, left hydronephrosis, left hydroureter, possible urinoma, gram negative bacteremia, and severe sepsis. Hospital course complicated by respiratory failure (intubated 07/01, extubated 07/02). Now in rapid afib. Plan: 1. Acute complicated obstructing left ureteral calculi/ Left hydronephrosis/ Left hydroureter - s/p left stent placement 07/01 - Maintain ren - Continue ceftriaxone 2. Hypernatremia - Due to diuresis - No NGT placed - Start 250cc water flushes q6hr x24 hrs 3. Severe sepsis with shock secondary to E coli bacteremia and urine - Continue ceftriaxone 2mg daily (day 2) - BP stable off pressors 4. Rapid afib with RVR - In sinus rhythm - Continue amiodarone 200mg daily - Restart PO toprol xl 100mg daily - Lovenox 80mg BID 5. Hypoxic respiratory failure, pulmonary congestion - On NRB - Lasix prn congestion 6. Acute renal failure due to above - Renal fxn improving to baseline - Renal seeing 7. Thrombocytopenia - Likely due to sepsis - Improving 8. Metabolic acidosis - Continue NRB 9. Hypophosphatemia - Replete x2 k phos packets 10. Nutrition - Start dysphagia puree diet 11. DVT - Lovenox BID 12. R knee pain - s/p aspiration 07/01 , follow cx Visit type - Emergency Visit Emergency Visit: Yes ED Registration Date: 06/30/17 Care time: The patient presented to the Emergency Department on the above date and was hospitalized for further evaluation of their emergent condition. - New Patient This patient is new to me today: No - Critical Care Critical Care patient: No
[2017-07-05] MEDS ORDERED: traMADol HCL 50 MG TABLET PO PRN (11:03)
[2017-07-05] MEDS ORDERED: ACETAMINOPHEN 1000 MG/100 ML VIAL (NON FORMULARY) IVPB ONE ×2 (11:04→22:14)
[2017-07-05] MEDS ORDERED: NAPH,MB-DB/K PH,MBDB POWDER PACKET PO ONE (11:15)
--- NOTE | 2017-07-05 11:39 | PN ---
Physical Exam: SUBJECTIVE: Patient seen and examined in the ICU. Pt alert, and calls out asking for water. Diet upgraded by Speech Therapy today. Pt denies chest pain , abdominal pain, sob, fever, chills. Pt on satting at 100% on venti-mask. No events overnight. OBJECTIVE: Vital Signs Period Temp Pulse Resp BP Sys/Robbins Pulse Ox Last 24 Hr 98.2 F-99.1 F 66-77 12-21 149-191/63-94 100-100 GENERAL: The patient is awake, alert, calling out for water, on venti-mask. ENT: Dry mucous membranes. LUNGS: Breath sounds equal, clear to auscultation bilaterally, no wheezes, no crackles, no accessory muscle use. HEART: Regular rate and rhythm, S1, S2 without murmur, rub or gallop. ABDOMEN: Soft, nontender, nondistended, normoactive bowel sounds, no guarding, no rebound, no hepatosplenomegaly, no masses. EXTREMITIES: 2+ benito pulses, warm, well-perfused, no edema. Laboratory Results - last 24 hr 07/05/17 07/05/17 07/05/17 05:55 05:55 06:00 WBC 7.8 D RBC 3.18 L Hgb 9.6 L Hct 28.1 L MCV 88.4 MCH 30.3 MCHC 34.2 RDW 16.1 H Plt Count 132 L MPV 8.5 Neutrophils % 66.9 Lymphocytes % 18.7 D Monocytes % 12.4 H Eosinophils % 1.5 Basophils % 0.5 Hypochromia 1+ Platelet Estimate Decreased Platelet Comment No clumping noted Polychromasia 1+ Anisocytosis 1+ Microcytosis 1+ Puncture Site Right radial ABG pH 7.41 ABG pCO2 at Pt Temp 47.0 H ABG pO2 at Pt Temp 150.0 H ABG HCO3 28.8 H ABG O2 Sat (Measured) 98.9 ABG O2 Content 13.3 L ABG Base Excess 4.1 H Bijan Test Positive O2 Delivery Device Partial rebreather Oxygen Flow Rate 60-80 PEEP 0.0 Sodium 147 H Potassium 3.6 Chloride 111 H Carbon Dioxide 30 Anion Gap 6 L BUN 20 H Creatinine 0.5 L Creat Clearance w eGFR > 60 Random Glucose 90 Calcium 8.9 Phosphorus 2.1 L Magnesium 2.1 Total Bilirubin 0.5 AST 25 ALT 34 Alkaline Phosphatase 84 Total Protein 5.8 L Albumin 2.2 L Active Medications Generic Name Dose Route Start Last Admin Trade Name Freq PRN Reason Stop Dose Admin Amiodarone HCl 200 mg 07/05/17 10:00 07/05/17 09:44 Cordarone - PO 200 mg DAILY JUMANA Administration Chlorhexidine Gluconate 1 applic 07/01/17 22:00 07/04/17 22:20 Hibiclens For Decolonization - TP 1 applic HS JUMANA Administration Enoxaparin Sodium 80 mg 07/03/17 22:00 07/05/17 09:44 Lovenox - SQ 80 mg BID JUMANA Administration Ceftriaxone Sodium 2 gm/ 100 mls @ 200 mls/hr 07/04/17 10:00 07/05/17 09:44 Dextrose IVPB 200 mls/hr DAILY JUMANA Administration Potassium Phosphate 15 mm/ 255 mls @ 62.5 mls/hr 07/05/17 09:00 07/05/17 09: 44 Dextrose IVPB 07/05/17 13:04 62.5 mls/hr ONCE ONE Administration Metoprolol Succinate 100 mg 07/05/17 10:45 Toprol Xl - PO DAILY JUMANA Morphine Sulfate 2 mg 07/04/17 11:00 07/04/17 23:48 Morphine Sulfate IVPUSH 2 mg Q4H PRN Administration PAIN LEVEL 6-10 Mupirocin 1 applic 07/01/17 10:00 07/05/17 09:44 Bactroban Ointment (For Decolonization) - NS 07/06/17 09:59 1 applic BID JUMANA Administration Ondansetron HCl 4 mg 06/30/17 21:12 Zofran Injection IVPUSH Q6H PRN NAUSEA AND/OR VOMITING Potassium Phos/Sodium Phos 2 packet 07/05/17 10:39 Phos-Nak Packet - PO 07/05/17 10:40 ONCE ONE IMAGIN07/05/17 CXR -> no significant change ASSESSMENT/PLAN: 72F with PMH of nephrolithiasis (s/p extracorporeal shockwave lithrotripsy ~1yr ago), Right TKR, htn and hld, presents with LLQ abdominal pain/nausea/fever/ chills, found to have severe sepsis 2/2 UTI in addition to an obstructing kidney stone. # septic shock 2/2 E. coli bacteremia and bacteriuria - afebrile overnight - leukocytosis resolved - s/p Left ureteral stent 07/01/17 - ID (Dr. Perez) recs appreciated: continue IV Ceftriaxone (Day 5 of IV antibiotics) - off pressors since 07/03/17 - Morphine prn for pain control # afib with RVR - Cardiology (Dr. Little) recs appreciated: Amiodarone drip changed to po - continue home med of Metroprolol # acute hypoxic respiratory distress - s/p intubation on 07/01/17 and extubated on 07/02/17 - continue venti-mask to maintain SpO2 > 90% # FEN - Fluids: po - Electrolytes: hypophosphatemia repleted with KPhos IVPB 15mm - Nutrition: dysphagia puree with Bearden thick liquids, upgraded per Speech Therapy today # Prophylaxis - DVT ppx with Lovenox 80mg SQ BID Family Members: -Bronson (son): [phone] -Guera ([id number]): [phone] Visit type - Emergency Visit Emergency Visit: Yes ED Registration Date: 06/30/17 Care time: The patient presented to the Emergency Department on the above date and was hospitalized for further evaluation of their emergent condition. - New Patient This patient is new to me today: No - Critical Care Critical Care patient: Yes Total Critical Care Time (in minutes): 40 Critical Care Statement: The care of this patient involved high complexity decision making to prevent further life threatening deterioration of the patient 's condition and/or to evaluate & treat vital organ system(s) failure or risk of failure.
--- NOTE | 2017-07-05 11:59 | PN ---
Teaching Attending Note Name of Resident: Marina Soto ATTENDING PHYSICIAN STATEMENT I saw and evaluated the patient. I reviewed the resident's note and discussed the case with the resident. I agree with the resident's findings and plan as documented. SUBJECTIVE: Patient seen and examined in the ICU. Lethargic but arousable on 40% VM O2. No pressors. CXR: slight improvement in the right base Intake & Output 07/02/17 07/03/17 07/04/17 07/05/17 23:59 23:59 23:59 23:59 Intake Total 4633 2375.6 1379.5 150 Output Total 2600 5825 1375 400 Balance 2033 -3449.4 4.5 -250 Weight 187 lb 2 oz 176 lb 7 oz 178 lb 1 oz Last Vital Signs Temp Pulse Resp BP Pulse Ox 98.3 F 70 20 170/88 100 07/05/17 06:00 07/05/17 10:27 07/05/17 08:00 07/05/17 10:27 07/04/17 21:00 Active Medications Amiodarone HCl (Cordarone -) 200 mg PO DAILY [facility] Last Admin: 07/05/17 09:44 Dose: 200 mg Chlorhexidine Gluconate (Hibiclens For Decolonization -) 1 applic TP HS [facility] Last Admin: 07/04/17 22:20 Dose: 1 applic Enoxaparin Sodium (Lovenox -) 80 mg SQ BID [facility] Last Admin: 07/05/17 09:44 Dose: 80 mg Ceftriaxone Sodium 2 gm/ (Dextrose) 100 mls @ 200 mls/hr IVPB DAILY [facility] Last Admin: 07/05/17 09:44 Dose: 200 mls/hr Potassium Phosphate 15 mm/ (Dextrose) 255 mls @ 62.5 mls/hr IVPB ONCE ONE Stop: 07/05/17 13:04 Last Admin: 07/05/17 09:44 Dose: 62.5 mls/hr Metoprolol Succinate (Toprol Xl -) 100 mg PO DAILY [facility] Morphine Sulfate (Morphine Sulfate) 2 mg IVPUSH Q4H PRN PRN Reason: PAIN LEVEL 6-10 Last Admin: 07/04/17 23:48 Dose: 2 mg Mupirocin (Bactroban Ointment (For Decolonization) -) 1 applic NS BID [facility] Stop: 07/06/17 09:59 Last Admin: 07/05/17 09:44 Dose: 1 applic Ondansetron HCl (Zofran Injection) 4 mg IVPUSH Q6H PRN PRN Reason: NAUSEA AND/OR VOMITING Tramadol HCl (Ultram -) 50 mg PO Q6H PRN PRN Reason: PAIN LEVEL 4 - 6 Constitutional: Yes: Lethargic but arousable on 40% VM Eyes: Yes: WNL Cardiovascular: Yes: Irregular Respiratory: Yes: bilateral rhonchi Gastrointestinal: Yes: Normal Bowel Sounds, Soft. No: Tenderness Extremities: Yes: WNL Edema: No Peripheral Pulses WNL: Yes Neurological: Yes: lethargic Labs: Laboratory Results - last 24 hr 07/05/17 07/05/17 07/05/17 05:55 05:55 06:00 WBC 7.8 D RBC 3.18 L Hgb 9.6 L Hct 28.1 L MCV 88.4 MCH 30.3 MCHC 34.2 RDW 16.1 H Plt Count 132 L MPV 8.5 Neutrophils % 66.9 Lymphocytes % 18.7 D Monocytes % 12.4 H Eosinophils % 1.5 Basophils % 0.5 Hypochromia 1+ Platelet Estimate Decreased Platelet Comment No clumping noted Polychromasia 1+ Anisocytosis 1+ Microcytosis 1+ Puncture Site Right radial ABG pH 7.41 ABG pCO2 at Pt Temp 47.0 H ABG pO2 at Pt Temp 150.0 H ABG HCO3 28.8 H ABG O2 Sat (Measured) 98.9 ABG O2 Content 13.3 L ABG Base Excess 4.1 H Bijan Test Positive O2 Delivery Device Partial rebreather Oxygen Flow Rate 60-80 PEEP 0.0 Sodium 147 H Potassium 3.6 Chloride 111 H Carbon Dioxide 30 Anion Gap 6 L BUN 20 H Creatinine 0.5 L Creat Clearance w eGFR > 60 Random Glucose 90 Calcium 8.9 Phosphorus 2.1 L Magnesium 2.1 Total Bilirubin 0.5 AST 25 ALT 34 Alkaline Phosphatase 84 Total Protein 5.8 L Albumin 2.2 L Problem List - Problems (1) Hydronephrosis with infection Code(s): N13.6 - PYONEPHROSIS (2) Kidney stone on left side Code(s): N20.0 - CALCULUS OF KIDNEY (3) Sepsis Code(s): A41.9 - SEPSIS, UNSPECIFIED ORGANISM Assessment/Plan Acute Respiratory Failure Questionable ARDS Suspected PNA Sepsis 2/2 UTI Left hydronephrosis and nephrolithiasis Elevated lactate, now resolved Aspiration precautions Follow CXR Monitor off pressors Strict I & O ABX per ID ABX coverage VTE prophylaxis Dr Newton Critical care time spent in reviewing chart, evaluating patient and formulating plan - 36 minutes.
[2017-07-05] MEDS ORDERED: DEXTROSE 5%-WATER - 1,000 ML IV SCH (13:15)
--- NOTE | 2017-07-05 16:21 | PN ---
Progress Note (short form) - Note Progress Note: Renal follow up for ULDA Pt seen and examined in the ICU lethagic tolerating oral diet making urine via ren Vital Signs Temperature 99 F 07/05/17 14:00 Pulse Rate 74 07/05/17 16:00 Respiratory Rate 18 07/05/17 16:00 Blood Pressure 159/59 07/05/17 16:00 O2 Sat by Pulse Oximetry (%) 94 L 07/05/17 09:00 Lethargic RRR, NO M/R Dec BS soft NT/ND NO LE edema CBC, BMP 07/05/17 05:55 07/05/17 05:55 Current Medications Amiodarone HCl (Cordarone -) 200 mg PO DAILY [facility] Last Admin: 07/05/17 09:44 Dose: 200 mg Chlorhexidine Gluconate (Hibiclens For Decolonization -) 1 applic TP HS [facility] Last Admin: 07/04/17 22:20 Dose: 1 applic Enoxaparin Sodium (Lovenox -) 80 mg SQ BID [facility] Last Admin: 07/05/17 09:44 Dose: 80 mg Ceftriaxone Sodium 2 gm/ (Dextrose) 100 mls @ 200 mls/hr IVPB DAILY [facility] Last Admin: 07/05/17 09:44 Dose: 200 mls/hr Dextrose (D5w -) 1,000 mls @ 42 mls/hr IV .[id number] [facility] Metoprolol Succinate (Toprol Xl -) 100 mg PO DAILY [facility] Last Admin: 07/05/17 12:54 Dose: 100 mg Morphine Sulfate (Morphine Sulfate) 2 mg IVPUSH Q4H PRN PRN Reason: PAIN LEVEL 6-10 Last Admin: 07/04/17 23:48 Dose: 2 mg Mupirocin (Bactroban Ointment (For Decolonization) -) 1 applic NS BID [facility] Stop: 07/06/17 09:59 Last Admin: 07/05/17 09:44 Dose: 1 applic Ondansetron HCl (Zofran Injection) 4 mg IVPUSH Q6H PRN PRN Reason: NAUSEA AND/OR VOMITING Tramadol HCl (Ultram -) 50 mg PO Q6H PRN PRN Reason: PAIN LEVEL 4 - 6 72 year old woman with PMhx of Nephrolithiasis, OA s/p TKR, Hypertension, Hyperlipidemia who presented with abd pain and fever and found to have Sepsis secondary to Pylonephritis complicated by obstructing stone with Hydronephrosis. #LUDA secondary to unilateral obstruction./hydronephrosis +/- Sepsis and decreased renal profusion #Sepsis with shock #Complicated pylonephritis #Anemia #Thrombocytopenia (sepsis related vis HIT) #SVT #Hypoxia/Pulmonary congestion Renal function is now stable started on D5W to stabilize serum Na while on IV diuretics continue Lasix as needed for mangement of volume overload continue Abx as per ID Thank you Will follow
--- NOTE | 2017-07-05 16:42 | PN ---
Progress Note, Physician History of Present Illness: Confused remains on 40% VM, tele shows paroxysmal afib. - Current Medication List Current Medications: Active Medications Amiodarone HCl (Cordarone -) 200 mg PO DAILY [facility] Last Admin: 07/05/17 09:44 Dose: 200 mg Chlorhexidine Gluconate (Hibiclens For Decolonization -) 1 applic TP HS [facility] Last Admin: 07/04/17 22:20 Dose: 1 applic Enoxaparin Sodium (Lovenox -) 80 mg SQ BID [facility] Last Admin: 07/05/17 09:44 Dose: 80 mg Ceftriaxone Sodium 2 gm/ (Dextrose) 100 mls @ 200 mls/hr IVPB DAILY [facility] Last Admin: 07/05/17 09:44 Dose: 200 mls/hr Dextrose (D5w -) 1,000 mls @ 42 mls/hr IV .[id number] [facility] Metoprolol Succinate (Toprol Xl -) 100 mg PO DAILY [facility] Last Admin: 07/05/17 12:54 Dose: 100 mg Morphine Sulfate (Morphine Sulfate) 2 mg IVPUSH Q4H PRN PRN Reason: PAIN LEVEL 6-10 Last Admin: 07/04/17 23:48 Dose: 2 mg Mupirocin (Bactroban Ointment (For Decolonization) -) 1 applic NS BID [facility] Stop: 07/06/17 09:59 Last Admin: 07/05/17 09:44 Dose: 1 applic Ondansetron HCl (Zofran Injection) 4 mg IVPUSH Q6H PRN PRN Reason: NAUSEA AND/OR VOMITING Tramadol HCl (Ultram -) 50 mg PO Q6H PRN PRN Reason: PAIN LEVEL 4 - 6 - Objective Vital Signs: Vital Signs Temperature 99 F 07/05/17 14:00 Pulse Rate 74 07/05/17 16:00 Respiratory Rate 18 07/05/17 16:00 Blood Pressure 159/59 07/05/17 16:00 O2 Sat by Pulse Oximetry (%) 94 L 07/05/17 09:00 Constitutional: Yes: No Distress, Calm Neck: Yes: Supple Cardiovascular: Yes: Regular Rate and Rhythm Respiratory: Yes: Regular, Diminished, On Venti-Mask Gastrointestinal: Yes: Normal Bowel Sounds, Soft, Abdomen, Obese Edema: No Labs: CBC, BMP 07/05/17 05:55 07/05/17 05:55 INR, PTT INR 1.07 (0.82-1.09) 07/02/17 20:30 Fibrinogen > 500.0 mg/dL (238-498) H 07/02/17 20:30 - ....Imaging Chest X-ray: Report Reviewed (Congestion unchanged) Problem List - Problems (1) Demand ischemia Code(s): I24.8 - OTHER FORMS OF ACUTE ISCHEMIC HEART DISEASE (2) Acute on chronic diastolic (congestive) heart failure Code(s): I50.33 - ACUTE ON CHRONIC DIASTOLIC (CONGESTIVE) HEART FAILURE (3) Paroxysmal atrial fibrillation with rapid ventricular response Code(s): I48.0 - PAROXYSMAL ATRIAL FIBRILLATION (4) Calculus of left kidney Code(s): N20.0 - CALCULUS OF KIDNEY (5) Gram-negative bacteremia Code(s): R78.81 - BACTEREMIA (6) Hydronephrosis due to obstruction of ureter Code(s): N13.2 - HYDRONEPHROSIS WITH RENAL AND URETERAL CALCULOUS OBSTRUCTION (7) Paroxysmal SVT (supraventricular tachycardia) Code(s): I47.1 - SUPRAVENTRICULAR TACHYCARDIA (8) Hyperlipidemia Code(s): E78.5 - HYPERLIPIDEMIA, UNSPECIFIED Qualifiers: Hyperlipidemia type: pure hypercholesterolemia Qualified Code(s): E78.00 - Pure hypercholesterolemia, unspecified; E78.0 - Pure hypercholesterolemia (9) Hypertension Code(s): I10 - ESSENTIAL (PRIMARY) HYPERTENSION Qualifiers: Hypertension type: essential hypertension Qualified Code(s): I10 - Essential (primary) hypertension Assessment/Plan 1. Post ureteroscopy and stent for ureteral stone, hydronephrosis, pyelonephritis and E. coli sepsis post shock 2. Paroxysmal atrial fibrillation with RVR - [id number] score of 3 3. Acute hypoxic respiratory failure 4. Acute on chronic diastolic failure 5. Demand ischemia 6. Acute kidney injury resolved 7. History of hypertension 8. Hypercholesterolemia 9. Thrombocytopenia PLAN: 1. Wean FIO2 as tolerated, continue IV diuresis as needed with monitoring diuretic response, renal function and electrolytes 2. Continue Amio 200 qd, Toprol XL 100 qd, and change Lovenox to Xarelto. 3. Complete antibiotic course as per ID service
[2017-07-05] MEDS ORDERED: FUROSEMIDE 40 MG/4 ML INJECTABLE VIAL IVPUSH ONE (17:00)
[2017-07-05] MEDS ORDERED: RIVAROXABAN 20 MG TABLET PO SCH (18:00)
[2017-07-05] MEDS: CHLORHEXIDINE GLUCONATE 4% CLEANSER FOR DECOLONIZATION TP SCH (21:26)
[2017-07-05] MEDS: morphine SULFATE 4 MG/ML VIAL IVPUSH PRN (23:57)
[2017-07-06 05:50] LABS: BASO % 0.3 % (0-2.0); EOS % 1.4 % (0-4.5); HEMATOCRIT 27.5 % (32.4-45.2); HEMOGLOBIN 9.3 GM/dL (10.7-15.3); LYMPH % 26.8 % (8-40); MCH 29.8 pg (25.7-33.7); MEAN CELL VOLUME 87.7 fl (80-96); MEAN PLT VOLUME 8.6 fl (7.5-11.1); MONO % 14.8 % (3.8-10.2); NEUT % 56.7 % (42.8-82.8); PLATELET COUNT 151 K/MM3 (134-434); RBC 3.13 M/mm3 (3.60-5.2)
[2017-07-06 06:20] LABS: ALBUMIN 2.3 g/dl (3.4-5.0); ANION GAP 8 (8-16); BLOOD UREA NITROGEN 16 mg/dL (7-18); CALCIUM 8.7 mg/dL (8.5-10.1); CHLORIDE 103 mmol/L (98-107); CO2 34 mmol/L (21-32); GLUCOSE,RANDOM 96 mg/dL (74-106); POTASSIUM 3.1 mmol/L (3.5-5.1); SODIUM 145 mmol/L (136-145)
[2017-07-06 06:23] LABS: ALK PHOS 78 U/L (45-117); BILIRUBIN,TOTAL 0.6 mg/dL (0.2-1.0); CREATININE 0.6 mg/dL (0.55-1.02); PHOSPHOROUS 2.8 mg/dL (2.5-4.9); SGOT/AST 43 U/L (15-37); SGPT/ALT 48 U/L (12-78); TOT PROT 5.8 g/dl (6.4-8.2)
--- NOTE | 2017-07-06 07:04 | PN ---
Progress Note, Physician Chief Complaint: ID Day 6 antibiotic Now Ceftriaxone Delerium ( Ativan) - Current Medication List Current Medications: Active Medications Amiodarone HCl (Cordarone -) 200 mg PO DAILY [facility] Last Admin: 07/05/17 09:44 Dose: 200 mg Chlorhexidine Gluconate (Hibiclens For Decolonization -) 1 applic TP HS [facility] Last Admin: 07/05/17 21:26 Dose: 1 applic Ceftriaxone Sodium 2 gm/ (Dextrose) 100 mls @ 200 mls/hr IVPB DAILY [facility] Last Admin: 07/05/17 09:44 Dose: 200 mls/hr Dextrose (D5w -) 1,000 mls @ 42 mls/hr IV .[id number] [facility] Metoprolol Succinate (Toprol Xl -) 100 mg PO DAILY [facility] Last Admin: 07/05/17 12:54 Dose: 100 mg Morphine Sulfate (Morphine Sulfate) 2 mg IVPUSH Q4H PRN PRN Reason: PAIN LEVEL 6-10 Last Admin: 07/05/17 23:57 Dose: 2 mg Mupirocin (Bactroban Ointment (For Decolonization) -) 1 applic NS BID [facility] Stop: 07/06/17 09:59 Last Admin: 07/05/17 21:26 Dose: 1 applic Ondansetron HCl (Zofran Injection) 4 mg IVPUSH Q6H PRN PRN Reason: NAUSEA AND/OR VOMITING Rivaroxaban (Xarelto -) 20 mg PO DAILY@1800 [facility] Last Admin: 07/05/17 17:33 Dose: 20 mg Tramadol HCl (Ultram -) 50 mg PO Q6H PRN PRN Reason: PAIN LEVEL 4 - 6 Last Admin: 07/05/17 17:37 Dose: 50 mg - Objective Vital Signs: Vital Signs Temperature 98.8 F 07/06/17 06:00 Pulse Rate 64 07/06/17 06:00 Respiratory Rate 18 07/06/17 06:00 Blood Pressure 154/62 07/06/17 06:00 O2 Sat by Pulse Oximetry (%) 93 L 07/05/17 20:09 Constitutional: Yes: Well Nourished, No Distress Eyes: Yes: WNL, Conjunctiva Clear HENT: Yes: WNL, Atraumatic Neck: Yes: WNL, Supple Cardiovascular: Yes: S1, S2 Respiratory: Yes: WNL, Regular Gastrointestinal: Yes: Normal Bowel Sounds, Soft. No: Tenderness Edema: No Labs: CBC, BMP 07/06/17 05:35 07/06/17 05:35 INR, PTT INR 1.07 (0.82-1.09) 07/02/17 20:30 Fibrinogen > 500.0 mg/dL (238-498) H 07/02/17 20:30 Problem List - Problems (1) Calculus of left kidney Code(s): N20.0 - CALCULUS OF KIDNEY (2) Sepsis Code(s): A41.9 - SEPSIS, UNSPECIFIED ORGANISM Qualifiers: Sepsis type: sepsis due to unspecified organism Qualified Code(s): A41.9 - Sepsis, unspecified organism (3) Gram-negative bacteremia Code(s): R78.81 - BACTEREMIA (4) Infection with multi-drug resistant microorganisms Code(s): Z16.35 - RESISTANCE TO MULTIPLE ANTIMICROBIAL DRUGS Assessment/Plan Microbiology 06/30/17 21:05 Blood - Peripheral Venous Blood Culture - Final Escherichia Coli 06/30/17 21:05 Blood - Peripheral Venous Blood Culture - Final Escherichia Coli 06/30/17 21:00 Urine - Urine - Catheterized Urine Culture - Final Escherichia Coli Laboratory Tests 07/06/17 07/06/17 05:35 05:35 WBC 8.0 Hgb 9.3 L Hct 27.5 L BUN 16 Creatinine 0.6 Creat Clearance w eGFR > 60 Total Bilirubin 0.6 AST 43 H ALT 48 Assessment Urosepsis E Coli sensitive Ceftriaxone. Stent Plan Even though the organism i the blood was sensitive she could still be colonized ( ? ) stool ESBL Maintain contact isolation as before Chris MANLEY
--- NOTE | 2017-07-06 07:52 | PN ---
Progress Note (short form) - Note Progress Note: Seen and examined in the ICU VSS of pressors O2 weaned to sat low grade fever 100.4 very delirious overnight Current Medications Amiodarone HCl (Cordarone -) 200 mg PO DAILY [facility] Last Admin: 07/05/17 09:44 Dose: 200 mg Chlorhexidine Gluconate (Hibiclens For Decolonization -) 1 applic TP HS [facility] Last Admin: 07/05/17 21:26 Dose: 1 applic Ceftriaxone Sodium 2 gm/ (Dextrose) 100 mls @ 200 mls/hr IVPB DAILY [facility] Last Admin: 07/05/17 09:44 Dose: 200 mls/hr Dextrose (D5w -) 1,000 mls @ 42 mls/hr IV .[id number] [facility] Metoprolol Succinate (Toprol Xl -) 100 mg PO DAILY [facility] Last Admin: 07/05/17 12:54 Dose: 100 mg Morphine Sulfate (Morphine Sulfate) 2 mg IVPUSH Q4H PRN PRN Reason: PAIN LEVEL 6-10 Last Admin: 07/05/17 23:57 Dose: 2 mg Mupirocin (Bactroban Ointment (For Decolonization) -) 1 applic NS BID [facility] Stop: 07/06/17 09:59 Last Admin: 07/05/17 21:26 Dose: 1 applic Ondansetron HCl (Zofran Injection) 4 mg IVPUSH Q6H PRN PRN Reason: NAUSEA AND/OR VOMITING Potassium Chloride (Potassium Chloride 20 Meq Premix Ivpb -) 20 meq IVPB Q60M [facility] Stop: 07/06/17 08:46 Rivaroxaban (Xarelto -) 20 mg PO DAILY@1800 [facility] Last Admin: 07/05/17 17:33 Dose: 20 mg Tramadol HCl (Ultram -) 50 mg PO Q6H PRN PRN Reason: PAIN LEVEL 4 - 6 Last Admin: 07/05/17 17:37 Dose: 50 mg Vital Signs Period Temp Pulse Resp BP Sys/Robbins Pulse Ox Last 24 Hr 98.8 F-100.4 F 37-75 18-22 103-173/54-92 93-94 Intake & Output 07/03/17 07/04/17 07/05/17 07/06/17 23:59 23:59 23:59 23:59 Intake Total 2375.6 1379.5 1210 494 Output Total 5815 1375 3000 1200 Balance -3449.4 4.5 -9450 -937 Weight 84.878 kg 80.031 kg 80.768 kg 78.109 kg Exam: General: agitated at times HEENT: PERRL CV: sinus kory Abd: SNTND +BS EXT :wwp +2 pulses Neuro: BEYER, confused to location CBC, BMP 07/06/17 05:35 07/06/17 05:35 Microbiology 07/01/17 11:39 Synovial Fluid - Knee Gram Stain - Final 07/01/17 11:39 Synovial Fluid - Knee Body Fluid Culture - Final NO GROWTH OF AEROBIC ORGANISMS AFTER 48 HOURS INCUBATION 07/01/17 11:39 Synovial Fluid - Knee Anaerobic Culture - Final NO ANAEROBES WERE ISOLATED 06/30/17 21:05 Blood - Peripheral Venous Blood Culture - Final Escherichia Coli 06/30/17 21:05 Blood - Peripheral Venous Blood Culture - Final Escherichia Coli 06/30/17 21:00 Urine - Urine - Catheterized Urine Culture - Final Escherichia Coli Problem List - Problems (1) Hydronephrosis with infection Code(s): N13.6 - PYONEPHROSIS (2) Kidney stone on left side Code(s): N20.0 - CALCULUS OF KIDNEY (3) Sepsis Code(s): A41.9 - SEPSIS, UNSPECIFIED ORGANISM Assessment/Plan Hypoxia Suspected PNA Sepsis 2/2 UTI Resolved shock GN bactermia Left hydronephrosis and nephrolithiasis Elevated lactate, now resolved Aspiration precautions o2 for sat >90% Follow CXR Monitor off pressors Strict I & O ABX per ID VTE prophylaxis d/c TLC today avoid benzo's given delirium, consider seroquel in PM ok for transfer to [facility] given h/o afib Boerem ACNP Pulm/CCM CCT: 36m
--- NOTE | 2017-07-06 08:47 | PN ---
Progress Note (short form) - Note Progress Note: Chief Complaint: Events noted, notes reviewed, lethargic barely arousable received sedation, in no distress, sinus rhythm is noted History of Present Illness: Seen and examined in the ICU. Events noted, notes reviewed, lethargic barely arousable received sedation, in no distress, sinus rhythm is noted - Current Medication List Current Medications Amiodarone HCl (Cordarone -) 200 mg PO DAILY [facility] Last Admin: 07/05/17 09:44 Dose: 200 mg Chlorhexidine Gluconate (Hibiclens For Decolonization -) 1 applic TP HS [facility] Last Admin: 07/05/17 21:26 Dose: 1 applic Ceftriaxone Sodium 2 gm/ (Dextrose) 100 mls @ 200 mls/hr IVPB DAILY [facility] Last Admin: 07/05/17 09:44 Dose: 200 mls/hr Dextrose (D5w -) 1,000 mls @ 42 mls/hr IV .[id number] [facility] Metoprolol Succinate (Toprol Xl -) 100 mg PO DAILY [facility] Last Admin: 07/05/17 12:54 Dose: 100 mg Morphine Sulfate (Morphine Sulfate) 2 mg IVPUSH Q4H PRN PRN Reason: PAIN LEVEL 6-10 Last Admin: 07/05/17 23:57 Dose: 2 mg Mupirocin (Bactroban Ointment (For Decolonization) -) 1 applic NS BID [facility] Stop: 07/06/17 09:59 Last Admin: 07/05/17 21:26 Dose: 1 applic Ondansetron HCl (Zofran Injection) 4 mg IVPUSH Q6H PRN PRN Reason: NAUSEA AND/OR VOMITING Potassium Chloride (Potassium Chloride 20 Meq Premix Ivpb -) 20 meq IVPB Q60M [facility] Stop: 07/06/17 08:46 Rivaroxaban (Xarelto -) 20 mg PO DAILY@1800 [facility] Last Admin: 07/05/17 17:33 Dose: 20 mg Tramadol HCl (Ultram -) 50 mg PO Q6H PRN PRN Reason: PAIN LEVEL 4 - 6 Last Admin: 07/05/17 17:37 Dose: 50 mg Review of Systems - Review of Systems Unable to Obtain - Objective Vital Signs: Last Vital Signs Temp Pulse Resp BP Pulse Ox 98.8 F 64 18 154/62 93 L 07/06/17 06:00 07/06/17 06:00 07/06/17 06:00 07/06/17 06:00 07/05/17 20:09 Intake & Output 07/03/17 07/04/17 07/05/17 07/06/17 23:59 23:59 23:59 23:59 Intake Total 2375.6 1379.5 1210 494 Output Total 5825 1375 3000 1200 Balance -3449.4 4.5 -1790 -706 Weight 187 lb 2 oz 176 lb 7 oz 178 lb 1 oz 172 lb 3.2 oz Constitutional: No Distress, Calm Neck: Supple Negative JVD No Bruit Cardiovascular: S1 S2 Regular Rate and Rhythm Respiratory: Diminished Breath Sounds at the Bases Gastrointestinal: Soft Benign Normal Bowel Sounds Ext: No Edema Labs: CBC, BMP 07/06/17 05:35 07/06/17 05:35 Assessment/Plan ASSESSMENT: 1. Post ureteroscopy and stent for ureteral stone, hydronephrosis, pyelonephritis/E. coli sepsis post septic shock, resolving 2. Paroxysmal atrial fibrillation currently in sinus, [id number] score of 3 on NOAC's/Xarelto 3. Acute hypoxic respiratory failure, resolved 4. Diastolic LV dysfunction with acute on chronic class I-II NYHA classification LV failure, resolved 5. CAD angina pectoris post demand ischemia, probably related to above 6. HTN 7. Hypercholesterolemia 8. Acute kidney injury, resolved 9. Thrombocytopenia, resolved 10. Anemia 11. Hypokalemia PLAN: 1. Continue Amiodarone 2. Continue Toprol XL 3. Continue Xarelto 4. Antibiotic as per ID service 5. Correction of Hypokalemia 6. May be transferred from cardiovascular point of view Tim Lomax MD
--- NOTE | 2017-07-06 09:13 | PN ---
Physical Exam: SUBJECTIVE: Patient seen and examined in ICU. Her mental status is improved now , albeit her agitation. Received Ativan and morphine overnight. She is fighting her restraints, wants to go home. Event: - Plan to remove central line today - Transfer to tele - Can stop fluids if po intake improves OBJECTIVE: Vital Signs Period Temp Pulse Resp BP Sys/Robbins Pulse Ox Last 24 Hr 98.8 F-100.4 F 37-75 18-22 103-170/54-92 93-94 PE Neuro: awake, alert, oriented to self, hospital, family HEENT: dry mm Pulm: diminished, rhonchi anteriorly CV: s1 s2 rrr Abd: s nt nd + bs : ren Ext: no le edema Lines: R central line cdi Laboratory Results - last 24 hr 07/05/17 07/06/17 07/06/17 05:55 05:35 05:35 WBC 8.0 RBC 3.13 L Hgb 9.3 L Hct 27.5 L MCV 87.7 MCH 29.8 MCHC 34.0 RDW 16.0 H Plt Count 151 MPV 8.6 Neutrophils % 56.7 Lymphocytes % 26.8 D Monocytes % 14.8 H Eosinophils % 1.4 Basophils % 0.3 Hypochromia 1+ Platelet Estimate Decreased Platelet Comment No clumping noted Polychromasia 1+ Anisocytosis 1+ Microcytosis 1+ Sodium 145 Potassium 3.1 L Chloride 103 Carbon Dioxide 34 H Anion Gap 8 BUN 16 Creatinine 0.6 Creat Clearance w eGFR > 60 Random Glucose 96 Calcium 8.7 Phosphorus 2.8 Magnesium 2.0 Total Bilirubin 0.6 AST 43 H ALT 48 Alkaline Phosphatase 78 Total Protein 5.8 L Albumin 2.3 L Active Medications Generic Name Dose Route Start Last Admin Trade Name Freq PRN Reason Stop Dose Admin Amiodarone HCl 200 mg 07/05/17 10:00 07/05/17 09:44 Cordarone - PO 200 mg DAILY [facility] Administration Chlorhexidine Gluconate 1 applic 07/01/17 22:00 07/05/17 21:26 Hibiclens For Decolonization - TP 1 applic HS [facility] Administration Ceftriaxone Sodium 2 gm/ 100 mls @ 200 mls/hr 07/04/17 10:00 07/05/17 09:44 Dextrose IVPB 200 mls/hr DAILY [facility] Administration Dextrose 1,000 mls @ 42 mls/hr 07/05/17 13:15 D5w - IV .[id number] [facility] Metoprolol Succinate 100 mg 07/05/17 10:45 07/05/17 12:54 Toprol Xl - PO 100 mg DAILY [facility] Administration Morphine Sulfate 2 mg 07/04/17 11:00 07/05/17 23:57 Morphine Sulfate IVPUSH 2 mg Q4H PRN Administration PAIN LEVEL 6-10 Mupirocin 1 applic 07/01/17 10:00 07/05/17 21:26 Bactroban Ointment (For Decolonization) - NS 07/06/17 09:59 1 applic BID [facility] Administration Ondansetron HCl 4 mg 06/30/17 21:12 Zofran Injection IVPUSH Q6H PRN NAUSEA AND/OR VOMITING Potassium Chloride 40 meq 07/06/17 09:15 Potassium Chloride Oral Liquid PO 07/06/17 09:16 ONCE ONE Rivaroxaban 20 mg 07/05/17 18:00 07/05/17 17:33 Xarelto - PO 20 mg DAILY@1800 [facility] Administration Tramadol HCl 50 mg 07/05/17 11:03 07/05/17 17:37 Ultram - PO 50 mg Q6H PRN Administration PAIN LEVEL 4 - 6 Imaging: CTAP 07/01: 4mm distal left ureteral obstructing stone with moderate to severe proximal hydronephrosis and hydroureter; extensive perinephric and periureteral stranding and edema and small amount of fluid; focus of air in left renal pelvis Assessment: 72 year old female with a PMH significant for HLD, left kidney stone s/p stent and an E.coli ESBL UTI (05/2016), diverticulosis, and s/p right TKR (03/2017). Now with obstructing left ureteral calculi, left hydronephrosis, left hydroureter, possible urinoma, gram negative bacteremia, and severe sepsis. Hospital course complicated by respiratory failure (intubated 07/01, extubated 07/02). Now in rapid afib. Plan: 1. Acute complicated obstructing left ureteral calculi/ Left hydronephrosis/ Left hydroureter - s/p left stent placement 07/01 - Maintain ren - Continue Ceftriaxone 2. Hypernatremia - Resolved - Continue D5w 42cc/hr while poor appetite 3. Severe sepsis with shock secondary to E coli bacteremia and urine - Continue ceftriaxone 2mg daily (day 3) - Off pressors 4. Rapid afib with RVR - In sinus rhythm - Continue amiodarone 200mg daily - Toprol xl 100mg daily - Xarelto 20mg daily 5. Hypoxic respiratory failure, pulmonary congestion - Stable on NC - Lasix 40mg x1 yesterday 6. Acute renal failure due to above - Resolved - D/w Renal 7. Thrombocytopenia - Likely due to sepsis; Resolved 8. Hypophosphatemia - Resolved 9 Nutrition - Dysphagia puree diet 10. DVT - Xarelto 11. R knee pain - s/p aspiration 07/01 , follow cx Visit type - Emergency Visit Emergency Visit: Yes ED Registration Date: 06/30/17 Care time: The patient presented to the Emergency Department on the above date and was hospitalized for further evaluation of their emergent condition. - New Patient This patient is new to me today: No - Critical Care Critical Care patient: No
[2017-07-06] MEDS ORDERED: POTASSIUM CHLORIDE ORAL LIQUID 20 MEQ/15 ML PO ONE (09:15)
[2017-07-06] MEDS ORDERED: DEXTROSE 5%-WATER 100 ML IVPB ONE (09:30)
[2017-07-06] MEDS: CEFTRIAXONE 2 GM in DEXTROSE 5%-WATER 100 ML IVPB SCH (09:46)
[2017-07-06] MEDS: POTASSIUM CHLORIDE 20 MEQ PREMIX IVPB 100 ML IVPB SCH ×2 (09:47→11:42)
[2017-07-06] MEDS: AMIODARONE HCL 200 MG TABLET (FP) PO SCH (09:47)
--- NOTE | 2017-07-06 10:32 | PN ---
Progress Note (short form) - Note Progress Note: Renal follow up for LUDA Pt seen and examined in the ICU awke and upset, states that she wants to go home denies any sob, chest pain,abd pain making urine no fever or chills Vital Signs Temperature 98.8 F 07/06/17 06:00 Pulse Rate 64 07/06/17 08:00 Respiratory Rate 18 07/06/17 08:00 Blood Pressure 149/62 07/06/17 08:00 O2 Sat by Pulse Oximetry (%) 93 L 07/06/17 09:00 Intake & Output 07/03/17 07/04/17 07/05/17 07/06/17 23:59 23:59 23:59 23:59 Intake Total 2375.6 1379.5 1210 494 Output Total 5825 1375 3000 1200 Balance -3449.4 4.5 -1790 -706 Weight 84.878 kg 80.031 kg 80.768 kg 78.109 kg Lethargic RRR, NO M/R Dec BS soft NT/ND NO LE edema CBC, BMP 07/06/17 05:35 07/06/17 05:35 Laboratory Tests 07/04/17 07/06/17 06:20 05:35 Calcium 8.4 L 8.7 Phosphorus 2.1 L 2.8 Magnesium 2.0 2.0 Albumin 2.2 L 2.3 L Current Medications Amiodarone HCl (Cordarone -) 200 mg PO DAILY [facility] Last Admin: 07/06/17 09:47 Dose: 200 mg Chlorhexidine Gluconate (Hibiclens For Decolonization -) 1 applic TP HS [facility] Last Admin: 07/05/17 21:26 Dose: 1 applic Ceftriaxone Sodium 2 gm/ (Dextrose) 100 mls @ 200 mls/hr IVPB DAILY [facility] Last Admin: 07/06/17 09:46 Dose: 200 mls/hr Dextrose (D5w -) 1,000 mls @ 42 mls/hr IV .[id number] [facility] Metoprolol Succinate (Toprol Xl -) 100 mg PO DAILY [facility] Last Admin: 07/06/17 09:47 Dose: 100 mg Morphine Sulfate (Morphine Sulfate) 2 mg IVPUSH Q4H PRN PRN Reason: PAIN LEVEL 6-10 Last Admin: 07/05/17 23:57 Dose: 2 mg Ondansetron HCl (Zofran Injection) 4 mg IVPUSH Q6H PRN PRN Reason: NAUSEA AND/OR VOMITING Rivaroxaban (Xarelto -) 20 mg PO DAILY@1800 [facility] Last Admin: 07/05/17 17:33 Dose: 20 mg Tramadol HCl (Ultram -) 50 mg PO Q6H PRN PRN Reason: PAIN LEVEL 4 - 6 Last Admin: 07/05/17 17:37 Dose: 50 mg 72 year old woman with PMhx of Nephrolithiasis, OA s/p TKR, Hypertension, Hyperlipidemia who presented with abd pain and fever and found to have Sepsis secondary to Pylonephritis complicated by obstructing stone with Hydronephrosis. #LUDA secondary to unilateral obstruction./hydronephrosis +/- Sepsis and decreased renal profusion #Sepsis with shock #Complicated pylonephritis #Anemia #Thrombocytopenia (sepsis related vis HIT) #SVT #Hypoxia/Pulmonary congestion Renal function stable and at baseline Serum na improved s/p D5W and free water if pt is tolerating free water can discontinue D5W continue Lasix as per cardiology on IV Abx Urology follow up Thank you Will follow
[2017-07-06] MEDS ORDERED: MIDAZOLAM HCL 5 MG/1 ML Single Dose Vial IVPUSH ONE (12:40)
[2017-07-06] MEDS ORDERED: morphine SULFATE 4 MG/ML VIAL IVPUSH PRN (14:41)
[2017-07-06] MEDS ORDERED: traMADol HCL 50 MG TABLET PO PRN (14:41)
[2017-07-06] MEDS ORDERED: ONDANSETRON 4 MG/2 ML VIAL IVPUSH PRN (14:41)
[2017-07-06] MEDS: RIVAROXABAN 20 MG TABLET PO SCH (17:08)
[2017-07-06] MEDS: ACETAMINOPHEN 325 MG TABLET (FP) PO PRN (21:43)
[2017-07-07 07:04] LABS: HEMATOCRIT 29.4 % (32.4-45.2); HEMOGLOBIN 9.9 GM/dL (10.7-15.3); MCH 29.5 pg (25.7-33.7); MCHC 33.8 g/dl (32.0-36.0); MEAN CELL VOLUME 87.3 fl (80-96); MEAN PLT VOLUME 8.7 fl (7.5-11.1); PLATELET COUNT 176 K/MM3 (134-434); RBC 3.37 M/mm3 (3.60-5.2); RDW 16.5 % (11.6-15.6); WHITE BLOOD COUNT 8.5 K/mm3 (4.0-10.0)
[2017-07-07 07:32] LABS: ANION GAP 8 (8-16); BLOOD UREA NITROGEN 13 mg/dL (7-18); CALCIUM 8.5 mg/dL (8.5-10.1); CHLORIDE 106 mmol/L (98-107); CO2 29 mmol/L (21-32); CREATININE 0.6 mg/dL (0.55-1.02); GLUCOSE,RANDOM 97 mg/dL (74-106); MAGNESIUM 1.9 mg/dL (1.8-2.4); PHOSPHOROUS 2.9 mg/dL (2.5-4.9); POTASSIUM 3.3 mmol/L (3.5-5.1); SODIUM 143 mmol/L (136-145)
--- NOTE | 2017-07-07 09:08 | PN ---
Progress Note (short form) - Note Progress Note: Chief Complaint: Events noted, notes reviewed, awake and alert, mildly agitated , requesting to be D/C home, denies any chest pain or dysnea, sinus rhythm is noted History of Present Illness: Seen and examined on telemetry. Events noted, notes reviewed, awake and alert, mildly agitated, requesting to be D/C home, denies any chest pain or dysnea, sinus rhythm is noted - Current Medication List Current Medications Acetaminophen (Tylenol -) 650 mg PO Q6H PRN PRN Reason: FEVER Last Admin: 07/06/17 21:43 Dose: 650 mg Amiodarone HCl (Cordarone -) 200 mg PO DAILY [facility] Ceftriaxone Sodium 2 gm/ (Dextrose) 100 mls @ 200 mls/hr IVPB DAILY [facility] Lorazepam (Ativan Injection -) 1 mg IVPUSH Q6H PRN PRN Reason: ANXIETY Last Admin: 07/06/17 13:14 Dose: 1 mg Metoprolol Succinate (Toprol Xl -) 100 mg PO DAILY [facility] Morphine Sulfate (Morphine Sulfate) 2 mg IVPUSH Q4H PRN PRN Reason: PAIN LEVEL 7-10 Last Admin: 07/06/17 21:46 Dose: 2 mg Ondansetron HCl (Zofran Injection) 4 mg IVPUSH Q6H PRN PRN Reason: NAUSEA AND/OR VOMITING Rivaroxaban (Xarelto -) 20 mg PO DAILY@1800 [facility] Last Admin: 07/06/17 17:08 Dose: 20 mg Tramadol HCl (Ultram -) 50 mg PO Q6H PRN PRN Reason: PAIN LEVEL 4 - 6 Review of Systems - Review of Systems Cardiovascular: As noted above Respiratory: denies: denies: Cough or Sputum Production Gastrointestinal: denies: Nausea, Vomiting, Diarrhea, Constipation or Abdominal Discomfort Musculoskeletal: No symptoms reported Endocrine: No symptoms reported - Objective Vital Signs: Last Vital Signs Temp Pulse Resp BP Pulse Ox 98.5 F 65 18 150/69 97 07/07/17 08:34 07/07/17 08:34 07/07/17 08:34 07/07/17 08:34 07/07/17 08:36 Intake & Output 07/04/17 07/05/17 07/06/17 07/07/17 23:59 23:59 23:59 23:59 Intake Total 1379.5 1210 644 Output Total 1375 3000 2200 500 Balance 4.5 -1790 -1556 -500 Weight 176 lb 7 oz 178 lb 1 oz 172 lb 3.2 oz Constitutional: No Distress, Calm Neck: Supple Negative JVD No Bruit Cardiovascular: S1 S2 Regular Rate and Rhythm Respiratory: Diminished Breath Sounds at the Bases Gastrointestinal: Soft Benign Normal Bowel Sounds Ext: No Edema Labs: CBC, BMP 07/07/17 06:15 07/07/17 06:15 INR, PTT INR 1.07 (0.82-1.09) 07/02/17 20:30 Fibrinogen > 500.0 mg/dL (238-498) H 07/02/17 20:30 Assessment/Plan ASSESSMENT: 1. Post ureteroscopy and stent for ureteral stone, hydronephrosis, pyelonephritis/E. coli sepsis post septic shock, resolved 2. Paroxysmal atrial fibrillation currently in sinus, [id number] score of 3 on NOAC's/Xarelto 3. Acute hypoxic respiratory failure, resolved 4. Diastolic LV dysfunction with acute on chronic class I-II NYHA classification LV failure, resolved 5. CAD angina pectoris post demand ischemia, probably related to above 6. HTN 7. Hypercholesterolemia 8. Acute kidney injury, resolved 9. Thrombocytopenia, resolved 10. Anemia 11. Hypokalemia, persistent PLAN: 1. Continue Amiodarone 2. Continue Toprol XL 3. Continue Xarelto 4. Add Diovan 5. Antibiotic as per ID service 6. Correction of Hypokalemia Tim Lomax MD
[2017-07-07] MEDS ORDERED: DEXTROSE 5%-WATER 100 ML IVPB ONE (09:19)
[2017-07-07] MEDS: CEFTRIAXONE 2 GM in DEXTROSE 5%-WATER 100 ML IVPB SCH (09:29)
[2017-07-07] MEDS: AMIODARONE HCL 200 MG TABLET (FP) PO SCH (09:29)
[2017-07-07] MEDS ORDERED: POTASSIUM CHLORIDE ORAL LIQUID 20 MEQ/15 ML PO ONE (10:00)
--- NOTE | 2017-07-07 10:11 | PN ---
Physical Exam: SUBJECTIVE: Patient seen and examined. She is wants to go home, agitated. Mental status improves as day progresses 24 Events: - Low grade fever overnight OBJECTIVE: Vital Signs Period Temp Pulse Resp BP Sys/Robbins Pulse Ox Last 24 Hr 97.7 F-99.9 F 62-69 18-20 138-164/58-73 94-97 PE Neuro: awake, alert, intermittent confusion HEENT: R tlc dressing CDI Pulm: CTA anteriorly CV: s1 s2 rrr Abd: s nt nd + bs : rne Ext: no le edema Laboratory Results - last 24 hr 07/07/17 07/07/17 06:15 06:15 WBC 8.5 RBC 3.37 L Hgb 9.9 L Hct 29.4 L MCV 87.3 MCH 29.5 MCHC 33.8 RDW 16.5 H Plt Count 176 MPV 8.7 Sodium 143 Potassium 3.3 L Chloride 106 Carbon Dioxide 29 Anion Gap 8 BUN 13 Creatinine 0.6 Random Glucose 97 Calcium 8.5 Phosphorus 2.9 Magnesium 1.9 Active Medications Generic Name Dose Route Start Last Admin Trade Name Freq PRN Reason Stop Dose Admin Acetaminophen 650 mg 07/06/17 21:13 07/06/17 21:43 Tylenol - PO 650 mg Q6H PRN Administration FEVER Amiodarone HCl 200 mg 07/07/17 10:00 07/07/17 09:29 Cordarone - PO 200 mg DAILY [facility] Administration Ceftriaxone Sodium 2 gm/ 100 mls @ 200 mls/hr 07/07/17 10:00 07/07/17 09:29 Dextrose IVPB 200 mls/hr DAILY [facility] Administration Lorazepam 1 mg 07/06/17 13:04 07/06/17 13:14 Ativan Injection - IVPUSH 1 mg Q6H PRN Administration ANXIETY Metoprolol Succinate 100 mg 07/07/17 10:00 07/07/17 09:29 Toprol Xl - PO 100 mg DAILY [facility] Administration Morphine Sulfate 2 mg 07/06/17 14:41 07/06/17 21:46 Morphine Sulfate IVPUSH 2 mg Q4H PRN Administration PAIN LEVEL 7-10 Ondansetron HCl 4 mg 07/06/17 14:41 Zofran Injection IVPUSH Q6H PRN NAUSEA AND/OR VOMITING Rivaroxaban 20 mg 07/06/17 18:00 07/06/17 17:08 Xarelto - PO 20 mg DAILY@1800 [facility] Administration Tramadol HCl 50 mg 07/06/17 14:41 Ultram - PO Q6H PRN PAIN LEVEL 4 - 6 Imaging: CTAP 07/01: 4mm distal left ureteral obstructing stone with moderate to severe proximal hydronephrosis and hydroureter; extensive perinephric and periureteral stranding and edema and small amount of fluid; focus of air in left renal pelvis Assessment: 72 year old female with a PMH significant for HLD, left kidney stone s/p stent and an E.coli ESBL UTI (05/2016), diverticulosis, and s/p right TKR (03/2017). Now with obstructing left ureteral calculi, left hydronephrosis, left hydroureter, possible urinoma, gram negative bacteremia, and severe sepsis. Hospital course complicated by respiratory failure (intubated 07/01, extubated 07/02). Now in rapid afib. Plan: 1. Acute complicated obstructing left ureteral calculi/ Left hydronephrosis/ Left hydroureter - s/p left stent placement 07/01 - Maintain ren - Continue Ceftriaxone - Urology follow up 2. Hypernatremia - Resolved; discontinued fluids 3. Severe sepsis with shock secondary to E coli bacteremia and urine - Continue ceftriaxone 2mg daily (day 4) - Off pressors 4. Rapid afib with RVR - In sinus rhythm - Continue amiodarone 200mg daily - Toprol xl 100mg daily - Xarelto 20mg daily 5. Hypoxic respiratory failure, pulmonary congestion - Resolved 6. Acute renal failure due to above - Resolved 7. Thrombocytopenia - Likely due to sepsis; Resolved 8. Hypokalemia - Replete potassium 40meq x1 9 Nutrition - Dysphagia puree diet 10. DVT - Xarelto 11. R knee pain - s/p aspiration 07/01 , follow cx Visit type - Emergency Visit Emergency Visit: Yes ED Registration Date: 06/30/17 Care time: The patient presented to the Emergency Department on the above date and was hospitalized for further evaluation of their emergent condition. - New Patient This patient is new to me today: No - Critical Care Critical Care patient: No
--- NOTE | 2017-07-07 12:21 | PN ---
Progress Note (short form) - Note Progress Note: PULMONARY OFFERS NO RESP COMPLAINTS RESTING COMFORTABLY WANTS TO GO HOME LESS AGITATED VSS/AFEBRILE SPO2 97% 2L/M PALE/ANICTERIC SUPPLE NECK RIGHT SIDED CRACKLES S1S2 NSR BS+ SCD'S B/L LABS/MEDS/NOTES/IMAGES/MICRO REVIEWED Hypoxia resolving PNA Sepsis 2/2 UTI Resolved shock GN bactermia Left hydronephrosis and nephrolithiasis Elevated lactate, now resolved Aspiration precautions o2 for sat >90% Follow CXR Strict I & O ABX per ID VTE prophylaxis Zoie MATHIS MD
[2017-07-07] MEDS: ACETAMINOPHEN 325 MG TABLET (FP) PO PRN (15:15)
[2017-07-07] MEDS ORDERED: PT OWN MED DRAWER 7, Y5N ONE (18:24)
[2017-07-07] MEDS: RIVAROXABAN 20 MG TABLET PO SCH (18:25)
[2017-07-08 06:05] VITALS: TEMP 98
[2017-07-08 07:55] LABS: ANION GAP 6 (8-16); BLOOD UREA NITROGEN 14 mg/dL (7-18); CALCIUM 8.8 mg/dL (8.5-10.1); CHLORIDE 108 mmol/L (98-107); CO2 29 mmol/L (21-32); CREATININE 0.6 mg/dL (0.55-1.02); GLUCOSE,RANDOM 81 mg/dL (74-106); POTASSIUM 3.6 mmol/L (3.5-5.1); SODIUM 143 mmol/L (136-145)
--- NOTE | 2017-07-08 08:06 | PN ---
Physical Exam: SUBJECTIVE: Patient seen and examined at bedside. Still with periods of confusion but getting better. OBJECTIVE: Vital Signs Period Temp Pulse Resp BP Sys/Robbins Pulse Ox Last 24 Hr 97.9 F-98.5 F 62-68 18-20 140-170/68-83 97-98 GENERAL: A&Ox 2; confused between [place] and [place] NEURO: CN II-XII grossly intact CV: S1, S2, rrr Pulm: CTA Abd: soft, not tender, not distended Upper Ext: 2+ pulses, warm, well-perfused Lower Ext: 2+ pulses, warm, well-perfused Active Medications Generic Name Dose Route Start Last Admin Trade Name Freq PRN Reason Stop Dose Admin Acetaminophen 650 mg 07/06/17 21:13 07/07/17 15:15 Tylenol - PO 650 mg Q6H PRN Administration FEVER Amiodarone HCl 200 mg 07/07/17 10:00 07/07/17 09:29 Cordarone - PO 200 mg DAILY JUMANA Administration Ceftriaxone Sodium 2 gm/ 100 mls @ 200 mls/hr 07/07/17 10:00 07/07/17 09:29 Dextrose IVPB 200 mls/hr DAILY JUMANA Administration Lorazepam 1 mg 07/06/17 13:04 07/06/17 13:14 Ativan Injection - IVPUSH 1 mg Q6H PRN Administration ANXIETY Metoprolol Succinate 100 mg 07/07/17 10:00 07/07/17 09:29 Toprol Xl - PO 100 mg DAILY JUMANA Administration Morphine Sulfate 2 mg 07/06/17 14:41 07/06/17 21:46 Morphine Sulfate IVPUSH 2 mg Q4H PRN Administration PAIN LEVEL 7-10 Ondansetron HCl 4 mg 07/06/17 14:41 Zofran Injection IVPUSH Q6H PRN NAUSEA AND/OR VOMITING Rivaroxaban 20 mg 07/06/17 18:00 07/07/17 18:25 Xarelto - PO 20 mg DAILY@1800 JUMANA Administration Tramadol HCl 50 mg 07/06/17 14:41 Ultram - PO Q6H PRN PAIN LEVEL 4 - 6 ASSESSMENT/PLAN 72 year-old female with a PMH significant for HLD, left kidney stone s/p stent and an E.coli ESBL UTI (05/2016), diverticulosis, and s/p right TKR (03/2017). Admitted for obstructing left ureteral calculi, left hydronephrosis, left hydroureter, possible urinoma, gram negative bacteremia, and severe sepsis. Hospital course complicated by respiratory failure (intubated 07/01, extubated ), and newly diagnosed paroxysmal afib. Obstructing left ureteral calculi Left hydronephrosis Left hydroureter --07/01 CT AP: 4mm distal left ureteral obstructing stone with moderate to severe proximal hydronephrosis and hydroureter; extensive perinephric and periureteral stranding and edema and small amount of fluid; focus of air in left renal pelvis --s/p left stent placement 07/01 --ren out 07/08, voiding Severe sepsis secondary to E. coli E. coli bacteremia --continue ceftriazone --ID following Hypoxic respiratory failure, improved --extubated Acute renal failure --Cr 1.4, baseline 0.9 --IV fluids --renal following Thrombocytopenia --likely due to sepsis --consider d/c'ing DVT prophylaxis if drop further Rapid afib with RVR --amiodarone load given --drip started Dispo: continues to require ICU level care. 1. Acute complicated obstructing left ureteral calculi/ Left hydronephrosis/ Left hydroureter - s/p left stent placement 07/01 - Maintain ren - Continue Ceftriaxone - Urology follow up 2. Hypernatremia - Resolved; discontinued fluids 3. Severe sepsis with shock secondary to E coli bacteremia and urine - Continue ceftriaxone 2mg daily (day 4) - Off pressors 4. Rapid afib with RVR - In sinus rhythm - Continue amiodarone 200mg daily - Toprol xl 100mg daily - Xarelto 20mg daily 5. Hypoxic respiratory failure, pulmonary congestion - Resolved 6. Acute renal failure due to above - Resolved 7. Thrombocytopenia - Likely due to sepsis; Resolved 8. Hypokalemia - Replete potassium 40meq x1 9 Nutrition - Dysphagia puree diet 10. DVT - Xarelto 11. R knee pain - s/p aspiration 07/01 , follow cx
[2017-07-08] MEDS ORDERED: DEXTROSE 5%-WATER 100 ML IVPB ONE (08:46)
[2017-07-08] MEDS: AMIODARONE HCL 200 MG TABLET (FP) PO SCH (09:17)
[2017-07-08] MEDS: CEFTRIAXONE 2 GM in DEXTROSE 5%-WATER 100 ML IVPB SCH (09:17)
--- NOTE | 2017-07-08 09:30 | PN ---
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 Selected Entries 07/06/17 07/06/17 07/07/17 09:00 18:30 02:00 Supper NPO 25% Temperature 97.9 F 07/07/17 07/07/17 07/07/17 05:56 08:34 14:00 Supper Temperature 98.9 F 98.5 F 98.3 F 07/07/17 07/07/17 07/07/17 17:59 21:00 22:03 Supper 50% Temperature 98.2 F 97.9 F 07/08/17 07/08/17 01:00 06:00 Supper Temperature 98.2 F 98.0 F Laboratory Tests 07/04/17 07/05/17 07/06/17 06:20 05:55 05:35 WBC 13.1 H 7.8 D 8.0 07/07/17 06:15 WBC 8.5 Much improved saince last visit. Verbal, more cooperative. REC: obtain adhesive for dentures Soft reg diet, chopped meat. Thin liquid. Assist with meals, as indicated. Supplements b/n meals.
--- NOTE | 2017-07-08 10:29 | PN ---
Progress Note, Physician History of Present Illness: Clinically improved, remains in sinus rhythm. - Current Medication List Current Medications: Active Medications Acetaminophen (Tylenol -) 650 mg PO Q6H PRN PRN Reason: FEVER Last Admin: 07/07/17 15:15 Dose: 650 mg Amiodarone HCl (Cordarone -) 200 mg PO DAILY [facility] Last Admin: 07/08/17 09:17 Dose: 200 mg Ceftriaxone Sodium 2 gm/ (Dextrose) 100 mls @ 200 mls/hr IVPB DAILY [facility] Last Admin: 07/08/17 09:17 Dose: 200 mls/hr Lorazepam (Ativan Injection -) 1 mg IVPUSH Q6H PRN PRN Reason: ANXIETY Last Admin: 07/06/17 13:14 Dose: 1 mg Metoprolol Succinate (Toprol Xl -) 100 mg PO DAILY [facility] Last Admin: 07/08/17 09:17 Dose: 100 mg Morphine Sulfate (Morphine Sulfate) 2 mg IVPUSH Q4H PRN PRN Reason: PAIN LEVEL 7-10 Last Admin: 07/06/17 21:46 Dose: 2 mg Ondansetron HCl (Zofran Injection) 4 mg IVPUSH Q6H PRN PRN Reason: NAUSEA AND/OR VOMITING Rivaroxaban (Xarelto -) 20 mg PO DAILY@1800 [facility] Last Admin: 07/07/17 18:25 Dose: 20 mg Tramadol HCl (Ultram -) 50 mg PO Q6H PRN PRN Reason: PAIN LEVEL 4 - 6 - Objective Vital Signs: Vital Signs Temperature 98.0 F 07/08/17 06:00 Pulse Rate 62 07/08/17 06:00 Respiratory Rate 18 07/08/17 06:00 Blood Pressure 150/68 07/08/17 06:00 O2 Sat by Pulse Oximetry (%) 98 07/07/17 20:31 Constitutional: Yes: No Distress, Calm Neck: Yes: Supple Cardiovascular: Yes: Regular Rate and Rhythm Respiratory: Yes: Regular, CTA Bilaterally Gastrointestinal: Yes: Normal Bowel Sounds, Soft Edema: No Labs: CBC, BMP 07/07/17 06:15 07/08/17 06:30 INR, PTT INR 1.07 (0.82-1.09) 07/02/17 20:30 Fibrinogen > 500.0 mg/dL (238-498) H 07/02/17 20:30 Problem List - Problems (1) Demand ischemia Code(s): I24.8 - OTHER FORMS OF ACUTE ISCHEMIC HEART DISEASE (2) Acute on chronic diastolic (congestive) heart failure Code(s): I50.33 - ACUTE ON CHRONIC DIASTOLIC (CONGESTIVE) HEART FAILURE (3) Paroxysmal atrial fibrillation with rapid ventricular response Code(s): I48.0 - PAROXYSMAL ATRIAL FIBRILLATION (4) Calculus of left kidney Code(s): N20.0 - CALCULUS OF KIDNEY (5) Gram-negative bacteremia Code(s): R78.81 - BACTEREMIA (6) Hydronephrosis due to obstruction of ureter Code(s): N13.2 - HYDRONEPHROSIS WITH RENAL AND URETERAL CALCULOUS OBSTRUCTION (7) Paroxysmal SVT (supraventricular tachycardia) Code(s): I47.1 - SUPRAVENTRICULAR TACHYCARDIA (8) Hyperlipidemia Code(s): E78.5 - HYPERLIPIDEMIA, UNSPECIFIED Qualifiers: Hyperlipidemia type: pure hypercholesterolemia Qualified Code(s): E78.00 - Pure hypercholesterolemia, unspecified; E78.0 - Pure hypercholesterolemia (9) Hypertension Code(s): I10 - ESSENTIAL (PRIMARY) HYPERTENSION Qualifiers: Hypertension type: essential hypertension Qualified Code(s): I10 - Essential (primary) hypertension Assessment/Plan 1. Post ureteroscopy and stent for ureteral stone, hydronephrosis, pyelonephritis/E. coli sepsis post septic shock, resolved 2. Paroxysmal atrial fibrillation currently in sinus, [id number] score of 3 on NOAC's/Xarelto 3. Acute hypoxic respiratory failure, resolved 4. Diastolic LV dysfunction with acute on chronic class I-II NYHA classification LV failure, resolved 5. CAD angina pectoris post demand ischemia, probably related to above 6. HTN 7. Hypercholesterolemia 8. Acute kidney injury, resolved 9. Thrombocytopenia, resolved 10. Anemia 11. Hypokalemia, persistent PLAN: 1. Continue Amiodarone 200 qd 2. Continue Toprol XL 100 qd 3. Continue Xarelto 20 qd 4. Add Diovan 80 qd 5. Complete antibiotic course as per ID service 6. Correction of Hypokalemia
--- NOTE | 2017-07-08 10:34 | PN ---
Progress Note, Physician History of Present Illness: PULMONARY ALERT,OOB-CHAIR,-SOB,-CP - Current Medication List Current Medications: Active Medications Acetaminophen (Tylenol -) 650 mg PO Q6H PRN PRN Reason: FEVER Last Admin: 07/07/17 15:15 Dose: 650 mg Amiodarone HCl (Cordarone -) 200 mg PO DAILY [facility] Last Admin: 07/08/17 09:17 Dose: 200 mg Ceftriaxone Sodium 2 gm/ (Dextrose) 100 mls @ 200 mls/hr IVPB DAILY [facility] Last Admin: 07/08/17 09:17 Dose: 200 mls/hr Lorazepam (Ativan Injection -) 1 mg IVPUSH Q6H PRN PRN Reason: ANXIETY Last Admin: 07/06/17 13:14 Dose: 1 mg Metoprolol Succinate (Toprol Xl -) 100 mg PO DAILY [facility] Last Admin: 07/08/17 09:17 Dose: 100 mg Morphine Sulfate (Morphine Sulfate) 2 mg IVPUSH Q4H PRN PRN Reason: PAIN LEVEL 7-10 Last Admin: 07/06/17 21:46 Dose: 2 mg Ondansetron HCl (Zofran Injection) 4 mg IVPUSH Q6H PRN PRN Reason: NAUSEA AND/OR VOMITING Rivaroxaban (Xarelto -) 20 mg PO DAILY@1800 [facility] Last Admin: 07/07/17 18:25 Dose: 20 mg Tramadol HCl (Ultram -) 50 mg PO Q6H PRN PRN Reason: PAIN LEVEL 4 - 6 - Objective Vital Signs: Vital Signs Temperature 98.0 F 07/08/17 06:00 Pulse Rate 62 07/08/17 06:00 Respiratory Rate 18 07/08/17 06:00 Blood Pressure 150/68 07/08/17 06:00 O2 Sat by Pulse Oximetry (%) 98 07/07/17 20:31 Constitutional: Yes: Well Nourished, Calm Eyes: Yes: WNL HENT: Yes: WNL Cardiovascular: Yes: Pulse Irregular, S1, S2 Respiratory: Yes: Diminished Gastrointestinal: Yes: Normal Bowel Sounds, Soft Extremities: Yes: WNL Edema: No Labs: CBC, BMP 07/07/17 06:15 07/08/17 06:30 INR, PTT INR 1.07 (0.82-1.09) 04/17/18 20:30 Fibrinogen > 500.0 mg/dL (238-498) H 07/02/17 20:30 - ....Imaging Chest X-ray: Report Reviewed, Image Reviewed (IMPROVING) Assessment/Plan Hypoxia resoled PNA Sepsis 2/2 UTI Resolved shock GN bactermia Left hydronephrosis and nephrolithiasis Elevated lactate, now resolved Afib Aspiration precautions o2 for sat >90% Strict I & O ABX per ID VTE prophylaxis AC PT DR RODRIGUEZ
[2017-07-08] MEDS ORDERED: VALSARTAN 80 MG TABLET (UD) PO SCH (11:45)
[2017-07-08 11:47] VITALS: BP 149/67; PULSE 63
--- NOTE | 2017-07-08 13:00 | DS ---
Physical Exam: SUBJECTIVE: Patient seen and examined at bedside. Still with periods of confusion but getting better. OBJECTIVE: Vital Signs Period Temp Pulse Resp BP Sys/Robbins Pulse Ox Last 24 Hr 97.9 F-98.3 F 62-68 18-20 140-170/67-83 96-98 PHYSICAL EXAM GENERAL: A&Ox 2; confused between [place] and [place] NEURO: CN II-XII grossly intact CV: S1, S2, rrr Pulm: CTA Abd: soft, not tender, not distended Upper Ext: 2+ pulses, warm, well-perfused Lower Ext: 2+ pulses, warm, well-perfused LABS Laboratory Results - last 24 hr 07/08/17 06:30 Sodium 143 Potassium 3.6 Chloride 108 H Carbon Dioxide 29 Anion Gap 6 L BUN 14 Creatinine 0.6 Random Glucose 81 Calcium 8.8 CBCD WBC 8.5 K/mm3 (4.0-10.0) 07/07/17 06:15 RBC 3.37 M/mm3 (3.60-5.2) L 07/07/17 06:15 Hgb 9.9 GM/dL (10.7-15.3) L 07/07/17 06:15 Hct 29.4 % (32.4-45.2) L 07/07/17 06:15 MCV 87.3 fl (80-96) 07/07/17 06:15 MCHC 33.8 g/dl (32.0-36.0) 07/07/17 06:15 RDW 16.5 % (11.6-15.6) H 07/07/17 06:15 Plt Count 176 K/MM3 (134-434) 07/07/17 06:15 MPV 8.7 fl (7.5-11.1) 07/07/17 06:15 CMP Sodium 143 mmol/L (136-145) 07/08/17 06:30 Potassium 3.6 mmol/L (3.5-5.1) 07/08/17 06:30 Chloride 108 mmol/L (98-107) H 07/08/17 06:30 Carbon Dioxide 29 mmol/L (21-32) 07/08/17 06:30 Anion Gap 6 (8-16) L 07/08/17 06:30 BUN 14 mg/dL (7-18) 07/08/17 06:30 Creatinine 0.6 mg/dL (0.55-1.02) 07/08/17 06:30 Creat Clearance w eGFR > 60 (>60) 07/06/17 05:35 Calcium 8.8 mg/dL (8.5-10.1) 07/08/17 06:30 Total Bilirubin 0.6 mg/dL (0.2-1.0) 07/06/17 05:35 AST 43 U/L (15-37) H 07/06/17 05:35 ALT 48 U/L (12-78) 07/06/17 05:35 Alkaline Phosphatase 78 U/L (45-117) 07/06/17 05:35 Total Protein 5.8 g/dl (6.4-8.2) L 07/06/17 05:35 Albumin 2.3 g/dl (3.4-5.0) L 07/06/17 05:35 HOSPITAL COURSE: Date of Admission:06/30/17 Date of Discharge: 07/08/17 72 year-old female with a PMH significant for HLD, left kidney stone s/p stent and an E.coli ESBL UTI (05/2016), diverticulosis, and s/p right TKR (03/2017). Presented with with obstructing left ureteral calculi, left hydronephrosis, left hydroureter, possible urinoma, gram negative bacteremia, and severe sepsis. Hospital course complicated by respiratory failure (intubated 07/01, extubated 07/02). Then developed afib with RVR, now back in sinus rhythm. Obstructing left ureteral calculi Left hydronephrosis Left hydroureter --07/01 CT AP: 4mm distal left ureteral obstructing stone with moderate to severe proximal hydronephrosis and hydroureter; extensive perinephric and periureteral stranding and edema and small amount of fluid; focus of air in left renal pelvis --s/p left stent placement 07/01 Severe sepsis secondary to E. coli UTI E. coli bacteremia --treated with meropenem x 3 days, ceftriaxone x 5 days; antibiotic course complete Hypoxic respiratory failure, improved --extubated Acute renal failure --Cr 1.4 on admission, Cr 0.6 today Thrombocytopenia, resolved --was likely due to sepsis Rapid afib with RVR --rate well-controlled; continue amiodarone PO, Toprol XL --on Xarelto 20mg Minutes to complete discharge: 35 Discharge Summary Reason For Visit: CALCULUS OF LEFT KIDNEY Current Active Problems Acute on chronic diastolic (congestive) heart failure (Acute) Calculus of left kidney (Acute) Cholelithiasis (Acute) DVT prophylaxis (Acute) Demand ischemia (Acute) Gram-negative bacteremia (Acute) Hydronephrosis (Acute) Hydronephrosis due to obstruction of ureter (Acute) Hydronephrosis with infection (Acute) Infection with multi-drug resistant microorganisms (Acute) Kidney stone on left side (Acute) Paroxysmal atrial fibrillation (Acute) Paroxysmal atrial fibrillation with rapid ventricular response (Acute) Right knee pain (Acute) Sepsis (Acute) UTI (urinary tract infection) (Acute) - Instructions - Home Medications Comprehensive Discharge Medication List: Ambulatory Orders Celecoxib 200 mg PO ASDIR 12/25/16 oxyCODONE HCL [Roxicodone -] 5 mg PO Q6H 12/25/16 Famotidine [Pepcid] 40 mg PO DAILY 06/30/17 This patient is new to me today: No Emergency Visit: Yes ED Registration Date: 06/30/17 Care time: The patient presented to the Emergency Department on the above date and was hospitalized for further evaluation of their emergent condition. Critical Care patient: No - Discharge Referral Referred to [facility] Yes Physician Referral: Gunnar Mcneill MD (Int Med)
--- NOTE | 2017-07-08 15:02 | PN ---
Progress Note, Physician History of Present Illness: OOB in chair No complaints No c/o fever/ chills WBC WNL - Current Medication List Current Medications: Active Medications Acetaminophen (Tylenol -) 650 mg PO Q6H PRN PRN Reason: FEVER Last Admin: 07/07/17 15:15 Dose: 650 mg Amiodarone HCl (Cordarone -) 200 mg PO DAILY [facility] Last Admin: 07/08/17 09:17 Dose: 200 mg Lorazepam (Ativan Injection -) 1 mg IVPUSH Q6H PRN PRN Reason: ANXIETY Last Admin: 07/06/17 13:14 Dose: 1 mg Metoprolol Succinate (Toprol Xl -) 100 mg PO DAILY [facility] Last Admin: 07/08/17 09:17 Dose: 100 mg Morphine Sulfate (Morphine Sulfate) 2 mg IVPUSH Q4H PRN PRN Reason: PAIN LEVEL 7-10 Last Admin: 07/06/17 21:46 Dose: 2 mg Ondansetron HCl (Zofran Injection) 4 mg IVPUSH Q6H PRN PRN Reason: NAUSEA AND/OR VOMITING Rivaroxaban (Xarelto -) 20 mg PO DAILY@1800 [facility] Last Admin: 07/07/17 18:25 Dose: 20 mg Tramadol HCl (Ultram -) 50 mg PO Q6H PRN PRN Reason: PAIN LEVEL 4 - 6 Valsartan (Diovan -) 80 mg PO DAILY [facility] Last Admin: 07/08/17 11:56 Dose: 80 mg - Objective Vital Signs: Vital Signs Temperature 98.0 F 07/08/17 10:00 Pulse Rate 63 07/08/17 10:00 Respiratory Rate 18 07/08/17 10:00 Blood Pressure 149/67 07/08/17 10:00 O2 Sat by Pulse Oximetry (%) 96 07/08/17 10:00 Constitutional: Yes: No Distress Eyes: Yes: Conjunctiva Clear Cardiovascular: Yes: Regular Rate and Rhythm, S1, S2 Respiratory: Yes: CTA Bilaterally Gastrointestinal: Yes: Normal Bowel Sounds, Soft. No: Tenderness Labs: CBC, BMP 07/07/17 06:15 07/08/17 06:30 INR, PTT INR 1.07 (0.82-1.09) 07/02/17 20:30 Fibrinogen > 500.0 mg/dL (238-498) H 07/02/17 20:30 Assessment/Plan E coli bacteremia/ sepsis secondary to UTI Hx nephrolithiasis/ ureteral stent Substitute po keflex additional 3d
[2017-07-08] MEDS ORDERED: CEPHALEXIN MONOHYDRATE 500 MG CAPSULE (UD) PO SCH (22:00)
--- NOTE | 2017-07-31 08:43 | OP ---
DATE OF OPERATION: 07/03/2017 PREOPERATIVE DIAGNOSIS: Obstructing left ureteral calculus with hydronephrosis and sepsis. POSTOPERATIVE DIAGNOSIS: Obstructing left ureteral calculus with hydronephrosis and sepsis. PROCEDURE: Cystoscopy, left ureteral stent placement, and retrograde pyelogram. ANESTHESIA: General. SURGEON: Leighton Concepcion MD DRAINS: A 6 x 24 double-J ureteral stent. PREOPERATIVE INDICATIONS: The patient is a 72-year-old female who has admitted with a left ureteral stone, which was obstructing. Initially, she was doing well. However, she developed sepsis quickly and became hypotensive and tachycardic. She was started on pressors and she is now brought to the OR for stent placement. OPERATION: The patient was brought to the OR, placed on the table in the supine position. She was up in the modified lithotomy position. Patient was already intubated and on propofol. The groin was prepped and draped sterilely. Time-out was performed. Cystoscopy was performed. Both ureteral orifices were visualized. A wire was pushed up into the left kidney. An open-ended catheter was used to perform a retrograde pyelogram which defined the anatomy showing hydronephrosis. A 6 x 24 double-J ureteral stent was placed over the wire, and pus material was seen coming out of the ureteral orifice. Schaefer catheter was left in place. The patient was then transferred back to the ICU. Oniel [id number]
== END 2017-07-08 15:29 | DRG 871 ==
LOC: FER 16:45 → FM/S 20:49 → JICU 07-01 01:15 → J4S 07-06 12:12
PROVIDERS: ADMIT Internal Medicine; ATTEND Nurse Practitioner Acute Care
PROC: 0CHY7BZ Insertion of Airway into Mouth and Throat, Via Natural or Artificial Opening (ICD-10-PCS; 2017-07-01)
PROC: 05HM33Z Insertion of Infusion Device into Right Internal Jugular Vein, Percutaneous Approach (ICD-10-PCS; 2017-07-01)
PROC: 5A1935Z Respiratory Ventilation, Less than 24 Consecutive Hours (ICD-10-PCS; 2017-07-01)
PROC: 0T778DZ Dilation of Left Ureter with Intraluminal Device, Via Natural or Artificial Opening Endoscopic (ICD-10-PCS; 2017-07-01)
PROC: 0S9C3ZX Drainage of Right Knee Joint, Percutaneous Approach, Diagnostic (ICD-10-PCS; principal; 2017-07-01 19:20)
DX: A41.51 Sepsis due to Escherichia coli [E. coli] (principal); J96.01 Acute respiratory failure with hypoxia; R65.21 Severe sepsis with septic shock; I50.33 Acute on chronic diastolic (congestive) heart failure; N13.6 Pyonephrosis; J98.11 Atelectasis; E87.2 Acidosis; N17.9 Acute kidney failure, unspecified; I47.1 Supraventricular tachycardia; I24.8 Other forms of acute ischemic heart disease; E87.0 Hyperosmolality and hypernatremia; I25.110 Atherosclerotic heart disease of native coronary artery with unstable angina pectoris; E78.5 Hyperlipidemia, unspecified; K57.90 Diverticulosis of intestine, part unspecified, without perforation or abscess without bleeding; M25.561 Pain in right knee; D72.829 Elevated white blood cell count, unspecified; R50.9 Fever, unspecified; M48.00 Spinal stenosis, site unspecified; M54.5 Low back pain; I48.0 Paroxysmal atrial fibrillation; F41.9 Anxiety disorder, unspecified; E83.39 Other disorders of phosphorus metabolism; E87.6 Hypokalemia; K80.20 Calculus of gallbladder without cholecystitis without obstruction; E66.8 Other obesity; Z68.33 Body mass index [BMI] 33.0-33.9, adult; R00.0 Tachycardia, unspecified; D69.6 Thrombocytopenia, unspecified; I11.0 Hypertensive heart disease with heart failure; Z16.35 Resistance to multiple antimicrobial drugs; Z96.651 Presence of right artificial knee joint
CPT/HCPCS: 31500; 36415; 36600; 71045-TC-FY; 74177-TC; 76000-TC-FY; 76705-TC; 76856-TC; 80048; 80053; 81003; 81015; 82550; 82553; 82570; 82803; 83010; 83605; 83615; 83735; 84100; 84300; 84484; 85025; 85027; 85384; 85610; 85730; 86140; 86850; 86870; 86880; 86900; 86901; 86902; 87040; 87070; 87075; 87076; 87086; 87186; 87205; 93005; 93010; 93306-TC; 93971-TC; 94002; 97116-GP; 97161-GP; 99284-25; J0131; J1644; J7030

== ENCOUNTER 2017-08-07 06:51 | Day surgery (SDC) | payer OTHER, MEDICARE ==
[2017-08-06 19:35] VITALS: BMI 32.2
[2017-08-07] MEDS ORDERED: PROPOFOL 20 ML ONE (08:19)
[2017-08-07] MEDS ORDERED: LIDOCAINE HCL/PF 2% SDV 5ML VIAL ONE (08:19)
[2017-08-07] MEDS ORDERED: DEXAMETHASONE SOD PHOSPHATE 4 MG/1 ML VIAL ONE (08:31)
[2017-08-07] MEDS ORDERED: KETOROLAC TROMETHAMINE 30 MG/1 ML VIAL ONE (08:50)
[2017-08-07] MEDS ORDERED: ACETAMINOPHEN INJECTION 100 ML IVPB ONE (09:13)
[2017-08-07] MEDS ORDERED: ONDANSETRON 4 MG/2 ML VIAL IVPUSH PRN (09:18)
[2017-08-07] MEDS ORDERED: PROMETHAZINE HCL 25 MG/1 ML VIAL IVPB PRN (09:18)
[2017-08-07] MEDS ORDERED: ACETAMINOPHEN 1000 MG/100 ML VIAL (NON FORMULARY) IVPB ONE ×2 (09:19→09:35)
[2017-08-07] MEDS ORDERED: LACTATED RINGERS SOLUTION 1,000 ML IV SCH (09:30)
[2017-08-07] MEDS ORDERED: DEXTROSE 5%-0.45% SALINE 1,000 ML IV SCH (09:45)
[2017-08-07] MEDS ORDERED: BUPIVACAINE HCL/PF 0.5% (5MG/ML) 10 ML VIAL ONE ×2 (09:49→09:50)
[2017-08-07] MEDS ORDERED: IBUPROFEN 800 MG/8 ML IJ IVPB SCH (10:15)
--- NOTE | 2017-08-07 11:05 | HP ---
History & Physical Update - History History: No Change - Physical Physical: No Change - Assessment Assessment: No Change - Plan Plan: No Change ( 08/06/17)
[2017-08-07 11:15] VITALS: BP 118/66; PULSE 70; TEMP 98.5
--- NOTE | 2017-08-09 09:34 | OP ---
DATE OF OPERATION: 08/07/2017 PREOPERATIVE DIAGNOSIS: Left ureteral calculus. POSTOPERATIVE DIAGNOSIS: Left ureteral calculus. PROCEDURE: Cystoscopy, left ureteral stent exchange and left ureteroscopic laser lithotripsy and retrograde pyelogram. SURGEON: Leighton Concepcion MD ANESTHESIA: General. ESTIMATED BLOOD LOSS: Minimal. DRAINS: A 6 x 24 double-J ureteral stent. FINDINGS: There was an impacted stone in the distal left ureter. PREOPERATIVE INDICATIONS: The patient is a 72-year-old female with a history of a left ureteral stone that was obstructing and infection. She had a stent placed. She comes for lithotripsy. OPERATION: Patient brought to the OR, placed on the table in the supine position, given general anesthesia and IV antibiotics and placed in the modified lithotomy position. The groin was prepped and draped sterilely. Cystoscopy was performed. A stent was seen emerging from the left UO. This was removed. A wire was passed up into the left kidney and then a 10-Hebrew dual-lumen catheter was used to dilate the ureter. A ureteroscope was passed into the distal ureter and the stone was visualized. It was impacting the entire lumen of the ureter. Using the Holmium laser fiber the stone was broken up into small pieces and irrigated out. The rest of the ureter appeared to be without any significant stones. A retrograde pyelogram was performed which confirmed this. A 6 x 24 double-J ureteral stent was left in place. Patient was woken up. LEIGHTON CONCEPCION M.D. [id number]
--- NOTE | 2017-08-09 17:47 | PATH ---
Surgical Pathology Report Patient Name: TANNA LOVE [facility]. Rec. #: [id number] /Age/Gender: 1945 (Age: 72) / F Account: [id number] Location: [facility] Taken: 08/07/2017 Received: 08/07/2017 Reported: 08/09/2017 Physicians: Leighton Concepcion M.D. Specimen(s) Received STENT FROM LEFT URETER Clinical History Status post stent ureteral stone left Final Diagnosis URETERAL STENT, LEFT, REMOVAL: URETERAL STENT. MACROSCOPIC DIAGNOSIS. Electronically Signed Annamaria Boyce M.D. Gross Description Received fresh labeled "left ureteral stent," is a 33 cm in length green, coiled portion of tubing, consistent with a ureteral stent. No soft tissue is present. No sections are submitted, gross only. /08/08/2017 saudi08/08/2017
== END 2017-08-07 11:10 | disposition home or self-care (01) ==
LOC: JASU-SURG 06:51
PROVIDERS: ATTEND Urology
PROC: BT1FZZZ Fluoroscopy of Left Kidney, Ureter and Bladder (ICD-10-PCS; 2017-08-07)
PROC: 0TFD8ZZ Fragmentation in Urethra, Via Natural or Artificial Opening Endoscopic (ICD-10-PCS; principal; 2017-08-07 08:00)
PROC: 0T7D8DZ Dilation of Urethra with Intraluminal Device, Via Natural or Artificial Opening Endoscopic (ICD-10-PCS; 2017-08-07 08:00)
PROC: 0TCD8ZZ Extirpation of Matter from Urethra, Via Natural or Artificial Opening Endoscopic (ICD-10-PCS; 2017-08-07 08:00)
PROC: 0TPD8DZ Removal of Intraluminal Device from Urethra, Via Natural or Artificial Opening Endoscopic (ICD-10-PCS; 2017-08-07 08:00)
DX: N21.1 Calculus in urethra (principal)
CPT/HCPCS: 76000-TC-FY; 94760; J0131

== ENCOUNTER 2018-05-24 06:57 | Emergency (ER) | payer OTHER, MEDICARE ==
[2018-05-24 07:05] VITALS: BP 149/58; PULSE 55; TEMP 97.6; BMI 33.2
--- NOTE | 2018-05-24 07:27 | PDOC ---
History of Present Illness - General Chief Complaint: Injury Stated Complaint: FINGER INJURY History Source: Patient Exam Limitations: No Limitations - History of Present Illness Initial Comments: 05/24/18 07:22 73 yo F h/o afib, htn hld on xarelto here with injury to her finger. pt states she was injured by her birds beak. happened last night at 8 pm. was bleeding because on xarelto. no f/c mild swelling and pain in left index finger. also small laceration to right small finger. was bleeding this am, pt applied pressure. not diabetic. last tetanus unknown. Past History - Past Medical History Allergies/Adverse Reactions: Allergies Allergy/AdvReac Type Severity Reaction Status Date / Time No Known Drug Allergies Allergy Verified 08/07/17 07:34 Home Medications: Ambulatory Orders Amiodarone HCl 200 mg PO DAILY 08/07/17 Ciprofloxacin [Cipro (Restricted To Id)] 500 mg PO Q12H 08/07/17 Citalopram Hydrobromide [Celexa -] 10 mg PO DAILY 08/07/17 Furosemide [Lasix] 20 mg PO DAILY 08/07/17 Gabapentin [Neurontin] 600 mg PO DAILY 08/07/17 Phenazopyridine HCl 100 mg PO TID 08/07/17 Pravastatin Sodium 10 mg PO DAILY 08/07/17 Rivaroxaban [Xarelto -] 20 mg PO DAILY 08/07/17 Valsartan 80 mg PO DAILY 08/07/17 Anemia: No Asthma: No Cancer: No Cardiac Disorders: Yes (AFIB) CVA: No COPD: No CHF: No Dementia: No Diabetes: No GI Disorders: No (GALLSTONE REMOVAL) Disorders: Yes (L KIDNEY STONE 05/2016) HTN: No Hypercholesterolemia: Yes Liver Disease: No Seizures: No Thyroid Disease: No - Surgical History Abdominal Surgery: No Appendectomy: No Cardiac Surgery: No Cholecystectomy: Yes Lung Surgery: No Neurologic Surgery: Yes (BACK SURGERY 09/2015 (Lumbar cervical spine sx)) Orthopedic Surgery: Yes (RIGHT TORN MENISCUS, R KNEE REPLACEMENT) - Immunization History Immunization Up to Date: Yes - Suicide/Smoking/Psychosocial Hx Smoking History: Never smoked Have you smoked in the past 12 months: No If you are a former smoker, when did you quit?: 1960 Hx Alcohol Use: No Drug/Substance Use Hx: No Substance Use Type: None Hx Substance Use Treatment: No Review of Systems - Review of Systems Constitutional: Yes: Fever. No: Chills HEENTM: No: Eye Pain, Blurred Vision : No: Burning, Dysuria, Discharge Musculoskeletal: No: Back Pain, Gout, Joint Pain Integumentary: Yes: Bruising, Other (pain) All Other Systems: Reviewed and Negative *Physical Exam - Vital Signs Last Vital Signs Temp Pulse Resp BP Pulse Ox 97.6 F 55 L 18 149/58 L 100 05/24/18 06:58 05/24/18 06:58 05/24/18 06:58 05/24/18 06:58 05/24/18 06:58 - Physical Exam Comments: 05/24/18 07:24 awake alert lungs clear bilaterally heart rrr no mrg left hand index finger with 2 mm laceration superficiial. no active bleeding. mild erythema to finger fat pad. no exudate. right small finger small superficial laceration 2 mm. no active bleeding. distally n/v intact. Moderate Sedation - Procedure Monitoring Vital Signs: Procedure Monitoring Vital Signs Temperature 97.6 F 05/24/18 06:58 Pulse Rate 55 L 05/24/18 06:58 Respiratory Rate 18 05/24/18 06:58 Blood Pressure 149/58 L 05/24/18 06:58 O2 Sat by Pulse Oximetry (%) 100 05/24/18 06:58 Medical Decision Making - Medical Decision Making 05/24/18 07:25 s/p bit from bird. will start pt on augmenting. told to soak twice daily. no sutures as delay in presentation and animal bit to finger high risk for infection. bacitracin and soaks daily. *DC/Admit/Observation/Transfer Diagnosis at time of Disposition: Bitten by other birds, initial encounter - Discharge Dispostion Disposition: HOME Condition at time of disposition: Improved Decision to Admit order: No - Referrals Referrals: Gunnar Mcneill MD [Primary Care Provider] - - Patient Instructions - Post Discharge Activity
--- NOTE | 2018-05-24 07:35 | PDOC ---
History of Present Illness - General Chief Complaint: Injury Stated Complaint: FINGER INJURY History Source: Patient Exam Limitations: No Limitations - History of Present Illness Initial Comments: 05/24/18 07:29 yo F h/o htn afib, hld s/p bird bite by her domestic bird. happened night prior at 8 pm. no f/c was bleeding. here this am due to still bleeding. pt placed creama nd bandaid on it. no f/c no swelling. mild pain at site. both left index finger and small finger on right. last tetanus unknown. Past History - Past Medical History Allergies/Adverse Reactions: Allergies Allergy/AdvReac Type Severity Reaction Status Date / Time No Known Drug Allergies Allergy Verified 08/07/17 07:34 Home Medications: Ambulatory Orders Amiodarone HCl 200 mg PO DAILY 08/07/17 Ciprofloxacin [Cipro (Restricted To Id)] 500 mg PO Q12H 08/07/17 Citalopram Hydrobromide [Celexa -] 10 mg PO DAILY 08/07/17 Furosemide [Lasix] 20 mg PO DAILY 08/07/17 Gabapentin [Neurontin] 600 mg PO DAILY 08/07/17 Phenazopyridine HCl 100 mg PO TID 08/07/17 Pravastatin Sodium 10 mg PO DAILY 08/07/17 Rivaroxaban [Xarelto -] 20 mg PO DAILY 08/07/17 Valsartan 80 mg PO DAILY 08/07/17 Amoxicillin/Potassium Clav [Augmentin 875-125 Tablet] 1 each PO BID #14 tablet 05/24/18 Anemia: No Asthma: No Cancer: No Cardiac Disorders: Yes (AFIB) CVA: No COPD: No CHF: No Dementia: No Diabetes: No GI Disorders: No (GALLSTONE REMOVAL) Disorders: Yes (L KIDNEY STONE 05/2016) HTN: No Hypercholesterolemia: Yes Liver Disease: No Seizures: No Thyroid Disease: No - Surgical History Abdominal Surgery: No Appendectomy: No Cardiac Surgery: No Cholecystectomy: Yes Lung Surgery: No Neurologic Surgery: Yes (BACK SURGERY 09/2015 (Lumbar cervical spine sx)) Orthopedic Surgery: Yes (RIGHT TORN MENISCUS, R KNEE REPLACEMENT) - Immunization History Immunization Up to Date: Yes - Suicide/Smoking/Psychosocial Hx Smoking History: Never smoked Have you smoked in the past 12 months: No If you are a former smoker, when did you quit?: 1960 Hx Alcohol Use: No Drug/Substance Use Hx: No Substance Use Type: None Hx Substance Use Treatment: No Review of Systems - Review of Systems Constitutional: No: Chills, Diaphoresis, Fever HEENTM: No: Eye Pain Respiratory: No: Cough, Orthopnea Cardiac (ROS): No: Chest Pain Musculoskeletal: Yes: Joint Pain Integumentary: Yes: Erythema, Other (laceration) All Other Systems: Reviewed and Negative *Physical Exam - Vital Signs Last Vital Signs Temp Pulse Resp BP Pulse Ox 97.6 F 55 L 18 149/58 L 100 05/24/18 06:58 05/24/18 06:58 05/24/18 06:58 05/24/18 06:58 05/24/18 06:58 - Physical Exam Comments: 05/24/18 07:31 awake alert lungs clear bilaterally heart rrr no mrg left hand index finger small 2 mm laceration to index finger superficial no active bleedign. mild swelling and ttp over distal phalynx. no exudate.right small finger small laceration 2 mm, no exudate. Moderate Sedation - Procedure Monitoring Vital Signs: Procedure Monitoring Vital Signs Temperature 97.6 F 05/24/18 06:58 Pulse Rate 55 L 05/24/18 06:58 Respiratory Rate 18 05/24/18 06:58 Blood Pressure 149/58 L 05/24/18 06:58 O2 Sat by Pulse Oximetry (%) 100 05/24/18 06:58 Medical Decision Making - Medical Decision Making 05/24/18 07:32 due to delay in presenstaion, lac to hand superficial and mild swelling animal bite very high risk for infection. no sutures placed. soak twice daily, abx, and tetanus. no active bleeding in ed. *DC/Admit/Observation/Transfer Diagnosis at time of Disposition: Bitten by other birds, initial encounter - Discharge Dispostion Disposition: HOME Condition at time of disposition: Improved - Prescriptions Prescriptions: Amoxicillin/Potassium Clav [Augmentin 875-125 Tablet] 1 each PO BID #14 tablet - Referrals Referrals: Gunnar Mcneill MD [Primary Care Provider] - - Patient Instructions Printed Discharge Instructions: How to Care for a Domestic Animal Bite Additional Instructions: you should take augmentin 875mg twice daily x one week. follow up with your regular doctor. you should soak your hand in warm water with soap twice daily to reduce risk of infection. for rebleeding you should apply pressure for 20 min. any worsening redness, swelling or pain you should return immediately for repeat evaluation. - Post Discharge Activity
[2018-05-24] MEDS ORDERED: DIPHTH,PERTUSS(ACELL),TET 0.5 ML DISP.SYRIN IM ONE ×2 (07:36→07:43)
== END 2018-05-24 08:26 | disposition home or self-care (01) ==
LOC: FER 06:57
PROC: 3E0234Z Introduction of Serum, Toxoid and Vaccine into Muscle, Percutaneous Approach (ICD-10-PCS; principal; 2018-05-24)
DX: S61.251A Open bite of left index finger without damage to nail, initial encounter (principal); W61.91XA Bitten by other birds, initial encounter; Y93.89 Activity, other specified; Y92.89 Other specified places as the place of occurrence of the external cause; I48.91 Unspecified atrial fibrillation; I10 Essential (primary) hypertension; E78.5 Hyperlipidemia, unspecified
CPT/HCPCS: 90715; 99282-25

== ENCOUNTER 2018-07-22 10:19 | Emergency (ER) | payer OTHER, MEDICARE ==
--- NOTE | 2018-07-22 10:33 | PDOC ---
Attending Attestation - Resident Resident Name: Neville Plasencia - HPI HPI: 07/22/18 12:39 Pt presents to the ED complaining of ecchymosis to the forehead after mechanical trip and fall. Denies LOC. Denies chest or abdominal pain. Denies visual complaints. - Physicial Exam PE: 07/22/18 12:55 Agree with resident exam. Patient is alert and in no acute distress. + large ecchymosis to the forehead. CV: RRR no m/r/g pulm: CTA b/l abdomen: soft, non tender non distended without guarding or rebound. - Medical Decision Making 07/22/18 13:04 Pt presents to the ED complaining of ecchymosis to the forehead after trip and fall. CT head and C spine checked to evaluate for intracranial or cervical spinal injury and is negative. Will discharge home.
--- NOTE | 2018-07-22 10:33 | PDOC ---
History of Present Illness - General Stated Complaint: FALL Time Seen by Provider: 07/22/18 10:32 - History of Present Illness Initial Comments: 07/22/18 10:34 Ms. Jiménez is a 73 yo female w/ pmh of HTN, HLD, and afib (on Xarelto), who presents s/p fall earlier today. Patient reports she tripped over a vacuum housecleaner cable earlier today and landed "on her face." Currently complaining of 4 /10 facial pain. Denies any dizziness or weakness leading to fall and any loc after. Patient denies any other complaints at this time. The patient denies chest pain, shortness of breath, and dizziness. Denies fever , chills, nausea, vomit, diarrhea and constipation. Denies dysuria, frequency, urgency and hematuria. Past History - Past Medical History Allergies/Adverse Reactions: Allergies Allergy/AdvReac Type Severity Reaction Status Date / Time No Known Drug Allergies Allergy Verified 07/22/18 11:19 Home Medications: Ambulatory Orders Amiodarone HCl 200 mg PO DAILY 08/07/17 Ciprofloxacin [Cipro (Restricted To Id)] 500 mg PO Q12H 08/07/17 Citalopram Hydrobromide [Celexa -] 10 mg PO DAILY 08/07/17 Furosemide [Lasix] 20 mg PO DAILY 08/07/17 Gabapentin [Neurontin] 600 mg PO DAILY 08/07/17 Phenazopyridine HCl 100 mg PO TID 08/07/17 Pravastatin Sodium 10 mg PO DAILY 08/07/17 Rivaroxaban [Xarelto -] 20 mg PO DAILY 08/07/17 Valsartan 80 mg PO DAILY 08/07/17 Amoxicillin/Potassium Clav [Augmentin 875-125 Tablet] 1 each PO BID #14 tablet 05/24/18 Anemia: No Asthma: No Cancer: No Cardiac Disorders: Yes (AFIB) CVA: No COPD: No CHF: No Dementia: No Diabetes: No GI Disorders: No (GALLSTONE REMOVAL) Disorders: Yes (L KIDNEY STONE 05/2016) HTN: No Hypercholesterolemia: Yes Liver Disease: No Seizures: No Thyroid Disease: No - Surgical History Abdominal Surgery: No Appendectomy: No Cardiac Surgery: No Cholecystectomy: Yes Lung Surgery: No Neurologic Surgery: Yes (BACK SURGERY 09/2015 (Lumbar cervical spine sx)) Orthopedic Surgery: Yes (RIGHT TORN MENISCUS, R KNEE REPLACEMENT) - Immunization History Immunization Up to Date: Yes - Suicide/Smoking/Psychosocial Hx Smoking History: Never smoked Have you smoked in the past 12 months: No If you are a former smoker, when did you quit?: 1959 Hx Alcohol Use: No Drug/Substance Use Hx: No Substance Use Type: None Hx Substance Use Treatment: No Review of Systems - Review of Systems Comments:: 07/22/18 10:35 GENERAL/CONSTITUTIONAL: No fever or chills. No weakness. HEAD, EYES, EARS, NOSE AND THROAT: +Left facial pain as described. No change in vision. No ear pain or discharge. No sore throat. CARDIOVASCULAR: No chest pain or shortness of breath RESPIRATORY: No cough, wheezing, or hemoptysis. GASTROINTESTINAL: No nausea, vomiting, diarrhea or constipation. GENITOURINARY: No dysuria, frequency, or change in urination. MUSCULOSKELETAL: No joint or muscle swelling or pain. No neck or back pain. SKIN: No rash NEUROLOGIC: No headache, vertigo, loss of consciousness, or change in strength/ sensation. ENDOCRINE: No increased thirst. No abnormal weight change HEMATOLOGIC/LYMPHATIC: No anemia, easy bleeding, or history of blood clots. ALLERGIC/IMMUNOLOGIC: No hives or skin allergy. *Physical Exam - Physical Exam Comments: 07/22/18 10:35 GENERAL: Awake, alert, and fully oriented, in no acute distress HEAD: +Hematoma noted to L forehead / over L eye. EYES: PERRLA, EOMI, sclera anicteric, conjunctiva clear ENT: Auricles normal inspection, hearing grossly normal, nares patent, oropharynx clear without exudates. Moist mucosa NECK: Normal ROM, supple, no lymphadenopathy, JVD, or masses LUNGS: No distress, speaks full sentences, clear to auscultation bilaterally HEART: Regular rate and rhythm, normal S1 and S2, no murmurs, rubs or gallops, peripheral pulses normal and equal bilaterally. ABDOMEN: Soft, nontender, normoactive bowel sounds. No guarding, no rebound. No masses EXTREMITIES: Normal inspection, Normal range of motion, no edema. No clubbing or cyanosis. NEUROLOGICAL: Cranial nerves II through XII grossly intact. Normal speech, normal gait, no focal sensorimotor deficits SKIN: Warm, Dry, normal turgor, no rashes or lesions noted. Medical Decision Making - Medical Decision Making 07/22/18 12:12 Ms. Jiménez is a 73 yo female w/ pmh as described who presents s/p mechanical fall earlier today. Patient well appearing and reporting only mild pain at impact site. Patient refused pain medications. Patient evaluated with head, c- spine, and facial CT's with no concerning findings. Discharging patient to home w/ instructions to f/u outpatient with ophthalmology for further evaluation. No concern for acute process at this time. *DC/Admit/Observation/Transfer Diagnosis at time of Disposition: Fall Qualifiers: Encounter type: initial encounter Qualified Code(s): W19.XXXA - Unspecified fall, initial encounter - Discharge Dispostion Disposition: HOME - Referrals Referrals: Gunnar Mcneill MD [Primary Care Provider] - - Patient Instructions Printed Discharge Instructions: How to Prevent Falls Additional Instructions: You were evaluated today in the ER after your pain. We performed CT evaluation with no concerning findings. You are safe to follow-up with primary care provider and opthalmologist outpatient for further evaluation. Please return to ER if any fever, chills, altered mental status, or other concerning symptoms. - Post Discharge Activity
[2018-07-22 10:48] VITALS: BP 144/60; PULSE 56; TEMP 98.1; BMI 33.2
== END 2018-07-22 12:35 | disposition home or self-care (01) ==
LOC: JER 10:19
DX: S09.93XA Unspecified injury of face, initial encounter (principal); W01.0XXA Fall on same level from slipping, tripping and stumbling without subsequent striking against object, initial encounter; Y93.89 Activity, other specified; Y92.018 Other place in single-family (private) house as the place of occurrence of the external cause; Y99.8 Other external cause status; I10 Essential (primary) hypertension; E78.5 Hyperlipidemia, unspecified; I48.91 Unspecified atrial fibrillation; Z79.01 Long term (current) use of anticoagulants
CPT/HCPCS: 70450-TC; 70486-TC; 72125-TC; 99282-25

== ENCOUNTER 2019-01-26 14:20 | Inpatient (IN) | payer OTHER, MEDICARE ==
--- NOTE | 2019-01-26 15:10 | PDOC ---
History of Present Illness - General Chief Complaint: Injury Stated Complaint: FALL,RT JOINT PAIN - History of Present Illness Initial Comments: 01/26/19 15:23 73 yo F PMH afib (on Xarelto), HTN, HLD, left kidney stone s/p stent, E.coli ESBL UTI (05/2016), diverticulosis, s/p right TKR after torn R meniscus (03/2017 ), back surgery 09/2015 for lumbar cervical spine sx, presenting with fall after loss of balance. Per patient, she was standing up when she felt disequilibrium and fell over, hit her head and R side, then the floor. Specifically denies pre-syncopal episode or vertiginous symptoms, did not feel weak. Patient reports that she felt similar symptoms last month with a fall, but did not go to the ER then. She also reports that her prior visit here in July , reportedly mechanical after tripping, may have been the same loss of balance. Denies CP, SOB, abd pain, fevers/chills, focal neurological deficits, weakness, numbness, tingling, [place], N/V, constipation. Endorses 1 episode of diarrhea per day for the past 3 days. Patient extremely reluctant to stay, however, willing to stay after explanation of the potential seriousness of her symptoms. Past History - Past Medical History Allergies/Adverse Reactions: Allergies Allergy/AdvReac Type Severity Reaction Status Date / Time No Known Drug Allergies Allergy Verified 01/26/19 14:49 Home Medications: Ambulatory Orders Amiodarone HCl 200 mg PO DAILY 08/07/17 Citalopram Hydrobromide [Celexa -] 10 mg PO DAILY 08/07/17 Furosemide [Lasix] 20 mg PO DAILY 08/07/17 Gabapentin [Neurontin] 600 mg PO DAILY 08/07/17 Pravastatin Sodium 10 mg PO DAILY 08/07/17 Rivaroxaban [Xarelto -] 20 mg PO DAILY 08/07/17 Metoprolol Succinate 100 mg PO DAILY 01/26/19 Famotidine [Pepcid -] 40 mg PO DAILY 01/27/19 Telmisartan 20 mg PO DAILY 01/27/19 Anemia: No Asthma: No Cancer: No Cardiac Disorders: Yes (AFIB) CVA: No COPD: No CHF: No Dementia: No Diabetes: No GI Disorders: No (GALLSTONE REMOVAL) Disorders: Yes (L KIDNEY STONE 05/2016) HTN: No Hypercholesterolemia: Yes Liver Disease: No Seizures: No Thyroid Disease: No - Surgical History Abdominal Surgery: No Appendectomy: No Cardiac Surgery: No Cholecystectomy: Yes Lung Surgery: No Neurologic Surgery: Yes (BACK SURGERY 09/2015 (Lumbar cervical spine sx)) Orthopedic Surgery: Yes (RIGHT TORN MENISCUS, R KNEE REPLACEMENT) - Immunization History Immunization Up to Date: Yes - Psycho Social/Smoking Cessation Hx Smoking History: Never smoked Have you smoked in the past 12 months: No If you are a former smoker, when did you quit?: 1960 Hx Alcohol Use: No Drug/Substance Use Hx: No Substance Use Type: None Hx Substance Use Treatment: No Review of Systems - Review of Systems Comments:: 01/26/19 17:19 GENERAL/CONSTITUTIONAL: No fever or chills. No weakness. HEAD, EYES, EARS, NOSE AND THROAT: No change in vision. No ear pain or discharge. No sore throat. CARDIOVASCULAR: No chest pain or shortness of breath. RESPIRATORY: No cough, wheezing, or hemoptysis. GASTROINTESTINAL: No nausea, vomiting, diarrhea or constipation. GENITOURINARY: No dysuria, frequency, or change in urination. MUSCULOSKELETAL: No joint or muscle swelling or pain. No neck or back pain. SKIN: No rash NEUROLOGIC: Endorses loss of balance. No headache, vertigo, loss of consciousness, or change in strength/sensation. ENDOCRINE: No increased thirst. No abnormal weight change. HEMATOLOGIC/LYMPHATIC: No anemia, easy bleeding, or history of blood clots. ALLERGIC/IMMUNOLOGIC: No hives or skin allergy *Physical Exam - Vital Signs Last Vital Signs Temp Pulse Resp BP Pulse Ox 98.2 F 54 L 16 130/58 L 94 L 01/26/19 14:50 01/26/19 14:50 01/26/19 14:50 01/26/19 14:50 01/26/19 14:50 - Physical Exam Comments: 01/26/19 17:20 Gen: well-developed, well-nourished, NAD Neuro: AAOX4, CN II-XII intact, FTN intact, EOMI, PERRLA, 5/5 strength, SILT HEENT: atraumatic, normocephalic, dry mucous membranes Neck: trachea midline, supple CV: regular rate, regular rhythm, no murmurs, rubs, or gallops Pulm: CTA b/l, no wheezing Abd: soft, non-distended, non-tender MSK: full ROM, intact pulses Extr: no edema, no deformities Skin: warm, dry ED Treatment Course - LABORATORY CBC & Chemistry Diagram: 01/27/19 06:55 01/27/19 06:55 Medical Decision Making - Medical Decision Making 01/26/19 17:23 Patient with disequilibrium, three falls in last 6 months, concerning for TIAs vs spinal compression v brain bleed after fall. 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 CT cervical spine without fracture, but with C4-C5 anterolisthesis, multiple disc herniations. Will admit. 01/26/19 18:42 EKG normal sinus at 57 bpm. Discharge - Discharge Information Problems reviewed: Yes Clinical Impression/Diagnosis: Loss of balance Fall Qualifiers: Encounter type: initial encounter Qualified Code(s): W19.XXXA - Unspecified fall, initial encounter - Follow up/Referral - Patient Discharge Instructions - Post Discharge Activity
--- NOTE | 2019-01-26 16:33 | PDOC ---
Documentation entered by Jose Roberto Roe SCRIBE, acting as scribe for Keith Jefferson MD. Keith Jefferson MD: This documentation has been prepared by the [facility] Daniel, SCRIBE, under my direction and personally reviewed by me in its entirety. I confirm that the documentation accurately reflects all work, treatment, procedures, and medical decision making performed by me. Attending Attestation - Resident Resident Name: DunnCandede - ED Attending Attestation I have performed the following: I have examined & evaluated the patient, The case was reviewed & discussed with the resident, I agree w/resident's findings & plan - HPI HPI: 01/26/19 15:31 The patient is a 73 year old female with a past medical history of HTN, HLD, and afib (xarelto) here today for evaluation s/p fall. The patient reports that she felt dizzy today like she couldnt get her balance and fell. She denies any loss of consciousness. Reports h/o similar fall in the past, describing acute sense of imbalance followed by fall but no workup in the past. + head injury today, denies romero/vision change/focal deficit. pt called her daughter immediately after the fall and speech with clear. Patient denies headache. Denies fever, chills. Denies chest pain, shortness of breath. Denies nausea, vomiting, diarrhea, abdominal pain. Allergies: NKDA PCP: Gunnar Mcneill - Physicial Exam PE: 01/26/19 16:29 Vitals as noted, O2 sat 94% on room air Patient is alert and fully coherent, speaking full sentences without acute distress No head injury, C-spine nontender with full range of motion Heart is regular with 3 out of 6 right upper sternal border systolic ejection murmur, otherwise regular Lungs are clear Abdomen benign Neurologically intact - Medical Decision Making 01/26/19 16:30 73-year-old female with history of atrial fibrillation on anticoagulation presents with third episode over the last 5 months of acute imbalance followed by fall, positive head injury today, no loss of consciousness or focal neurological deficits before or after the fall. History could be concerning for TIA/CVA, particularly in the setting of atrial fibrillation and sense of imbalance, has baseline neuropathy/radiculopathy but the fall was clearly not mechanical. Labs, urinalysis EKG, chest x-ray CT head Likely admission for telemetry monitoring, consideration of MRI for posterior circulation ischemia NIH Stroke Scale - Last Known Well Date/Time & Onset Time Last Known Well: 14:00 - Initial Evaluation Level of consciousness: Alert Ask patient the month and their age: Answers both correctly Ask patient to open & close eyes; make fist and let go: Obeys both correctly Best gaze (horizontal eye movement): Normal Visual field testing: No visual field loss Facial paresis (Show teeth/raise eyebrows/close eyes tight): Normal symmetrical movement Motor Function: Left Arm: Normal Motor Function: Right Arm: Normal (extends arm 90 (or 45) degrees for 10 seconds without drift Motor Function: Left Leg: Normal (extends leg 30 degrees for 5 seconds without drift) Motor Function: Right Leg: Normal (extends leg 30 degrees for 5 seconds without drift) Limb Ataxia: No ataxia Sensory(Use pinprick test arms,legs,trunk,face/side to side): Normal Best language (Describe picture, name items, read sentences): No Aphasia Dysarthria (read several words): Normal articulation Extinction and Inattention: No abnormality - Total Score NIH Stroke Scale Score: 0
[2019-01-26 17:22] LABS: BASO % 0.7 % (0-2.0); EOS % 2.9 % (0-4.5); HEMATOCRIT 35.5 % (32.4-45.2); HEMOGLOBIN 11.7 GM/dL (10.7-15.3); LYMPH % 27.3 % (8-40); MCH 31.7 pg (25.7-33.7); MEAN PLT VOLUME 7.3 fl (7.5-11.1); MONO % 10.4 % (3.8-10.2); NEUT % 58.7 % (42.8-82.8); PLATELET COUNT 287 K/MM3 (134-434); RDW 14.1 % (11.6-15.6); WHITE BLOOD COUNT 8.2 K/mm3 (4.0-10.0)
[2019-01-26 17:40] LABS: MAGNESIUM 2.4 mg/dL (1.8-2.4); PHOSPHOROUS 2.6 mg/dL (2.5-4.9)
[2019-01-26 17:43] LABS: INR 1.47 (0.83-1.09); PROTHROMBIN TIME (PATIENT) 17.4 SEC (9.7-13.0)
[2019-01-26 17:46] LABS: ACTIVATED PTT 34.5 SECONDS (25.2-36.5)
[2019-01-26 18:10] LABS: ALBUMIN 3.3 g/dl (3.4-5.0); BILIRUBIN,TOTAL 0.4 mg/dL (0.2-1); BLOOD UREA NITROGEN 19.6 mg/dL (7-18); CALCIUM 9.3 mg/dL (8.5-10.1); CREATININE 1.1 mg/dL (0.55-1.3); POTASSIUM 3.8 mmol/L (3.5-5.1); TOT PROT 6.7 g/dl (6.4-8.2)
[2019-01-26] MEDS ORDERED: ACETAMINOPHEN 1000 MG/100 ML VIAL (NON FORMULARY) IVPB ONE (18:28)
[2019-01-26 18:43] LABS: EPI CELLS 6.9 /HPF (0-5/HPF); HYALINE CASTS 1 /lpf (0-8); URINE APPEARANCE CLEAR; URINE BACTERIA 19.4 /hpf (NEGATIVE); URINE BILIRUBIN NEGATIVE (NEGATIVE); URINE COLOR YELLOW; URINE GLUCOSE (UA) NEGATIVE (NEGATIVE); URINE KETONE TRACE (NEGATIVE); URINE LEUK ESTERASE 2+ (NEGATIVE); URINE NITRITE NEGATIVE (NEGATIVE); URINE PROTEIN TRACE (NEGATIVE); URINE RBC 2 /hpf (0-4); URINE WBC 16 /hpf (0-5)
[2019-01-26] MEDS ORDERED: ACETAMINOPHEN INJECTION 100 ML IVPB ONE (19:07)
--- NOTE | 2019-01-26 19:24 | PN ---
Teaching Attending Note Name of Resident: Polly Black ATTENDING PHYSICIAN STATEMENT I saw and evaluated the patient. I reviewed the resident's note and discussed the case with the resident. I agree with the resident's findings and plan as documented. SUBJECTIVE: Patient is a 73 year old woman with a PMH Afib (on Xarelto), HTN, HLD, Left corneal transplant, Bilateral cataract surgery, Left kidney stone (s/p stent), E.coli ESBL UTI (05/2016), Diverticulosis, Right TKR after torn R meniscus (2017) and Back surgery 09/2015 for lumbar cervical spine sx, presenting with fall after loss of balance. Per patient, she was standing up when she felt disequilibrium and fell over, hit her head and R side, then the floor. Specifically denies pre-syncopal episode or vertiginous symptoms, did not feel weak. Patient reports that she felt similar symptoms last month with a fall, but did not go to the ER then. She also reports that her prior visit here in July , reportedly mechanical after tripping, may have been the same loss of balance. Denies chest pain, SOB, Abdominal pain, fevers, chills, focal neurological deficits, weakness, numbness, tingling, headache, nausea, vomiting and constipation. Uses a cane and wheelchair. Has FH of emphysema. OBJECTIVE: Alert and not orthostatic Vital Signs Period Temp Pulse Resp BP Sys/Robbins Pulse Ox Last 24 Hr 97.9 F-98.2 F 54-58 16-17 130-138/43-58 94-98 HEENT: No Jaundice, eye redness or discharge, PERRLA, EOMI. Normocephalic, atraumatic. External ears are normal and hearing is grossly intact. No nasal discharge. Neck: Supple, nontender. No palpable adenopathy or thyromegaly. No JVD Chest: Good effort. Clear to auscultation and percussion. Heart: Regular. No S3, rub or murmur Abdomen: Not distended, soft, nontender and no HSM. No rebound or guarding. Normal bowel sounds. Ext: Peripheral pulses intact. No leg edema. Skin: Warm and dry. No petechiae, rash or ecchymosis. Neuro: Alert. Oriented x3. CN 2-12 grossly intact. Sensation grossly intact in all four extremities and DTR are symmetric. Psych: Appropriate mood and affect. Good insight. Home Medications Medication Instructions Recorded Amiodarone HCl 200 mg PO DAILY 08/07/17 Citalopram Hydrobromide [Celexa -] 10 mg PO DAILY 08/07/17 Furosemide [Lasix] 20 mg PO DAILY 08/07/17 Gabapentin [Neurontin] 600 mg PO DAILY 08/07/17 Pravastatin Sodium 10 mg PO DAILY 08/07/17 Rivaroxaban [Xarelto -] 20 mg PO DAILY 08/07/17 Valsartan 80 mg PO DAILY 08/07/17 Acyclovir [Zovirax -] 200 mg PO DAILY 01/26/19 Metoprolol Succinate 100 mg PO DAILY 01/26/19 Abnormal Lab Results 01/26/19 01/26/19 01/26/19 16:45 16:45 16:45 MPV 7.3 L D Monocytes % 10.4 H PT with INR 17.40 H INR 1.47 H BUN 19.6 H Albumin 3.3 L Urine Ketones Ur Leukocyte Esterase 01/26/19 18:20 MPV Monocytes % PT with INR INR BUN Albumin Urine Ketones Trace H Ur Leukocyte Esterase 2+ H ASSESSMENT AND PLAN: 1. Frequent falls/Ataxia/UTI - Etiology of frequent falls/ataxia is unclear. Head CT, C-spine CT and CXR didnot show any acute abnormality. EKG shows sinus bradycardia with no significant ST-T wave changes. Will reduce metoprolol dose to 75 mg po qd. Has features of UTI - will treat with IV Rocephin and IV NS. Will get a brain MRI/MRA after discussing with Neurology, carotid doppler, ECHO and hydrate gently. Consult PT. Consult cardiology to weigh in on the risk/ benefit of continued xarelto therapy in view of frequent falls. Will continue comprehensive care for all of patients comorbid conditions. 2. Hypoalbuminemia - Possibly due to combined effects of malnutrition and inflammation associated with comorbid chronic conditions. Will ensure adequate dietary protein intake and also consult optical design engineer. 3. Obesity Counseled on the risks associated with obesity. Will provide patient all the necessary assistance, counseling and positive reinforcement to facilitate weight loss. Consult optical design engineer. 4. Hypertension - Restart suitable outpatient antihypertensive drugs when clinically appropriate. Revise regimen to ensure [id number] excellent BP control and apprise counselor patient on the injurious effects of uncontrolled hypertension. Nonpharmacologic measures to control hypertension like weight loss , salt restriction and exercise discussed. Importance of adherence to treatment regimen and attainment of normotension emphasized. 5. DVT prophylaxis - On Xarelto 6. Advance directives - Full code
[2019-01-26] MEDS ORDERED: SODIUM CHLORIDE 1,000 ML IV SCH (21:45)
[2019-01-26] MEDS: metoPROLOL SUCCINATE 25 MG TAB.SR.24H (FP) PO SCH (22:27)
[2019-01-26] MEDS: RIVAROXABAN 20 MG TABLET PO SCH (22:27)
[2019-01-26] MEDS ORDERED: cefTRIAXone SODIUM 1 GM VIAL ONE (22:28)
[2019-01-26] MEDS ORDERED: DEXTROSE 5%-WATER - 50 ML IVPB ONE (22:29)
[2019-01-26] MEDS: CEFTRIAXONE 1 GM in DEXTROSE 5%-WATER - 50 ML IVPB SCH (22:33)
[2019-01-26 22:39] VITALS: BMI 33.1
--- NOTE | 2019-01-26 23:20 | HP ---
CHIEF COMPLAINT: Fall PCP: Dr. Mcneill HISTORY OF PRESENT ILLNESS: Pt is a 73 y/o f w/ pmhx of HTN, HLD, Afib (on xarelto and metoprolol), and severe spinal stenosis (lumbar and cervical) presenting to ED compaining of fall this afternoon. Pt reports she was cleaning the kitchen, bend over to fruit picker the floor mat and then upon returning upright, she felt like she lost her balance. She tried to grab the kitchen bar cart which was on wheels. It rolled out from under her causing her to fall on the right side of her arm and hit her head on the R part of the forehead. Pt denies losing counscioussnes but she did feel dizzy after the fall. Pt reports a total of 3 falls including this episode , within the past year. In July the pt was seen here in the ED for a fall that resulted in her hitting her head, and getting echymosis around her L eye. Pt denies ROCKWELL, fever, chills, N/V/D, CP, SOB, urinary or bowel incontinence, dysuria , or polyuria. Pt ECHO in 2017 showed an EF of 60%. Pt does have a chronic neck, back and leg pain and numbness and tingling on her LE. 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 Residence: Pt lives upstairs in 2 story building while daughter lives in the 1 st floor Ambulation: Pt uses a cane to ambulate but also has a wheelchair at home Fhx: Father: Emphysema; Mother: none Allergies No Known Drug Allergies Allergy (Verified 01/26/19 14:49) HOME MEDICATIONS: Home Medications Medication Instructions Recorded Amiodarone HCl 200 mg PO DAILY 08/07/17 Citalopram Hydrobromide [Celexa -] 10 mg PO DAILY 08/07/17 Furosemide [Lasix] 20 mg PO DAILY 08/07/17 Gabapentin [Neurontin] 600 mg PO DAILY 08/07/17 Pravastatin Sodium 10 mg PO DAILY 08/07/17 Rivaroxaban [Xarelto -] 20 mg PO DAILY 08/07/17 Valsartan 80 mg PO DAILY 08/07/17 Acyclovir [Zovirax -] 200 mg PO DAILY 01/26/19 Metoprolol Succinate 100 mg PO DAILY 01/26/19 REVIEW OF SYSTEMS CONSTITUTIONAL: Absent: fever, chills, diaphoresis, generalized weakness, malaise, loss of appetite, weight change HEENT: Absent: rhinorrhea, nasal congestion, throat pain, throat swelling, difficulty swallowing, mouth swelling, ear pain, eye pain, visual changes CARDIOVASCULAR: Absent: chest pain, syncope, palpitations, irregular heart rate, lightheadedness , peripheral edema RESPIRATORY: Absent: cough, shortness of breath, dyspnea with exertion, orthopnea, wheezing, stridor, hemoptysis GASTROINTESTINAL: Absent: abdominal pain, abdominal distension, nausea, vomiting, diarrhea, constipation, melena, hematochezia GENITOURINARY: Absent: dysuria, frequency, urgency, hesitancy, hematuria, flank pain, genital pain MUSCULOSKELETAL: Absent: myalgia, arthralgia, joint swelling, back pain, neck pain SKIN: Absent: rash, itching, pallor HEMATOLOGIC/IMMUNOLOGIC: Absent: easy bleeding, easy bruising, lymphadenopathy, frequent infections ENDOCRINE: Absent: unexplained weight gain, unexplained weight loss, heat intolerance, cold intolerance NEUROLOGIC: dizziness- pt reported she felt slightly dizzy after she fell but not before Absent: headache, focal weakness or paresthesias, unsteady gait, seizure, mental status changes, bladder or bowel incontinence PSYCHIATRIC: Absent: anxiety, depression, suicidal or homicidal ideation, hallucinations. PHYSICAL EXAMINATION Vital Signs - 24 hr 01/26/19 01/26/19 01/26/19 14:50 15:50 16:06 Temperature 98.2 F Pulse Rate 54 L Pulse Rate [ Right] Respiratory 16 Rate Blood Pressure 130/58 L Blood Pressure [Left Arm] O2 Sat by Pulse 94 L 97 98 Oximetry (%) 01/26/19 01/26/19 01/26/19 19:12 20:01 21:00 Temperature 97.9 F Pulse Rate Pulse Rate [ 58 L Right] Respiratory 17 17 17 Rate Blood Pressure Blood Pressure 138/43 L [Left Arm] O2 Sat by Pulse 97 97 97 Oximetry (%) 01/26/19 21:31 Temperature 98.1 F Pulse Rate 54 L Pulse Rate [ Right] Respiratory 22 H Rate Blood Pressure 135/62 Blood Pressure [Left Arm] O2 Sat by Pulse Oximetry (%) GENERAL: Awake, alert, and fully oriented, in no acute distress. NIHSS 0. Orthostatics negative (supine 127/55 (53), sitting 130/55 (58), standing 135/62 (54)). HEAD: Normal with no signs of trauma. EYES: Pupils equal, round and reactive to light, extraocular movements intact, sclera anicteric, conjunctiva clear. No lid lag. L corneal transplant with sutures intact. EARS, NOSE, THROAT: Ears normal, nares patent, oropharynx clear without exudates. Moist mucous membranes. NECK: Normal range of motion, supple without lymphadenopathy, JVD, or masses. LUNGS: Breath sounds equal, clear to auscultation bilaterally. No wheezes, and no crackles. No accessory muscle use. HEART: Regular rhythm, bradycardic, normal S1 and S2 without murmur. ABDOMEN: Soft, nontender, not distended, normoactive bowel sounds, no guarding, no rebound, no masses. No hepatomegaly or splenomegaly. MUSCULOSKELETAL: Normal range of motion at all joints. No bony deformities or tenderness. No CVA tenderness. UPPER EXTREMITIES: 2+ pulses, warm, well-perfused. No cyanosis. No clubbing. No peripheral edema. LOWER EXTREMITIES: 2+ pulses, warm, well-perfused. No calf tenderness. Trace peripheral edema bilaterally. NEUROLOGICAL: Cranial nerves II-XII intact. Normal speech. PSYCHIATRIC: Cooperative. Good eye contact. Appropriate mood and affect. SKIN: Warm, dry, normal turgor, no rashes or lesions noted, normal capillary refill. Laboratory Results - last 24 hr 01/26/19 01/26/19 01/26/19 16:45 16:45 16:45 WBC 8.2 RBC 3.70 Hgb 11.7 Hct 35.5 D MCV 96.0 MCH 31.7 MCHC 33.0 RDW 14.1 D Plt Count 287 D MPV 7.3 L D Absolute Neuts (auto) 4.8 Neutrophils % 58.7 Lymphocytes % 27.3 Monocytes % 10.4 H Eosinophils % 2.9 D Basophils % 0.7 Nucleated RBC % 0 PT with INR INR PTT (Actin FS) Sodium Potassium Chloride Carbon Dioxide Anion Gap BUN Creatinine Est GFR (CKD-EPI)AfAm Est GFR (CKD-EPI)NonAf Random Glucose Calcium Phosphorus 2.6 Magnesium 2.4 Total Bilirubin AST ALT Alkaline Phosphatase Creatine Kinase 140 Troponin I < 0.02 Total Protein Albumin Urine Color Urine Appearance Urine pH Ur Specific [place] Urine Protein Urine Glucose (UA) Urine Ketones Urine Blood Urine Nitrite Urine Bilirubin Urine Urobilinogen Ur Leukocyte Esterase Urine WBC (Auto) Urine RBC (Auto) Urine Casts (Auto) U Epithel Cells (Auto) Urine Bacteria (Auto) 01/26/19 01/26/19 01/26/19 16:45 16:45 18:20 WBC RBC Hgb Hct MCV MCH MCHC RDW Plt Count MPV Absolute Neuts (auto) Neutrophils % Lymphocytes % Monocytes % Eosinophils % Basophils % Nucleated RBC % PT with INR 17.40 H INR 1.47 H PTT (Actin FS) 34.5 Sodium 139 Potassium 3.8 Chloride 107 Carbon Dioxide 24 Anion Gap 8 BUN 19.6 H Creatinine 1.1 Est GFR (CKD-EPI)AfAm 57.28 Est GFR (CKD-EPI)NonAf 49.42 Random Glucose 77 Calcium 9.3 Phosphorus Magnesium Total Bilirubin 0.4 AST 34 ALT 25 Alkaline Phosphatase 86 Creatine Kinase Troponin I Total Protein 6.7 Albumin 3.3 L Urine Color Yellow Urine Appearance Clear Urine pH 7.0 Ur Specific [place] 1.024 Urine Protein Trace Urine Glucose (UA) Negative Urine Ketones Trace H Urine Blood Negative Urine Nitrite Negative Urine Bilirubin Negative Urine Urobilinogen 1.0 Ur Leukocyte Esterase 2+ H Urine WBC (Auto) 16 Urine RBC (Auto) 2 Urine Casts (Auto) 1 U Epithel Cells (Auto) 6.9 Urine Bacteria (Auto) 19.4 ASSESSMENT/PLAN: Pt is a 73 y/o f w/ pmhx of HTN, HLD, Afib (on xarelto and metoprolol), and severe spinal stenosis (lumbar and cervical) presenting to ED compaining of fall this afternoon. # Frequent falls vs. Ataxia - Etiology unclear, nay be mechanical vs. pathological. Head CT, C-spine CT and CXR did not show any acute abnormality. EKG shows sinus bradycardia with no significant ST-T wave changes. Orthostatic VS were negative. - Reduce metoprolol dose to 75 mg po qd, given pt's bradycardia - gentle hydration with IVNS @ 50cc/h - B12/ TSH - PT - Obtain MRI if pt is able, unclear whether she has metal in her from her various spinal surgeries> can help evaluate for evidence of stroke in the posterior circulation/ cerebellar region. - get a brain MRI/MRA after discussing with Neurology - Dr. Foote, neurology, consulted, appreciate recommendations - carotid doppler - ECHO - Consult cardiology to weigh in on the risk/benefit of continued xarelto therapy in view of frequent falls. # UTI - Pt has + U/A - will treat with IV Rocephin and IV NS. # HTN - must conform home meds - resume suitable outpt anti-HTN drugs when clinically appropriate # FEN - IV NS @ 50cc/ h - replete PRN - Na/ cholesterol controlled diet # PPx - DVT prophylaxis - continue home Xarelto 20D #Dispo- admit to med-surg, full code Visit type - Emergency Visit Emergency Visit: Yes ED Registration Date: 01/26/19 Care time: The patient presented to the Emergency Department on the above date and was hospitalized for further evaluation of their emergent condition. - New Patient This patient is new to me today: Yes Date on this admission: 01/27/19 - Critical Care Critical Care patient: No ATTENDING PHYSICIAN STATEMENT I saw and evaluated the patient. I reviewed the resident's note and discussed the case with the resident. I agree with the resident's findings and plan as documented. SUBJECTIVE: OBJECTIVE: ASSESSMENT AND PLAN:
[2019-01-27] MEDS: ACETAMINOPHEN 325 MG TABLET (FP) PO PRN ×2 (05:00→15:09)
[2019-01-27 07:23] LABS: BASO % 0.8 % (0-2.0); EOS % 3.9 % (0-4.5); HEMATOCRIT 31.4 % (32.4-45.2); HEMOGLOBIN 10.7 GM/dL (10.7-15.3); LYMPH % 27.2 % (8-40); MCH 32.2 pg (25.7-33.7); MCHC 34.1 g/dl (32.0-36.0); MEAN CELL VOLUME 94.5 fl (80-96); MEAN PLT VOLUME 6.9 fl (7.5-11.1); MONO % 11.6 % (3.8-10.2); NEUT % 56.5 % (42.8-82.8); PLATELET COUNT 242 K/MM3 (134-434); RBC 3.33 M/mm3 (3.60-5.2); RDW 13.9 % (11.6-15.6); WHITE BLOOD COUNT 5.7 K/mm3 (4.0-10.0)
[2019-01-27 08:07] LABS: ALBUMIN 2.8 g/dl (3.4-5.0); BILIRUBIN,TOTAL 0.4 mg/dL (0.2-1); BLOOD UREA NITROGEN 15.9 mg/dL (7-18); CALCIUM 8.4 mg/dL (8.5-10.1); MAGNESIUM 2.4 mg/dL (1.8-2.4); PHOSPHOROUS 2.6 mg/dL (2.5-4.9); POTASSIUM 4.1 mmol/L (3.5-5.1); TOT PROT 6.1 g/dl (6.4-8.2)
[2019-01-27] MEDS ORDERED: DEXTROSE 5%-WATER - 50 ML IVPB ONE (08:33)
[2019-01-27] MEDS ORDERED: cefTRIAXone SODIUM 1 GM VIAL ONE (08:33)
[2019-01-27] MEDS: CEFTRIAXONE 1 GM in DEXTROSE 5%-WATER - 50 ML IVPB SCH (09:01)
[2019-01-27] MEDS: metoPROLOL SUCCINATE 25 MG TAB.SR.24H (FP) PO SCH (09:01)
--- NOTE | 2019-01-27 09:26 | CONSULT ---
Consult - text type - Consultation Consultation Note: Neurology CHIEF COMPLAINT: Fall PCP: Dr. Mcneill HISTORY OF PRESENT ILLNESS: 73 y/o f w/ pmhx of HTN, HLD, Afib (on xarelto and metoprolol), and severe spinal stenosis (lumbar and cervical) presenting to ED compaining of fall tthe afternoon of admission. Pt reports she was cleaning the kitchen, bend over to garbage pick up man the floor mat and then upon returning upright, she felt like she lost her balance. She tried to grab the kitchen bar cart which was on wheels. It rolled out from under her causing her to fall on the right side of her arm and hit her head on the R part of the forehead. Pt denies losing counscioussnes but she did feel dizzy after the fall. Pt reports a total of 3 falls including this episode, within the past year. In July the pt was seen here in the ED for a fall that resulted in her hitting her head, and getting echymosis around her L eye. Pt denies ROCKWELL, fever, chills, N/V/D, CP, SOB, urinary or bowel incontinence, dysuria, or polyuria. Pt ECHO in 2017 showed an EF of 60%. Pt does have a chronic neck, back and leg pain and numbness and tingling on her LE. CT head completed and without any acute changes. 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 She does use a alker at home and reports prior fall was approximately 1.5 months ago. May benefit from physical therapy as well as possibly short- term rehabilitation. MRI brain ordered to evaluate for acute CVA. 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 Residence: Pt lives upstairs in 2 story building while daughter lives in the 1 st floor Ambulation: Pt uses a cane to ambulate but also has a wheelchair at home Fhx: Father: Emphysema; Mother: none Allergies No Known Drug Allergies Allergy (Verified 01/26/19 14:49) HOME MEDICATIONS: Home Medications Medication Instructions Recorded Amiodarone HCl 200 mg PO DAILY 08/07/17 Citalopram Hydrobromide [Celexa -] 10 mg PO DAILY 08/07/17 Furosemide [Lasix] 20 mg PO DAILY 08/07/17 Gabapentin [Neurontin] 600 mg PO DAILY 08/07/17 Pravastatin Sodium 10 mg PO DAILY 08/07/17 Rivaroxaban [Xarelto -] 20 mg PO DAILY 08/07/17 Valsartan 80 mg PO DAILY 08/07/17 Acyclovir [Zovirax -] 200 mg PO DAILY 01/26/19 Metoprolol Succinate 100 mg PO DAILY 01/26/19 REVIEW OF SYSTEMS CONSTITUTIONAL: Absent: fever, chills, diaphoresis, generalized weakness, malaise, loss of appetite, weight change HEENT: Absent: rhinorrhea, nasal congestion, throat pain, throat swelling, difficulty swallowing, mouth swelling, ear pain, eye pain, visual changes CARDIOVASCULAR: Absent: chest pain, syncope, palpitations, irregular heart rate, lightheadedness , peripheral edema RESPIRATORY: Absent: cough, shortness of breath, dyspnea with exertion, orthopnea, wheezing, stridor, hemoptysis GASTROINTESTINAL: Absent: abdominal pain, abdominal distension, nausea, vomiting, diarrhea, constipation, melena, hematochezia GENITOURINARY: Absent: dysuria, frequency, urgency, hesitancy, hematuria, flank pain, genital pain MUSCULOSKELETAL: Absent: myalgia, arthralgia, joint swelling, back pain, neck pain SKIN: Absent: rash, itching, pallor HEMATOLOGIC/IMMUNOLOGIC: Absent: easy bleeding, easy bruising, lymphadenopathy, frequent infections ENDOCRINE: Absent: unexplained weight gain, unexplained weight loss, heat intolerance, cold intolerance NEUROLOGIC: dizziness- pt reported she felt slightly dizzy after she fell but not before Absent: headache, focal weakness or paresthesias, unsteady gait, seizure, mental status changes, bladder or bowel incontinence PSYCHIATRIC: Absent: anxiety, depression, suicidal or homicidal ideation, hallucinations. PHYSICAL EXAMINATION Vital Signs - 24 hr 01/26/19 01/26/19 01/26/19 14:50 15:50 16:06 Temperature 98.2 F Pulse Rate 54 L Pulse Rate [ Right] Respiratory 16 Rate Blood Pressure 130/58 L Blood Pressure [Left Arm] O2 Sat by Pulse 94 L 97 98 Oximetry (%) 01/26/19 01/26/19 01/26/19 19:12 20:01 21:00 Temperature 97.9 F Pulse Rate Pulse Rate [ 58 L Right] Respiratory 17 17 17 Rate Blood Pressure Blood Pressure 138/43 L [Left Arm] O2 Sat by Pulse 97 97 97 Oximetry (%) 01/26/19 21:31 Temperature 98.1 F Pulse Rate 54 L Pulse Rate [ Right] Respiratory 22 H Rate Blood Pressure 135/62 Blood Pressure [Left Arm] O2 Sat by Pulse Oximetry (%) GENERAL: Awake, alert, and fully oriented, in no acute distress. NIHSS 0. Orthostatics negative (supine 127/55 (53), sitting 130/55 (58), standing 135/62 (54)). HEAD: Normal with no signs of trauma. EYES: Pupils equal, round and reactive to light, extraocular movements intact, sclera anicteric, conjunctiva clear. No lid lag. L corneal transplant with sutures intact. EARS, NOSE, THROAT: Ears normal, nares patent, oropharynx clear without exudates. Moist mucous membranes. NECK: Normal range of motion, supple without lymphadenopathy, JVD, or masses. LUNGS: Breath sounds equal, clear to auscultation bilaterally. No wheezes, and no crackles. No accessory muscle use. HEART: Regular rhythm, bradycardic, normal S1 and S2 without murmur. ABDOMEN: Soft, nontender, not distended, normoactive bowel sounds, no guarding, no rebound, no masses. No hepatomegaly or splenomegaly. MUSCULOSKELETAL: Normal range of motion at all joints. No bony deformities or tenderness. No CVA tenderness. UPPER EXTREMITIES: 2+ pulses, warm, well-perfused. No cyanosis. No clubbing. No peripheral edema. LOWER EXTREMITIES: 2+ pulses, warm, well-perfused. No calf tenderness. Trace peripheral edema bilaterally. NEUROLOGICAL: Cranial nerves II-XII intact. Normal speech. PSYCHIATRIC: Cooperative. Good eye contact. Appropriate mood and affect. SKIN: Warm, dry, normal turgor, no rashes or lesions noted, normal capillary refill. Laboratory Results - last 24 hr 01/26/19 01/26/19 01/26/19 16:45 16:45 16:45 WBC 8.2 RBC 3.70 Hgb 11.7 Hct 35.5 D MCV 96.0 MCH 31.7 MCHC 33.0 RDW 14.1 D Plt Count 287 D MPV 7.3 L D Absolute Neuts (auto) 4.8 Neutrophils % 58.7 Lymphocytes % 27.3 Monocytes % 10.4 H Eosinophils % 2.9 D Basophils % 0.7 Nucleated RBC % 0 PT with INR INR PTT (Actin FS) Sodium Potassium Chloride Carbon Dioxide Anion Gap BUN Creatinine Est GFR (CKD-EPI)AfAm Est GFR (CKD-EPI)NonAf Random Glucose Calcium Phosphorus 2.6 Magnesium 2.4 Total Bilirubin AST ALT Alkaline Phosphatase Creatine Kinase 140 Troponin I < 0.02 Total Protein Albumin Urine Color Urine Appearance Urine pH Ur Specific [place] Urine Protein Urine Glucose (UA) Urine Ketones Urine Blood Urine Nitrite Urine Bilirubin Urine Urobilinogen Ur Leukocyte Esterase Urine WBC (Auto) Urine RBC (Auto) Urine Casts (Auto) U Epithel Cells (Auto) Urine Bacteria (Auto) 01/26/19 01/26/19 01/26/19 16:45 16:45 18:20 WBC RBC Hgb Hct MCV MCH MCHC RDW Plt Count MPV Absolute Neuts (auto) Neutrophils % Lymphocytes % Monocytes % Eosinophils % Basophils % Nucleated RBC % PT with INR 17.40 H INR 1.47 H PTT (Actin FS) 34.5 Sodium 139 Potassium 3.8 Chloride 107 Carbon Dioxide 24 Anion Gap 8 BUN 19.6 H Creatinine 1.1 Est GFR (CKD-EPI)AfAm 57.28 Est GFR (CKD-EPI)NonAf 49.42 Random Glucose 77 Calcium 9.3 Phosphorus Magnesium Total Bilirubin 0.4 AST 34 ALT 25 Alkaline Phosphatase 86 Creatine Kinase Troponin I Total Protein 6.7 Albumin 3.3 L Urine Color Yellow Urine Appearance Clear Urine pH 7.0 Ur Specific [place] 1.024 Urine Protein Trace Urine Glucose (UA) Negative Urine Ketones Trace H Urine Blood Negative Urine Nitrite Negative Urine Bilirubin Negative Urine Urobilinogen 1.0 Ur Leukocyte Esterase 2+ H Urine WBC (Auto) 16 Urine RBC (Auto) 2 Urine Casts (Auto) 1 U Epithel Cells (Auto) 6.9 Urine Bacteria (Auto) 19.4 ASSESSMENT/PLAN: 73 y/o f w/ pmhx of HTN, HLD, Afib (on xarelto and metoprolol), and severe spinal stenosis (lumbar and cervical) presenting to ED compaining of fall tthe afternoon of admission. Pt reports she was cleaning the kitchen, bend over to garbage pick up man the floor mat and then upon returning upright, she felt like she lost her balance. She tried to grab the kitchen bar cart which was on wheels. It rolled out from under her causing her to fall on the right side of her arm and hit her head on the R part of the forehead. Pt denies losing counscioussnes but she did feel dizzy after the fall. Pt reports a total of 3 falls including this episode, within the past year. In July the pt was seen here in the ED for a fall that resulted in her hitting her head, and getting echymosis around her L eye. Pt denies R[place]LL, fever, chills, N/V/D, CP, SOB, urinary or bowel incontinence, dysuria, or polyuria. Pt ECHO in 2017 showed an EF of 60%. Pt does have a chronic neck, back and leg pain and numbness and tingling on her LE. CT head completed and without any acute changes. 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 She does use a alker at home and reports prior fall was approximately 1.5 months ago. May benefit from physical therapy as well as possibly short- term rehabilitation. MRI brain ordered to evaluate for CVA. Maintain adequate hydration, fall precautions recommended. UA also positive, treated underlying infection. Monitor blood ppressure, maintain normotensive range. Remains on anticoagulation for atrial fibrillation, may need to reevaluate in the future if patient with recurrent falls.
--- NOTE | 2019-01-27 09:53 | EKG ---
Test Reason : Blood Pressure : / mmHG Vent. Rate : 057 BPM Atrial Rate : 057 BPM P-R Int : 180 ms QRS Dur : 082 ms QT Int : 488 ms P-R-T Axes : 044 032 029 degrees QTc Int : 474 ms SINUS BRADYCARDIA SEPTAL INFARCT , AGE UNDETERMINED ABNORMAL ECG WHEN COMPARED WITH ECG OF 02-JUL-2017 14:17, SINUS RHYTHM HAS REPLACED ATRIAL FIBRILLATION VENT. RATE HAS DECREASED BY 84 BPM NONSPECIFIC T WAVE ABNORMALITY, IMPROVED IN INFERIOR LEADS NONSPECIFIC T WAVE ABNORMALITY NO LONGER EVIDENT IN LATERAL LEADS Confirmed by MD PATRICE, YOLY ([id number]) on 01/27/2019 9:53:21 AM Referred By: Confirmed By:YOLY IBRAHIM MD
--- NOTE | 2019-01-27 12:24 | ECHO ---
Version: 1 Name: TANNA LOVE Exam: Adult Echocardiogram Study Date: 01/27/2019, 10:03 AM Age: 73 Years Left Ventricle The left ventricular size, thickness and function are normal. Ejection Fraction = 65-70%. The transm itral spectral Doppler flow pattern is suggestive of impaired LV relaxation. Right Ventricle The right ventricle is normal in size and function. Atria The left atrium is borderline dilated. Right atrial size is normal. Mitral Valve There is moderate mitral annular calcification. Calcified mitral apparatus. There is trace mitral regurgitation. Tricuspid Valve The tricuspid valve is not well visualized, but is grossly normal. There is mild tricuspid regurgita tion. Right ventricular systolic pressure is 32 mmhg. Assuming the RA pressure is 5 mmHg. Aortic Valve Fibrocalcfied aortic valvue without stenosis. Pulmonic Valve The pulmonic valve is not well seen, but is grossly normal. Great Vessels The aortic root is normal size. Pericardium/Pleura There is no pericardial effusion. Summary Statements The left ventricular size, thickness and function are normal The right ventricle is normal in size and function. The left atrium is borderline dilated. Right atrial size is normal. Fibrocalcfied aortic valvue without stenosis. There is moderate mitral annular calcification. Calcified mitral apparatus. There is trace mitral regurgitation. MD Agnieszka Ward01/27/2019, 12:23 PM Ordering Physician: MIGUEL ANGEL CERNA Performed By: Rand Palomo
--- NOTE | 2019-01-27 14:32 | PN ---
Teaching Attending Note Name of Resident: Tj Prasad ATTENDING PHYSICIAN STATEMENT I saw and evaluated the patient. I reviewed the resident's note and discussed the case with the resident. I agree with the resident's findings and plan as documented with exceptions below. SUBJECTIVE: Patient seen and examined, No pain or complaints. Denies any dizziness, chest pain, palpitations, dyspnea or concerns around the fall. OBJECTIVE: Vital Signs Period Temp Pulse Resp BP Sys/Robbins Pulse Ox Last 24 Hr 97.9 F-98.2 F 50-58 16-22 130-138/43-77 94-98 Intake & Output 01/24/19 01/25/19 01/26/19 01/27/19 23:59 23:59 23:59 23:59 Intake Total 100 350 Balance 100 350 Weight 169 lb 9.6 oz General: sitting in bed in no acute distress Neck: soft, supple Chest: CTAB, no rales or wheezing Abdomen:Soft, NT, ND, pos bowel sounds Extremities: no edema Back: no spinal tenderness, SLR negative Home Medications Medication Instructions Recorded Amiodarone HCl 200 mg PO DAILY 08/07/17 Citalopram Hydrobromide [Celexa -] 10 mg PO DAILY 08/07/17 Furosemide [Lasix] 20 mg PO DAILY 08/07/17 Gabapentin [Neurontin] 600 mg PO DAILY 08/07/17 Pravastatin Sodium 10 mg PO DAILY 08/07/17 Rivaroxaban [Xarelto -] 20 mg PO DAILY 08/07/17 Valsartan 80 mg PO DAILY 08/07/17 Acyclovir [Zovirax -] 200 mg PO DAILY 01/26/19 Metoprolol Succinate 100 mg PO DAILY 01/26/19 Active Medications Acetaminophen (Tylenol -) 650 mg PO Q6H PRN PRN Reason: HEADACHE Last Admin: 01/27/19 05:00 Dose: 650 mg Ceftriaxone Sodium 1 gm/ (Dextrose) 50 mls @ 100 mls/hr IVPB DAILY JUMANA; Protocol Last Admin: 01/27/19 09:01 Dose: 100 mls/hr Sodium Chloride (Normal Saline -) 1,000 mls @ 50 mls/hr IV ASDIR JUMANA Stop: 01/27/19 21:39 Last Admin: 01/26/19 22:32 Dose: 50 mls/hr Metoprolol Succinate (Toprol Xl -) 75 mg PO DAILY [facility] Last Admin: 01/27/19 09:01 Dose: 75 mg Rivaroxaban (Xarelto) 20 mg PO DAILY@1800 [facility] Last Admin: 01/26/19 22:27 Dose: Not Given Laboratory Results - last 24 hr 01/26/19 01/26/19 01/26/19 16:45 16:45 16:45 WBC 8.2 RBC 3.70 Hgb 11.7 Hct 35.5 D MCV 96.0 MCH 31.7 MCHC 33.0 RDW 14.1 D Plt Count 287 D MPV 7.3 L D Absolute Neuts (auto) 4.8 Neutrophils % 58.7 Lymphocytes % 27.3 Monocytes % 10.4 H Eosinophils % 2.9 D Basophils % 0.7 Nucleated RBC % 0 PT with INR INR PTT (Actin FS) Sodium Potassium Chloride Carbon Dioxide Anion Gap BUN Creatinine Est GFR (CKD-EPI)AfAm Est GFR (CKD-EPI)NonAf Random Glucose Calcium Phosphorus 2.6 Magnesium 2.4 Total Bilirubin AST ALT Alkaline Phosphatase Creatine Kinase 140 Troponin I < 0.02 Total Protein Albumin Vitamin B12 TSH Urine Color Urine Appearance Urine pH Ur Specific [place] Urine Protein Urine Glucose (UA) Urine Ketones Urine Blood Urine Nitrite Urine Bilirubin Urine Urobilinogen Ur Leukocyte Esterase Urine WBC (Auto) Urine RBC (Auto) Urine Casts (Auto) U Epithel Cells (Auto) Urine Bacteria (Auto) 01/26/19 01/26/19 01/26/19 16:45 16:45 18:20 WBC RBC Hgb Hct MCV MCH MCHC RDW Plt Count MPV Absolute Neuts (auto) Neutrophils % Lymphocytes % Monocytes % Eosinophils % Basophils % Nucleated RBC % PT with INR 17.40 H INR 1.47 H PTT (Actin FS) 34.5 Sodium 139 Potassium 3.8 Chloride 107 Carbon Dioxide 24 Anion Gap 8 BUN 19.6 H Creatinine 1.1 Est GFR (CKD-EPI)AfAm 57.28 Est GFR (CKD-EPI)NonAf 49.42 Random Glucose 77 Calcium 9.3 Phosphorus Magnesium Total Bilirubin 0.4 AST 34 ALT 25 Alkaline Phosphatase 86 Creatine Kinase Troponin I Total Protein 6.7 Albumin 3.3 L Vitamin B12 TSH Urine Color Yellow Urine Appearance Clear Urine pH 7.0 Ur Specific [place] 1.024 Urine Protein Trace Urine Glucose (UA) Negative Urine Ketones Trace H Urine Blood Negative Urine Nitrite Negative Urine Bilirubin Negative Urine Urobilinogen 1.0 Ur Leukocyte Esterase 2+ H Urine WBC (Auto) 16 Urine RBC (Auto) 2 Urine Casts (Auto) 1 U Epithel Cells (Auto) 6.9 Urine Bacteria (Auto) 19.4 01/27/19 01/27/19 01/27/19 06:55 06:55 06:55 WBC 5.7 RBC 3.33 L Hgb 10.7 Hct 31.4 L MCV 94.5 MCH 32.2 MCHC 34.1 RDW 13.9 Plt Count 242 MPV 6.9 L Absolute Neuts (auto) 3.2 Neutrophils % 56.5 Lymphocytes % 27.2 Monocytes % 11.6 H Eosinophils % 3.9 Basophils % 0.8 Nucleated RBC % 0 PT with INR INR PTT (Actin FS) Sodium 138 Potassium 4.1 Chloride 108 H Carbon Dioxide 25 Anion Gap 5 L BUN 15.9 Creatinine 1.0 Est GFR (CKD-EPI)AfAm 64.27 Est GFR (CKD-EPI)NonAf 55.45 Random Glucose 81 Calcium 8.4 L Phosphorus 2.6 Magnesium 2.4 Total Bilirubin 0.4 AST 21 ALT 19 Alkaline Phosphatase 65 Creatine Kinase Troponin I Total Protein 6.1 L Albumin 2.8 L Vitamin B12 435 TSH 2.16 Urine Color Urine Appearance Urine pH Ur Specific [place] Urine Protein Urine Glucose (UA) Urine Ketones Urine Blood Urine Nitrite Urine Bilirubin Urine Urobilinogen Ur Leukocyte Esterase Urine WBC (Auto) Urine RBC (Auto) Urine Casts (Auto) U Epithel Cells (Auto) Urine Bacteria (Auto) ASSESSMENT AND PLAN: 73 yof with PMHx of Afib (on Xarelto), HTN, HLD, Left corneal transplant, Bilateral cataract surgery, Left kidney stone (s/p stent), E.coli ESBL UTI (2016), Diverticulosis, Right TKR after torn R meniscus (03/2017) and Back surgery 09/2015 for lumbar cervical spine sx admitted with Falls -Mechanical fall -H/o recurrent falls -Lower uncomplicated UTI -Sinus bradycardia -Atrial fibrillation on xarelto -Spinal stenosis (Lumbar/cervical) -h/o ESBL UTI -HTN -HLD -Left Corneal transplant/Bilateral cataract surgery -Left kidney stone s/p PCI Plan: Fall precautions, PT eval Patient confirms mechanical fall, no prodrome, dizziness or concerns. Sinus bradycardia on EKG but low suspicion that is contributory to current symptoms. Given recurrent falls, on AC and above, cardiology input Dr. Balbuena. 2D echo/carotid duplex noted. Neurology input noted MRI brain ordered, however patient with non concerning neurological exam, also ? metal hardware in spine. Unlikely will change patient management, will follow up. ceftriaxone, follow up urine cultures. Metoprolol decreased, lasix on hold, gentle hydration. resume losartan. Home with services vs SNF in 24-48 hours if no new concerns. discussed with patient and grand son at bedside in detail, all questions answered.
--- NOTE | 2019-01-27 15:00 | CON.CARD ---
Consult Consult Specialty:: Cardiology Referred by:: Dr. Nuñez Reason for Consultation:: History of Atrial fibrillation - History of Present Illness Chief Complaint: Fall History of Present Illness: 73 year old female with a past medical history of HTN, HLD, and afib (xarelto) here today for evaluation s/p fall. The patient reports that she felt dizzy today like she couldnt get her balance and fell. She denies any loss of consciousness. Reports h/o similar fall in the past, describing acute sense of imbalance followed by fall but no workup in the past. + head injury today, denies romero/vision change/focal deficit. pt called her daughter immediately after the fall and speech with clear. Patient denies headache. Denies fever, chills. Denies chest pain, shortness of breath. Denies nausea, vomiting, diarrhea, abdominal pain. Patient has a hx of PAF, [id number] score = 3. She has been on AC, but has reported prior falls. We have had discussions in the office about possibly discontinuing her AC, but she has wanted to continue stating she had no recent falls. We have also discussed the WATCHMAN procedure, but she declined. She denies antecedent chest pain, SOB, palps. No LOC. No focal neuro deficits. Head CT negative. - History Source History Provided By: Patient - Past Medical History CAT SITTER: Yes: Other (spinal stenosis) Cardio/Vascular: Yes: HTN, Hyperlipdemia, Other (PSVT) ...: No Psych: Yes: Anxiety Musculoskeletal: Yes: Chronic low back pain - Alcohol/Substance Use Hx Alcohol Use: No - Smoking History Smoking history: Never smoked Have you smoked in the past 12 months: No If you are a former smoker, when did you quit?: 1959 - Social History Usual Living Arrangement: With Spouse ADL: Independent History of Recent Travel: No Home Medications - Allergies Allergies/Adverse Reactions: Allergies Allergy/AdvReac Type Severity Reaction Status Date / Time No Known Drug Allergies Allergy Verified 01/26/19 14:49 - Home Medications Home Medications: Ambulatory Orders Amiodarone HCl 200 mg PO DAILY 08/07/17 Citalopram Hydrobromide [Celexa -] 10 mg PO DAILY 08/07/17 Furosemide [Lasix] 20 mg PO DAILY 08/07/17 Gabapentin [Neurontin] 600 mg PO DAILY 08/07/17 Pravastatin Sodium 10 mg PO DAILY 08/07/17 Rivaroxaban [Xarelto -] 20 mg PO DAILY 08/07/17 Valsartan 80 mg PO DAILY 08/07/17 Acyclovir [Zovirax -] 200 mg PO DAILY 01/26/19 Metoprolol Succinate 100 mg PO DAILY 01/26/19 Famotidine [Pepcid -] 40 mg PO DAILY 01/27/19 Telmisartan 20 mg PO DAILY 01/27/19 Family Medical History Family History: Unremarkable (not pertinent to this presentation.) Review of Systems - Review of Systems Constitutional: reports: No Symptoms Eyes: reports: No Symptoms HENT: reports: No Symptoms Neck: reports: No Symptoms Cardiovascular: reports: No Symptoms Respiratory: reports: No Symptoms Gastrointestinal: reports: No Symptoms Genitourinary: reports: No Symptoms Breasts: reports: No Symptoms Reported Musculoskeletal: reports: No Symptoms Integumentary: reports: No Symptoms Neurological: reports: Unsteady Gait Endocrine: reports: No Symptoms Hematology/Lymphatic: reports: No Symptoms Psychiatric: reports: No Symptoms - Risk Factors Known Risk Factors: Yes: Hypertension Vital Signs: Vital Signs Temperature 98.2 F 01/27/19 09:00 Pulse Rate 50 L 01/27/19 09:00 Respiratory Rate 20 01/27/19 09:00 Blood Pressure 136/55 L 01/27/19 09:00 O2 Sat by Pulse Oximetry (%) 98 01/27/19 09:00 Constitutional: Yes: No Distress Respiratory: Yes: CTA Bilaterally Gastrointestinal: Yes: Soft Cardiovascular: Yes: Regular Rate and Rhythm JVD: No Carotid Bruit: No Heart Sounds: Yes: S1, S2 Edema: No Peripheral Pulses WNL: Yes Neurological: Yes: Alert, Oriented ...Motor Strength: WNL - Other Data Labs, Other Data: CBC, BMP 01/27/19 06:55 01/27/19 06:55 INR, PTT INR 1.47 (0.83-1.09) H 01/26/19 16:45 Troponin, BNP 01/26/19 16:45 Troponin I < 0.02 Troponin, BNP 01/26/19 16:45 Troponin I < 0.02 Laboratory Tests 01/26/19 01/26/19 01/26/19 16:45 16:45 18:20 WBC Hgb Plt Count PT with INR 17.40 H INR 1.47 H PTT (Actin FS) 34.5 Sodium Potassium Creatinine AST ALT Alkaline Phosphatase Creatine Kinase 140 Troponin I < 0.02 TSH Urine Appearance Clear Urine pH 7.0 Ur Specific [place] 1.024 Urine Ketones Trace H Urine Blood Negative Urine Nitrite Negative Urine Bilirubin Negative Ur Leukocyte Esterase 2+ H Urine WBC (Auto) 16 01/27/19 01/27/19 06:55 06:55 WBC 5.7 Hgb 10.7 Plt Count 242 PT with INR INR PTT (Actin FS) Sodium 138 Potassium 4.1 Creatinine 1.0 AST 21 ALT 19 Alkaline Phosphatase 65 Creatine Kinase Troponin I TSH 2.16 Urine Appearance Urine pH Ur Specific [place] Urine Ketones Urine Blood Urine Nitrite Urine Bilirubin Ur Leukocyte Esterase Urine WBC (Auto) Sinus [place] 57bpm. Echo: Report Reviewed (Normal LVEF. AVS) Imaging - Results Cat Scan: Image Reviewed EKG: Image Reviewed Assessment/Plan IMP: Paroxysmal atrial fibrillation, with [id number] score = 3 Hypertension Spinal stenosis Recurrent falls REC: 1. Holter 2. Orthostatics 3. While full AC is indicated ([id number] =3), decision to continue is difficult given her multiple falls. She has been evaluated by PT here and deemed a high falls risk, but with supervised use of a rolling walker she demonstrated no loss of balance or gait instability. Will d/w daughter and PMD Dr. Mcneill. If she has support at home and can reliably and consistently use the rolling walker, we may be able to continue AC. If this is not feasible, or if she cannot do this reliably at home, then modification to ASA therapy alone would be best option. We have discussed WATCHMAN procedure, and she declined. 4. Clarify home meds, resume Amiodarone if she was on it at home. Will follow. Thanks.
[2019-01-27] MEDS: RIVAROXABAN 20 MG TABLET PO SCH (17:00)
[2019-01-27] MEDS: AMIODARONE HCL 200 MG TABLET (FP) PO SCH (17:14)
--- NOTE | 2019-01-27 18:15 | PN ---
Physical Exam: SUBJECTIVE: Patient seen and examined Denies urinary pain, or burning. Expresses desire to go home. OBJECTIVE: Vital Signs Period Temp Pulse Resp BP Sys/Robbins Pulse Ox Last 24 Hr 97.9 F-98.2 F 50-63 17-22 122-142/43-78 97-98 GENERAL: The patient is awake, alert, and fully oriented, in no acute distress. HEAD: NC/AT, no signs of scalp hematoma EYES: sclera anicteric, conjunctiva clear. No ptosis. ENT: Ears normal, nares patent, moist mucous membranes. Nasal septum midline NECK: Trachea midline, full range of motion, supple. LUNGS: Breath sounds equal, clear to auscultation bilaterally, no wheezes, no crackles, no accessory muscle use. HEART: Regular rate and rhythm, S1, S2 without murmur, rub or gallop. ABDOMEN: Soft, nontender, nondistended, no guarding, no rebound. EXTREMITIES: 2+ pulses, warm, well-perfused, no edema. NEUROLOGICAL: Cranial nerves II through XII grossly intact. Normal speech, gait not observed. Standing upright w/o ataxia. Normal finger to nose-exam. PSYCH: Normal mood, normal affect. SKIN: Warm, dry, normal turgor, no rashes or lesions noted Laboratory Results - last 24 hr 01/26/19 01/26/19 01/27/19 16:45 18:20 06:55 WBC 5.7 RBC 3.33 L Hgb 10.7 Hct 31.4 L MCV 94.5 MCH 32.2 MCHC 34.1 RDW 13.9 Plt Count 242 MPV 6.9 L Absolute Neuts (auto) 3.2 Neutrophils % 56.5 Lymphocytes % 27.2 Monocytes % 11.6 H Eosinophils % 3.9 Basophils % 0.8 Nucleated RBC % 0 Sodium 139 Potassium 3.8 Chloride 107 Carbon Dioxide 24 Anion Gap 8 BUN 19.6 H Creatinine 1.1 Est GFR (CKD-EPI)AfAm 57.28 Est GFR (CKD-EPI)NonAf 49.42 Random Glucose 77 Calcium 9.3 Phosphorus Magnesium Total Bilirubin 0.4 AST 34 ALT 25 Alkaline Phosphatase 86 Total Protein 6.7 Albumin 3.3 L Vitamin B12 TSH Urine Color Yellow Urine Appearance Clear Urine pH 7.0 Ur Specific [place] 1.024 Urine Protein Trace Urine Glucose (UA) Negative Urine Ketones Trace H Urine Blood Negative Urine Nitrite Negative Urine Bilirubin Negative Urine Urobilinogen 1.0 Ur Leukocyte Esterase 2+ H Urine WBC (Auto) 16 Urine RBC (Auto) 2 Urine Casts (Auto) 1 U Epithel Cells (Auto) 6.9 Urine Bacteria (Auto) 19.4 01/27/19 01/27/19 06:55 06:55 WBC RBC Hgb Hct MCV MCH MCHC RDW Plt Count MPV Absolute Neuts (auto) Neutrophils % Lymphocytes % Monocytes % Eosinophils % Basophils % Nucleated RBC % Sodium 138 Potassium 4.1 Chloride 108 H Carbon Dioxide 25 Anion Gap 5 L BUN 15.9 Creatinine 1.0 Est GFR (CKD-EPI)AfAm 64.27 Est GFR (CKD-EPI)NonAf 55.45 Random Glucose 81 Calcium 8.4 L Phosphorus 2.6 Magnesium 2.4 Total Bilirubin 0.4 AST 21 ALT 19 Alkaline Phosphatase 65 Total Protein 6.1 L Albumin 2.8 L Vitamin B12 435 TSH 2.16 Urine Color Urine Appearance Urine pH Ur Specific [place] Urine Protein Urine Glucose (UA) Urine Ketones Urine Blood Urine Nitrite Urine Bilirubin Urine Urobilinogen Ur Leukocyte Esterase Urine WBC (Auto) Urine RBC (Auto) Urine Casts (Auto) U Epithel Cells (Auto) Urine Bacteria (Auto) Active Medications Generic Name Dose Route Start Last Admin Trade Name Freq PRN Reason Stop Dose Admin Acetaminophen 650 mg 01/27/19 04:54 01/27/19 15:09 Tylenol - PO 650 mg Q6H PRN Administration HEADACHE Amiodarone HCl 200 mg 01/27/19 15:45 01/27/19 17:14 Cordarone - PO 200 mg DAILY JUMANA Administration Atorvastatin Calcium 10 mg 01/27/19 22:00 Lipitor - PO HS JUMANA Citalopram Hydrobromide 10 mg 01/28/19 10:00 Celexa - PO DAILY JUMANA Famotidine 40 mg 01/28/19 10:00 Pepcid - PO DAILY JUMANA Gabapentin 600 mg 01/28/19 10:00 Neurontin - PO DAILY JUMANA Ceftriaxone Sodium 1 gm/ 50 mls @ 100 mls/hr 01/26/19 21:45 01/27/19 09:01 Dextrose IVPB 100 mls/hr DAILY JUMANA Administration Protocol Metoprolol Succinate 75 mg 01/26/19 21:45 01/27/19 09:01 Toprol Xl - PO 75 mg DAILY JUMANA Administration Rivaroxaban 20 mg 01/26/19 21:45 01/27/19 17:00 Xarelto PO 20 mg DAILY@1800 [facility] Administration Valsartan 80 mg 01/28/19 10:00 Diovan - PO DAILY [facility] ASSESSMENT/PLAN: 73 y/o f w/ pmhx of HTN, HLD, Afib(on xarelto and metoprolol), and severe spinal stenosis (lumbar and cervical) presenting to ED compaining of fall after losing balance. Denies symptoms presently # Frequent falls vs. Ataxia - Etiology unclear, nay be mechanical vs. pathological. Head CT, C-spine CT and CXR did not show any acute abnormality. EKG shows sinus bradycardia with no significant ST-T wave changes. Orthostatic VS were negative. 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 Rec outpt NSX > MRI/MRA brain --pending > Carotid Doppler(01/27/19): neg for signif stenosis > Echo(01/27/19): LVEF 65-70%, borderline dilated LA, RVSP 32mmHg > B12 435 > TSH 2.16 - PT: 150ft w/ RW - Reduce metoprolol dose to 75 mg po qd, given pt's bradycardia - Dr. Foote, neurology, consulted, appreciate recommendations --fall precautions --PT, STR - Cardio(Francescone) consult: --orthostatics --neg --CHADS ~3, A/C indicated, but will eval for fall risk --resum Amiodarone home meds # bradycardia - EKG: kory - lowered home dose metoprolol # UTI - Pt has + U/A > UA +LE, WBC 16, bact 4.5 - abx regimen: IV Rocephin # HTN --currently normotensive - hold home meds for now # FEN - replete PRN - Na/ cholesterol controlled diet # PPx - DVT prophylaxis - continue home Xarelto 20D #Dispo- admit to med-surg, full code Visit type - Emergency Visit Emergency Visit: No - New Patient This patient is new to me today: No - Critical Care Critical Care patient: No ATTENDING PHYSICIAN STATEMENT I saw and evaluated the patient. I reviewed the resident's note and discussed the case with the resident. I agree with the resident's findings and plan as documented. SUBJECTIVE: OBJECTIVE: ASSESSMENT AND PLAN:
[2019-01-27] MEDS ORDERED: ATORVASTATIN CA 10 MG TABLET (FP) PO SCH (22:00)
[2019-01-28] MEDS: ACETAMINOPHEN 325 MG TABLET (FP) PO PRN (05:52)
--- NOTE | 2019-01-28 08:38 | PN ---
Progress Note (short form) - Note Progress Note: Neurology CHIEF COMPLAINT: Fall PCP: Dr. Mcneill HISTORY OF PRESENT ILLNESS: 73 y/o f w/ pmhx of HTN, HLD, Afib (on xarelto and metoprolol), and severe spinal stenosis (lumbar and cervical) presenting to ED compaining of fall tthe afternoon of admission. Pt reports she was cleaning the kitchen, bend over to moss picker the floor mat and then upon returning upright, she felt like she lost her balance. She tried to grab the kitchen bar cart which was on wheels. It rolled out from under her causing her to fall on the right side of her arm and hit her head on the R part of the forehead. Pt denies losing counscioussnes but she did feel dizzy after the fall. Pt reports a total of 3 falls including this episode, within the past year. In July the pt was seen here in the ED for a fall that resulted in her hitting her head, and getting echymosis around her L eye. Pt denies ROCKWELL, fever, chills, N/V/D, CP, SOB, urinary or bowel incontinence, dysuria, or polyuria. Pt ECHO in 2017 showed an EF of 60%. Pt does have a chronic neck, back and leg pain and numbness and tingling on her LE. CT head completed and without any acute changes. 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 She does use a alker at home and reports prior fall was approximately 1.5 months ago. May benefit from physical therapy as well as possibly short- term rehabilitation. MRI brain ordered to evaluate for acute CVA, not yet completed though patient wwithout significant deficits. If unable to be completed, then can repeat CT head to confirm no interval development of infarct. Active Medications Acetaminophen (Tylenol -) 650 mg PO Q6H PRN PRN Reason: HEADACHE Last Admin: 01/28/19 05:52 Dose: 650 mg Amiodarone HCl (Cordarone -) 200 mg PO DAILY [facility] Last Admin: 01/27/19 17:14 Dose: 200 mg Atorvastatin Calcium (Lipitor -) 10 mg PO HS [facility] Last Admin: 01/27/19 21:04 Dose: 10 mg Citalopram Hydrobromide (Celexa -) 10 mg PO DAILY [facility] Famotidine (Pepcid -) 40 mg PO DAILY [facility] Gabapentin (Neurontin -) 600 mg PO DAILY [facility] Ceftriaxone Sodium 1 gm/ (Dextrose) 50 mls @ 100 mls/hr IVPB DAILY [facility]; Protocol Last Admin: 01/27/19 09:01 Dose: 100 mls/hr Metoprolol Succinate (Toprol Xl -) 75 mg PO DAILY [facility] Last Admin: 01/27/19 09:01 Dose: 75 mg Rivaroxaban (Xarelto) 20 mg PO DAILY@1800 [facility] Last Admin: 01/27/19 17:00 Dose: 20 mg Valsartan (Diovan -) 80 mg PO DAILY [facility] PHYSICAL EXAMINATION Vital Signs Period Temp Pulse Resp BP Sys/Robbins Pulse Ox Last 24 Hr 98.0 F-98.7 F 50-63 20-20 122-151/46-78 98-98 GENERAL: Awake, alert, and fully oriented, in no acute distress. NIHSS 0. Orthostatics negative (supine 127/55 (53), sitting 130/55 (58), standing 135/62 (54)). HEAD: Normal with no signs of trauma. EYES: Pupils equal, round and reactive to light, extraocular movements intact, sclera anicteric, conjunctiva clear. No lid lag. L corneal transplant with sutures intact. EARS, NOSE, THROAT: Ears normal, nares patent, oropharynx clear without exudates. Moist mucous membranes. NECK: Normal range of motion, supple without lymphadenopathy, JVD, or masses. LUNGS: Breath sounds equal, clear to auscultation bilaterally. No wheezes, and no crackles. No accessory muscle use. HEART: Regular rhythm, bradycardic, normal S1 and S2 without murmur. ABDOMEN: Soft, nontender, not distended, normoactive bowel sounds, no guarding, no rebound, no masses. No hepatomegaly or splenomegaly. MUSCULOSKELETAL: Normal range of motion at all joints. No bony deformities or tenderness. No CVA tenderness. UPPER EXTREMITIES: 2+ pulses, warm, well-perfused. No cyanosis. No clubbing. No peripheral edema. LOWER EXTREMITIES: 2+ pulses, warm, well-perfused. No calf tenderness. Trace peripheral edema bilaterally. NEUROLOGICAL: Cranial nerves II-XII intact. Normal speech. PSYCHIATRIC: Cooperative. Good eye contact. Appropriate mood and affect. SKIN: Warm, dry, normal turgor, no rashes or lesions noted, normal capillary refill. CBCD WBC 5.7 K/mm3 (4.0-10.0) 01/27/19 06:55 RBC 3.33 M/mm3 (3.60-5.2) L 01/27/19 06:55 Hgb 10.7 GM/dL (10.7-15.3) 01/27/19 06:55 Hct 31.4 % (32.4-45.2) L 01/27/19 06:55 MCV 94.5 fl (80-96) 01/27/19 06:55 MCHC 34.1 g/dl (32.0-36.0) 01/27/19 06:55 RDW 13.9 % (11.6-15.6) 01/27/19 06:55 Plt Count 242 K/MM3 (134-434) 01/27/19 06:55 MPV 6.9 fl (7.5-11.1) L 01/27/19 06:55 CMP Sodium 138 mmol/L (136-145) 01/27/19 06:55 Potassium 4.1 mmol/L (3.5-5.1) 01/27/19 06:55 Chloride 108 mmol/L (98-107) H 01/27/19 06:55 Carbon Dioxide 25 mmol/L (21-32) 01/27/19 06:55 Anion Gap 5 MMOL/L (8-16) L 01/27/19 06:55 BUN 15.9 mg/dL (7-18) 01/27/19 06:55 Creatinine 1.0 mg/dL (0.55-1.3) 01/27/19 06:55 Random Glucose 81 mg/dL (74-106) 01/27/19 06:55 Calcium 8.4 mg/dL (8.5-10.1) L 01/27/19 06:55 Total Bilirubin 0.4 mg/dL (0.2-1) 01/27/19 06:55 AST 21 U/L (15-37) 01/27/19 06:55 ALT 19 U/L (13-61) 01/27/19 06:55 Alkaline Phosphatase 65 U/L (45-117) 01/27/19 06:55 Total Protein 6.1 g/dl (6.4-8.2) L 01/27/19 06:55 Albumin 2.8 g/dl (3.4-5.0) L 01/27/19 06:55 CARDIAC ENZYMES Creatine Kinase 140 U/L (26-192) 01/26/19 16:45 Troponin I < 0.02 ng/ml (0.00-0.05) 01/26/19 16:45 73 y/o f w/ pmhx of HTN, HLD, Afib (on xarelto and metoprolol), and severe spinal stenosis (lumbar and cervical) presenting to ED compaining of fall tthe afternoon of admission. Pt reports she was cleaning the kitchen, bend over to moss picker the floor mat and then upon returning upright, she felt like she lost her balance. She tried to grab the kitchen bar cart which was on wheels. It rolled out from under her causing her to fall on the right side of her arm and hit her head on the R part of the forehead. Pt denies losing counscioussnes but she did feel dizzy after the fall. Pt reports a total of 3 falls including this episode, within the past year. In July the pt was seen here in the ED for a fall that resulted in her hitting her head, and getting echymosis around her L eye. Pt denies ROCKWELL, fever, chills, N/V/D, CP, SOB, urinary or bowel incontinence, dysuria, or polyuria. Pt ECHO in 2017 showed an EF of 60%. Pt does have a chronic neck, back and leg pain and numbness and tingling on her LE. CT head completed and without any acute changes. 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 She does use a alker at home and reports prior fall was approximately 1.5 months ago. May benefit from physical therapy as well as possibly short- term rehabilitation. MRI brain ordered to evaluate for acute CVA, not yet completed though patient wwithout significant deficits. If unable to be completed, then can repeat CT head to confirm no interval development of infarct. Maintain adequate hydration, fall precautions recommended. UA also positive, treat underlying infection. Monitor blood ppressure, maintain normotensive range. Remains on anticoagulation for atrial fibrillation, may need to reevaluate in the future if patient with recurrent falls.
[2019-01-28] MEDS ORDERED: PT OWN MED DRAWER 7, Y5N ONE (09:05)
[2019-01-28] MEDS ORDERED: cefTRIAXone SODIUM 1 GM VIAL ONE (09:06)
[2019-01-28] MEDS ORDERED: DEXTROSE 5%-WATER - 50 ML IVPB ONE (09:06)
[2019-01-28] MEDS: metoPROLOL SUCCINATE 25 MG TAB.SR.24H (FP) PO SCH (09:58)
[2019-01-28] MEDS: AMIODARONE HCL 200 MG TABLET (FP) PO SCH (09:58)
[2019-01-28] MEDS ORDERED: VALSARTAN 80 MG TABLET (UD) PO SCH (10:00)
[2019-01-28] MEDS ORDERED: GABAPENTIN 300 MG CAPSULE (FP) PO SCH (10:00)
[2019-01-28] MEDS ORDERED: CITALOPRAM HYDROBROMIDE 10 MG TABLET (FP) PO SCH (10:00)
[2019-01-28] MEDS ORDERED: FAMOTIDINE 20 MG TABLET PO SCH (10:00)
[2019-01-28] MEDS ORDERED: FUROSEMIDE 20 MG TABLET (FP) PO SCH (10:00)
[2019-01-28 10:22] VITALS: TEMP 97.5
[2019-01-28] MEDS: CEFTRIAXONE 1 GM in DEXTROSE 5%-WATER - 50 ML IVPB SCH (11:48)
--- NOTE | 2019-01-28 12:02 | PN ---
Teaching Attending Note Name of Resident: Tj Prasad ATTENDING PHYSICIAN STATEMENT I saw and evaluated the patient. I reviewed the resident's note and discussed the case with the resident. I agree with the resident's findings and plan as documented with exceptions below. SUBJECTIVE: Patient seen and examined. headache this AM, improved. No urinary symptoms, dizziness or concerns otherwise. Eager to go home. OBJECTIVE: Vital Signs Period Temp Pulse Resp BP Sys/Robbins Pulse Ox Last 24 Hr 97.5 F-98.7 F 53-63 20-20 122-151/46-78 98 Intake & Output 01/25/19 01/26/19 01/27/19 01/28/19 23:59 23:59 23:59 23:59 Intake Total 100 1250 500 Balance 100 1250 500 Weight 169 lb 9.6 oz General: sitting in bed in no acute distress Neck: soft, supple Chest: CTAB, no rales or wheezing Abdomen:Soft, NT, ND, pos bowel sounds Extremities: no edema Back: no spinal tenderness, SLR negative Home Medications Medication Instructions Recorded Amiodarone HCl 200 mg PO DAILY 08/07/17 Citalopram Hydrobromide [Celexa -] 10 mg PO DAILY 08/07/17 Furosemide [Lasix] 20 mg PO DAILY 08/07/17 Gabapentin [Neurontin] 600 mg PO DAILY 08/07/17 Pravastatin Sodium 10 mg PO DAILY 08/07/17 Rivaroxaban [Xarelto -] 20 mg PO DAILY 08/07/17 Metoprolol Succinate 100 mg PO DAILY 01/26/19 Famotidine [Pepcid -] 40 mg PO DAILY 01/27/19 Telmisartan 20 mg PO DAILY 01/27/19 Active Medications Acetaminophen (Tylenol -) 650 mg PO Q6H PRN PRN Reason: HEADACHE Last Admin: 01/28/19 05:52 Dose: 650 mg Amiodarone HCl (Cordarone -) 200 mg PO DAILY [facility] Last Admin: 01/28/19 09:58 Dose: 200 mg Atorvastatin Calcium (Lipitor -) 10 mg PO HS [facility] Last Admin: 01/27/19 21:04 Dose: 10 mg Citalopram Hydrobromide (Celexa -) 10 mg PO DAILY [facility] Last Admin: 01/28/19 09:57 Dose: 10 mg Famotidine (Pepcid -) 40 mg PO DAILY [facility] Last Admin: 01/28/19 09:57 Dose: 40 mg Gabapentin (Neurontin -) 600 mg PO DAILY [facility] Last Admin: 01/28/19 09:58 Dose: Not Given Metoprolol Succinate (Toprol Xl -) 75 mg PO DAILY [facility] Last Admin: 01/28/19 09:58 Dose: Not Given Rivaroxaban (Xarelto) 20 mg PO DAILY@1800 [facility] Last Admin: 01/27/19 17:00 Dose: 20 mg Valsartan (Diovan -) 80 mg PO DAILY [facility] Last Admin: 01/28/19 09:57 Dose: 80 mg Microbiology 01/26/19 18:20 Urine - Urine Clean Catch Urine Culture - Final Normal Urogenital Shani ASSESSMENT AND PLAN: 73 yof with PMHx of Afib (on Xarelto), HTN, HLD, Left corneal transplant, Bilateral cataract surgery, Left kidney stone (s/p stent), E.coli ESBL UTI (2016), Diverticulosis, Right TKR after torn R meniscus (03/2017) and Back surgery 09/2015 for lumbar cervical spine sx admitted with Falls -Mechanical fall -H/o recurrent falls -?Lower uncomplicated UTI -Sinus bradycardia -Atrial fibrillation on xarelto -Spinal stenosis (Lumbar/cervical) -h/o ESBL UTI -HTN -HLD -Left Corneal transplant/Bilateral cataract surgery -Left kidney stone s/p PCI Plan: Fall precautions, PT eval noted Patient confirms mechanical fall, no prodrome, dizziness or concerns. Sinus bradycardia on EKG , cardiology input noted, Follow up Holter. AC per cardiology/PCP. Metoprolol decreased, monitor. dc IVF. resume lasix in 24-48 hours. 2D echo/carotid duplex noted. Neurology input noted Follow up MRI brain Urine cx noted, d/c ceftriaxone. ceftriaxone, follow up urine cultures. Reconcile and resume home meds. Dispo plan for home with services in 24 hours pending above w/u if no new events. Discussed with patient in detail, all questions answered.
--- NOTE | 2019-01-28 12:10 | PN ---
Progress Note (short form) - Note Progress Note: s: no chest pain, palps, dizziness, dyspnea Current Medications Acetaminophen (Tylenol -) 650 mg PO Q6H PRN PRN Reason: HEADACHE Last Admin: 01/28/19 05:52 Dose: 650 mg Amiodarone HCl (Cordarone -) 200 mg PO DAILY [facility] Last Admin: 01/28/19 09:58 Dose: 200 mg Atorvastatin Calcium (Lipitor -) 10 mg PO HS [facility] Last Admin: 01/27/19 21:04 Dose: 10 mg Citalopram Hydrobromide (Celexa -) 10 mg PO DAILY [facility] Last Admin: 01/28/19 09:57 Dose: 10 mg Famotidine (Pepcid -) 40 mg PO DAILY [facility] Last Admin: 01/28/19 09:57 Dose: 40 mg Gabapentin (Neurontin -) 600 mg PO DAILY [facility] Last Admin: 01/28/19 09:58 Dose: Not Given Metoprolol Succinate (Toprol Xl -) 75 mg PO DAILY [facility] Last Admin: 01/28/19 09:58 Dose: Not Given Rivaroxaban (Xarelto) 20 mg PO DAILY@1800 [facility] Last Admin: 01/27/19 17:00 Dose: 20 mg Valsartan (Diovan -) 80 mg PO DAILY [facility] Last Admin: 01/28/19 09:57 Dose: 80 mg Vital Signs Period Temp Pulse Resp BP Sys/Robbins Pulse Ox Last 24 Hr 97.5 F-98.7 F 53-63 20-20 122-151/46-78 98 Constitutional: Yes: No Distress Respiratory: Yes: CTA Bilaterally Gastrointestinal: Yes: Soft Cardiovascular: Yes: Regular Rate and Rhythm JVD: No Carotid Bruit: No Heart Sounds: Yes: S1, S2 Edema: No Peripheral Pulses WNL: Yes Neurological: Yes: Alert, Oriented no jaundice, diaphoresis not agitated Sinus Juan Antonio 57bpm. Echo: Report Reviewed (Normal LVEF. AVS) Assessment/Plan IMP: Paroxysmal atrial fibrillation, with [id number] score = 3 Hypertension Spinal stenosis Recurrent falls REC: 1. Holter monitor pending 2. Orthostatics negative 3. AC is indicated ([id number] =3), however frequent falls. Per Dr Balbuena, he d/w daughter use of rolling walker consistently with continued AC vs aspirin alone vs Watchman procedure (declined in the past), she will discuss with patient. 4. cont amiodarone
[2019-01-28 14:45] VITALS: BP 137/52; PULSE 54
--- NOTE | 2019-01-28 15:24 | DS ---
Physical Exam: SUBJECTIVE: Patient seen and examined OBJECTIVE: Vital Signs Period Temp Pulse Resp BP Sys/Robbins Pulse Ox Last 24 Hr 97.5 F-98.7 F 53-63 20-20 122-151/52-78 98-99 PHYSICAL EXAM GENERAL: The patient is awake, alert, and fully oriented, in no acute distress. HEAD: NC/AT, no signs of scalp hematoma EYES: sclera anicteric, conjunctiva clear. No ptosis. ENT: Ears normal, nares patent, moist mucous membranes. Nasal septum midline NECK: Trachea midline, full range of motion, supple. LUNGS: Breath sounds equal, clear to auscultation bilaterally, no wheezes, no crackles, no accessory muscle use. HEART: Regular rate and rhythm, S1, S2 without murmur, rub or gallop. ABDOMEN: Soft, nontender, nondistended, no guarding, no rebound. EXTREMITIES: 2+ pulses, warm, well-perfused, no edema. NEUROLOGICAL: Cranial nerves II through XII grossly intact. Normal speech, gait not observed. Standing upright w/o ataxia. Normal finger to nose-exam. PSYCH: Normal mood, normal affect. SKIN: Warm, dry, normal turgor, no rashes or lesions noted LABS HOSPITAL COURSE: 73 y/o f w/ pmhx of HTN, HLD, Afib(on xarelto and metoprolol), and severe spinal stenosis (lumbar and cervical) presenting to ED compaining of fall after losing balance. 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 Rec outpt NSX. MRI brain showing no acute path, chronic periventricular vascular disease. Carotid Doppler(01/27/19): neg for signif stenosis. Echo(01/27/19): LVEF 65-70% , borderline dilated LA, RVSP 32mmHg. Neuro rec PT. PT has pt walking 150ft w/ RW, unsteady w/o RW, steady with RW. Cardio(Francescone) rec Holter and had discussion to dc xarelto dt recurrent falls(x3 in ~1yr). Had UA w/ +LE, started on empiric ceftriaxone but then decided once UCX grew urogenital pavel. Will be decided as outpatient. Patient stable for dc home w/ rec to cw RW. Xarelto to be continued, and discussed as outpatient. Date of Admission:01/26/19 Date of Discharge: 01/28/19 Minutes to complete discharge: 20 Discharge Summary Problems reviewed: Yes Reason For Visit: BALANCE PROBLEMS FALL Current Active Problems Fall (Acute) Loss of balance (Acute) Condition: Stable - Instructions Diet, Activity, Other Instructions: You were evaluated for falling at home, hitting your head and right-side of the body. CT imaging did not reveal any signs of head bleed. Brain MRI did not show any active disease. Your urinalysis suggested a urinary tract infection but your urine cultures only grew normal bacteria. Your antibiotics were stopped. The communicable disease specialist(Dr Balbuena) had a Holter monitor issued. The readings will be discussed as outpatient. The decision to stop your Xarelto will be finalized as outpatient at his office. You were determined to be stable for discharge home. Medications: - medication CHANGES: -- your metoprolol succinate[TOPROL XL] 100mg daily will be now metoprolol succinate[TOPROL XL] 75mg daily - continue your other regular home medications - your rivaroxaban[XARELTO] should be continued at home. Please follow-up with the physicians below within the next 1-2weeks: - [employer] Operator(Dr Balbuena) to discuss the Holter readings, whether or not to stop xarelto, whether or not the metoprolol dose needs to be adjusted - PCP to discuss your slightly low hemoglobin, and low albumin - Neurosurgery(your own neurosurgeon or Dr Jones): to discuss the chronic misalignment of the spine on your neck Additional Instructions: - continue using your walker throughout the house as it keeps your steady and helps prevent falls Please return to the Emergency Department or seek other medical care if you experience: - fall, striking your head. You are at increased risk of getting a brain bleed - loss of consciousness, weakness, change in your walking pattern - chest pain, shortness of breath, palpitations Referrals: Gunnar Mcneill MD [Primary Care Provider] - 1 Week Sourav Balbuena MD [Staff Physician] - 1 Week Isaiah Jones MD [Staff Physician] - Disposition: VNS/HOME HEALTH CARE - Home Medications Comprehensive Discharge Medication List: Ambulatory Orders Amiodarone HCl 200 mg PO DAILY 08/07/17 Citalopram Hydrobromide [Celexa -] 10 mg PO DAILY 08/07/17 Furosemide [Lasix] 20 mg PO DAILY 08/07/17 Gabapentin [Neurontin] 600 mg PO DAILY 08/07/17 Pravastatin Sodium 10 mg PO DAILY 08/07/17 Rivaroxaban [Xarelto -] 20 mg PO DAILY 08/07/17 Famotidine [Pepcid -] 40 mg PO DAILY 01/27/19 Telmisartan 20 mg PO DAILY 01/27/19 Metoprolol Succinate [Toprol XL -] 75 mg PO DAILY #42 tab.sr.24h 01/28/19 This patient is new to me today: No Emergency Visit: No Critical Care patient: No - Discharge Referral Referred to [facility] No ATTENDING PHYSICIAN STATEMENT I saw and evaluated the patient. I reviewed the resident's note and discussed the case with the resident. I agree with the resident's findings and plan as documented. SUBJECTIVE: OBJECTIVE: ASSESSMENT AND PLAN:
--- NOTE | 2019-01-28 15:27 | HOL ---
Hook-up date: 2019-01-27 15:48:00 Duration: 18:54:00 Test Indications: PAF, FALLS. R/O TACHY-ARNOLDO Medications: 20266 QRS complexes * Ventricular ectopics which represent % of total QRS comp. 23 Supraventricular ectopics which represent <1 % of total QRS comp. * Paced QRS complexs which represent % of total QRS comp. * % of Time Classified as Noise VENTRICULAR ECTOPY * Isolated * Bigeminal Cycles * Couplets * Runs * Beats in Runs * Beats LONGEST at * BPM at :: -- * Beats FASTEST at * BPM at :: -- SUPRAVENTRICULAR ECTOPY 23 Isolated 0 Couplets 0 Runs 0 Beats in Runs * Beats LONGEST at * BPM at :: -- * Beats FASTEST at * BPM at :: -- HEART RATES 47 MIN at 08:07:17 2019-01-28 58 AVG 77 MAX at 01:18:38 2019-01-28 LONGEST RR 1.432 secs at 07:22:55 2019-01-28 SCANNED BY: TRINIDAD HOLTER RAN FOR 18 HOURS AND 54 MINUTES DUE TO REMOVAL FOR MRI nsr 23 isolated apcs no evidence of PAF Confirmed by SIMÓN MANLEY, VIRGINIE ([id number]) on 01/28/2019 3:26:21 PM Referred By: Pricila MADRID Overread By: VIRGINIE GR MD
== END 2019-01-28 15:45 | disposition home health service (06) | DRG 92 ==
LOC: JER 14:20 → JERBED 15:50 → J7W 20:14
PROVIDERS: ADMIT Internal Medicine; ATTEND Hospitalist
DX: R29.6 Repeated falls (principal); E46 Unspecified protein-calorie malnutrition; N39.0 Urinary tract infection, site not specified; R27.0 Ataxia, unspecified; I48.0 Paroxysmal atrial fibrillation; I10 Essential (primary) hypertension; E78.5 Hyperlipidemia, unspecified; E88.09 Other disorders of plasma-protein metabolism, not elsewhere classified; K57.90 Diverticulosis of intestine, part unspecified, without perforation or abscess without bleeding; S00.12XA Contusion of left eyelid and periocular area, initial encounter; M50.221 Other cervical disc displacement at C4-C5 level; R00.1 Bradycardia, unspecified; M54.5 Low back pain; E66.9 Obesity, unspecified; Z68.33 Body mass index [BMI] 33.0-33.9, adult; M48.061 Spinal stenosis, lumbar region without neurogenic claudication; M48.02 Spinal stenosis, cervical region; N20.0 Calculus of kidney; F41.9 Anxiety disorder, unspecified; Z96.651 Presence of right artificial knee joint; W18.39XA Other fall on same level, initial encounter; Y92.89 Other specified places as the place of occurrence of the external cause
CPT/HCPCS: 36415; 70450-TC; 70551-TC; 71045-TC-FY; 72125-TC; 80053; 81003; 82550; 82607; 83735; 84100; 84443; 84484; 85025; 85610; 85730; 87086; 93005; 93010; 93225; 93226; 93306-TC; 93880-TC; 97116-GP; 97161-GP; 99284-25; J0131; J7030

== ENCOUNTER 2020-12-10 08:41 | Observation (INO) | payer OTHER, MEDICARE ==
[2020-12-10 10:30] LABS: ACTIVATED PTT 28.6 SECONDS (25.2-36.5)
[2020-12-10 10:33] LABS: ALBUMIN 3.3 g/dl (3.4-5.0); ALK PHOS 54 U/L (45-117); ANION GAP 10 MMOL/L (8-16); BILIRUBIN,TOTAL 0.8 mg/dl (0.2-1); CALCIUM 9.4 mg/dl (8.5-10); CHLORIDE 106 mmol/L (98-107); CO2 24 mmol/L (21-32); GLUCOSE,RANDOM 86 mg/dl (74-106); SGOT/AST 41 U/L (15-37); SGPT/ALT 31 U/L (13-61); SODIUM 140 mmol/L (136-145); TOT PROT 6.5 g/dl (6.4-8.2)
[2020-12-10 10:35] LABS: INR 1.29 (0.82-1.09); PROTHROMBIN TIME (PATIENT) 14.4 SEC (10.2-13.0)
[2020-12-10] MEDS ORDERED: LACTATED RINGERS SOLUTION 1000 ML INFUS.BAG IV ONE (11:37)
[2020-12-10 12:07] LABS: BASO % 0.8 % (0-2.0); EOS % 3.7 % (0-4.5); HEMATOCRIT 34.9 % (32.4-45.2); MCH 32.8 pg (25.7-33.7); MCHC 34.4 g/dl (32.0-36.0); MEAN CELL VOLUME 95.3 fl (80-96); MEAN PLT VOLUME 7.8 fl (7.5-11.1); MONO % 12.1 % (3.8-10.2); NEUT % 48.4 % (42.8-82.8); PLATELET COUNT 214 10^3/uL (134-434); RBC 3.66 M/mm3 (3.60-5.2); RDW 13.1 % (11.6-15.6); WHITE BLOOD COUNT 5.5 K/mm3 (4.0-10.0)
[2020-12-10] MEDS ORDERED: SODIUM CHLORIDE 1,000 ML IV SCH (14:15)
[2020-12-10 15:18] LABS: MAGNESIUM 2.2 mg/dL (1.8-2.4)
[2020-12-10 15:38] VITALS: BMI 31.1
[2020-12-10] MEDS: RIVAROXABAN 20 MG TABLET PO SCH (18:23)
[2020-12-10] MEDS: ACETAMINOPHEN 325 MG TABLET (FP) PO PRN (18:40)
[2020-12-10] MEDS: ATORVASTATIN CA 10 MG TABLET (FP) PO SCH (21:08)
[2020-12-10 21:22] LABS: EPITHELIAL CELLS FEW /hpf
[2020-12-10] MEDS ORDERED: MELATONIN 5 MG TABLETS PO PRN (23:40)
[2020-12-11] MEDS ORDERED: ONDANSETRON 4 MG/2 ML VIAL IVPUSH ONE (03:58)
[2020-12-11 08:44] LABS: ALBUMIN 2.9 g/dl (3.4-5.0); BILIRUBIN,TOTAL 0.6 mg/dl (0.2-1); CALCIUM 8.7 mg/dl (8.5-10); CREATININE 0.7 mg/dl (0.55-1.3); TOT PROT 5.6 g/dl (6.4-8.2)
[2020-12-11] MEDS: GABAPENTIN 300 MG CAPSULE PO SCH (09:27)
[2020-12-11] MEDS: AMIODARONE HCL 200 MG TABLET PO SCH (09:28)
[2020-12-11] MEDS: LOSARTAN POTASSIUM 25 MG TABLET PO SCH (09:28)
[2020-12-11] MEDS: ACETAMINOPHEN 325 MG TABLET (FP) PO PRN (09:29)
[2020-12-11] MEDS: CITALOPRAM HYDROBROMIDE 10 MG TABLET PO SCH (09:29)
[2020-12-11] MEDS: RIVAROXABAN 20 MG TABLET PO SCH (18:16)
[2020-12-11] MEDS: ATORVASTATIN CA 10 MG TABLET (FP) PO SCH (21:45)
[2020-12-12] MEDS ORDERED: FUROSEMIDE 20 MG TABLET (FP) PO SCH (10:00)
[2020-12-12] MEDS: LOSARTAN POTASSIUM 25 MG TABLET PO SCH (10:35)
[2020-12-12] MEDS: GABAPENTIN 300 MG CAPSULE PO SCH (10:35)
[2020-12-12] MEDS: CITALOPRAM HYDROBROMIDE 10 MG TABLET PO SCH (10:36)
[2020-12-12] MEDS: AMIODARONE HCL 200 MG TABLET PO SCH (10:36)
[2020-12-12 12:16] VITALS: BP 148/50; PULSE 46; TEMP 97.7
[2020-12-14 07:08] LABS: THYROID STIM IMMUNOGLOBULIN 0.13 IU/L (0.00-0.55)
== END 2020-12-12 15:09 | disposition home or self-care (01) ==
LOC: FER 08:41 → FM/S 13:03 → INTOOBSV 13:03
PROVIDERS: ADMIT Internal Medicine; ATTEND Nurse Practitioner Acute Care
PROC: 0RSXXZZ Reposition Left Finger Phalangeal Joint, External Approach (ICD-10-PCS; principal; 2020-12-10)
PROC: 3E033GC Introduction of Other Therapeutic Substance into Peripheral Vein, Percutaneous Approach (ICD-10-PCS; 2020-12-10)
PROC: 3E0337Z Introduction of Electrolytic and Water Balance Substance into Peripheral Vein, Percutaneous Approach (ICD-10-PCS; 2020-12-10)
DX: S63.285A Dislocation of proximal interphalangeal joint of left ring finger, initial encounter (principal); R00.1 Bradycardia, unspecified; E66.9 Obesity, unspecified; Z68.31 Body mass index [BMI] 31.0-31.9, adult; W00.0XXA Fall on same level due to ice and snow, initial encounter; Y93.89 Activity, other specified; Y92.000 Kitchen of unspecified non-institutional (private) residence as the place of occurrence of the external cause; I10 Essential (primary) hypertension; E78.5 Hyperlipidemia, unspecified; I48.91 Unspecified atrial fibrillation; Z79.01 Long term (current) use of anticoagulants; M48.00 Spinal stenosis, site unspecified; F32.9 Major depressive disorder, single episode, unspecified; Z87.440 Personal history of urinary (tract) infections; Z91.81 History of falling; Z96.651 Presence of right artificial knee joint; Z87.891 Personal history of nicotine dependence; I47.1 Supraventricular tachycardia; F41.8 Other specified anxiety disorders; G89.29 Other chronic pain; M54.5 Low back pain; Z29.9 Encounter for prophylactic measures, unspecified
CPT/HCPCS: 26770; 36415; 70450-TC; 71045-TC-FY; 72125-TC; 73030-TC-RT-FY; 73130-TC-LT-FY; 73523-TC-FY; 73552-TC-LT-FY; 80053; 81003; 81015; 82306; 82550; 82607; 83735; 84439; 84443; 84445; 84481; 84484; 85025; 85610; 85730; 86376; 86850; 86900; 86901; 87086; 93005; 96374; 97116-GP; 97162-GP; 99285-25; C9803; G0378; U0003; U0005

== ENCOUNTER 2021-08-06 12:35 | Emergency (ER) | payer OTHER, MEDICARE ==
[2021-08-06 12:42] VITALS: BP 117/53; PULSE 68; TEMP 97.8; BMI 26.4
[2021-08-06] MEDS ORDERED: diphenhydrAMINE HCL 25 MG CAPSULE (FP) PO ONE ×2 (12:42→12:46)
[2021-08-06] MEDS ORDERED: predniSONE 20 MG TABLET (UD) PO ONE (12:42)
[2021-08-06] MEDS ORDERED: predniSONE 20 MG TABLET (UD) ONE (12:47)
== END 2021-08-06 13:14 | disposition home or self-care (01) ==
LOC: FER 12:35
DX: L25.9 Unspecified contact dermatitis, unspecified cause (principal)
CPT/HCPCS: 99283-25

== ENCOUNTER 2022-03-02 16:07 | Emergency (ER) | payer OTHER, MEDICARE ==
[2022-03-02 16:16] VITALS: BP 144/50; PULSE 62; RESP 16; TEMP 98.8; BMI 28.1
[2022-03-02 17:11] LABS: HEMATOCRIT 34.5 % (32.4-45.2); HEMOGLOBIN 11.9 G/dL (10.7-15.3); MCH 33.5 pg (25.7-33.7); MCHC 34.4 g/dl (32.0-36.0); MEAN CELL VOLUME 97.5 fl (80-96); MEAN PLT VOLUME 6.9 fl (7.5-11.1); PLATELET COUNT 220.8 10^3/uL (134-434); RBC 3.54 10^6/uL (3.60-5.2); RDW 13.3 % (11.6-15.6); WHITE BLOOD COUNT 8.6 10^3/uL (4.0-10.8)
[2022-03-02 17:28] LABS: ALBUMIN 3.5 g/dl (3.4-5.0); BILIRUBIN,TOTAL 0.5 mg/dl (0.2-1); CALCIUM 8.9 mg/dl (8.5-10); CREATININE 0.9 mg/dl (0.55-1.3); TOT PROT 6.7 g/dl (6.4-8.2)
[2022-03-02 17:54] LABS: PLATELET ESTIMATE ADEQUATE
[2022-03-02] MEDS ORDERED: ACETAMINOPHEN 1000 MG/100 ML BAG IVPB ONE (18:52)
[2022-03-02] MEDS ORDERED: ACETAMINOPHEN INJECTION 100 ML IVPB ONE (18:55)
== END 2022-03-02 19:15 | disposition home or self-care (01) ==
LOC: FER 16:07
PROC: 3E0333Z Introduction of Anti-inflammatory into Peripheral Vein, Percutaneous Approach (ICD-10-PCS; principal; 2022-03-02)
DX: R53.81 Other malaise (principal)
CPT/HCPCS: 36415; 71045-TC-FY; 80053; 81003; 81015; 84484; 85027; 93005; 99285-25

== ENCOUNTER 2023-06-10 20:38 | Emergency (ER) | payer OTHER, MEDICARE ==
[2023-06-10 20:51] VITALS: BP 121/49; PULSE 84; RESP 18; TEMP 97.9; BMI 25.9
== END 2023-06-10 21:20 | disposition home or self-care (01) ==
LOC: FER 20:38
DX: Z04.3 Encounter for examination and observation following other accident (principal); W07.XXXA Fall from chair, initial encounter; W18.2XXA Fall in (into) shower or empty bathtub, initial encounter
CPT/HCPCS: 99282-25